=== PATIENT | female | born 1960 | race Caucasian/White ===

== ENCOUNTER 2018-09-29 12:20 | Emergency (ER) | payer SELFPAY ==
[2018-09-29 12:21] VITALS: BP 173/96; PULSE 70; RESP 17; TEMP 36.6; O2SAT 100; BMI 24.3
--- NOTE | 2018-09-29 12:31 | EKG12_ITS ---
Test Reason : CP Blood Pressure : / mmHG Vent. Rate : 072 BPM Atrial Rate : 072 BPM P-R Int : 130 ms QRS Dur : 092 ms QT Int : 412 ms P-R-T Axes : 027 009 -15 degrees QTc Int : 451 ms Normal sinus rhythm Nonspecific ST and T wave abnormality Abnormal ECG Confirmed by VEE DIOP, YOLANDA ([id number]), senior technical editor VIVI DILLON ([id number] on 10/03/2018 1:20:55 PM Referred By: TAYLOR Confirmed By:YOLANDA BAXTER MD
--- NOTE | 2018-09-29 12:31 | RAD_ITS ---
STUDY: X-RAY CHEST REASON FOR EXAM: Female, 58 years old. Chest pain. TECHNIQUE: Single AP portable view of the chest. COMPARISON: None. FINDINGS: EKG electrodes are seen. The lungs are clear and expanded. There is no demonstrated pleural abnormality. Normal size heart. Normal mediastinum and luz. Normal visualized pulmonary arteries. Normal visualized aortic arch and descending thoracic aorta. Normal visualized thoracic spine. Normal visualized ribs, clavicles, and shoulders. There is no demonstrated abnormality of the visualized soft tissue structures of the upper abdomen. RAD/Chest 1 View (Portable) IMPRESSION: Normal x-ray examination of the chest. Electronically Signed: Dylon Cooper MD at 13:16 EST Tel [phone], Service support ,
[2018-09-29 12:35] VITALS: O2SAT 100
[2018-09-29 12:47] LABS: Absolute Lymphocyte Count 2.58 X10^3/ul (0.83-4.51); Absolute Neutrophil Count 2.3 X10^3/uL (2.0-7.7); Basophil# 0.03 X10^3/uL; Basophil% 0.5 % (0-1); Eosinophil# 0.42 X10^3/uL; Hematocrit 39.4 % (37-47); Hemoglobin 12.9 g/dl (12.0-15.0); Lymphocyte # 2.58 X10^3/ul (4.0); Lymphocyte % 42.9 % (19-41); Mean Corp Hgb Conc 32.7 g/gl (32-36); Mean Corpuscular Hgb 29.7 pg (27.0-32.0); Mean Corpuscular Volume 90.6 fL (81-99); Mean Platelet Vol. 10.1 fl (6.2-12.0); Monocyte# 0.65 X10^3/uL; Monocyte% 10.8 % (0-10); Neutrophil # 2.33 X10^3/uL (2.7-7.7); Neutrophil % 38.6 % (47-70); POSITIVE COUNT NO; POSITIVE DIFFERENTIAL NO; POSITIVE MORPHOLOGY NO; Platelet Count 200 K/mm3 (150-450); RBC Distribution Width CV 14.4 % (11.6-14.6); RBC Distribution Width SD 47.1 fl (35.1-43.9); Red Blood Count 4.35 M/mm3 (4.2-5.4)
[2018-09-29 13:04] LABS: Anion Gap 6 (5-15); BUN 13 mg/dL (7-18); BUN/Creat Ratio 14.5 RATIO (10-20); Calcium,Total 9.4 mg/dL (8.5-10.1); Chloride 106 mmol/L (98-107); EST Glomerular Filtration Rate 69 mL/min (>60); Est Glom Filt Rate - Afr Amer 83 mL/min (>60); Estimated Creatinine Clearance 72.07 ml/min; Glucose 101 mg/dL (74-106); Potassium 3.5 mmol/L (3.5-5.1); Sodium Level 141 mmol/L (136-145)
[2018-09-29 13:24] VITALS: BP 134/91; PULSE 72; RESP 14; O2SAT 92
--- NOTE | 2018-09-29 13:56 | ED.VISSUMM ---
- ER Visit Summary Date of Service: 09/29/18 Chief Complaint: Chest pain, palpitations History of Present Illness: The patient is a 58 F who presents with the above symptoms. It started earlier today but she has been having episodes over the past couple of days. It is an aching in the left chest. Nothing makes it better or worse. She has associated lightheadedness and palpitations with this. The palpitations have been ongoing for 3 weeks. She has had no stress test in the past. She saw a nurse practitioner who ordered an echocardiogram and a Holter monitor as an outpatient. She has not done this yet. Does have a history of mitral valve prolapse Physical Examination: Vital signs reviewed. HEENT exam unremarkable. Heart is regular rate and rhythm without murmurs. Lungs are clear to auscultation. Abdomen is soft and nontender. Extremities reveal no edema. Peripheral pulses are equal. Skin exam normal. Neurologic exam normal. Test Results: EKG is sinus rhythm with nonspecific ST and T wave changes. Unchanged from an EKG that was done on September 24. Laboratory studies are normal Emergency Department Course and Treatment: Patient was given aspirin. Her JOHNNIE score is 0. She states that her pain is better. Her EKG is unchanged over the past 5 days. She does have some nonspecific ST and T wave changes. The last EKG before this week was in 2007. I feel the patient likely will need a stress test but I feel it can be done as an outpatient. She does not want to stay in the hospital. She will call her PCP today for follow-up. Treatment Plan: [] Disposition: Discharge Impression: Chest pain, palpitations This note was generated with [employer] dictation software. It may contain incorrect words, spelling, and punctuation that were not noted in review of the chart prior to signing ED Disposition - Plan for ED Patient: Chief Complaint: Chest Pain Referrals: Prasad Briceño III, MD [Primary Care Provider] -
--- NOTE | 2018-09-29 13:58 | ED.DEP ---
ED Disposition - Plan for ED Patient: Disposition: Home or Assisted Living Chief Complaint: Chest Pain Instructions: ED Chest Pain NonCardiac Referrals: Prasad Briceño III, MD [Primary Care Provider] -
[2018-09-29 14:16] VITALS: BP 149/91; PULSE 75; RESP 16; O2SAT 98
--- OUTSIDE RECORDS SUMMARY | 2019-01-01 03:42 | XMS RPT_ITS ---
:1960 Author Organization [facility] Care Team Providers Name Role Phone FIORELLA AGUILAR (BUSINESS LIAISON OFFICER) Referring Unavailable FIORELLA AGUILAR (BUSINESS LIAISON OFFICER) Referring Unavailable FIORELLA AGUILAR (BUSINESS LIAISON OFFICER) Referring Unavailable PRECIOUS ARAGON (DRAFT ROLLER PICKER) Referring Unavailable PRECIOUS ARAGON (DRAFT ROLLER PICKER) Attending Unavailable FIORELLA AGUILAR (BUSINESS LIAISON OFFICER) Attending Unavailable CEBUL III, PRASAD A Referring Unavailable PRECIOUS ARAGON (DRAFT ROLLER PICKER) Attending Unavailable PRECIOUS ARAGON (DRAFT ROLLER PICKER) Referring Unavailable Cebul III, Prasad Primary Care Unavailable Chris Preston Attending Unavailable PROBLEMS PROBLEMS DATE TYPE CONDITION / CODE ATTENDING STATUS SOURCE 10/03/2018 Active Palpitations / NA Active [facility] R00.2(ICD-10) Main [place] Repository 09/24/2018 Active Unknown / CORNIELLO, Active [facility] UNK(Unknown) FIORELLA Sanz (BUSINESS LIAISON OFFICER) [facility] [place] Repository 05/13/2018 Active Other specified NA Active [facility] disorders of bone, [facility] [place] shoulder / Repository M89.8X1(ICD-10) 03/03/2018 Active Encounter for NA Active [facility] screening for [facility] [place] malignant neoplasm Repository of colon / Z12.11(ICD-10) 03/03/2018 Active Effusion, right NA Active [facility] ankle / [facility] [place] M25.471(ICD-10) Repository 03/03/2018 Active Effusion, left ankle NA Active [facility] / M25.472(ICD-10) [facility] [place] Repository 03/03/2018 Active Encounter for NA Active [facility] screening for Main [place] cardiovascular Repository disorders / Z13.6(ICD-10) PROCEDURES PROCEDURES No Procedure Records FoundRESULTS RESULTS CNCO Observed: 11/04/2018 Status: COMPLETED Source: [place] 12:00 AM [facility] [place] REPOSITORY Letter Text [facility] Prasad Ballesteros III, M.D,F.A.A.Segun.P [address] [place], [place] [address] Rafat Delaney [address] [place] [address] 11/04/2018 To whom it may concern: I am responding to queries about 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 She was diagnosed with mitral valve prolapse prior to 2002, when my practice obtained an electronic medical record. We do not have access to the records prior to 2002, but I can assert that Rafat has not been seen for any office visit since then for mitral valve prolapse. She has not had any symptoms of this condition. She has never received any treatment for mitral valve prolapse, nor is she ever likely to need treatment. An echocardiogram obtained 10/03/18 showed trivial mitral valve prolapse with normal left ventricular function. I consider the condition to be benign and stable. If I may be of any additional assistance please let me know. Sincerely, Prasad Ballesteros III, M.D 12 LEAD ELECTROCARDIOGRAM Observed: 10/03/2018 Status: F Source: [place] 1:21 PM [facility] REPOSITORY [facility] Cardiovascular Services [address] [place], [place] [id number] 12 Lead EKG 09/29/18 1222 MR#: [id number] Acct: [id number] Name: RAFAT DELANEY Rep #: [id number] : 1960 58 From: David Nielsen MD Attending Dr: Status: DEP ER Ordering Dr: Chris Preston MD Date: 09/29/18 Location: ED Sex: F C Admitted: Test Reason : CP Blood Pressure : / mmHG Vent. Rate : 072 BPM Atrial Rate : 072 BPM P-R Int : 130 ms QRS Dur : 092 ms QT Int : 412 ms P-R-T Axes : 027 009 -15 degrees QTc Int : 451 ms Normal sinus rhythm Nonspecific ST and T wave abnormality Abnormal ECG Confirmed by VEE DIOP, DAVID ([id number]), film editor supervisor VIIV DILLON ([id number]) on 10/03/2018 1:20:55 PM Referred By: TAYLOR Confirmed By:DAVID NIELSEN MD 10/03/18 1321 Date David Nielsen MD CC: Prasad Briceño III, MD; Chris Preston MD Signed EMERGENCY DEPARTMENT Observed: 09/29/2018 Status: F Source: [place] SUMMARY 1:58 PM [facility] REPOSITORY [facility] Medical Records Department [address] [place] [address] Emergency Department Summary 09/29/18 1356 MR#: [id number] Acct: [id number] Name: RAFAT DELANEY Rep #: [id number] : 1960 58 From: Chris Preston MD PCP: Prasad Briceño III, MD Status: REG ER - ER Visit Summary Date of Service: 09/29/18 Chief Complaint: Chest pain, palpitations History of Present Illness: The patient is a 58 F who presents with the above symptoms. It started earlier today but she has been having episodes over the past couple of days. It is an aching in the left chest. Nothing makes it better or worse. She has associated lightheadedness and palpitations with this. The palpitations have been ongoing for 3 weeks. She has had no stress test in the past. She saw a nurse practitioner who ordered an echocardiogram and a Holter monitor as an outpatient. She has not done this yet. Does have a history of mitral valve prolapse Physical Examination: Vital signs reviewed. HEENT exam unremarkable. Heart is regular rate and rhythm without murmurs. Lungs are clear to auscultation. Abdomen is soft and nontender. Extremities reveal no edema. Peripheral pulses are equal. Skin exam normal. Neurologic exam normal. Test Results: EKG is sinus rhythm with nonspecific ST and T wave changes. Unchanged from an EKG that was done on September 24. Laboratory studies are normal Emergency Department Course and Treatment: Patient was given aspirin. Her JOHNNIE score is 0. She states that her pain is better. Her EKG is unchanged over the past 5 days. She does have some nonspecific ST and T wave changes. The last EKG before this week was in 2007. I feel the patient likely will need a stress test but I feel it can be done as an outpatient. She does not want to stay in the hospital. She will call her PCP today for follow-up. Treatment Plan: [] Disposition: Discharge Impression: Chest pain, palpitations This note was generated with [employer] dictation software. It may contain incorrect words, spelling, and punctuation that were not noted in review of the chart prior to signing ED Disposition - Plan for ED Patient: Chief Complaint: Chest Pain Referrals: Prasad Briceño III, MD [Primary Care Provider] - What to do if you have Problems For any increased pain, shortness of breath, bleeding, nausea or vomiting, chest pain, or any unexpected problems, contact your Primary Care Provider. Call [facility] ([phone]) or report to the closest Emergency Room. Call 911 if necessary. 09/29/18 1358 <Electronically signed by Chris Preston MD> Date Chris Preston MD Cosigner Signature (If Indicated): Date CC: Prasad Briceño III, MD DISCHARGE INSTRUCTION Observed: 09/29/2018 Status: F Source: [place] 1:58 PM [facility] REPOSITORY [facility] Medical Records Department [address] [place] [address] Discharge Instruction 09/29/18 1358 MR#: [id number] Acct: [id number] Name: RAFAT DELANEY Rep #: [id number] : 1960 58 From: Chris Preston MD PCP: Prasad Briceño III, MD Status: REG ER ED Disposition - Plan for ED Patient: Disposition: Home or Assisted Living Chief Complaint: Chest Pain Instructions: ED Chest Pain NonCardiac Referrals: Prasad Briceño III, MD [Primary Care Provider] - What to do if you have Problems For any increased pain, shortness of breath, bleeding, nausea or vomiting, chest pain, or any unexpected problems, contact your Primary Care Provider. Call [facility] ([phone]) or report to the closest Emergency Room. Call 911 if necessary. 09/29/18 7019 <Electronically signed by Chris Preston MD> Date Chris Preston MD Cosigner Signature (If Indicated): Date CC: Prasad Briceño III, MD CHEST 1 VIEW Observed: 09/29/2018 Status: F Source: [place] (PORTABLE) 12:32 PM [facility] REPOSITORY [facility] Imaging Services [address] [place] [address] Chest 1 View (Portable) MR#: [id number] Acct: [id number] Name: RHETTRAFAT L Rep #: [id number] : 1960 F 58 From: Dylon Cooper MD PCP: Prasad Birceño III, MD Status: REG ER Study: Chest 1 View (Portable) Date of Exam: 09/29/18 Exam# [id number] Ordering Dr: Chris Preston MD STUDY: X-RAY CHEST REASON FOR EXAM: Female, 58 years old. Chest pain. TECHNIQUE: Single AP portable view of the chest. COMPARISON: None. FINDINGS: EKG electrodes are seen. The lungs are clear and expanded. There is no demonstrated pleural abnormality. Normal size heart. Normal mediastinum and luz. Normal visualized pulmonary arteries. Normal visualized aortic arch and descending thoracic aorta. Normal visualized thoracic spine. Normal visualized ribs, clavicles, and shoulders. There is no demonstrated abnormality of the visualized soft tissue structures of the upper abdomen. RAD/Chest 1 View (Portable) IMPRESSION: Normal x-ray examination of the chest. Electronically Signed: Dylon Cooper MD at 13:16 EST Tel [phone], Service support , CC: Prasad Briceño III, MD; Chris Preston MD Mechanical Equipment Test Engineer: Signed CBC W/DIFF, AUTOMATED Collected: 09/29/2018 Status: F Source: [place] 12:30 PM [facility] REPOSITORY TYPE CODE TESTS RESULT OUT OF RANGE REFERENCE UNITS LAB L100.1000 4.4-11.0 K/mm3 Normal WBC 6.0 LAB L100.1200 4.2-5.4 M/mm3 Normal RBC 4.35 LAB L100.1300 12.0-15.0 g/dl Normal HGB 12.9 LAB L100.1400 37-47 % Normal HCT 39.4 LAB L100.1500 81-99 fL Normal MCV 90.6 LAB L100.1600 27.0-32.0 pg Normal MCH 29.7 LAB L100.1700 32-36 g/gl Normal MCHC 32.7 LAB L100.1810 11.6-14.6 % Normal RDW CV 14.4 LAB L100.1820 35.1-43.9 fl High RDW SD 47.1 LAB L100.1900 150-450 K/mm3 Normal PLT 200 LAB L100.2000 6.2-12.0 fl Normal MPV 10.1 LAB L100.2100 47-70 % Low NEUT% 38.6 LAB L100.2200 19-41 % High LY% 42.9 LAB L100.2300 0-10 % High MONO% 10.8 LAB L100.2400 0-5 % High EO% 7.0 LAB L100.2500 0-1 % Normal BASO% 0.5 LAB L100.2550 0.0-0.9 % Normal IM GRAN % 0.200 Result Comment: IG% - Immature Granulocytes (promyelocytes, myelocytes and metamyelocytes) > 1% indicates that a LEFT SHIFT is Present. LAB L100.2620 2.0-7.7 X10 3/uL Normal Absolute Neut 2.3 LAB L100.2720 0.83-4.51 X10 3/ul Normal Absolute Lymph 2.58 Performed By: #### L100.0100 #### [facility] [address] [place], [place], [address] BASIC METABOLIC Collected: 09/29/2018 Status: F Source: [place] PROFILE (BMP) 12:30 PM [facility] REPOSITORY TYPE CODE TESTS RESULT OUT OF RANGE REFERENCE UNITS LAB L501.0100 74-106 mg/dL Normal GLU 101 Result Comment: Fasting Glucose result from 100 to 125 mg/dL suggests IMPAIRED HOMEOSTASIS per A.D.A. criteria. Please note revised GLUCOSE reference range effective 2017. LAB L501.1000 7-18 mg/dL Normal BUN 13 LAB L501.1100 0.55-1.02 mg/dL Normal CREAT,SERUM 0.90 Result Comment: The validity of the calculated GFR AND GFRAA in patients over 70 years has not been determined. Clinical correlation is essential. LAB L501.1110 >60 mL/min Normal EST GFR 69 Result Comment: Non- GFR Calc LAB L501.1115 >60 mL/min Normal EST GFR - AA 83 Result Comment: GFR Calc LAB L501.1255 ml/min Normal Estimated CRCL 72.07 LAB L501.1300 10-20 RATIO Normal BUN/CRE 14.5 LAB L501.2200 8.5-10 mg/dL Normal .1 CA 9.4 LAB L501.5300 136-14 mmol/L Normal 5 NA 141 LAB L501.5600 3.5-5. mmol/L Normal 1 K 3.5 LAB L501.5900 98-107 mmol/L Normal CL 106 LAB L501.6100 21.0-3 mmol/L Normal 2.0 CO2 29.0 LAB L501.6200 5-15 Normal GAP 6 Performed By: #### L500.2500, L501.4010 #### [facility] [address] [facility] [address] [place], [place], [address] TROPONIN-I Collected: 09/29/2018 Status: F Source: [place] 12:30 PM [facility] REPOSITORY TYPE CODE TESTS RESULT OUT OF RANGE REFERENCE UNITS LAB L501.4010 <0.045 ng/mL Normal < 0.015 TROPONIN-I Result Comment: TROPONIN-I EXPECTED VALUES <0.045 Negative 0.045 - 0.590 Consistent with Cardiac Damage > OR = 0.600 Critical Value Not every elevated troponin is indicative of VT. These values should be used with clinical judgement in examining the patient's clinical picture for diagnosis. To establish a diagnosis of VT versus myocardial injury, there must be a demonstrated rise and/or fall in the troponin values, in addition to ischemic symptoms, EKG changes, new regional wall motion abnormality, and/or angiographical evidence. PLEASE NOTE: REFERENCE RANGES EDITED 18 Performed By: #### L500.2500, L501.4010 #### [facility] [place] [address], [address] CBC AND DIFFERENTIAL Collected: 09/24/2018 Status: F Source: [place] 10:48 AM [facility] REPOSITORY TYPE CODE TESTS RESULT OUT OF REFERENCE UNITS RANGE LAB WBC 3.70-11.00 k/uL WBC 5.27 LAB RBC 3.90-5.20 m/uL RBC 4.50 LAB HGB 11.5-15.5 g/dL Hemoglobin 13.2 LAB HCT 36.0-46.0 % Hematocrit 41.9 LAB MCV 80.0-100.0 fL MCV 93.1 LAB MCH 26.0-34.0 pG MCH 29.3 LAB MCHC 30.5-36.0 g/dL MCHC 31.5 LAB RDWCV 11.5-15.0 % RDW-CV 14.3 LAB PLTCT 150-400 k/uL Platelet Count 216 LAB MPV 9.0-12.7 fL MPV 10.6 LAB ANEUT % Neut% 42.1 LAB AANEUT 1.45-7.50 k/uL Abs Neut 2.22 LAB ALYMP % Lymph% 37.8 LAB AALYMP 1.00-4.00 k/uL Abs Lymph 1.99 LAB AMONO % [place]% 10.8 LAB AAMONO <0.87 k/uL Abs [place] 0.57 LAB AEOS % Eosin% 8.5 LAB AAEOS <0.46 k/uL Abs Eosin 0.45 LAB ABASO % Baso% 0.8 LAB AABASO <0.11 k/uL Abs Baso 0.04 LAB AUNRBC 0 /100 WBC NRBCs 0.0 LAB ABNRBC <0.01 k/uL Absolute nRBC <0.01 LAB DTYP DTYPE Auto Diff Performed By: #### CBCDIF, CMP, TSH, FT4, T3 #### [facility] [address] [place], [place] [address] COMP METABOLIC PANEL Collected: 09/24/2018 Status: F Source: [place] 10:48 AM [facility] REPOSITORY TYPE CODE TESTS RESULT OUT OF REFERENCE UNITS RANGE LAB TP 6.3-8.0 g/dL Protein, Total 7.8 LAB ALB 3.9-4.9 g/dL Albumin 4.9 LAB CA 8.5-10.2 mg/dL Calcium, Total 9.7 LAB TBIL 0.2-1.3 mg/dL Bilirubin, Total 0.5 LAB ALKP 34-123 U/L Alkaline Phosphatase 61 LAB AST 13-35 U/L AST 30 LAB GLU 74-99 mg/dL Glucose 94 Result Comment: The [place] [employer] Association (ADA) provides guidance for cutoff values for fasting glucose and random glucose. The ADA defines fasting as no caloric intake for at least 8 hours. Fas ting plasma glucose results between 100 to 125 mg/dL indicate increased risk for diabetes (prediabetes). Fasting plasma glucose results greater than or equal to 126 mg/dL meet the criteria for diagnosis of diabetes. In the absence of unequivocal hyperglycemia, results should be confirmed by repeat testing. In a patient with classic symptoms of hyperglycemia or hyperglycemic crisis, random plasma glucose results greater than or equal to 200 mg/dL meet the criteria for diagnosis of diabetes. Reference: Standards of Medical Care in Diabetes 2016, [place] [employer] Association. Diabetes Care. 2016.39(Suppl 1). LAB BUN 7-21 mg/dL BUN 11 LAB CRET 0.58-0.96 mg/dL Creatinine 0.80 LAB NA 136-144 mmol/L Sodium 143 LAB K 3.7-5.1 mmol/L Potassium 4.7 LAB CL 97-105 mmol/L Chloride 104 LAB CO2 22-30 mmol/L CO2 27 LAB AGAP 9-18 mmol/L Anion Gap 12 LAB ALT 7-38 U/L ALT 20 LAB GFRAA eGFR- Amer. >60 LAB GFRNAA . eGFR-All Other Races >60 Result Comment: eGFR (Estimated GFR) Units of measure: mL/min/1.73 meters squared eGFR is derived from the reexpressed MDRD Study equation using the following parameters: serum creatinine, age, gender and race. The creatinine assay has been calibrated to be traceable to IDMS. An eGFR <60 mL/min/1.73m2 for >3 months is consistent with chronic kidney disease. Refer to KDOQI guidelines for clinical interpretation. In patients with unstable renal function, e.g. those with acute kidney injury, the eGFR may not accurately reflect actual GFR. Performed By: #### CBCDIF, CMP, TSH, FT4, T3 #### [facility] [address] [address] TSH Collected: 09/24/2018 Status: F Source: [place] 10:48 AM [facility] REPOSITORY TYPE CODE TESTS RESULT OUT OF RANGE REFERENCE UNITS LAB TSH 0.400-5.500 uU/mL TSH 2.420 Performed By: #### CBCDIF, CMP, TSH, FT4, T3 #### [place] [address] FREE T4 Collected: 09/24/2018 Status: F Source: [place] 10:48 AM [facility] REPOSITORY TYPE CODE TESTS RESULT OUT OF RANGE REFERENCE UNITS LAB FT4 0.9-1.7 ng/dL Free T4 1.3 Performed By: #### CBCDIF, CMP, TSH, FT4, T3 #### [place] [address] T3 Collected: 09/24/2018 Status: F Source: [facility] 10:48 AM [facility] REPOSITORY TYPE CODE TESTS RESULT OUT OF RANGE REFERENCE UNITS LAB T3 79-165 ng/dL T3 96 Performed By: #### CBCDIF, CMP, TSH, FT4, T3 #### [place] [address] ECG COMPLETE W Observed: 09/24/2018 Status: F Source: [place] INTERPRETATION 10:04 AM [facility] REPOSITORY NAME : RAFAT DELANEY PID : [id number] : 1960 Gender : Female Race : Unknown ORD : [id number] Procedure Date : Sep 24 2018 10:04:32 Edit Date : Oct 12 2018 08:52:27 Diagnosis:NORMAL SINUS RHYTHM POSSIBLE LEFT ATRIAL ENLARGEMENT NONSPECIFIC ST AND T WAVE ABNORMALITY ABNORMAL ECG Confirmed by JOSETTE RANGEL D.O. ([id number]) on 10/12/2018 8:52:24 AM Ventricular Rate : 62 BPM Atrial Rate : 62 BPM P-R Interval : 160 ms QRS Duration : 92 ms Q-T Interval : 440 ms QTC Calculation(Bezet) : 446 ms P [place] : 48 degrees R [place] : 0 degrees T [place] : -15 degrees Test Reason : Location : 185 : [facility] Overread By : JOSETTE RANGEL D.O. Edited By : JOSETTE RANGEL D.O. Referred By : FIORELLA AGUILAR Acquired by : TRISTA PROGRESS Observed: 09/24/2018 Status: COMPLETED Source: [place] 9:40 AM [facility] [place] REPOSITORY HNO ID: [id number] Author: Fiorella Sanz (Acquisition Advisor) Lauren Service: (none) Author Type: Nurse Practitioner Type: Progress Notes Filed: 09/24/2018 10:17 AM Note Text: HPI/CC: Rafat Delaney is a 58 year old female who presents for Palpitations (x 3 weeks heart palpitations getting worse. Yesterday with + chest tightness, + chest pain/ache , lightheaded, tingling hands( bilateral), nausea, constant for a few hours. + edema bilateral ( this is not new). Denies syncope, vomiting, diaphoresis, abdominal pain, fever, chills, cough Cardiology >10 years ago. + Hx of MVP and MVR. No recent cardiology. ROS as above, otherwise non-contributory. Reviewed PMHx, PSHx, social Hx, medications and allergies. PHYSICAL EXAMINATION: BP 132/98 (BP Site: Left Arm, BP Position: Sitting, BP Cuff Size: Large Adult) Pulse 62 Temp 36.2 ?C (97.2 ?F) (Temporal Artery) Resp 18 Wt 74.4 kg (164 lb) LMP 09/21/2013 BMI 24.22 kg/m? eneral appearance: Well appearing, alert, in no acute distress, well-hydrated, well nourished. Skin: Skin color, texture, turgor normal, no suspicious rashes or lesions Head: Normocephalic Eyes: Anicteric sclera. Ears: External ears normal Neck: Supple, no adenopathy; thyroid symmetric, normal size, no bruits Lungs: lungs clear to auscultation. No wheezing, rhonchi, rales Heart: RRR without murmur, gallop, or rubs. No ectopy. ECG SR possible left atrial enlargement, nonspecific ST T wave abnormality. No previous ECG to compare. Abdomen: Normal abdominal exam, Abdomen soft, non-tender. Bowel sounds normal. No masses, organomegaly Extremities: + bilateral LE +1 slightly pitting edema Peripheral pulses: Normal Neuro: Gait normal.. Sensation grossly intact. ASSESSMENT/PLAN: 1. Palpitations - ICD9: 785.1, ICD10: R00.2 - CBC + DIFF - COMP METABOLIC PANEL - TSH BLD - T3 BLD - T4 FREE/FREE THYROX - HOLTER MONITOR 48 HOUR - ECHO - PERFLUTREN LIPID MICROSPHERES 1.1 MG/ML INTRAVENOUS SUSPENSION - f/u with PC in 4-6 weeks or before if worse. - discussed red flag symptoms and when to go to ER. Fiorella Aguilar APRN.CNP CNOV Observed: 09/24/2018 Status: COMPLETED Source: [place] 9:20 AM [facility] REPOSITORY Office Visit (FAMPWS) RAFAT DELANEY ([id number]) 1960 F Date Time Provider Department 09/24/18 9:20 AM FIORELLA AGUILAR ([facility]) FAMPWS During your visit today, we recorded the following information about you: Temperature Pulse Respiration Blood pressure 97.2 degrees 62/minute 18/minute 132/98 Weight 74.4 kg Fiorella Aguilar APRN.CNP 09/24/2018 10:17 AM Signed HPI/CC: Rafat Delaney is a 58 year old female who presents for Palpitations (x 3 weeks heart palpitations getting worse. Yesterday with + chest tightness, + chest pain/ache , lightheaded, tingling hands( bilateral), nausea, constant for a few hours. + edema bilateral ( this is not new). Denies syncope, vomiting, diaphoresis, abdominal pain, fever, chills, cough Cardiology >10 years ago. + Hx of MVP and MVR. No recent cardiology. ROS as above, otherwise non-contributory. Reviewed PMHx, PSHx, social Hx, medications and allergies. PHYSICAL EXAMINATION: BP 132/98 (BP Site: Left Arm, BP Position: Sitting, BP Cuff Size: Large Adult) Pulse 62 Temp 36.2 ?C (97.2 ?F) (Temporal Artery) Resp 18 Wt 74.4 kg (164 lb) LMP 09/21/2013 BMI 24.22 kg/m? eneral appearance: Well appearing, alert, in no acute distress, well-hydrated, well nourished. Skin: Skin color, texture, turgor normal, no suspicious rashes or lesions Head: Normocephalic Eyes: Anicteric sclera. Ears: External ears normal Neck: Supple, no adenopathy; thyroid symmetric, normal size, no bruits Lungs: lungs clear to auscultation. No wheezing, rhonchi, rales Heart: RRR without murmur, gallop, or rubs. No ectopy. ECG SR possible left atrial enlargement, nonspecific ST T wave abnormality. No previous ECG to compare. Abdomen: Normal abdominal exam, Abdomen soft, non-tender. Bowel sounds normal. No masses, organomegaly Extremities: + bilateral LE +1 slightly pitting edema Peripheral pulses: Normal Neuro: Gait normal.. Sensation grossly intact. ASSESSMENT/PLAN: 1. Palpitations - ICD9: 785.1, ICD10: R00.2 - CBC + DIFF - COMP METABOLIC PANEL - TSH BLD - T3 BLD - T4 FREE/FREE THYROX - HOLTER MONITOR 48 HOUR - ECHO - PERFLUTREN LIPID MICROSPHERES 1.1 MG/ML INTRAVENOUS SUSPENSION - f/u with PC in 4-6 weeks or before if worse. - discussed red flag symptoms and when to go to ER. BHUPENDRA Coreas APRN.CNP 09/24/2018 10:11 AM Signed ASSESSMENT/PLAN: 1. Palpitations - ICD9: 785.1, ICD10: R00.2 - CBC + DIFF - COMP METABOLIC PANEL - TSH BLD - T3 BLD - T4 FREE/FREE THYROX - HOLTER MONITOR 48 HOUR - ECHO - PERFLUTREN LIPID MICROSPHERES 1.1 MG/ML INTRAVENOUS SUSPENSION Call 911 if chest pain or pressure or shortness of breath. BHUPENDRA Coreas APRN.CNP 09/24/2018 10:44 AM Signed Addended by: FIORELLA AGUILAR CNP on: 09/24/2018 10:44 AM Modules accepted: Orders Referring Provider: PRASAD BRICEÑO III [[id number]] Allergies As of Date: 09/24/2018 Noted Allergy Reaction Environmental allergies [Other] 03/11/2007 Comments: Cats, dogs, trees, grasses, weeds, ragweed Exercise Induced Anaphylaxis [Oth*02/27/2010 7 - Swelling 10 - Anaphylaxis 12 - Shortness of Breath PEANUTS 02/07/2006 7 - Swelling Date Reviewed: 09/24/2018 Reviewed by: Paula Guo LPN - Fully Assessed Reason for Visit: Palpitations [79] Cmt: x 3 weeks heart palpitations getting worse Primary Visit Diagnosis:Palpitations [R00.2] Other Visit Diagnoses:Chest pain, unspecified type [R07.9] SOB (shortness of breath) [R06.02] Order(s):CBC + DIFF [SQCBCDIF] Order #: [id number] FUTURE COMP METABOLIC PANEL [SQCMP] Order #: [id number] FUTURE TSH BLD [SQTSH] Order #: [id number] FUTURE T3 BLD [SQT3] Order #: [id number] FUTURE T4 FREE/FREE THYROX [SQFT4] Order #: [id number] FUTURE HOLTER MONITOR 48 HOUR [6410929] Order #: [id number] FUTURE ECHO [548021] Order #: [id number]: 1 FUTURE perflutren lipid microspheres (DEFINITY) 1.1 mg/mL injection (to be provided with echo procedure)Inject 1.3 mL intravenously as directed.Disp: 1.3 mLRfl: 0 ECG COMPLETE W INTERPRETATION [ECG01] Order #: [id number] FUTURE Prescriptions as of 09/24/2018 Sig: VITAMIN C 1,000 MG TABLET Take one(1) tablet four times* ZYRTEC 10 MG TABLET Take one(1) tablet daily. 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 Palpitations - ICD9: 785.1, ICD10: R00.2 - CBC + DIFF - COMP METABOLIC PANEL - TSH BLD - T3 BLD - T4 FREE/FREE THYROX - HOLTER MONITOR 48 HOUR - ECHO - PERFLUTREN LIPID MICROSPHERES 1.1 MG/ML INTRAVENOUS SUSPENSION Call 911 if chest pain or pressure or shortness of breath. Fiorella Aguilar APRN.KRYSTAL Prescriptions ordered this encounter Disp Refills Start End PERFLUTREN LIPID MICROSPHERES 1.1 MG* 1.3 * 0 09/24/2018 09/24/2019 Class: In Office Route: INTRAVENOUS Sig: Inject 1.3 mL intravenously as directed. Medications Discontinued During This Encounter meloxicam (MOBIC) 15 mg tablet 90 t* 0 11/16/2016 09/24/2018 Route: ORAL Sig: Take 1 tablet by mouth once daily. Disc: Reason for discontinue is not on file. Encounter Status:Closed by FIORELLA AGUILAR CNP on 09/24/18 XR CLAVICLE 2V RT Observed: 05/13/2018 Status: F Source: [place] 9:37 AM [facility] REPOSITORY * * *Final Report* * * DATE OF EXAM: May 13 2018 9:37AM [id number] - XR CLAVICLE 2V RT / PROCEDURE REASON: Other specified disorders of bone, shoulder * * * * Physician Interpretation * * * * HISTORY: 57-YEAR-OLD FEMALE WITH Other specified disorders of bone, shoulder . pt states noticed a month ago that the right clavicle sticks out and looks much bigger than the left. no inj TECHNIQUE: XR CLAVICLE 2V RT Laterality: RIGHT Number of different views (projections): 2 COMPARISON: None RESULT: The clavicle is normal in appearance. No contour deformity. Acromioclavicular joint demonstrates minimal degenerative changes sternoclavicular joint appears intact. IMPRESSION: NO ACUTE BONY ABNORMALITY AND NO BONY DEFORMITY. Mechanical Equipment Test Engineer: PSCB Transcribe Date/Time: May 13 2018 12:06P Dictated by : LEANDRO MORGAN MD This examination was interpreted and the report reviewed and electronically signed by: LEANDRO MORGAN MD on May 13 2018 12:08PM EST [id number] PROGRESS Observed: 05/13/2018 Status: COMPLETED Source: [place] 9:29 AM [facility] REPOSITORY HNO ID: [id number] Author: Nicole CastleRt) Oni You Service: (none) Author Type: City Constable Type: Progress Notes Filed: 05/13/2018 9:37 AM Note Text: Radiology Service Progress Note PATIENT NAME: Rafat Delaney DATE OF SERVICE: May 13, 2018 TIME: 9:29 AM PATIENT IDENTITY VERIFICATION COMPLETED USING TWO (2) METHODS: Patient confirmed name verbally and Date of . PATIENT GENDER DATA: Female. status: : No status: NO. PATIENT RELEVANT IMPLANT DATA REVIEWED: Not Applicable RADIOLOGY DEPARTMENT: General X-ray: Exam(s) Completed: Upper Extremity X-Ray(s): Clavicle, right : PERIPHERAL IV DATA: Not applicable SIGNED BY: RT Madi May 13, 2018 9:29 AM PROGRESS Observed: 05/13/2018 Status: COMPLETED Source: [place] 8:50 AM [facility] REPOSITORY HNO ID: [id number] Author: Precious Aragon Service: (none) Author Type: Nurse Practitioner Type: Progress Notes Filed: 05/13/2018 9:09 AM Note Text: Chief Complaint Patient presents with: Mass: patient states has lump on collar bone HPI Rafat Delaney is a 57 year old female who presents here today for Above Complaints. Noticed approx one month ago, bony prominence to right clavicle midline. Thinks has gotten slightly larger. Denies any pain, no mobility limitations. Noticeable to family members. She also notes a small red spot on top of prominence that was present prior to noticine bony prominence. The ROS is otherwise negative. Past medical history, appointments, medications, allergies reviewed. Patient Allergies ALLERGIES Allergen Reactions - Environmental Aller* Cats, dogs, trees, grasses, weeds, ragweed - Exercise Induced An* Swelling, Anaphylaxis, Shortness of Breath - Peanuts Swelling Current Medications Current Outpatient Prescriptions on File Prior to Visit: ascorbic acid(VITAMIN C 1,000 MG TAB) Take one(1) tablet four times daily. cetirizine hcl(ZYRTEC 10 MG TAB) Take one(1) tablet daily. epinephrine(EPIPEN 0.3 MG/0.3 ML (1:1,000) IM INJECTOR) use as directed for allergic reaction. Seek emergent medical care immediately after use. diphenhydrAMINE (BENADRYL) 25 mg ORAL Cap take one to two tablets every 6 hours as needed. meloxicam (MOBIC) 15 mg tablet Take 1 tablet by mouth once daily. No current facility-administered medications on file prior to visit. 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 months - Lyme disease 01/19 - Mitral valve disorders(424.0) Previous Surgical History PAST SURGICAL HISTORY Procedure Laterality Date - DANDC, DIAG AND/OR THERAPEUTIC Dilation AND curettage X 3 Family History FAMILY HISTORY Problem Relation Age of Onset - Hypertension Mother - Lipids Mother - Hypertension Brother - Lipids Brother - Hypertension Brother - Lipids Brother Social History Social History Marital status: Spouse name: JOSETTE Years of education: 14 Number of children: 8 Occupational 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 General Appearance: Well appearing, alert, in no acute distress, well-hydrated, well nourished.. Neck: Supple, no adenopathy; thyroid symmetric, normal size, Lungs: Lungs clear to auscultation. No wheezing, rhonchi, rales. Heart: RRR without murmur, gallop, or rubs. No ectopy. Musculoskeletal: Full RANGE OF MOTION to neck, right shoulder without pain or limitations. Positive: Prominent, firm, non-mobile bony prominence to proximal right clavicle. More noticeable with head turned. Superficial cluster of blood vessels 3mm diameter over top of bony prominence. ASSESSMENT/PLAN: 1. Abnormal prominence of clavicle - ICD9: 733.99, ICD10: M89.8X1 (primary diagnosis) - Will get xray today. - XR CLAVICLE 2V RT 2. Screening mammogram, encounter for - ICD9: V76.12, ICD10: Z12.31 - Set up for mammogram, yearly mammogram recommended - Follow up for annual exam in one year. - JULIETA SCREENING Precious Aragon MSN LAMP CLEANER.BUSINESS LIAISON OFFICER CNOV Observed: 05/13/2018 Status: COMPLETED Source: [place] 8:40 AM [facility] REPOSITORY Office Visit (FAMPWS) RAFAT DELANEY ([id number]) 1960 F Date Time Provider Department 05/13/18 8:40 AM PRECIOUS ARAGON (DRAFT ROLLER PICKER) FAMPWS During your visit today, we recorded the following information about you: Temperature Pulse Respiration Blood pressure 97.4 degrees 72/minute 16/minute 112/78 Weight 73.5 kg THELMA Vicente LAMP CLEANER.BUSINESS LIAISON OFFICER 05/13/2018 9:09 AM Signed Chief Complaint Patient presents with: Mass: patient states has lump on collar bone HPI Rafat Yvon Rhett is a 57 year old female who presents here today for Above Complaints. Noticed approx one month ago, bony prominence to right clavicle midline. Thinks has gotten slightly larger. Denies any pain, no mobility limitations. Noticeable to family members. She also notes a small red spot on top of prominence that was present prior to noticine bony prominence. The ROS is otherwise negative. Past medical history, appointments, medications, allergies reviewed. Patient Allergies ALLERGIES Allergen Reactions - Environmental Aller* Cats, dogs, trees, grasses, weeds, ragweed - Exercise Induced An* Swelling, Anaphylaxis, Shortness of Breath - Peanuts Swelling Current Medications Current Outpatient Prescriptions on File Prior to Visit: ascorbic acid(VITAMIN C 1,000 MG TAB) Take one(1) tablet four times daily. cetirizine hcl(ZYRTEC 10 MG TAB) Take one(1) tablet daily. epinephrine(EPIPEN 0.3 MG/0.3 ML (1:1,000) IM INJECTOR) use as directed for allergic reaction. Seek emergent medical care immediately after use. diphenhydrAMINE (BENADRYL) 25 mg ORAL Cap take one to two tablets every 6 hours as needed. meloxicam (MOBIC) 15 mg tablet Take 1 tablet by mouth once daily. No current facility-administered medications on file prior to visit. 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 months - Lyme disease 01/19 - Mitral valve disorders(424.0) Previous Surgical History PAST SURGICAL HISTORY Procedure Laterality Date - DANDC, DIAG AND/OR THERAPEUTIC Dilation AND curettage X 3 Family History FAMILY HISTORY Problem Relation Age of Onset - Hypertension Mother - Lipids Mother - Hypertension Brother - Lipids Brother - Hypertension Brother - Lipids Brother Social History Social History Marital status: Spouse name: JOSETTE Years of education: 14 Number of children: 8 Occupational 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 General Appearance: Well appearing, alert, in no acute distress, well-hydrated, well nourished.. Neck: Supple, no adenopathy; thyroid symmetric, normal size, Lungs: Lungs clear to auscultation. No wheezing, rhonchi, rales. Heart: RRR without murmur, gallop, or rubs. No ectopy. Musculoskeletal: Full RANGE OF MOTION to neck, right shoulder without pain or limitations. Positive: Prominent, firm, non-mobile bony prominence to proximal right clavicle. More noticeable with head turned. Superficial cluster of blood vessels 3mm diameter over top of bony prominence. ASSESSMENT/PLAN: 1. Abnormal prominence of clavicle - ICD9: 733.99, ICD10: M89.8X1 (primary diagnosis) - Will get xray today. - XR CLAVICLE 2V RT 2. Screening mammogram, encounter for - ICD9: V76.12, ICD10: Z12.31 - Set up for mammogram, yearly mammogram recommended - Follow up for annual exam in one year. - [facility] SCREENING Precious Aragon, MSN LAMP CLEANER.BUSINESS LIAISON OFFICER Referring Provider: SELF [[id number]] Allergies As of Date: 05/13/2018 Noted Allergy Reaction Environmental allergies [Other] 03/11/2007 Comments: Cats, dogs, trees, grasses, weeds, ragweed Exercise Induced Anaphylaxis [Oth*02/27/2010 7 - Swelling 10 - Anaphylaxis 12 - Shortness of Breath PEANUTS 02/07/2006 7 - Swelling Date Reviewed: 05/13/2018 Reviewed by: Amaya Galeas LPN - Fully Assessed Reason for Visit: Mass [64] Cmt: patient states has lump on collar bone Primary Visit Diagnosis:Abnormal prominence of clavicle [M89.8X1] Other Visit Diagnosis:Screening mammogram, encounter for [Z12.31] Order(s):[facility] SCREENING [[id number]] Order #: [id number] FUTURE XR CLAVICLE 2V RT [[id number]] Order #: [id number] FUTURE Prescriptions as of 05/13/2018 Sig: VITAMIN C 1,000 MG TABLET Take one(1) tablet four times* ZYRTEC 10 MG TABLET Take one(1) tablet daily. 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] INVALID FOR* Peripheral venous insufficiency [I87.2] INVALID FOR* Encounter Status:Closed by PRECIOUS ARAGON CNP on 05/13/18 CBC Collected: 03/03/2018 Status: F Source: [place] 8:22 AM [facility] REPOSITORY TYPE CODE TESTS RESULT OUT OF REFERENCE UNITS RANGE LAB WBC 3.70-11.00 k/uL WBC 4.65 LAB RBC 3.90-5.20 m/uL RBC 4.29 LAB HGB 11.5-15.5 g/dL Hemoglobin 12.5 LAB HCT 36.0-46.0 % Hematocrit 40.0 LAB MCV 80.0-100.0 fL MCV 93.2 LAB MCH 26.0-34.0 pG MCH 29.1 LAB MCHC 30.5-36.0 g/dL MCHC 31.3 LAB RDWCV 11.5-15.0 % RDW-CV 14.2 LAB PLTCT 150-400 k/uL Platelet Count 198 LAB MPV 9.0-12.7 fL MPV 10.9 LAB ABSNUC <0.01 k/uL Absolute nRBC <0.01 Performed By: #### CBC, CMP, LIPB, TSH #### [facility] [address] [place], [place] [address] COMP METABOLIC PANEL Collected: 03/03/2018 Status: F Source: [place] 8:22 AM [facility] REPOSITORY TYPE CODE TESTS RESULT OUT OF REFERENCE UNITS RANGE LAB TP 6.3-8.0 g/dL Protein, Total 7.5 LAB ALB 3.9-4.9 g/dL Albumin 4.6 LAB CA 8.5-10.2 mg/dL Calcium, Total 9.3 LAB TBIL 0.2-1.3 mg/dL Bilirubin, Total 0.4 LAB ALKP 32-117 U/L Alkaline Phosphatase 52 LAB AST 13-35 U/L AST 27 LAB GLU 74-99 mg/dL Glucose 86 Result Comment: The [place] Diabetes Association (ADA) provides guidance for cutoff values for fasting glucose and random glucose. The ADA defines fasting as no caloric intake for at least 8 hours. Fas ting plasma glucose results between 100 to 125 mg/dL indicate increased risk for diabetes (prediabetes). Fasting plasma glucose results greater than or equal to 126 mg/dL meet the criteria for diagnosis of diabetes. In the absence of unequivocal hyperglycemia, results should be confirmed by repeat testing. In a patient with classic symptoms of hyperglycemia or hyperglycemic crisis, random plasma glucose results greater than or equal to 200 mg/dL meet the criteria for diagnosis of diabetes. Reference: Standards of Medical Care in Diabetes 2016, [place] Diabetes Association. Diabetes Care. 2016.39(Suppl 1). LAB BUN 7-21 mg/dL BUN 16 LAB CRET 0.58-0.96 mg/dL Creatinine 0.93 LAB NA 136-144 mmol/L Sodium 142 LAB K 3.7-5.1 mmol/L Potassium 3.9 LAB CL 97-105 mmol/L Chloride 104 LAB CO2 22-30 mmol/L CO2 26 LAB AGAP 9-18 mmol/L Anion Gap 12 LAB ALT 7-38 U/L ALT 17 LAB GFRAA eGFR- Amer. >60 LAB GFRNAA . eGFR-All Other Races >60 Result Comment: eGFR (Estimated GFR) Units of measure: mL/min/1.73 meters squared eGFR is derived from the reexpressed MDRD Study equation using the following parameters: serum creatinine, age, gender and race. The creatinine assay has been calibrated to be traceable to IDMS. An eGFR <60 mL/min/1.73m2 for >3 months is consistent with chronic kidney disease. Refer to KDOQI guidelines for clinical interpretation. In patients with unstable renal function, e.g. those with acute kidney injury, the eGFR may not accurately reflect actual GFR. Performed By: #### CBC, CMP, LIPB, TSH #### [facility] [address], [place] [address] LIPID PANEL, BASIC Collected: 03/03/2018 Status: F Source: [place] 8:22 AM [facility] REPOSITORY TYPE CODE TESTS RESULT OUT OF REFERENCE UNITS RANGE LAB CHOL <200 mg/dL Cholesterol High 231 Result Comment: <200 mg/dL, Desirable 200-239 mg/dL, Borderline high >239 mg/dL, High LAB TRIGLY <150 mg/dL Triglyceride 50 Result Comment: <150 mg/dL, Normal 150-199 mg/dL, Borderline high 200-499 mg/dL, High >499 mg/dL, Very high LAB HDL >39 mg/dL HDL-Cholesterol 102 Result Comment: 40-59 mg/dL, Acceptable >59 mg/dL, High: Negative risk factor for coronary heart disease <40 mg/dL, Low: Positive risk factor for coronary heart disease LAB LDL <100 mg/dL LDL-Cholesterol High 119 Result Comment: <100 mg/dL, Optimal 100-129 mg/dL, Near optimal/above optimal 130-159 mg/dL, Borderline high 160-189 mg/dL, High >189 mg/dL, Very high Secondary prevention optimal LDL Cholesterol levels are recommended to be < 70 mg/dL LAB NONHDL <130 mg/dL Non HDL Cholesterol 129 Result Comment: <130 mg/dL, Optimal 130-159 mg/dL, Near optimal/above optimal 160-189 mg/dL, Borderline high 190-219 mg/dL, High >219 mg/dL, Very high Secondary prevention optimal non HDL Cholesterol levels are recommended to be < 100 mg/dL LAB FT hrs Fasting Time 12 LAB VLDL <30 mg/dL VLDL Cholesterol 10 LAB TCHDL <5.10 TC:HDL Ratio 2.26 LAB LDLHDL <2.54 LDL:HDL Ratio 1.17 Result Comment: Reference: 1. National Cholesterol Education Program ATP III Guideline At-A-Glance Quick Desk Reference: National Heart, Lung, and Blood [place]. National Institutes of Health. 2001: NIH Publication No. 01-3305. 2. An International Atherosclerosis Society position paper: global recommendations for the management of dyslipidemia: executive summary, Atherosclerosis. 2014: 232(2):410-413. Performed By: #### CBC, CMP, LIPB, TSH #### [facility] [address] [id number] TSH Collected: 03/03/2018 Status: F Source: [place] 8:22 AM [facility] REPOSITORY TYPE CODE TESTS RESULT OUT OF RANGE REFERENCE UNITS LAB TSH 0.400-5.500 uU/mL TSH 3.680 Performed By: #### CBC, CMP, LIPB, TSH #### [facility] [address], [place] [address] FECAL OCCULT BLD Collected: 03/03/2018 Status: F Source: [place] TST 7:30 AM [facility] REPOSITORY TYPE CODE TESTS RESULT OUT OF REFERENCE UNITS RANGE LAB IFO Negative Immuno Negative FOB Result Comment: This test was developed and its performance characteristics determined by [facility] [place] ([facility]). It has not been cleared or approved by the FDA. -[facility] is regulated under CLIA as qualified to perform high-complexity testing. This test is used for clinical purposes. It should not be regarded as investigational or for research. Performed By: #### IFOBT #### [facility] [address], [place] [address] PROGRESS Observed: 02/27/2018 Status: COMPLETED Source: [place] 8:09 AM [facility] REPOSITORY HNO ID: [id number] Author: Precious Putnam (Gisell) Mahesh Service: (none) Author Type: Nurse Practitioner Type: Progress Notes Filed: 02/27/2018 8:43 AM Note Text: Chief Complaint Patient presents with: Edema: bilateral ankles x 2 months HPI Rafat Delaney is a 57 year old female who presents here today for Above Complaints. L>R. Has noticed for few years puffy ankles following lengthy travel, would remain puffy for few days. Took trip in November and again noted swelling to both ankles for several days following. Eventually significant swelling resolves but does linger for few days. Typically most days, swelling is down in the morning after night's sleep and gradually progresses throughout the day. Denies any pain to either lower extremity. No skin discoloration. She denies any chest pain, SOB or exertional shortness of breath. She walks for exercise 2-3 miles daily. H/o MVP with rare palpitation. Past medical history, appointments, medications, allergies reviewed. 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 months - Lyme disease 01/19 - Mitral valve disorders(424.0) Previous Surgical History PAST SURGICAL HISTORY Procedure Laterality Date - DANDC, DIAG AND/OR THERAPEUTIC Dilation AND curettage X 3 Family History FAMILY HISTORY Problem Relation Age of Onset - Hypertension Mother - Lipids Mother - Hypertension Brother - Lipids Brother - Hypertension Brother - Lipids Brother Patient Allergies ALLERGIES Allergen Reactions - Environmental Aller* Cats, dogs, trees, grasses, weeds, ragweed - Exercise Induced An* Swelling, Anaphylaxis, Shortness of Breath - Peanuts Swelling Current Medications Current Outpatient Prescriptions on File Prior to Visit: ascorbic acid(VITAMIN C 1,000 MG TAB) Take one(1) tablet four times daily. cetirizine hcl(ZYRTEC 10 MG TAB) Take one(1) tablet daily. epinephrine(EPIPEN 0.3 MG/0.3 ML (1:1,000) IM INJECTOR) use as directed for allergic reaction. Seek emergent medical care immediately after use. diphenhydrAMINE (BENADRYL) 25 mg ORAL Cap take one to two tablets every 6 hours as needed. meloxicam (MOBIC) 15 mg tablet Take 1 tablet by mouth once daily. No current facility-administered medications on file prior to visit. 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 GENERAL: No weight loss, malaise or fevers RESPIRATORY: Negative for cough, hemoptysis, wheezing, COPD, dyspnea or shortness of breath CARDIOVASCULAR: Negative for chest pain, leg swelling, hypertension, CHF or palpitations EXAM: BP 120/86 (BP Site: Right Arm, BP Position: Sitting, BP Cuff Size: Regular Adult) Pulse 60 Temp 36.6 ?C (97.9 ?F) (Tympanic) Resp 16 Wt 73.5 kg (162 lb) LMP 09/21/2013 BMI 23.92 kg/m? General Appearance: Well appearing, alert, in no acute distress, well-hydrated, well nourished.. Skin: Skin color, texture, turgor normal, no suspicious rashes or lesions. Neck: Supple, no adenopathy; thyroid symmetric, normal size, Lungs: Lungs clear to auscultation. No wheezing, rhonchi, rales. Heart: RRR without murmur, gallop, or rubs. No ectopy. Extremities: No deformities, edema, skin discoloration, clubbing or cyanosis. Good capillary refill. , Edema: Trace, non-pitting, diffuse, swelling to bilateral ankles. + superficial varicose veins noted. Health Maintenance List DTAP,TDAP,TD(1 - Tdap) due on 1980 HEPATITIS C SCREENING due on 2005 COLORECTAL CANCER SCREENING,SEE MODIFIER due on 2011 HPV EVERY 5 YEARS due on 02/16/2014 DIABETES SCREEN due on 05/16/2015 MAMMOGRAM due on 10/03/2016 PAP EVERY 5 YEARS due on 04/14/2017 LIPID SCREEN due on 05/16/2017 INFLUENZA(Season Ended) due on 06/14/2018 ASSESSMENT/PLAN: 1. Ankle edema, bilateral - ICD9: 719.07, ICD10: M25.471, M25.472 (primary diagnosis) - Discussed this is likely due to venous insufficiency. Recommending compression stockings, remain active. Elevate legs periodically during day. Will check labs to r/o underlying metabolic cause. - TSH BLD - CBC - COMP METABOLIC PANEL 2. Encounter for screening fecal occult blood testing - ICD9: V76.51, ICD10: Z12.11 - FECAL OCCULT BLOOD TEST 3. Peripheral venous insufficiency - ICD9: 459.81, ICD10: I87.2 - As above 4. Visit for screening mammogram - ICD9: V76.12, ICD10: Z12.31 - Set up for mammogram, yearly mammogram recommended - Encouraged monthly BSE - Follow up for annual exam in one year. - JULIETA SCREENING 5. Screening for cardiovascular condition - ICD9: V81.2, ICD10: Z13.6 - LIPID PANEL BASIC Precious Aragon, MSN LAMP CLEANER.BUSINESS LIAISON OFFICER CNOV Observed: 02/27/2018 Status: COMPLETED Source: [place] 8:00 AM [facility] REPOSITORY Office Visit (FAMPWS) RAFAT DELANEY ([id number]) 1960 F Date Time Provider Department 02/27/18 8:00 AM PRECIOUS ARAGON (DRAFT ROLLER PICKER) FAMPWS During your visit today, we recorded the following information about you: Temperature Pulse Respiration Blood pressure 97.9 degrees 60/minute 16/minute 120/86 Weight 73.5 kg Precious Aragon, MSN LAMP CLEANER.BUSINESS LIAISON OFFICER 02/27/2018 8:43 AM Signed Chief Complaint Patient presents with: Edema: bilateral ankles x 2 months HPI Rafat Delaney is a 57 year old female who presents here today for Above Complaints. L>R. Has noticed for few years puffy ankles following lengthy travel, would remain puffy for few days. Took trip in November and again noted swelling to both ankles for several days following. Eventually significant swelling resolves but does linger for few days. Typically most days, swelling is down in the morning after night's sleep and gradually progresses throughout the day. Denies any pain to either lower extremity. No skin discoloration. She denies any chest pain, SOB or exertional shortness of breath. She walks for exercise 2-3 miles daily. H/o MVP with rare palpitation. Past medical history, appointments, medications, allergies reviewed. 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 months - Lyme disease 01/19 - Mitral valve disorders(424.0) Previous Surgical History PAST SURGICAL HISTORY Procedure Laterality Date - DANDC, DIAG AND/OR THERAPEUTIC Dilation AND curettage X 3 Family History FAMILY HISTORY Problem Relation Age of Onset - Hypertension Mother - Lipids Mother - Hypertension Brother - Lipids Brother - Hypertension Brother - Lipids Brother Patient Allergies ALLERGIES Allergen Reactions - Environmental Aller* Cats, dogs, trees, grasses, weeds, ragweed - Exercise Induced An* Swelling, Anaphylaxis, Shortness of Breath - Peanuts Swelling Current Medications Current Outpatient Prescriptions on File Prior to Visit: ascorbic acid(VITAMIN C 1,000 MG TAB) Take one(1) tablet four times daily. cetirizine hcl(ZYRTEC 10 MG TAB) Take one(1) tablet daily. epinephrine(EPIPEN 0.3 MG/0.3 ML (1:1,000) IM INJECTOR) use as directed for allergic reaction. Seek emergent medical care immediately after use. diphenhydrAMINE (BENADRYL) 25 mg ORAL Cap take one to two tablets every 6 hours as needed. meloxicam (MOBIC) 15 mg tablet Take 1 tablet by mouth once daily. No current facility-administered medications on file prior to visit. 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 GENERAL: No weight loss, malaise or fevers RESPIRATORY: Negative for cough, hemoptysis, wheezing, COPD, dyspnea or shortness of breath CARDIOVASCULAR: Negative for chest pain, leg swelling, hypertension, CHF or palpitations EXAM: BP 120/86 (BP Site: Right Arm, BP Position: Sitting, BP Cuff Size: Regular Adult) Pulse 60 Temp 36.6 ?C (97.9 ?F) (Tympanic) Resp 16 Wt 73.5 kg (162 lb) LMP 09/21/2013 BMI 23.92 kg/m? General Appearance: Well appearing, alert, in no acute distress, well-hydrated, well nourished.. Skin: Skin color, texture, turgor normal, no suspicious rashes or lesions. Neck: Supple, no adenopathy; thyroid symmetric, normal size, Lungs: Lungs clear to auscultation. No wheezing, rhonchi, rales. Heart: RRR without murmur, gallop, or rubs. No ectopy. Extremities: No deformities, edema, skin discoloration, clubbing or cyanosis. Good capillary refill. , Edema: Trace, non-pitting, diffuse, swelling to bilateral ankles. + superficial varicose veins noted. Health Maintenance List DTAP,TDAP,TD(1 - Tdap) due on 1980 HEPATITIS C SCREENING due on 2005 COLORECTAL CANCER SCREENING,SEE MODIFIER due on 2011 HPV EVERY 5 YEARS due on 02/16/2014 DIABETES SCREEN due on 05/16/2015 MAMMOGRAM due on 10/03/2016 PAP EVERY 5 YEARS due on 04/14/2017 LIPID SCREEN due on 05/16/2017 INFLUENZA(Season Ended) due on 06/14/2018 ASSESSMENT/PLAN: 1. Ankle edema, bilateral - ICD9: 719.07, ICD10: M25.471, M25.472 (primary diagnosis) - Discussed this is likely due to venous insufficiency. Recommending compression stockings, remain active. Elevate legs periodically during day. Will check labs to r/o underlying metabolic cause. - TSH BLD - CBC - COMP METABOLIC PANEL 2. Encounter for screening fecal occult blood testing - ICD9: V76.51, ICD10: Z12.11 - FECAL OCCULT BLOOD TEST 3. Peripheral venous insufficiency - ICD9: 459.81, ICD10: I87.2 - As above 4. Visit for screening mammogram - ICD9: V76.12, ICD10: Z12.31 - Set up for mammogram, yearly mammogram recommended - Encouraged monthly BSE - Follow up for annual exam in one year. - JULIETA SCREENING 5. Screening for cardiovascular condition - ICD9: V81.2, ICD10: Z13.6 - LIPID PANEL BASIC Precious Aragon, MSN LAMP CLEANER.BUSINESS LIAISON OFFICER Referring Provider: SELF [[id number]] Allergies As of Date: 02/27/2018 Noted Allergy Reaction Environmental allergies [Other] 03/11/2007 Comments: Cats, dogs, trees, grasses, weeds, ragweed Exercise Induced Anaphylaxis [Oth*02/27/2010 7 - Swelling 10 - Anaphylaxis 12 - Shortness of Breath PEANUTS 02/07/2006 7 - Swelling Date Reviewed: 02/27/2018 Reviewed by: Amaya Galeas LPN - Fully Assessed Reason for Visit: Edema [39] Cmt: bilateral ankles x 2 months Primary Visit Diagnosis:Ankle edema, bilateral [M25.471, M25.472] Other Visit Diagnoses:Encounter for screening fecal occult blood testing [Z12.11] Peripheral venous insufficiency [I87.2] Visit for screening mammogram [Z12.31] Screening for cardiovascular condition [Z13.6] Order(s):FECAL OCCULT BLOOD TEST [SQIFOBT] Order #: [id number] FUTURE JULIETA SCREENING [2189925] Order #: [id number] FUTURE TSH BLD [SQTSH] Order #: [id number] FUTURE CBC [SQCBC] Order #: [id number] FUTURE COMP METABOLIC PANEL [SQCMP] Order #: [id number] FUTURE LIPID PANEL BASIC [SQLIPB] Order #: [id number] FUTURE Prescriptions as of 02/27/2018 Sig: VITAMIN C 1,000 MG TABLET Take one(1) tablet four times* ZYRTEC 10 MG TABLET Take one(1) tablet daily. 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] INVALID FOR* Peripheral venous insufficiency [I87.2] INVALID FOR* Encounter Status:Closed by PRECIOUS ARAGON BUSINESS LIAISON OFFICER on 02/27/18 ALLERGIES ALLERGIES DATE TYPE / CODE NAME / CODE REACTION SEVERITY SOURCE 09/29/2018 Drug No Known Unknown [place] Allergy/[id number]( [facility] [place] [id number] Repository 02/27/2010 Miscellaneous OTHER SWELLING [place] [id number] [place] [place] Rep[facility] 03/11/2007 Miscellaneous OTHER [place] Allergy/[id number]([facility]) [place] Repository 02/07/2006 Food/[id number](SNOM PEANUTS SWELLING [place] ED CT) [facility] [place] Repository ENCOUNTERS ENCOUNTERS ADMIT/DISCHARGE ACCOUNT ADMITTING ENCOUNTER LOCATION SOURCE NUMBER CLASS 10/03/2018/10/03/20 [id number] Ambulatory [address] Repository 09/29/2018/09/29/20 [id number] Emergency Yonatan Tam [address] [place] [address] ing:ED Repository 09/24/2018/09/24/20 [id number] Ambulatory [address] Repository 09/24/2018/09/24/20 [id number] Ambulatory [address] Repository 09/24/2018/09/25/20 [id number] Ambulatory [address] Repository 05/13/2018/05/13/20 [id number] Ambulatory [address] Repository 05/13/2018/05/14/20 [id number] Ambulatory [address] Repository 03/03/2018/03/03/20 [id number] Ambulatory [address] Repository 02/27/2018/03/03/20 [id number] Ambulatory [address] Repository PAYERS PAYERS ENCOUNTER GUARANTOR PAYER SUBSCRIBER SOURCE 09/29/2018 JOSETTE Sanz Primary NOT GIVENUNK Y[address]atan [id number] Insurance:SELF PAY [address], Number: Effective [facility] [place] [address]Sza: Date:2018-09-29 (OE)
== END 2018-09-29 14:17 | disposition home or self-care (01) ==
PROVIDERS: Emergency Provider Emergency Medicine; Family Provider Family Medicine; PCP Family Medicine
DX: R07.9 Chest pain, unspecified (principal); R00.2 Palpitations; I34.1 Nonrheumatic mitral (valve) prolapse
CPT/HCPCS: 71045; 80048; 84484; 85025; 93005; 99284

== ENCOUNTER 2019-11-04 10:38 | Emergency (ER) | payer OTHER, SELFPAY ==
[2019-11-04 10:40] VITALS: BP 134/78; PULSE 83; RESP 17; TEMP 36.8; O2SAT 100; BMI 31.7
--- NOTE | 2019-11-04 11:07 | RAD_ITS ---
STUDY: X-RAY - LEFT WRIST REASON FOR EXAM: Female, 59 years old. FALL, PAIN, DEFORMITY TECHNIQUE: 3 view(s) of the wrist were obtained. COMPARISON: None. FINDINGS: Comminuted fracture of the distal radial metaphysis with extension to the articular surface. There is evidence of a dorsal displacement. Avulsion fracture of the ulnar styloid. Normal radiocarpal articulation. Normal distal radioulnar articulation. Normal carpal bones. Normal carpal articulations. Normal carpometacarpal articulation of the thumb. Normal second through fifth carpometacarpal articulations. Normal visualized metacarpal bones. Soft tissue swelling. RAD/Wrist min 3 Views IMPRESSION: Comment a fracture of the distal radial metaphysis with extension into the articular surface and dorsal displacement of the distal fracture fragments. Avulsion fracture of the ulnar styloid. Soft tissue swelling. Electronically Signed: Dylon Cooper, at 12:05 EST , Service support ,
--- NOTE | 2019-11-04 11:08 | ED.DCSUM_ITS ---
History of Present Illness Chief Complaint: Upper Extremity Injury Informant: Patient Occurred: Today Mechanism/Context: Same level fall - kicked by a horse, tried to dodge it, which she did, but feet stuck in ground and FOOSH left w/ wrist injury Location: left wrist Quality of Pain: Aching Current Severity: Severe Maximum Severity: Severe Worsened by: any movement Relieved by: remaining still Associated Symptoms: Parasthesias - all fingers, Loss of function, - - no other injury/pain. Negative for: Loss of consciousness, Amnesia Narrative: [id number]. No anticoagulants. Did take 4 ibuprofen prior to arrival. Past Medical History - Allergies and Home Meds Allergies/Adverse Reactions: Allergies No Known Allergies Allergy (Verified 11/04/19 11:04) Exercise induced anaphylaxis, unknown trigger Primary Care Physician: Prasad Briceño III, MD [Primary Care Provider] - Michael Ruiz DO [STAFF PHYSICIAN] - 5-7 Days Past Medical History: None Lives: Spouse/ Significant Other Smoking Status: Never smoker Review of Systems General: Denies: Chills, Fever, Sweats Eyes: Denies: Visual changes - bilaterally, Diplopia ENT: Denies: Rhinorrhea, Sore throat Cardiovascular: Denies: Chest pain, Palpitations Respiratory: Denies: Dyspnea, Cough, Dyspnea on exertion Gastrointestinal: Denies: Abdominal pain, Nausea, Vomiting, Diarrhea, Melena, Hematochezia Genitourinary: Denies: Dysuria, Hematuria, Frequency Musculoskeletal: Reports: Extremity Pain. Denies: Back pain Skin: Denies: Rash, Wounds Neurological: Reports: Parasthesia. Denies: Headache, Weakness Physical Exam Vital Signs/Narrative: Vital Signs Temp Pulse Resp BP Pulse Ox 11/04/19 10:40 98.2 F 83 17 134/78 H 100 Inital Vital Signs reviewed: Yes General: Well nourished, Well developed Head: Normocephalic, Atraumatic Eyes: Perrl, EOMI Neck: Nontender, Full ROM Extremeties: Deformity left wrist consistent with a Colles' fracture, diffuse tenderness and swelling, very limited range of motion at the wrist or fingers due to pain including the elbow, but because of pain at the wrist and the fact that she is having trouble holding it up. No elbow, other forearm, upper arm, or shoulder tenderness. Other 3 extremities are atraumatic and nontender. Skin: Normal color, No rash, - - Left upper extremity skin intact and no tenting Neurological: Alert, Oriented x3, Cranial nerves II-XII grossly intact, Normal Strength, Parasthesia - Subjective, all left fingers, but sensation intact Psychological: Normal affect, Normal Mood Diagnostic/Tx/Re-eval Clinical Impression(s) from Imaging Studies Wrist X-Ray 11/04/19 11:07 IMPRESSION: Comment a fracture of the distal radial metaphysis with extension into the articular surface and dorsal displacement of the distal fracture fragments. Avulsion fracture of the ulnar styloid. Soft tissue swelling. Electronically Signed: Dylon Kenneth, at 12:05 EST , Service support , Wrist X-Ray 11/04/19 14:21 IMPRESSION: Satisfactory reduction. Electronically Signed: Dylon Cooper, at 14:41 EST , Service support , - Medical Decision Making Patient has a Colles' fracture involving the ulnar styloid as well. She felt a lot better after a dose of morphine, and then after informed consent I performed hematoma block followed by closed reduction and splinting. Postreduction x-rays show good reduction and intra-articular component to the radius fracture. She feels better now that she is blocked. She is neurovascular intact distally afterwards, placed in a sling, I discussed with Dr. Pérez and I will give her a prescription for [place] to use just in case and she will follow-up as an outpatient. Procedures Procedure(s): Hematoma block --sterile prep dorsum of left wrist with isopropanol, followed by injection of a total of 7 cc of 0.5% bupivacaine into the fracture site after aspirating a small amount of blood. No complications. Closed reduction left distal radius fracture --with manipulation starting by re- creating the injury and then pushing the distal piece back on top of the radial shaft, I was able to palpate the radius as straight as I could get it by continued minor manipulations. Patient tolerated very well after hematoma block with no complications. Neurovascularly intact distally afterwards, her fingers were not numb from the hematoma block. Splinting --Short arm left forearm/wrist AP Ortho-Glass splint fabricated by myself. Neurovascularly intact distally after placement with brisk cap refill. ED Disposition - Plan for ED Patient: Disposition: Home or Assisted Living Diagnosis: Closed traumatic displaced fracture of distal end of left radius Instructions: Splint Care, COLLES FRACTURE, Reduction Required Prescriptions: Hydrocodone Bitart/Apap 5-325 [[place] 5MG-325MG] 1 tab PO Q4H PRN PRN 2 Days #10 tab PRN Reason: Pain Prescription Printed Referrals: Prasad Briceño III, MD [Primary Care Provider] - Michael Ruiz DO [STAFF PHYSICIAN] - 5-7 Days
[2019-11-04] MEDS: Ondansetron 4 MG/2 ML Vial IV (11:21)
[2019-11-04] MEDS: Morphine 4 MG/ML Syringe IV (11:21)
[2019-11-04 13:04] VITALS: RESP 17
--- NOTE | 2019-11-04 14:21 | RAD_ITS ---
STUDY: X-RAY - LEFT WRIST REASON FOR EXAM: Female, 59 years old. POST REDUCTION TECHNIQUE: AP and lateral view(s) of the wrist were obtained. COMPARISON: Comparison is made with prior study done earlier in the day. FINDINGS: There is satisfactory reduction of the comminuted distal radial fracture as well as the avulsion fracture of the ulnar styloid. Normal radiocarpal articulation. Normal distal radioulnar articulation. Normal carpal bones. Normal carpal articulations. Normal carpometacarpal articulation of the thumb. Normal second through fifth carpometacarpal articulations. Normal visualized metacarpal bones. Soft tissue swelling. RAD/Wrist 2 Views IMPRESSION: Satisfactory reduction. Electronically Signed: Dylon Cooper, at 14:41 EST , Service support ,
[2019-11-04] MEDS: Bupivacaine Mpf 0.5% 30 ML VIAL INFILT (14:25)
[2019-11-04 14:26] VITALS: BP 128/79; PULSE 65; RESP 14; O2SAT 97
[2019-11-04 15:34] VITALS: PULSE 66; RESP 17; O2SAT 98
== END 2019-11-04 15:36 | disposition home or self-care (01) ==
PROVIDERS: Emergency Provider Emergency Medicine; PCP Family Medicine
DX: S52.592A Other fractures of lower end of left radius, initial encounter for closed fracture (principal); W55.12XD Struck by horse, subsequent encounter; Y93.52 Activity, horseback riding; Y92.9 Unspecified place or not applicable; Y99.9 Unspecified external cause status
CPT/HCPCS: 25605; 73100; 73110; 96374; 96375; 99284; A4216; J2405

== ENCOUNTER → 2019-11-11 13:49 | Outpatient (CLI) | payer SELFPAY ==
[2019-11-04 10:40] VITALS: BMI 31.7
--- NOTE | 2019-11-11 13:59 | CT_ITS ---
STUDY: CT LEFT WRIST REASON FOR EXAM: Radial fracture last Saturday. TECHNIQUE: Transaxial CT imaging of the wrist was performed. Sagittal and coronal images were reconstructed. Individualized dose optimization techniques were used for this CT. COMPARISON: Radiographs 11/04/2019. FINDINGS: There is a comminuted mildly impacted fracture of the distal radius with intra-articular extension (coronal reconstructions of the 25-33; sagittal reconstructions 13-21). There is an avulsion fracture at the base of the ulnar styloid process with mild distraction (coronal reconstructions 30-32). There is mild dorsal subluxation of the distal radioulnar joint (axial image 29). There is no demonstrated carpal fracture. Normal carpal articulations. Normal visualized metacarpals. Normal carpometacarpal articulations. There is soft tissue swelling. CT/Extremity Upper without Contra IMPRESSION: Comminuted mildly impacted fracture of the distal radius with intra-articular extension. Avulsion fracture of the ulnar styloid process. Mild dorsal subluxation of the distal radioulnar joint. Electronically Signed: Maulik Coley MD at 14:41 EST Tel , Service support ,
== END ==
PROVIDERS: PCP Family Medicine; Referring Provider Physician Assistant; Visit Provider Physician Assistant
DX: S52.572A Other intraarticular fracture of lower end of left radius, initial encounter for closed fracture (principal)
CPT/HCPCS: 73200

== ENCOUNTER 2020-01-19 11:57 | Outpatient (RCR) | payer SELFPAY | END 2020-01-19 11:58 | disposition home or self-care (01) | LOC: PT 11:57 | PROVIDERS: PCP Family Medicine | DX: M25.512 Pain in left shoulder (principal) ==

== ENCOUNTER 2020-04-21 07:30 | Outpatient (RCR) | payer SELFPAY ==
--- NOTE | 2019-12-29 13:47 | HP.OTEVAL_ITS ---
Patient's Visit Information RAFAT DELANEY is a 59 year old F, referred to Occupational Therapy by NICOLE NAVARRO, with a diagnosis of left intra-articular fx of distal radius, displaced ulna styloid fx. Date of Evaluation: 12/28/19 Occupational Therapist: Soila Amor, RAMON/Yvon, CHT - Subjective Subjective: This 59 year old female was seen for OT eval this date with dx of a closed intra-articular fracture of distal end of left radius with closed displaced fracture of ulnar styloid process. 2019 pt had a fall on out stretched hand- went to. [facility] for ER- reduction performed and follow up with orthos group rec'd pt to see Dr. Malik. pt went for sx for repair on Nov.17. pt currently s/p 5 weeks 6 days. pt had long arm orthosis on and now removed and placed in short wrist cock-up - pt states she is ready to start using her hand again. - ADLs Dressing: Socks, Shoes Fasteners: Tie shoes, Buttons, Zippers, Snaps Eating: Use silverware Bathing: Handle washcloth & soap, Wash hair - Pain left wrist 0 Pain Intensity Range: 5 - ROM Shoulder: right WNL left 150 with pain Elbow: Right/ left WNL Forearm: right WNL left 0 Wrist: right 70/70 left 15/20 ROM Comments: right RD15 UD 30. left RD 10 UD 10. pt demo with limited composite fist- 3cm away from composite fist. pt demo with limited forearm/wrist and digit ROM - Strength Patient Care Provider: right 75# Lateral Pinch: right 14# Tripod Pinch: right 12# - Edema Wrist: right 16cm left 18cm PIP: right 5.5 left 6.4 Proximal Phalanx: right 19.5cm left 20cm - Quick DASH-Disab of Arm,Shoulder& Hand Quick DASH Score: 65.9075 - Goals Goal:: pt will demo a increase in left UB MMT to 5/5 to return pt to pLOF with IADLs by d/c. Pt will demo a increase in left speeder worker strength to 40# or greater to return pt to meal prep and IND ADls by d/c Goal:: Pt will demo an increase in wrist ROM equal to unaffected wrist to return pt to PLOF with grooming, dressing and home mtg tasks by D/C. Pt will demo left shoulder ROM equal to unaffected shoulder to return pt to PLOF with dressing and bathing tasks by d/c. Pt will demonstrate increase in forearm ROM equal to unaffected forearm to return pt to PLOF with IADLs by d/c. Pt will demo the ability to form a composite fist to hold and receive 10 coins without dropping coins/ and coin manipulation/money mtg. tasks and ind. With manipulating fasteners for dressing by D/C. Goal:: Pt will report pain no greater than 1/10 with use of affected hand with BADLs and IADLs by d/c. Goal:: Pt will demo the ability to form a composite fist to hold and receive 10 coins without dropping coins/ and coin manipulation/money mtg. tasks and ind. With manipulating fasteners for dressing by D/C. Pt will demo the ability to form a composite fist to return to performing BADLs and IADLS at PLOF by d/c. Goal:: Pt will demo understanding of edema control techniques by end of 2nd session and perform recommendations to control edema. Goal:: Pt will demo understanding of scar mtg. by end of 2nd session to increase tissue extensibility to limit scar adhesions and allow full tendons function by d/c. - Rehabilitation General Assessment: pt currently 5 weeks 6 days s/p ORIF of radius and pinning of ulna styloid. pt demo with limited forearm, wrist, digit ROM. Pt needs increase support and assist with ADLS and IADLs at this time. Pt would benefit from skilled OT services 2x week for 8 weeks to return pt to PLOF. Today therapist ed. pt on AROM of shoulder, elbow, forearm, wrist and digits. Pt also ed. in edema control. Pt and spouse were given handouts and demo understanding and agree to POC. Rehabilitation Potential: Good - Anticipated Interventions Anticipated Interventions: A/AAROM/PROM, Strengthening, Edema Control, Scar Care, Triggerpoint Release, Desensitization, Sensory Retraining, Modalities, Joint Protection/Energy Conservation, Ergonomic Education - Visit Plan Frequency: 2x /Week Duration: 4 Weeks TEXT: Thank you for the opportunity to evaluate your patient. For Medicare and Medicare HMO plans, please review the plan of care and approve it. It will need to be FAXED BACK to us at [phone] for Medicare purposes. Please let me know if there are questions or concerns regarding this plan of care. Physician Signature: Date:
--- NOTE | 2020-01-18 14:42 | OTREVAL_ITS ---
NICOLE NAVARRO, It has been my pleasure to treat RAFAT DELANEY over the last 7 visits for left intra-articular fx of distal radius, displaced ulna styloid fx. Please see the progress note below for an update on the occupational therapy plan of care! Subjective: pt arrives after three weeks therapy- feels her shoulder is better- and she continues to struggle with swelling in her left hand- pt states she is using home Tens unit for pain mtg and ice. Pt continues to have left shoulder pain with active motion hurts to just get dressed Objective/Function: PT continues to demo left shoulder pain with AROM- pt performing AAROM of shoulder and ice to decrease pain- pt states at rest no pain- but with movement is painful-. Would like PT order to focus on pts shoulder- while CHT can focus on her forearm/wrist and hand. pt is not gaining forearm supination at this time- as placing pts in good position pts left shoulder hurts- therapist is working with pt to gain forearm supination as pt tolerates due to shoulder pain. left forearm is measuring at N. no change in movment-. wrist ROM 45/40 pt is making gains- edema in fingers and hand continues- pt was using copper edema glove but was not helping- therapsit advised pt in use of isotoner compression glove- pt is able to form a light composite fist at this time. If pt does not get one therapist will go to edema wrapping. therapist is encouraging pt to use left UE for light ADLs but left shoulder pain and limited ROM limit pts want to move or use left UE for ADL tasks. therapist formed elastomer for pts scar as she does demo with some scar adhesions- pt performing scar mtg. IND. Pt aslo using ice or heat as owen. and contrast bath PRN-. pt struggling with edmea but once she gets isotoner edema golve feel that will help finger and hand swelling- I feel pt is making gains with wrist ROM that are on target due to pts injury/sx and swelling. pts shoulder pain is more limiting at this time. Pt is aslo using a home tens unit she had to decrease pain. I will continue to progress pt as able. Plan Frequency: 2x /Week Duration: 6 Weeks Plan: would like order for PT for left shoulder will see what Dr. gandhis- Chanda cont. to improve pts left forearm, wrist and digit ROM as pt owen. Pt use of edema glove for control of swelling- therapist ed. pt on use of edema golve- pt demo understanding. until further notice pt to cont with HEP of AAROM of shoulder in all plans of motion, Forearm sup/pron, wirst flex/ext and AROM/PROM of digits. Scar mtg. Progress pt as owen. Goals - Goals Goal:: pt will demo a increase in left UB MMT to 5/5 to return pt to pLOF with IADLs by d/c. Pt will demo a increase in left director of primary care strength to 40# or greater to return pt to meal prep and IND ADls by d/c Goal:: Pt will demo an increase in wrist ROM equal to unaffected wrist to return pt to PLOF with grooming, dressing and home mtg tasks by D/C. Pt will demo left shoulder ROM equal to unaffected shoulder to return pt to PLOF with dressing and bathing tasks by d/c. Pt will demonstrate increase in forearm ROM equal to unaffected forearm to return pt to PLOF with IADLs by d/c. Pt will demo the ab ility to form a composite fist to hold and receive 10 coins without dropping coins/ and coin manipulation/money mtg. tasks and ind. With manipulating fasteners for dressing by D/C. Goal:: Pt will report pain no greater than 1/10 with use of affected hand with BADLs and IADLs by d/c. Goal:: Pt will demo the ability to form a composite fist to hold and receive 10 coins without dropping coins/ and coin manipulation/money mtg. tasks and ind. With manipulating fasteners for dressing by D/C. Pt will demo the ability to form a composite fist to return to performing BADLs and IADLS at PLOF by d/c. Goal:: Pt will demo understanding of edema control techniques by end of 2nd session and perform recommendations to control edema. Goal:: Pt will demo understanding of scar mtg. by end of 2nd session to increase tissue extensibility to limit scar adhesions and allow full tendons function by d/c. Anticipated Interventions Anticipated Interventions: A/AAROM/PROM, Strengthening, Edema Control, Scar Care, Triggerpoint Release, Desensitization, Sensory Retraining, Modalities, Joint Protection/Energy Conservation, Ergonomic Education Please do not hesitate to contact me at [phone] by phone or if you have questions or concerns regarding this new plan of care! Sincerely, Soila Amor OTR/L, CHT
--- NOTE | 2020-01-21 12:29 | HP.PTEVAL_ITS ---
Patient's Visit Information RAFAT DELANEY is a 59 year old F referred to Physical Therapy by NICOLE NAVARRO with a diagnosis of L shoulder pain. Date of Evaluation: 01/21/20 Physical Therapist: Derik Hercules DPT - Visit Plan Frequency: 1-2x /Week Duration: 4-6 Weeks - Subjective Subjective: Pt. is here today for her initial evaluation with diagnosis L shoulder pain, Pt. did sustain a fall resulting in a ORIF pinning of distal radius and ulna (DOS Nov 17). Pt. is in OT, but had been noticing increased shoulde pain. Pt. is unsure if this happend during the fall or since surgery (possibly in the positioning of her cast). Pt. reports reaching over her head after surgery to stretch and had even more symptoms since. Pt. reports no other mech of injury, no mechanical pop, but does notice some more popping in her shoulder with general mobility now than ever. Pt. has increased pain with all UB dressing and has marked edema, (most likely surgerical edema in wrist and hand). She is wearing a compression glove to assist. Pt. denies N/T in either UE. Pt. reports having constant pain 2-3/10 that increases to 6-7/10 with all mobility. No xrays or other imaging of shoulder recently. pt. is hopeful to reduce symptoms in order to get back to all recreational and household work without issues. - Pain L shoulder Pain Intensity (Out of 10): 3 Pain Intensity Range: 2, 7 - Objective POSTURE: Pt. has general slouched posture, able to correct. Pt. tends to keep her L UE in guarded posture. Rounded shoulder posture. PALPATION: Pt. had minimal pain with palpation with of L shoulder, minimal sub acromimal space pain. Pt. has no pain throughout scapular region no bipital groove pain. NEURO: Pt. has normal sensation of BUEs. Normal DTR of BUEs. ROM: R SHOULDER: full motion without issue. L shoulder: AROM: flexion 105deg, abd 95deg increase nW, functional IR L4 increase NW, functional ER C2 increase NW. PROM: flexion 135deg increase NW, abd 110deg increase NW, ER at 90deg 40deg increase nW, IR at 90deg of abd 30deg. MMT: LUE: wrist did not test, elbow did not test, shoulder- flexion 4/5, ER 4/5, IR 4/5, ext 5/5. flexion 4/5. No effect with all testing, - Special Tests L Shoulder Drop Sign - IS Test: Negative L Shoulder Empty Can - SS: Negative L Shoulder Belly Press - SupScap: Negative L Shoulder Neer - Impingement: Positive L Shoulder Rosenbaum Ilan - Impingement: Positive L Shoulder Yeargasons - SLAP: Negative L Shoulder Speeds Test - Labrum/Biceps: Negative L Shoulder Shrug Sign - OA/Adhesive Capsulitis: Positive - Goals Goal 1:: LTG: Pt. to be I with HEP. Goal Time Frame: 4-6 Weeks Goal 2:: LTG: Pt. to have full L shoulder AROM without increase in symptoms. Goal Time Frame: 4-6 Weeks Goal 3:: STG: Pt. to sleep with minimal pain (0-2/10). Goal Time Frame: 2-4 Weeks Goal 4:: LTG: Pt. to complete all ADLs without increase in symptoms. Goal Time Frame: 4-6 Weeks Goal 5:: LTG: Pt. to have increase L shoulder strength by 1/2 grade of all effected musculature. Goal Time Frame: 4-6 Weeks - Rehabilitation Potential Physical Therapy Diagnosis: Pt. has signs and symptoms consistent with L shoulder pain, most likely due to hypomobility/adhesive capsulitis due to limited movement of L shoulder recently. Pt. had impingment signs as well. She did not have any signs of tear or labral pathology. Rehabilitation Potential: Good - Anticipated Interventions Patient/Client Instruction: Educate patient on: Condition, Plan of Care, Risk Factors, Benefits of Fitness Program For the Purpose of:: To improve health and function, To foster healthy habits, To improve decision making, To facilitate caregiver knowledge, To improve self management, To prevent re-injury, To improve ability to perform tasks related to life management, To improve tolerance to ADL's Therapeutic Exercise to Include: Strength training, Power training, Endurance training, Body mechanics, Postural training, Flexibilty training, Passive ROM, Active ROM For the Purpose of:: To decrease pain, To decrease swelling/inflammation, To increase ROM, To improve muscle performance and motor function, To improve ability to perform ADL's, To improve gait and locomotor functions, To improve health of tissue, To increase flexibility/ROM Manual Therapy Techniques to Include: Mobilization, Passive ROM, Soft tissue mobilization For the Purpose of:: To decrease pain, To decrease swelling/inflammation, To increase ROM, To improve nutrient delivery to tissue, To increase oxygenation perfusion IF ES: Yes Cryotherapy (ice pack, ice massage): Yes Ultrasound (thermal/non thermal): Yes For the Purpose of:: To decrease pain, To decrease swelling/inflammation, To improve nutrient delivery to tissue, To improve muscle performance and motor function Thank you for the opportunity to evaluate your patient. For Medicare and Medicare HMO plans, please review the plan of care and approve it. It will need to be FAXED BACK to us at [phone] for Medicare purposes. For Medicare only, by signing this I certify the plan of care. Please let me know if there are questions or concerns regarding this plan of care. Physician Signatur e: Date:
--- NOTE | 2020-02-24 11:49 | OTREVAL_ITS ---
NICOLE NAVARRO, It has been my pleasure to treat RAFAT DELANEY over the last 13 visits for left intra-articular fx of distal radius, displaced ulna styloid fx. Please see the progress note below for an update on the occupational therapy plan of care! Subjective: pt states she feels swelling is down and doesnt feel the elastomer is fitting right- would like new one. states she did back off on how much she is in her brace ( bear upination) as she was painful for 2-3 hours after using the brace- Pt continues to be sore now for a few hours following. pt reports she is using her arm more for daily tasks. no new concerns at this time. Pt contiunes to see PT for left shoulder and is progressing well with her shoulder. Objective/Function: wrist AROM 35/35. PROM wrist 45/40 - demo a gain of 10* with PROM of wrist ext and 5* with wrist flex. forearm supination min. motion at N. even with pt using bear brace pt not progressing with supination- noted pt compensates with carpal bone shifting with supination but radius and ulna not rotating much. left english horn player strength 25#. left lateral pinch 7#. wrist edema circ. 17cm down from 18cm -. pt demo with increase in functional use of left UE with BTE- but noted pt still limited with forearm supination- as pt has not made gains in forearm supination would rec'd to see pt for further evaluation. Plan Frequency: 2x /Week Duration: 6 Weeks Plan: PT to work shoulder. OT to cont with wrist. and forearm and fingers- edema. progressing pt as owen. Goals - Goals Patient Goals: Decrease Pain, Decrease Swelling/Stiffness, Use Hand/Wrist/Arm Normally Again, Increase ROM, Be More Independent in ADLS Goal:: pt will demo a increase in left UB MMT to 5/5 to return pt to pLOF with IADLs by d/c. Pt will demo a increase in left english horn player strength to 40# or greater to return pt to meal prep and IND ADls by d/c Goal:: Pt will demo an increase in wrist ROM equal to unaffected wrist to return pt to PLOF with grooming, dressing and home mtg tasks by D/C. Pt will demo left shoulder ROM equal to unaffected shoulder to return pt to PLOF with dressing and bathing tasks by d/c. Pt will demonstrate increase in forearm ROM equal to unaffected forearm to return pt to PLOF with IADLs by d/c. Pt will demo the ability to form a composite fist to hold and receive 10 coins without dropping coins/ and coin manipulation/money mtg. tasks and ind. With manipulating fasteners for dressing by D/C. Goal:: Pt will report pain no greater than 1/10 with use of affected hand with BADLs and IADLs by d/c. Goal:: Pt will demo the ability to form a composite fist to hold and receive 10 coins without dropping coins/ and coin manipulation/money mtg. tasks and ind. With manipulating fasteners for dressing by D/C. Pt will demo the ability to form a composite fist to return to performing BADLs and IADLS at PLOF by d/c. Goal:: Pt will demo understanding of edema control techniques by end of 2nd session and perform recommendations to control edema. Goal:: Pt will demo understanding of scar mtg. by end of 2nd session to increase tissue extensibility to limit scar adhesions and allow full tendons function by d/c. Anticipated Interventions Anticipated Interventions: A/AAROM/PROM, Strengthening, Edema Control, Scar Care, Triggerpoint Release, Desensitization, Sensory Retraining, Modalities, Joint Protection/Energy Conservation, Ergonomic Education Please do not hesitate to contact me at [phone] by phone or if you have questions or concerns regarding this new plan of care! Sincerely, Soila Amor, OTR/L, CHT
--- NOTE | 2020-03-24 10:43 | HP.PTREVAL_ITS ---
NICOLE NAVARRO, It has been my pleasure to treat RAFAT DELANEY over the last 9 visits for L shoulder pain. Please see the progress note below for an update on the physical therapy plan of care! Subjective: Pt. reports I am geeting a lot better. Pt. reports being HEP complaint. Pt. reports being 75% better overall. Objective/Function: Pt. is progressing with her ROM and strengthening. ROM: L shuolder- AROM- flexion 155deg, adb 155deg, functional ER C5, functional IR L5. Pt. limiting full ER and IR motions. PROM- same as above except, flexion 170deg, abd 165deg. MMT: 4/5 throughout, but has increasred tolerance and decerased pain with testing. Plan Plan: I would recomend continuing to work on end range of motions, and initial deltoid and scapular strengthening. Goals Goal 1:: LTG: Pt. to be I with HEP. Goal Time Frame: 4-6 Weeks Goal Progress: Progressing Goal 2:: LTG: Pt. to have full L shoulder AROM without increase in symptoms. Goal Time Frame: 4-6 Weeks Goal Progress: Progressing Goal 3:: STG: Pt. to sleep with minimal pain (0-2/10). Goal Time Frame: 2-4 Weeks Goal Progress: Progressing Goal 4:: LTG: Pt. to complete all ADLs without increase in symptoms. Goal Time Frame: 4-6 Weeks Goal Progress: Progressing Goal 5:: LTG: Pt. to have increase L shoulder strength by 1/2 grade of all effected musculature. Goal Time Frame: 4-6 Weeks Goal Progress: Progressing Anticipated Interventions Patient/Client Instruction: Educate patient on: Condition, Plan of Care, Risk Factors, Benefits of Fitness Program For the Purpose of:: To improve health and function, To foster healthy habits, To improve decision making, To facilitate caregiver knowledge, To improve self management, To prevent re-injury, To improve ability to perform tasks related to life management, To improve tolerance to ADL's Therapeutic Exercise to Include: Strength training, Power training, Endurance training, Body mechanics, Postural training, Flexibilty training, Passive ROM, Active ROM For the Purpose of:: To decrease pain, To decrease swelling/inflammation, To increase ROM, To improve muscle performance and motor function, To improve ability to perform ADL's, To improve gait and locomotor functions, To improve health of tissue, To increase flexibility/ROM Manual Therapy Techniques to Include: Mobilization, Passive ROM, Soft tissue mobilization For the Purpose of:: To decrease pain, To decrease swelling/inflammation, To increase ROM, To improve nutrient delivery to tissue, To increase oxygenation perfusion IF ES: Yes Cryotherapy (ice pack, ice massage): Yes Ultrasound (thermal/non thermal): Yes For the Purpose of:: To decrease pain, To decrease swelling/inflammation, To improve nutrient delivery to tissue, To improve muscle performance and motor function Please do not hesitate to contact me at [phone] by phone or Fax: if you have questions or concerns regarding this new plan of care! Sincerely, FRANCHESCA TellezT
--- NOTE | 2020-07-22 13:01 | HP.PT.NRP ---
RAFAT DELANEY was seen in my office for initial evaluation on 01/21/20. The following Plan of Care was established for this patient: Initial Frequency: 1-2x /Week Initial Duration: 4-6 Weeks Patient/Client Instruction: Educate patient on: Condition, Plan of Care, Risk Factors, Benefits of Fitness Program For the Purpose of:: To improve health and function, To foster healthy habits, To improve decision making, To facilitate caregiver knowledge, To improve self management, To prevent re-injury, To improve ability to perform tasks related to life management, To improve tolerance to ADL's Therapeutic Exercise to Include: Strength training, Power training, Endurance training, Body mechanics, Postural training, Flexibilty training, Passive ROM, Active ROM For the Purpose of:: To decrease pain, To decrease swelling/inflammation, To increase ROM, To improve muscle performance and motor function, To improve ability to perform ADL's, To improve gait and locomotor functions, To improve health of tissue, To increase flexibility/ROM Manual Therapy Techniques to Include: Mobilization, Passive ROM, Soft tissue mobilization For the Purpose of:: To decrease pain, To decrease swelling/inflammation, To increase ROM, To improve nutrient delivery to tissue, To increase oxygenation perfusion IF ES: Yes Cryotherapy (ice pack, ice massage): Yes Ultrasound (thermal/non thermal): Yes For the Purpose of:: To decrease pain, To decrease swelling/inflammation, To improve nutrient delivery to tissue, To improve muscle performance and motor function This patient was last seen in our office 04/21/20. Pertinent comments regarding their Physical therapy will appear below: Pt. was seen for her shoulder pain in PT. Pt. was doing much better both with ROM and progressing strengthening. Pt. had progressed to the point where she was coming in x1 everyother week. Pt. was progressing well. Pt. did not attend her last appointment and has not been seen in several months. Pt. will be DC from PT at this point in time. At this point I will be discontinuing this patient from physical therapy. I would be happy to see this patient again in the future if found appropriate by the physician. Thank you! Derik Hercules, FRANCHESCAT
== END 2020-04-21 19:00 | disposition home or self-care (01) ==
LOC: PT 07:30
PROVIDERS: PCP Family Medicine
DX: S52.572D Other intraarticular fracture of lower end of left radius, subsequent encounter for closed fracture with routine healing (principal); S52.612D Displaced fracture of left ulna styloid process, subsequent encounter for closed fracture with routine healing; Z98.890 Other specified postprocedural states; Z87.81 Personal history of (healed) traumatic fracture
CPT/HCPCS: 97110; 97140; 97161; 97166; 97530

== ENCOUNTER 2025-03-25 09:47 | Inpatient (IN) | payer OTHER, SELFPAY ==
[2025-03-25] VITALS (11 sets, daily range): BP systolic 99–124; BP diastolic 64–74; PULSE 81–98; RESP 14–28; TEMP 36.8–37.7; O2SAT 92–98; BMI 25.5; BMI 24.9
--- NOTE | 2025-03-25 10:05 | EX.ED.DYSGE1 ---
HPI History of Present Illness Chief Complaint: General Illness Informant: patient Onset/Context/Timing Onset: Days Context: Gradual Onset Timing: Continuous Current Severity: Moderate Maximum Severity: Moderate Narrative Narrative: 64-year-old female no significant past medical history of mitral valve prolapse. A week ago her and her were vacationing in [facility]. She got admitted to the hospital there. She donated numerous tests really did not have any specific diagnosis. Since she was in the hospital there she developed bilateral lower extremity edema, fatigue, exertional dyspnea and shortness of breath. She has no cardiac history she is aware of the mitral valve prolapse. Prior similar symptoms: Yes Recent Illness/Hospitalization: Yes [facility] Medical History (Updated 03/25/25 @ 13:[address] Sawyer Daigle MD) Lyme disease Home Medications ?Medication ?Instructions ?Recorded ?Last Taken ?Type Cetirizine Hcl [Zyrtec] 10 mg PO DAILY ALLERGIES 09/29/18 09/29/18 History 10 Allergy/AdvReac Type Severity Reaction Status Date / Time No Known Allergies Allergy Verified 03/25/25 09:48 Social History Smoking Status: Never smoker ROS ROS ED ROS Narrative Shortness of breath. Fatigue. Bilateral leg swelling. Constitutional Constitutional ED: Denies chills or fever(s) Eyes Eyes: Denies blurry vision ENT ENT ED: Denies ear pain Cardiovascular Cardiovascular: Reports chest pain Respiratory/Chest Respiratory/Chest: Reports cough, dyspnea and dyspnea on exertion Gastrointestinal Gastrointestinal: Denies abdominal pain Genitourinary Genitourinary ED: Denies dysuria or hematuria Musculoskeletal Musculoskeletal: Denies arthralgias Integumentary Denies abscess Neurologic Neurologic: Denies headache(s) Psychiatric Psychiatric: Denies anxiety or depression Endocrine Endocrinology: Denies cold intolerance Hematologic/Lymphatic Hematologic/Lymphatic: Reports none Allergic/Immunologic Allergic/Immunologic ED: Denies mouth swelling or tongue swelling EXAM Physical Exam Narrative Exam Narrative: 64-year-old female sitting upright in bed. at bedside. Vital signs stable she is hypotensive at 99/66. Temperature 992. Pulse ox 96% on room air no hypoxia. She is not in any distress. H EENT exam pupils round reactive light. Moist mucous membranes. Neck nontender no JVD. No lymphadenopathy. Lungs clear to auscultation bilaterally. Heart rate about 100. Appears to be sinus rhythm.. Chest wall and ribs nontender. Abdomen soft nontender. Nondistended normal bowel sounds without peritoneal signs. Moving all 4 extremities. 2+ pitting edema both lower extremities. Equal symmetrical. Dorsi plantarflexion intact. Calves are nontender no cords. 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 Back nontender. Neurologically she is awake and alert. Answering questions following commands. Const Vital Signs: 03/25/25 09:48 03/25/25 10:19 03/25/25 10:21 Temperature 99.2 F H 99.5 F H Temperature Source Oral Oral Pulse Rate 98 93 Respiratory Rate 16 22 H Respiratory Effort Respiratory Pattern Blood Pressure 99/66 115/72 Blood Pressure Mean 77 86 Pulse Ox 96 97 96 Oxygen Delivery Method Room Air Room Air Room Air 03/25/25 10:22 03/25/25 11:00 03/25/25 12:00 Temperature 99.3 F H 99.5 F H Temperature Source Oral Oral Pulse Rate 89 86 Respiratory Rate 20 H 14 Respiratory Effort Normal Non-Labored Respiratory Pattern Normal Blood Pressure 118/74 113/71 Blood Pressure Mean 88 85 Pulse Ox 94 97 Oxygen Delivery Method Room Air Room Air Positive well nourished and well developed; Negative for obese, cachectic, contractures or unkempt General Appearance ED: well developed and NAD; Negative for unkempt, cachectic, contractures, cyanotic, diaphoretic or pallor Nutritional Appearance: Negative for cachectic or obese HEENT Reports moist mucous membranes Negative for trauma or tenderness Eyes PERRL and EOMs intact bilaterally Neck no lymphadenopathy, supple and no JVD Chest Wall inspection of chest normal and palpation of chest normal Resp normal respiratory effort and clear to auscultation bilaterally Effort and Inspection: Negative for retractions Auscultation: Negative for rales, rhonchi, wheezes or diminished lung sounds Cardio regular rhythm, S1 normal heart sound, S2 normal heart sound and no murmurs; Negative for regular rate Rate: other Other Details: Rate about 100. GI normal to inspection, nondistended, normoactive bowel sounds, non-tender, non-distended and no masses Auscultation: normoactive bowel sounds Palpation: soft; Negative for tender or guarding Back/Spine no CVA tenderness General Back: Negative for CVA tenderness Cervical Spine: Negative for cervical spine tenderness Thoracic Spine / Upper Back: Negative for thoracic spinal tenderness Lumbar Spine / Lower Back: Negative for lumbar spinal tenderness Extremity Negative for normal to inspection Extremity Narrative: Bilateral lower extremity edema 2+. Nontender no cords. Equal symmetrical. General Extremety ED: Yes edema; Negative for tenderness General Extremity: edema Neuro oriented x3 and CN's II-XII intact bilaterally Sensorium / Orientation: alert; Negative for orientation impaired, lethargic or stuporous Motor Exam: strength 5/5 throughout Psych mental status grossly normal Appearance: Negative for unkempt Skin no rashes or lesions noted, no wounds and skin turgor normal General Skin Exam: Negative for jaundice or pallor Lesions: No lesion noted Rashes: No rashes noted Wounds: Negative for wounds noted MDM MDM MDM Narrative Medical decision making narrative: 64-year-old female week plus history of exertional fatigue, dyspnea and lower extremity swelling. Clinically I suspect she may have A-fib or dysrhythmia. With congestive heart failure and peripheral edema. Other etiologies could be secondary to kidney dysfunction or liver disease which I think is less likely. Repeat exam patient is doing well at 12:40 PM. I spoke to both the hospitalist and card cleaner on-call. Patient be admitted to PCU. I will give her 20 of Lasix IV here. I think this is new onset CHF left interment Y. She needs an echo and further studies. Her and her and they are comfortable with the plan. History & Record Review Discussion w/independent historian: Patient and Family Additional record(s) reviewed:: No prior records Lab Data Attestation: I reviewed the patient's lab results. Lab results narrative: CBC shows a white count 19. H&H 9 and 25. Platelets 392. PT/INR 14 and 1.1. Chemistry shows sodium is low 128. Gap of 12. BUN of 12 creatinine 0.6. Glucose 129. Liver enzymes are elevated. BNP is elevated at 11, 948. Troponin is mildly elevated at 41. Chest x-ray is consistent with CHF and bilateral pleural effusions. Labs: Laboratory Results - last 24 hr 03/25/25 10:15 WBC 19.0 H RBC 3.09 L Hgb 9.0 L Hct 25.4 L MCV 82.2 MCH 29.1 MCHC 35.4 RDW Std Deviation 42.9 RDW Coeff of Christian 14.4 Plt Count 392 MPV 9.5 Neut % (Auto) Not Reportable Absolute Neuts (auto) 16.3 H Absolute Lymphs (auto) 1.30 Total Counted 100 Neutrophils % (Manual) 84 H Band Neutrophils % 2 Lymphocytes % (Manual) 7 L Monocytes % (Manual) 3 Metamyelocytes % 3 H Myelocytes % 1 H Differential Comment COMMENT Diff Path Review May foll Platelet Estimate ADEQUATE RBC Morphology NORM C+C PT 14.5 INR 1.1 Sodium 128 L Potassium 3.7 Chloride 93 L Carbon Dioxide 23.1 Anion Gap 12 BUN 12 Creatinine 0.61 L Estim Creat Clear Calc 98.65 Est GFR (MDRD) Non-Af 100 BUN/Creatinine Ratio 20.4 H Glucose 129 H Calcium 9.3 Total Bilirubin 1.29 Direct Bilirubin 0.92 H AST 170 H ALT 81 H Alkaline Phosphatase 258 H Troponin T High Sens 41 [place] [address] H Total Protein 5.9 Albumin 2.6 L Globulin 3.3 Radiography Chest X-Ray - ED: 2 View, Read by ED Physician and Read by Radiologist Diagnostic Testing: Clinical Impression(s) from Imaging Studies Chest X-Ray 03/25/25 10:48 IMPRESSION: Vascular congestion and mild CHF with small bilateral pleural effusions left greater than right with bibasilar atelectasis worse on the right lung base. Reading Location: [facility]- Chest x-ray, 2 views, AP and lateral, interpreted both by myself and the radiologist. Shows mild bilateral pleural effusions and vascular congestion consistent with CHF. No pneumonia. No mass. Normal cardiac silhouette. Rhythm Strip Rhythm Strip: Sinus Rhythm Rate: 89 Ectopy: None EKG Initial EKG: Attestation: I personally reviewed and interpreted this EKG as follows: Interpretation: Sinus Rhythm and No Acute Injury Pattern Comments: Normal sinus rhythm rate 89 no acute signs of NV or ischemia. Discharge Plan Dx/Rx/DC Orders Clinical Impression: Acute dyspnea, Congestive heart failure, Anemia, Acute hyponatremia, Elevated liver enzymes, Leukocytosis Disposition Disposition: Acute Care [facility]
[2025-03-25 10:42] LABS: Hematocrit 25.4 % (37-47); Mean Corp Hgb Conc 35.4 g/dL (32-36); Mean Corpuscular Hgb 29.1 pg (27.0-32.0); Mean Corpuscular Volume 82.2 fL (81-99); Mean Platelet Vol. 9.5 fl (6.2-12.0); POSITIVE COUNT YES; POSITIVE DIFFERENTIAL YES; POSITIVE MORPHOLOGY YES; Platelet Count 392 K/mm3 (150-450); RBC Distribution Width CV 14.4 % (11.6-14.6); RBC Distribution Width SD 42.9 fl (35.1-43.9); Red Blood Count 3.09 M/mm3 (4.2-5.4)
--- NOTE | 2025-03-25 10:48 | RAD_ITS ---
PROCEDURE: CHEST PA AND LATERAL 03/25/2025 REASON FOR EXAM: CHEST PAIN 10 day history of shortness of breath. TECHNIQUE: Frontal and lateral views of the chest. COMPARISON: Prior study dated September 29, 2018. FINDINGS: Hardware: EKG electrodes are seen. Heart: Borderline cardiomegaly. Mediastinum: Unremarkable Lungs: Small bilateral pleural effusions left greater than right with bibasilar atelectasis worse at the left lung base. There is superimposed vascular congestion and mild CHF. Bones: Degenerative changes are identified within the thoracic spine. RAD/Chest PA and Lateral IMPRESSION: Vascular congestion and mild CHF with small bilateral pleural effusions left gr eater than right with bibasilar atelectasis worse on the right lung base. Reading Location: [place] [id number]
[2025-03-25 10:49] LABS: International Normalized Ratio 1.1; Prothrombin Time (Protime)PT. 14.5 SECONDS (11.7-14.9)
[2025-03-25 10:50] LABS: Differential Indicated MANUAL DIFF
[2025-03-25 11:01] LABS: AST(SGOT) 170 U/L (<=31); Alanine Aminotransfer ALT/SGPT 81 U/L (<=34); Albumin, Serum 2.6 g/dL (3.4-4.8); Alkaline Phosphatase 258 U/L (35-104); Anion Gap 12 (5-15); BUN 12 mg/dL (4-19); BUN/Creat Ratio 20.4 RATIO (10-20); Bilirubin, Direct 0.92 mg/dL (0.00-0.30); Calcium,Total 9.3 mg/dL (7.6-11.0); Carbon Dioxide 23.1 mmol/L (21.0-32.0); Chloride 93 mmol/L (98-108); Creatinine, Serum 0.61 mg/dL (0.70-1.20); EST Glomerular Filtration Rate 100 (>60); Estimated Creatinine Clearance 98.65 ml/min (50-250); Globulin 3.3 g/dL (2.2-4.2); Glucose 129 mg/dL (70-99); Potassium 3.7 mmol/L (3.3-5.1); Pro- Brain NATRIURETIC PEPTIDE 11948 pg/mL (<=900); Protein, Total 5.9 g/dL (5.9-8.4); Sodium Level 128 mmol/L (133-145); Total Bilirubin 1.29 mg/dL (0.00-1.30); Troponin T High Sensitivity 41 ng/L (<=14)
[2025-03-25 11:42] LABS: Lymphocyte 7 % (19-41); Metamyelocyte 3 % (0-1); Monocyte 3 % (0-10); Myelocyte 1 % (0-0); Neutrophil-Band 2 % (0-5); Neutrophil-Segmented 84 % (47-70); Total Cells Counted 100 (MANUAL DIFF)
[2025-03-25 11:43] LABS: Absolute Neutrophil Count 16.3 X10^3/uL (2.0-7.7); Platelet Estimate ADEQUATE (ADEQ); Red Cell Morphology NORM C+C NORMAL (NORM C&C)
[2025-03-25 11:44] LABS: Pathologist Review May foll
[2025-03-25] MEDS: Furosemide 20 MG/2 ML VIAL IV (13:17)
[2025-03-25 13:59] LABS: Troponin T High Sens 2 HR 47 ng/L (<=14)
--- NOTE | 2025-03-25 14:25 | PCM.HP.STD ---
HPI - General General Date of Service: 03/25/25 Chief Complaint: chest tightness HPI Narrative RAFAT DELANEY, is a 64 F with pmhx MVP who presents to the ER with chest tightness. She has had this about 10 days. The day it started she travelled to [place]. She started to feel all over body aches and was taken to the ER at a local hospital. She states she was admitted for abnormal liver enzymes and jaundice. She was admitted through saturday. During the time she was given IV fluids and had her stool checked which showed noravirus - tho she had no n/v/d. She came home and today felt more SOB with increased LE edema. She also has ongoing chest tightness, SOB, dry cough, PND, and orthopnea. She was brought to the ER and found to have elevated BNP, CXR showing CHF, abnormal troponin, abnormal liver enzymes, and hyponatremia. She is admitted to the hospital with acute CHF, and has no prior hx of CHF. [facility] Medical History Mitral valve prolapse Lyme disease Home Medications ?Medication ?Instructions ?Recorded ?Last Taken ?Type estradiol 0.01% (0.1 mg/gram) 1 appful vaginal .twice weekly 03/25/25 Unknown History vaginal cream Allergy/AdvReac Type Severity Reaction Status Date / Time No Known Allergies Allergy Verified 03/25/25 09:48 Family History (Updated 03/25/25 @ 14:31 by LIO Estrada) Mother CAD (coronary artery disease) Surgical History (Updated 03/25/25 @ 14:31 by LIO Estrada) History of dilatation and curettage Social History Smoking Status: Never smoker Medical History Mitral valve prolapse Lyme disease Surgical History (Updated 03/25/25 @ 14:31 by LIO Estrada) History of dilatation and curettage Family History (Updated 03/25/25 @ 14:31 by LIO Estrada) Mother CAD (coronary artery disease) Social History Smoking Status: Never smoker ROS Constitutional Constitutional: Reports other Details: body aches ; Denies chills or fever(s) Eyes Eyes: Denies blurry vision ENT HEENT: Denies headache(s), nasal congestion or sore throat Cardiovascular Cardiovascular: Reports dyspnea on exertion, paroxysmal nocturnal dyspnea and other Details: orthopnea ; Denies chest pain or syncope Respiratory/Chest Respiratory/Chest: Reports cough, shortness of breath at rest and shortness of breath with exertion; Denies productive cough Gastrointestinal Gastrointestinal: Denies abdominal pain, diarrhea, nausea or vomiting Genitourinary Genitourinary: Reports urinary incontinence; Denies burning urination or dysuria Musculoskeletal Musculoskeletal: Denies arthralgias Neurologic Neurologic: Denies abnormal gait Psychiatric Psychiatric: Denies anxiety Endocrine Endocrinology: Denies change in body appearance Hematologic/Lymphatic Hematologic/Lymphatic: Reports anemia Allergic/Immunologic Allergic/Immunologic: Denies rhinitis Vital Signs Vital Signs Vital Signs: 03/25/25 09:48 03/25/25 10:19 03/25/25 10:21 Temperature 99.2 F H 99.5 F H Temperature Source Oral Oral Pulse Rate 98 93 Respiratory Rate 16 22 H Respiratory Effort Respiratory Pattern Blood Pressure 99/66 115/72 Blood Pressure Mean 77 86 Pulse Ox 96 97 96 Oxygen Delivery Method Room Air Room Air Room Air 03/25/25 10:22 03/25/25 11:00 03/25/25 12:00 Temperature 99.3 F H 99.5 F H Temperature Source Oral Oral Pulse Rate 89 86 Respiratory Rate 20 H 14 Respiratory Effort Normal Non-Labored Respiratory Pattern Normal Blood Pressure 118/74 113/71 Blood Pressure Mean 88 85 Pulse Ox 94 97 Oxygen Delivery Method Room Air Room Air 03/25/25 13:00 03/25/25 13:22 Temperature 100 F H 100 F H Temperature Source Oral Pulse Rate 89 87 Respiratory Rate 22 H 28 H Respiratory Effort Respiratory Pattern Blood Pressure 114/72 116/72 Blood Pressure Mean 86 86 Pulse Ox 95 98 Oxygen Delivery Method Room Air Weight Weight: 78.4 kg Body Mass Index (BMI) 25.5 Physical Exam Const alert, oriented x3 and no apparent distress General Appearance: cooperative HEENT normocephalic and head/scalp atraumatic Eyes PERRL Neck no lymphadenopathy Resp normal respiratory effort Resp Narrative: diminished Auscultation: rales bilateral (faint basilar) Cardio regular rate, regular rhythm and no murmurs GI normal to inspection, nondistended, normoactive bowel sounds, soft to palpation and non-tender Extremity Extremity Narrative: BL 2+ pitting edema Skin Skin Narrative: w/d Neuro oriented x3 Psych affect normal Results Lab / Micro Data 03/25/25 10:15 03/25/25 10:15 Labs: Laboratory Results - last 24 hr 03/25/25 10:15: WBC 19.0 H, RBC 3.09 L, Hgb 9.0 L, Hct 25.4 L, MCV 82.2, MCH 29.1, MCHC 35.4, RDW Std Deviation 42.9, RDW Coeff of Christian 14.4, Plt Count 392, MPV 9.5, Neut % (Auto) Not Reportable, Absolute Neuts (auto) 16.3 H, Absolute Lymphs (auto) 1.30, Total Counted 100, Neutrophils % (Manual) 84 H, Band Neutrophils % 2, Lymphocytes % (Manual) 7 L, Monocytes % (Manual) 3, Metamyelocytes % 3 H, Myelocytes % 1 H, Differential Comment COMMENT, Diff Path Review May foll, Platelet Estimate ADEQUATE, RBC Morphology NORM C+C, PT 14.5, INR 1.1, Sodium 128 L, Potassium 3.7, Chloride 93 L, Carbon Dioxide 23.1, Anion Gap 12, BUN 12, Creatinine 0.61 L, Estim Creat Clear Calc 98.65, Est GFR (MDRD) Non-Af 100, BUN/Creatinine Ratio 20.4 H, Glucose 129 H, Calcium 9.3, Total Bilirubin 1.29, Direct Bilirubin 0.92 H, AST 170 H, ALT 81 H, Alkaline Phosphatase 258 H, Troponin T High Sens 41 H, [place] [address] H, Total Protein 5.9, Albumin 2.6 L, Globulin 3.3 03/25/25 13:32: Troponin T Hi Sens 2 Hr 47 H Rhythm Strip Rhythm Strip: Sinus Rhythm Rate: 89 Ectopy: None Imaging Radiology Impression Chest X-Ray 03/25/25 10:48 IMPRESSION: Vascular congestion and mild CHF with small bilateral pleural effusions left greater than right with bibasilar atelectasis worse on the right lung base. Reading Location: [facility] Assessment & Plan Assessment/Plan (1) Acute CHF: PLAN: 1. Acute CHF, unclear type, no prior hx - 10 days of chest tightness, sob, dry cough, PND, orthopnea, BL LE edema. recent admission to hospital in [place] last through saturday for abnormal liver enzymes, at that time given IV fluids. At this time symptoms c/w Acute CHF and she has elevated BNP, abnormal troponin, CXR showing pleural effusions and vascular congestion. EKG NSR. She also has hyponatremia, leukocytosis of unclear etiology and abnormal LFTs. Admit to PCU tele, continue IV lasix with trending I/Os, in the AM she will have a 2D echo. Will consider cariology consult. trend troponin. 2. Abnormal troponin with ongoing chest tightness suspect 2/ 2 #1 - maintain tele overnight, AM echo, cycle enzymes 3. Hyponatremia 2/2 #1 - trend BMP 4. Abnormal LFTs suspect 2/2 #1 - trend CMP. Recent hospital admission for jaundice per pt hx. 5. Leukocytosis unclear etiology - repeat AM CBC. Pt did have recent diagnosis of norovirus tho she never had nausea, vomiting, or diarrhea. 6. Normocytic anemia - Hgb 9.0 baseline unknown. repeat AM CBC 7. Hx mitral valve prolapse since age 21, pt has not had a recent echo, and will have one in the AM. DVT ppx: lovenox Code status: discussed with pt, she is Full Code. This patient was seen by Martin Mcarthur PA-C under the supervision of Doctor Moss.
--- NOTE | 2025-03-25 15:12 | ECHOD_ITS ---
Reason For Study Reason For Study: Heart Failure Procedure This was a 2D Doppler, Color Flow transthoracic echocardiogram. Exam performed portable in patient room. Left Ventricle Normal left ventricle. The LV ejection fraction is 50 %. LV systolic function is low normal. Right Ventricle Normal right ventricle. Normal systolic function. Atria Normal left atrium. Normal right atrium. Mitral Valve The mitral valve is structurally normal. No prolapse or stenosis seen. Trivial mitral valve insufficiency. Tricuspid Valve Trivial tricuspid valve regurgitation. Aortic Valve There is no aortic stenosis. No aortic valve insufficiency. Pulmonic Valve Trivial pulmonic valve insufficiency. Great Vessels Ascending aorta is mildly dilated at 3.9 cm. Pericardium/Pleural No pericardial effusion. Pleural effusion noted. MMode/2D Measurements & Calculations LVIDd: 4.9 cm IVSd: 1.1 cm Ao root diam: 3.9 cm LVIDs: 3.5 cm LVPWd: 1.1 cm RVDd: 3.6 cm FS: 28.8 % LAV(MOD-bp): 40.8 ml LVAd ap4: 31.6 cm2 SV(MOD-sp4): 50.4 ml LAV(MOD-bp) Indexed: 21.2 ml/m2 LVLd ap4: 8.3 cm SI(MOD-sp4): 26.1 ml/m2 LAV(MOD-sp2): 45.0 ml EDV(MOD-sp4): 100.1 ml LAV(MOD-sp4): 35.6 ml EDV(sp4-el): 102.7 ml LVAs ap4: 20.2 cm2 LVLs ap4: 6.9 cm ESV(MOD-sp4): 49.7 ml ESV(sp4-el): 50.3 ml EF(MOD-sp4): 50.3 % EF(sp4-el): 51.1 % SV(sp4-el): 52.4 ml LA A4 area: 16.6 cm2 LA dimension(2D): 3.2 cm RA A4 area: 16.2 cm2 TAPSE: 2.2 cm Time Measurements MV dec time: 0.20 sec Doppler Measurements & Calculations MV E max jonah: 84.7 cm/sec Lat Peak E' Jonah: 11.7 cm/sec Med Peak E' Jonah: 7.8 cm/sec MV A max jonah: 85.2 cm/sec E/E' lat: 7.2 E/E' med: 10.8 MV E/A: 0.99 Ao V2 max: 162.0 cm/sec LV V1 max: 128.4 cm/sec MV dec slope: 421.0 cm/sec2 Ao max P.5 mmHg LV V1 max P.6 mmHg Ao V2 mean: 118.4 cm/sec Ao mean P.3 mmHg Ao V2 VTI: 28.8 cm PA V2 max: 112.0 cm/sec TR max jonah: 271.3 cm/sec TR max P.4 mmHg ECHO/Echo Complete Interpretation Summary LV systolic function is low normal The LV ejection fraction is 50 %. Trivial mitral valve insufficiency. Trivial tricuspid valve regurgitation Ascending aorta is mildly dilated at 3.9 cm Pleural effusion noted. Ordering Physician: Angel Moss Referring Physician: Casie Hair Performed By: Selena Landaverde RDCS, RVT
[2025-03-25 15:21] LABS: Troponin T High Sens 4 HR 46 ng/L (<=14)
--- NOTE | 2025-03-25 16:21 | CON.PCM.CA_ITS ---
Assessment & Plan Assessment/Plan (1) Acute CHF: QUALIFIERS: Heart failure type: unspecified Qualified Code(s): I 50.9 - Heart failure, unspecified PLAN: A quick look echo showed that the LV function appears to be fairly well maintained. There is some thickness of the heart muscle but good wall motion and no segmental wall motion changes. The RV was difficult to visualize but appears to be normal in size. A full formal echo will be done tomorrow morning. The patient's chest x-ray was consistent with vascular congestion and pulmonary edema as well as bilateral pleural effusions. Given these findings I would recommend continue with diuresis and continue to monitor the patient for alternative explanations of her volume retention as this may be some type of viral syndrome that is affecting her myocardium and transiently weakened it and/or affected her liver. Will slowly add medical therapy to assist with further diuresis. Will add Coreg at low-dose continue the Lasix and monitor her I's and O's and await the final report from the formal echo. (2) Acute hyponatremia: PLAN: Patient's hyponatremia is apparently new sodium is 128 on today's labs. (3) Elevated liver enzymes: PLAN: LFTs are probably related to congestion but this may be a viral infection as well. Further evaluation investigation per the primary service. (4) Anemia: QUALIFIERS: Anemia type: unspecified type Qualified Code(s): D 64.9 - Anemia, unspecified PLAN: Hemoglobin is 9.0 no obvious blood loss further evaluation per the primary service. PLAN: Plan 1. Will add low-dose Coreg to the medical regimen. 2. Recommend continue with gentle diuresis. 3. Please call the [facility] if further assistance is needed. HPI Consult Data Date of Consult: 03/25/25 HPI Narrative Reason for Consultation: Progressive shortness of breath and lower extremity edema. HPI Narrative: RAFAT DELANEY, is a 64 F who presents with a complex history. The patient was vacationing in [facility] and a week ago Saturday developed some fatigue tiredness progressed to have joint discomfort and myalgias associated with shortness of breath with chills. She was admitted to the hospital in [facility] on Saturday and multiple tests were run and they finally felt that she probably had a viral infection. She became hypotensive requiring seed significant volume replacement but had not had diarrhea or nausea or vomiting. They did a stool sample and diagnosed her with norovirus. However the patient had no GI symptoms. The patient did notice that when they started given the fluid she was third spacing it into her lower extremities primarily. She also developed abdominal fullness felt like she had eaten a full meal when she had not eaten anything. She also developed a cough that was nonproductive and occurred primarily when she was in the recumbent position and resolved when she sat up. The patient also has had progressive shortness of breath and she came to the emergency department today for further evaluation. The patient's liver enzymes have been elevated. She has 1-2+ lower extremity edema. White count is elevated at 19,000 she is anemic with a hemoglobin of 9.0. Troponins were minimally elevated 41, 47, and 46. BNP was markedly elevated 11,948. The patient has diuresed since she was admitted and is feeling some better. She was not hypoxic. Patient's only medication at home was estradiol vaginal cream. Patient has received IV Lasix since admission. The patient does complain of PND and orthopnea. She denies any syncope or near syncope. She did have an episode of profound hypotension that required rapid volume resuscitation at the outside hospital in [place]. She has been edematous ever since that fluid resuscitation and has not been able to mobilize the fluid. The patient denies any history of coronary disease she has no previous cardiac history at all. She does have a mother who had bypass graft surgery. She is not diabetic her cholesterols have a very high HDL. She has never smoked and she is not hypertensive. [facility] Medical History Mitral valve prolapse Lyme disease Home Medications ?Medication ?Instructions ?Recorded ?Last Taken ?Type estradiol 0.01% (0.1 mg/gram) 1 appful vaginal .twice weekly 03/25/25 Unknown History vaginal cream Allergy/AdvReac Type Severity Reaction Status Date / Time No Known Allergies Allergy Verified 03/25/25 09:48 Family History Mother CAD (coronary artery disease) Surgical History History of dilatation and curettage Social History Smoking Status: Never smoker ROS ROS Narrative Patient is ill appearing resting in her composition in bed. Constitutional Constitutional: Reports as per HPI Eyes Eyes: Reports systems reviewed and no addt'l complaints, except as documented ENT HEENT: Reports systems reviewed and no addt'l complaints, except as documented Cardiovascular Cardiovascular: Reports as per HPI Respiratory/Chest Respiratory/Chest: Reports as per HPI Gastrointestinal Gastrointestinal: Reports as per HPI Genitourinary Genitourinary: Reports as per HPI Musculoskeletal Musculoskeletal: Reports as per HPI Integumentary Integumentary: Reports systems reviewed and no addt'l complaints, except as documented Neurologic Neurologic: Reports systems reviewed and no addt'l complaints, except as documented Psychiatric Psychiatric: Reports systems reviewed and no addt'l complaints, except as documented Endocrine Endocrinology: Reports systems reviewed and no addt'l complaints, except as documented Hematologic/Lymphatic Hematologic/Lymphatic: Reports as per HPI Allergic/Immunologic Allergic/Immunologic: Reports systems reviewed and no addt'l complaints, except as documented Physical Exam Const alert and oriented x3 HEENT normocephalic Eyes EOMs intact bilaterally Neck Neck Narrative: Noted JVD at 45 degrees up to the angle of the jaw. Chest inspection of chest normal Resp normal respiratory effort Auscultation: rales bilateral 1/2 way up and diminished lung sounds bilateral lower Cardio Cardio Narrative: Heart tones are soft there is no significant murmur there is questionable S3 gallop. Rate: regular rate Rhythm: regular rhythm Heart Sounds: S1 normal and S2 normal; Negative for click, gallop or murmur GI soft to palpation and non-tender Extremity General Extremity: edema bilateral lower extremity Details: moderate Neuro Neuro Narrative: Alert and oriented x 3 Psych mental status grossly normal Risk Stratification Risk Stratification Applicable: Yes Age >/= 65: No >/= 3 CAD Risk Factors (HTN, HLD, DM, family hx of CAD, or current smoker): No Aspirin Use in the Past 7 Days: No Severe Angina (>/= episodes in 24 hours): No EKG ST Changes >/= 0.5mm: No Positive Cardiac Marker: Yes JOHNNIE Risk Stratification Score: 1 JOHNNIE % Risk: 5% Risk Charges/Coding Visit Charges Inpatient E&M: 30982 Init Hosp L2 Objective Data Vital Signs: Vital Signs Temp Pulse Resp BP Pulse Ox O2 Del Method 98.3 F 86 14 115/69 94 Room Air 03/25/25 15:18 03/25/25 15:18 03/25/25 15:18 03/25/25 15:18 03/25/25 15:18 03/25/25 15:18 Oxygen Delivery Method Room Air Weight: 169 lb Body Mass Index (BMI) 24.9 Lab / Micro Data Attestation: I reviewed the patient's lab results. 03/25/25 10:15 03/25/25 10:15 Labs: Laboratory Results - last 24 hr 03/25/25 10:15: WBC 19.0 H, RBC 3.09 L, Hgb 9.0 L, Hct 25.4 L, MCV 82.2, MCH 29.1, MCHC 35.4, RDW Std Deviation 42.9, RDW Coeff of Christian 14.4, Plt Count 392, MPV 9.5, Neut % (Auto) Not Reportable, Absolute Neuts (auto) 16.3 H, Absolute Lymphs (auto) 1.30, Total Counted 100, Neutrophils % (Manual) 84 H, Band Neutrophils % 2, Lymphocytes % (Manual) 7 L, Monocytes % (Manual) 3, M etamyelocytes % 3 H, Myelocytes % 1 H, Differential Comment COMMENT, Diff Path Review May foll, Platelet Estimate ADEQUATE, RBC Morphology NORM C+C, PT 14.5, INR 1.1, Sodium 128 L, Potassium 3.7, Chloride 93 L, Carbon Dioxide 23.1, Anion Gap 12, BUN 12, Creatinine 0.61 L, Estim Creat Clear Calc 98.65, Est GFR (MDRD) Non-Af 100, BUN/Creatinine Ratio 20.4 H, Glucose 129 H, Calcium 9.3, Total Bilirubin 1.29, Direct Bilirubin 0.92 H, AST 170 H, ALT 81 H, Alkaline Phosphatase 258 H, Troponin T High Sens 41 H, [place] [address] H, Total Protein 5.9, Albumin 2.6 L, Globulin 3.3 03/25/25 13:32: Troponin T Hi Sens 2 Hr 47 H 03/25/25 14:20: Troponin T Hi Sens 4Hr 46 H Rhythm Strip Rhythm Strip: Sinus Rhythm Rate: 89 Ectopy: None Cardiology Labs/Tests 03/25/25 10:15: WBC 19.0 H, RBC 3.09 L, Hgb 9.0 L, Hct 25.4 L, MCV 82.2, MCH 29.1, MCHC 35.4, Plt Count 392, MPV 9.5, Neut % (Auto) Not Reportable, Absolute Neuts (auto) 16.3 H, Total Counted 100, Neutrophils % (Manual) 84 H, Band Neutrophils % 2, Lymphocytes % (Manual) 7 L, Monocytes % (Manual) 3, M etamyelocytes % 3 H, Myelocytes % 1 H, PT 14.5, INR 1.1, Sodium 128 L, Potassium 3.7, Chloride 93 L, Carbon Dioxide 23.1, Anion Gap 12, BUN 12, Creatinine 0.61 L , Est GFR (MDRD) Non-Af 100, BUN/Creatinine Ratio 20.4 H, Glucose 129 H, Calcium 9.3, Total Bilirubin 1.29, Direct Bilirubin 0.92 H Rhythm: EKG: ECHO: Stress Test: Cardiac Cath: PCI: CT Surgery: Holter monitor: EPS: PPM: CXR: Chest CT Scan: Radiography Diagnostic Testing: Radiology Impression Chest X-Ray 03/25/25 10:48 IMPRESSION: Vascular congestion and mild CHF with small bilateral pleural effusions left greater than right with bibasilar atelectasis worse on the right lung base. Reading Location: [place] [id number]
[2025-03-25] MEDS: Furosemide 40 MG/4 ML Vial IV ×2 (16:27→18:58)
[2025-03-25] MEDS: 0.9% Saline Lock 10 ML Syringe IV ×2 (16:28→18:58)
--- OUTSIDE RECORDS SUMMARY | 2025-03-25 20:17 | XMS RPT_ITS | CCD ---
Author Organization [facility] Care Team Providers Care Distribution Center Manager Name Role Phone Des Briceño Primary Care Provider Sherry Colindres MD Primary Care Provider David Nielsen Attending Unavailable Unavailable Primary Care Provider Unavailabl e Sherry Colindres MD Primary Care Provider Catalino DIVERSIFIED CROPS SUPERVISOR.CORPORATE LIBRARIANJayeshDick Unavailable Tanngrecia DIVERSIFIED CROPS SUPERVISOR.CORPORATE LIBRARIANArsenioIsabelle Unavailable SHERRY COLINDRES Primary Care Unavailable GORGEF ISABELLE Referring Unavailable SHERRY COLINDRES Primary Care Unavailable PHILLIPHOSegun ISABELLE Attending Unavailable SELF Referring Unavailable SHERRY COLINDRES Primary Care Unavailable CARRERA, BREN Attending Unavailable SELF Referring Unavailable CARRERA, BREN Referring Unavailable SHERRY COLINDRES Primary Care Unavailable TANNHOF, ISABELLE Attending Unavailable SELF Referring Unavailable Dr. Casie Hair DO Primary Care Provider Dr. Sawyer Daigle MD Emergency Provider [phone] Dr. Angel Moss DO Admit Provider Dr. Angel Moss DO Attending Provider Martin Walton Attending Provider [phone] Allergies Allergy Classification Reported Allergen(s) Allergy Type Date of Onset Reaction(s) Facility (2 sources) Other; Translations: [OTHER] Propensity to adverse reactions 7 [place], [place] (1 source) Peanut-Containing Drug Products Propensity to adverse reactions to drug 6 Sw[place], [place] (13 sources) peanut; Translations: [PEANUTS] Food Intolerance 6 Swelling, Anaphylaxis [facility] Work Phone: (6 sources) Environmental allergies [Other] Propensity to adverse reactions 7 [facility] (6 sources) Exercise Induced Anaphylaxis [Other] Propensity to adverse reactions 0 Swelling, Anaphylaxis, Shortness of Breath [facility] Medications Current Medications Medication Drug Class(es) Dates Sig (Normalized) Sig (Original) acetaminophen 500 mg oral tablet (3 sources) Start: 11-17-2019 acetaminophen (TYLENOL) tablet 1,000 mg take 1 tablet by andry th every six hours as needed for pain acetaminophen (TYLENOL) 500 MG tablet Ta ke 500 mg by mouth every 6 hours as needed for Pain 0 Active ascorbic acid 1000 mg oral tablet (12 sources) Vitamin C Start: 02-27-2010 ascorbic acid( VITAMIN C 1,000 MG TAB) Take one(1) tablet four times daily. 0 02/27/2010 Active Comment on above: Take one(1) tablet f our times daily. calcium chloride 0.0014 meq/ml / potassium chloride 0.004 meq/ml / sodium chloride 0.103 meq/ml / sodium lactate 0.028 meq/ml injectable solution (1 source) Start: 11-17-2019 lactated ringe rs infusion 1 ml diphenhydrAMINE hydrochloride 50 mg/ml cartridge (13 sources) Histamine-1 Receptor Antagonist Start: 11-17-2019 End: 11-17-2019 diphenhydrAMINE (BENADRYL) injection 12.5 mg Start: 03-11-2007 take 1-2 tablets by mouth every six hours as needed diphenhydrAMINE (BENADRYL) 25 mg ORAL Cap Indications: Other anaphylactic reaction take one to two tablets every 6 hours as needed. 120 0 03/11/2007 Active Comment on above: take one to two tabl ets every 6 hours as needed. [id number] 0.3 ml EPINEPHrine 1 mg/ml auto-injector (12 sources) alpha-Adrenergic Agonist, beta-Adrenergic Agonist, Catecholamine Start: 09-20-2008 epinephrine(EPIPEN 0.3 MG/0.3 ML (1:1,000) IM INJECTOR) Indications: Other anaphylactic reaction use as directed for allergic reaction. Seek emergent medical care immediately after use. 1 1 09/20/2008 Active Comment on above: use as directed for allergic reaction. Seek emergent medical care immediately after use. estradiol 0.1 mg/ml vaginal cream (11 sources) Estrogen Start: 03-25-2025 Estradiol 0.01 % (0.1 mg/gram) cream Active 1 NMA VAGINAL .twice weekly March 25, 2025 12:00am Start: 07-29-2024 estradiol (EST RACE) 0.01 % (0.1 mg/gram) vaginal cream Indications: Urethral caruncle Apply fingertip amount to urethral caruncle twice weekly 42.5 g 2 07/29/2024 Active Start: 03-06-2022 End: 07-29-2024 estradiol (ESTRACE) 0.01 % ( 0.1 mg/gram) vaginal cream Indications: Urethral caruncle Apply fingertip amount to urethral caruncle at bedtime x 14 nights then twice weekly 42.5 g 2 03/06/2022 07/29/2024 Discontinued Comment on above: Apply fingertip amou nt to urethral caruncle at bedtime x 14 nights then twice weekly 1 ml hydrALAZINE hydrochloride 20 mg/ml injection (2 sources) Arteriolar Vasodilator Start: 11-17-2019 hydrALAZINE (APRESOLINE) injection 5 mg Start: 11-17-2019 hydrALAZINE (A PRESOLINE) 20 MG/ML injection Infuse 5 mg intravenously 0 11/17/2019 Active 1 ml HYDROmorphone hydrochloride 1 mg/ml cartridge (4 sources) Opioid Agonist Start: 11-17-2019 HYDROmorphone (DILAUDID) injection 1 mg Start: 11-17-2019 HYDROmorphone (DILAUDID) injection 0.5 mg Start: 11-17-2019 HYDROmorphone (DILAUDID) injection 0.25 mg iv contrast (will be provided with radiology test) (1 source) Start: 10-21-2024 End: 10-22-2024 iv contrast (will be provided with radiology test) Indications: Liver cyst MRI Liver Inject, intravenously, once for 1 dose. No IV access, insert saline lock prior to the beginning of sedation, infusion, injection of imaging exam. Discontinue saline lock post exam. If Pt. has a central line or IVAD, may access for administration according to line specific nursing protocol. Once exam is complete flush line and de-access according to line specific nursing protocol in the MR contrast administration guidelines link. 1 Each 10/21/2024 10/22/2024 Active krill oil 500 mg oral capsule (3 sources) take 1 capsule by mouth once daily krill oil 500 mg cap Take 500 mg by mouth once daily. Active 4 ml labetalol hydrochloride 5 mg/ml cartridge (1 source) beta-Adrenergic Zeina Start: 11-17-2019 labetalol (NORMODYNE;TRANDATE ) injection 5 mg 10 ml lidocaine hydrochloride 10 mg/ml injection (1 source) Antiarrhythmic, Amide Local Anesthetic Start: 11-17-2019 End: 11-17-2019 lidocaine PF 1 % injection 1 mL Magnesium Aspartate (3 sources) take 400 mg by mouth twice daily magnesium aspartate HCl (MAGINEX DS ORAL) Take 400 mg by mouth two times a day. Active 1 ml meperidine hydrochloride 25 mg/ml cartridge (1 source) Opioid Agonist Start: 11-17-2019 meperidine (DEMEROL) injection 12.5 mg 2 ml ondansetron 2 mg/ml injection (1 source) Serotonin-3 Receptor Antagonist Start: 11-17-2019 End: 11-17-2019 ondansetron (ZOFRAN) injection 4 mg oxyCODONE (1 source) Opioid Agonist Start: 11-17-2019 End: 11-17-2019 oxyCODONE (ROXICODONE) immediate release tablet 5 mg 1 ml promethazine hydrochloride 25 mg/ml injection (1 source) Phenothiazine Start: 11-17-2019 End: 11-17-2019 promethazine (PHENERGAN) injection 6.25 mg 200 ml ropivacaine hydrochloride 2 mg/ml injection (1 source) Amide Local Anesthetic Start: 11-17-2019 ropivacaine 0.2% (NAROPIN) elastomeric infusion 550 mL zinc acetate 50 mg oral capsule (3 sources) take 50 mg by mouth once daily ZINC ACETATE ORAL Take 50 mg by mouth once daily. Active Completed/Discontinued Medications Medication Drug Class(es) Dates Sig (Normalized) Sig (Original) acetaminophen 325 mg / HYDROcodone bitartrate 5 mg oral tablet (1 source) Opioid Agonist Start: 11-04-2019 End: 11-06-2019 Hydrocodone-Acetam inophen 1 TABLET tablet Discontinued 1 {tbl} PO EVERY 4 HOURS NEEDED as needed for Pain 10 2 November 04, 2019 November 05, 2019 1:00am November 06, 2019 1:08am celecoxib 400 mg oral capsule (1 source) Nonsteroidal Anti-inflammatory Drug Start: 11-17-2019 End: 11-17-2019 celecoxib (CELEBREX) capsule 400 mg cetirizine hydrochloride 10 mg oral tablet (3 sources) Histamine-1 Receptor Antagonist Start: 09-29-2018 End: 03-25-2025 take 1 tablet by mouth once daily Cetirizine Hcl (Zyrtec) 10 MG tablet Discontinued 10 mg PO DAILY September 29, 2018 1:00am March 25, 2025 1:19pm Cetirizine HCl ( ZYRTEC PO) Take by mouth 0 Active famotidine 20 mg oral tablet (1 source) Histamine-2 Receptor Antagonist Start: 11-17-2019 End: 11-17-2019 famotidine (PEPCID) tablet 20 mg gabapentin 300 mg oral capsule (1 source) Anti-epileptic Agent Start: 11-17-2019 End: 11-17-2019 gabapentin (NEURONTIN) capsule 300 mg miSOPROStol 0.2 mg oral tablet (6 sources) Prostaglandin E1 Analog Start: 02-26-2022 End: 07-29-2024 miSOPROStol (CYTOTEC) 200 mcg tablet Insert 2 tablets vaginally night prior to procedure and 2 tablets morning of procedure. Each dose should be in vagina for 6-8 hours. 4 tablet 02/26/2022 07/29/2024 Discontinued Comment on above: Insert 2 tablets vag inally night prior to procedure and 2 tablets morning of procedure. Each dose should be in vagina for 6-8 hours. Problems Active Problems Problem Classification Problem Date Documented Da te Episodic/Chronic Blindness and vision defects (2 sources) Blurring of visual image; Translations: [Other visual disturbances] Onset: 01-14-2025 01-14-2025 Episodic Congestive heart failure; nonhypertensive (4 sources) Congestive heart failure; Translations: [Heart failure, unspecified] 03-25-2025 Chronic Deficiency and other anemia (2 sources) Anemia; Translations: [Anemia, unspecified] 03-25-2025 Episodic Diseases of white blood cells (1 source) Leukocytosis; Translations: [Elevated white blood cell count, unspecified] 03-25-2025 Chronic Disorders of lipid metabolism (3 sources) Mixed hyperlipidemia; Translations: [Mixed hyperlipidemia] Onset: 01-14-2025 10-21-2024 Chronic Fluid and electrolyte disorders (2 sources) Acute hyponatremia; Translations: [Hypo-osmolality and hyponatremia] 03-25-2025 Episodic Fracture of upper limb (3 sources) Closed fracture of distal end of radius; Translations: [Closed fracture of styloid process of ulna] Onset: 11-18-2019 11-18-2019 Episodic Genitourinary symptoms and ill-defined conditions (7 sources) Urge incontinence of urine; Translations: [Urge incontinence] Onset: 07-29-2024 07-29-2024 Chronic Immunizations and screening for infectious disease (7 sources) Patient encounter status; Translations: [Encounter for screening for human papillomavirus (HPV)] Episodic Menopausal disorders (2 sources) Postmenopausal bleeding; Translations: [Postmenopausal bleeding] Chronic Other diseases of bladder and urethra (11 sources) Urethral caruncle; Translations: [Urethral caruncle] Onset: 07-29-2024 Episodic Other ear and sense organ disorders (1 source) Impacted cerumen of bilateral ears; Translations: [Impacted cerumen, bilateral] 10-21-2024 Episodic Other ear and sense organ disorders (1 source) Impacted cerumen, bilateral; Translations: [Bilateral impacted cerumen] Onset: 10-21-2024 Episodic Other liver diseases (2 sources) Liver cyst; Translations: [Other specified diseases of liver] 10-21-2024 Chronic Other liver diseases (1 source) Other specified diseases of liver; Translations: [Liver cyst] Onset: 01-14-2025 Chronic Other liver diseases (2 sources) Elevated liver enzymes level; Translations: [Abnormal levels of other serum enzymes] 03-25-2025 Episodic Other lower respiratory disease (2 sources) Dyspnea; Translations: [Dyspnea, unspecified] 03-25-2025 Episodic Other screening for suspected conditions (not mental disorders or infectious disease) (2 sources) Endometrium thickened; Translations: [Abnormal findings on diagnostic imaging of other specified body structures] Chronic Prolapse of female genital organs (8 sources) Midline cystocele; Translations: [Cystocele, midline] Onset: 07-29-2024 Chronic Screening and history of mental health and substance abuse codes (2 sources) Encounter for screening for depression; Translations: [Encounter for screening examination for other mental health and behavioral disorders] Onset: 10-21-2024 Episodic Past or Other Problems Problem Classification Problem Date Documented Date Episodic/Chronic Allergic reactions (12 sources) Solar degeneration; Translations: [Other skin changes due to chronic exposure to nonionizing radiation] Onset: 07-22-2009 07-22-2009 Episodic Neoplasms of unspecified nature or uncertain behavior (12 sources) Neoplasm of uncertain behavior of skin; Translations: [Neoplasm of uncertain behavior of skin] Onset: 07-22-2009 07-22-2009 Episodic Other and unspecified benign neoplasm (12 sources) Benign neoplasm of skin of lower limb; Translations: [Other benign neoplasm of skin of unspecified lower limb, including hip] Onset: 07-22-2009 07-22-2009 Episodic Other and unspecified benign neoplasm (12 sources) Benign neoplasm of skin of trunk; Translations: [Other benign neoplasm of skin of trunk] Onset: 07-22-2009 07-22-2009 Episodic Other and unspecified benign neoplasm (5 sources) Neoplasm of soft tissue; Translations: [Other benign neoplasm of skin, unspecified] Onset: 07-22-2009 07-22-2009 Episodic Other and unspecified benign neoplasm (7 sources) Dysplastic nevus of skin; Translations: [Other benign neoplasm of skin, unspecified] Onset: 07-22-2009 07-22-2009 Episodic Other circulatory disease (12 sources) Spider nevus; Translations: [Nevus, non-neoplastic] Onset: 07-22-2009 07-22-2009 Episodic Other diseases of bladder and urethra (1 source) Urethral caruncle; Translations: [Urethral caruncle] Onset: 07-29-2024 Episodic Other diseases of veins and lymphatics (12 sources) Peripheral venous insufficiency; Translations: [Venous insufficiency (chronic) (peripheral)] Onset: 02-27-2018 02-27-2018 Episodic Other infections; including parasitic (12 sources) Lyme disease; Translations: [Lyme disease, unspecified] Onset: 01-27-2008 01-27-2008 Episodic Other screening for suspected conditions (not mental disorders or infectious disease) (1 source) Encounter for screening mammogram for malignant neoplasm of breast; Translations: [Encounter for screening mammogram for breast cancer] Onset: 08-18-2024 Episodic Other skin disorders (12 sources) Seborrheic keratosis; Translations: [Other seborrheic keratosis] Onset: 07-22-2009 07-22-2009 Episodic Other skin disorders (12 sources) Solar lentigo; Translations: [Other melanin hyperpigmentation] Onset: 07-22-2009 07-22-2009 Episodic Results Test Name Value Interpretation Reference Range Facility Absolute lymphocyte countOrd ered By: Sawyer Daigle on 03-25-2025 Lymphocytes Auto (Unsp spec) [#/Vol] 1.30 10*3/uL 0.83-4.51 [facility] Absolute neutrophil countOrd ered By: Sawyer Daigle on 03-25-2025 Neutrophils (Bld) [#/Vol] 16.3 10*3/uL High 2.0-7.7 [facility] Anion gap in Serum or Plasma Ordered By: Sawyer Daigle on 03-25-2025 Anion gap [Moles/Vol] 12 mmol/L 5-15 [facility] BUN/creatinine ratioOrdered By: Sawyer Daigle on 03-25-2025 Urea nitrogen/Creatinine [Mass ratio] 20.4 mg/mg High 10-20 [facility] Bilirubin directOrdered By: Sawyer Daigle on 03-25-2025 Bilirubin.direct [Mass/Vol] 0.92 mg/dL High 0.00-0.30 [facility] Bilirubin, totalOrdered By: Sawyer Daigle on 03-25-2025 Bilirubin [Mass/Vol] 1.29 mg/dL 0.00-1.30 [facility] Blood band neutrophil count as percentage of total leukocytesOrdered By: Sawyer Daigle on 03-25-2025 Band form neutrophils/100 WBC (Bld) 2 % 0-5 [facility] Blood lymphocytes/100 leukoc ytesOrdered By: Sawyer Daigle on 03-25-2025 Lymphocytes/100 WBC (Bld) 7 % Low 19-41 [facility] Blood manual differential co mment interpretation (narrative result)Ordered By: Sawyer Daigle on 03-25-2025 Manual differential comment Jason (Bld) [Interp] COMMENT [facility] Comment on above: MONOCYTOSIS. Blood metamyelocytes/100 jaleesa kocytesOrdered By: Sawyer Daigle on 03-25-2025 Metamyelocytes/100 WBC (Bld) 3 % High 0-1 [facility] Blood monocytes/100 leukocyt esOrdered By: Sawyer Daigle on 03-25-2025 Monocytes/100 WBC (Bld) 3 % 0-10 [facility] Blood segmented neutrophils/ 100 leukocytesOrdered By: Sawyer Daigle on 03-25-2025 Segmented neutrophils/100 WBC (Bld) 84 % High 47-70 [facility] Carbon dioxide, total [Moles /volume] in Central venous bloodOrdered By: Sawyer Daigle on 03-25-2025 CO2 [Moles/Vol] 23.1 mmol/L 21.0-32.0 [facility] Chloride assayOrdered By: Jayesh Daigle on 03-25-2025 Chloride [Moles/Vol] 93 mmol/L Low 98-108 [facility] Erythrocyte distribution wid th ratioOrdered By: Sawyer Daigle on 03-25-2025 Erythrocyte distribution width (RBC) [Ratio] 14.4 % 11.6-14.6 [facility] Erythrocyte distribution wid th standard deviationOrdered By: Sawyer Daigle on 03-25-2025 Erythrocyte distribution width (RBC) [Ratio] 42.9 fl 35.1-43.9 [facility] Erythrocyte morphology asses smentOrdered By: Sawyer Daigle on 03-25-2025 RBC morphology finding Nom (Bld) NORM C+C NORMAL NORM C&C [facility] Glomerular filtration rate ( GFR) estimation/1.73 sq m using serum, plasma, or whole bOrdered By: Sawyer Daigle on 03-25-2025 GFR/1.73 sq M.predicted among non-blacks MDRD (S/P/Bld) [Vol rate/Area] 100 mL/min/{1.73_m2} >60 [facility] Comment on above: mL/min/1.73m2 CKD-EP I Creatinine Equation (2020) Hematocrit Auto (Bld) [Volum e fraction]Ordered By: Sawyer Daigle on 03-25-2025 Hematocrit (Bld) [Volume fraction] 25.4 % Low 37-47 [facility] Hemoglobin measurementOrdere d By: Sawyer Daigle on 03-25-2025 Hemoglobin (Bld) [Mass/Vol] 9.0 g/dL Low 12.0-15.0 [facility] [employer] normalized rat io (INR) calculationOrdered By: Sawyer Daigle on 03-25-2025 INR Coag (Bld) [Relative time] 1.1 {INR} [facility] - Chemistry and C hemistry - challengeOrdered By: Sawyer Daigle on 03-25-2025 AST [Catalytic activity/Vol] 170 U/L High <32 [facility] MCV (mean corpuscular volume ) determinationOrdered By: Sawyer Daigle on 03-25-2025 MCV (RBC) [Entitic vol] 82.2 fL 81-99 [facility] Mean corpuscular hemoglobin (MCH) determinationOrdered By: Sawyer Daigle on 03-25-2025 MCH (RBC) [Entitic mass] 29.1 pg 27.0-32.0 [facility] Mean corpuscular hemoglobin concentration (MCHC) determinationOrdered By: Sawyer Daigle on 03-25-2025 MCHC (RBC) [Mass/Vol] 35.4 g/dL 32-36 [facility] Mean platelet volume determi nationOrdered By: Sawyer Daigle on 03-25-2025 Platelet mean volume (Bld) [Entitic vol] 9.5 fL 6.2-12.0 [facility] Myelocyte %Ordered By: Sawyer Daigle on 03-25-2025 Myelocytes/100 WBC (Bld) 1 % High 0-0 [facility] Natriuretic peptide.B prohor tessie N-Terminal [Mass/volume] in Serum or PlasmaOrdered By: Sawyer Daigle on 03-25-2025 Natriuretic peptide.B prohormone N-Terminal [Mass/Vol] 09567 pg/mL High <900 [facility] Comment on above: Heart Failure Unlike ly: < 300 pg/mLHeart Failure Likely< 50 Years: > 450 pg/mL50-75 Years: > 900 pg/mL>75 Years: > 1800 pg/mL Platelet countOrdered By: Jayesh Daigle on 03-25-2025 Platelets (Bld) [#/Vol] 392 10*3/uL 150-450 [facility] Platelet estimateOrdered By: Sawyer Daigle on 03-25-2025 Platelets LM Ql (Bld) ADEQUATE ADEQ [facility] Potassium measurement (mass/ volume)Ordered By: Sawyer Daigle on 03-25-2025 Potassium (Unsp spec) [Mass/Vol] 3.7 mmol/L 3.3-5.1 [facility] Prothrombin timeOrdered By: Sawyer Daigle on 03-25-2025 PT Coag (PPP) [Time] 14.5 s 11.7-14.9 [facility] RBC Auto (Bld) [#/Vol]Ordere d By: Sawyer Daigle on 03-25-2025 RBC (Bld) [#/Vol] 3.09 10*6/uL Low 4.2-5.[address] [facility] Review by pathologistOrdered By: Sawyer Daigle on 03-25-2025 Pathologist review Jason (Unsp spec) [Interp] February [facility] Serum creatinine measurement (mass/volume)Ordered By: Sawyer Daigle on 03-25-2025 Creatinine [Mass/Vol] 0.61 mg/dL Low 0.70-1.20 [facility] Serum globulin measurementOr dered By: Sawyer Daigle on 03-25-2025 Globulin (S) [Mass/Vol] 3.3 g/dL 2.2-4.2 [facility] Serum glucose measurement (m ass/volume)Ordered By: Sawyer Daigle on 03-25-2025 Glucose [Mass/Vol] 129 mg/dL High 70-99 [facility] Serum or plasma alanine blair otransferase (ALT) measurementOrdered By: Sawyer Daigle on 03-25-2025 ALT [Catalytic activity/Vol] 81 U/L High <35 [facility] Serum or plasma albumin cindy urement (mass/volume)Ordered By: Sawyer Daigle on 03-25-2025 Albumin [Mass/Vol] 2.6 g/dL Low 3.4-4.8 [facility] Serum or plasma alkaline mickey sphatase measurementOrdered By: Sawyer Daigle on 03-25-2025 ALP [Catalytic activity/Vol] 258 U/L High 35-104 [facility] Serum or plasma calcium cindy urement (mass/volume)Ordered By: Sawyer Daigle on 03-25-2025 Calcium [Mass/Vol] 9.3 mg/dL 7.6-11.0 [facility] Serum or plasma urea nitroge n measurement (mass/volume)Ordered By: Sawyer Daigle on 03-25-2025 Urea nitrogen [Mass/Vol] 12 mg/dL 4-19 [facility] Sodium levelOrdered By: Sawyer Daigle on 03-25-2025 Sodium [Moles/Vol] 128 mmol/L Low 133-145 [facility] Total cell countOrdered By: Sawyer Daigle on 03-25-2025 Cells counted Molgen (Bld/Tiss) [#] 100 MANUAL DIFF [facility] Total proteinOrdered By: Per Daigle on 03-25-2025 Protein [Mass/Vol] 5.9 g/dL 5.9-8.4 [facility] Troponin T.cardiac [Mass/vol ume] in Serum or Plasma by High sensitivity methodOrdered By: Sawyer Daigle on 03-25-2025 Troponin T.cardiac High sensitivity method [Mass/Vol] 47 ng/L High <14 [facility] Troponin T.cardiac High sensitivity method [Mass/Vol] 41 ng/L High <14 [facility] White blood cell (WBC) count Ordered By: Sawyer Daigle on 03-25-2025 WBC (Bld) [#/Vol] 19.0 10*3/uL High 4.4-11.[address] [facility] CBC W Auto Differential pane l (Bld)on 01-14-2025 Basophils (Bld) [#/Vol] [facility] Bas[facility]/100 WBC (Bld) 0.4 % [facility] Differential cell count method Nom (Bld) Auto [facility] Eosinophils (Bld) [#/Vol] 0.33 10*3/uL [facility] Eosinophils/100 WBC (Bld) 7.1 % [facility] Erythrocyte distribution width (RBC) [Ratio] 14.7 % 11.5 - 15.0 % [facility] Hematocrit (Bld) [Volume fraction] 39.1 % 36.0 - 46.0 % [facility] Hemoglobin (Bld) [Mass/Vol] 12.6 g/dL 11.5 - 15.5 g/dL [facility] Immature granulocytes (Bld) [#/Vol] NINF [facility] Immature granulocytes/100 WBC (Bld) 0 % [facility] Lymphocytes (Bld) [#/Vol] 2.34 10*3/uL [facility] Lymphocytes/100 WBC (Bld) 50.3 % [facility] MCH (RBC) [Entitic mass] 29.4 pg 26. 0 - 34.0 pg [facility] MCHC (RBC) [Mass/Vol] 32.2 g/dL 30.5 - 36.0 g/dL [facility] MCV (RBC) [Entitic vol] 91.4 fL 80.0 - 100.0 fL [facility] Monocytes (Bld) [#/Vol] 0.51 10*3/uL [facility] Monocytes/100 WBC (Bld) 11 % [facility] Neutrophils (Bld) [#/Vol] 1.45 10*3/uL [facility] Neutrophils/100 WBC (Bld) 31.2 % [facility] Nucleated RBC (Bld) [#/Vol] NINF [facility] Nucleated RBC/100 WBC (Bld) [Ratio] 0 % /100 WBC [facility] Platelet mean volume (Bld) [Entitic vol] 10.6 fL 9.0 - 12.7 fL [facility] Platelets (Bld) [#/Vol] 194 10*3/uL [facility] RBC (Bld) [#/Vol] 4.28 10*6/uL 3.90 - 5.2 0 m/uL [facility] WBC (Bld) [#/Vol] 4.65 10*3/uL [facility] Basophils (Bld) [#/Vol] 10*3/uL Normal <0.11 [facility] Comment on above: Order Comment: Speci men Type: BLOOD SPECIMEN Ordering Facility: [facility] Address: [address] [place] [address] Performed By: #### [id number] #### [facility] CLIA [id number] [address] [place] [address] [place] Basophils/100 WBC (Bld) 0.4 % Normal [facility] Comment on above: Order Comment: Speci men Type: BLOOD SPECIMEN Ordering Facility: [facility] Address: [address] [place] [address] Performed By: #### [id number] #### [facility] CLIA [id number] [address] [place] [address] [place] Differential cell count method Nom (Bld) Auto Normal [facility] Comment on above: Order Comment: Speci men Type: BLOOD SPECIMEN Ordering Facility: [facility] Address: [address] [place] [address] Performed By: #### 5 7021-8 #### [facility] CLIA [id number] [address] [place] [address] [place] Eosinophils (Bld) [#/Vol] 0.33 10*3/uL Normal <0.46 [facility] Comment on above: Order Comment: Speci men Type: BLOOD SPECIMEN Ordering Facility: [facility] Address: [address] [place] [address] Performed By: #### 5 7021-8 #### [facility] CLIA [id number] [address] [place] [address] [place] Eosinophils/100 WBC (Bld) 7.1 % Normal [facility] Comment on above: Order Comment: Speci men Type: BLOOD SPECIMEN Ordering Facility: [facility] Address: [address] [place] [address] Performed By: #### 5 7021-8 #### [facility] CLIA [id number] [address] [place] [address] [place] Erythrocyte distribution width (RBC) [Ratio] 14.7 % Normal 11.5-15.0 [facility] Comment on above: Order Comment: Speci men Type: BLOOD SPECIMEN Ordering Facility: [facility] Address: [address] [place] [address] Performed By: #### 5 7021-8 #### [facility] CLIA [id number] [address] [place] [address] [place] Hematocrit (Bld) [Volume fraction] 39.1 % Normal 36.0-46.0 [facility] Comment on above: Order Comment: Speci men Type: BLOOD SPECIMEN Ordering Facility: [facility] Address: [address] [place] [address] Performed By: #### 5 7021-8 #### [facility] CLIA [id number] [address] [place] [address] [place] Hemoglobin (Bld) [Mass/Vol] 12.6 g/dL Normal 11.5-15.5 [facility] Comment on above: Order Comment: Speci men Type: BLOOD SPECIMEN Ordering Facility: [facility] Address: [address] [place] [address] Performed By: #### 5 7021-8 #### [facility] CLIA [id number] [address] [place] [address] [place] Immature granulocytes (Bld) [#/Vol] 10*3/uL Normal <0.10 [facility] Comment on above: Order Comment: Speci men Type: BLOOD SPECIMEN Ordering Facility: [facility] Address: [address] [place] [address] Performed By: #### 5 7021-8 #### [facility] CLIA [id number] [address] [place] [address] [place] Immature granulocytes/100 WBC (Bld) 0.0 % Normal [facility] Comment on above: Order Comment: Speci men Type: BLOOD SPECIMEN Ordering Facility: [facility] Address: [address] [place] [address] Performed By: #### 5 7021-8 #### [facility] CLIA [id number] [address] [place] [address] [place] Lymphocytes (Bld) [#/Vol] 2.34 10*3/uL Normal 1.00-4.00 [facility] Comment on above: Order Comment: Speci men Type: BLOOD SPECIMEN Ordering Facility: [facility] Address: [address] [place] [address] Performed By: #### 5 7021-8 #### [facility] CLIA [id number] [address] [place] [address] [place] Lymphocytes/100 WBC (Bld) 50.3 % Normal [facility] Comment on above: Order Comment: Speci men Type: BLOOD SPECIMEN Ordering Facility: [facility] Address: [address] [place] [address] Performed By: #### 5 7021-8 #### [facility] CLIA [id number] [address] [place] [address] [place] MCH (RBC) [Entitic mass] 29.4 pg Normal 26.0-34.0 [facility] Comment on above: Order Comment: Speci men Type: BLOOD SPECIMEN Ordering Facility: [facility] Address: [address] [place] [address] Performed By: #### 5 7021-8 #### [facility] CLIA [id number] [address] [place] [address] [place] MCHC (RBC) [Mass/Vol] 32.2 g/dL Normal 30.5-36.0 [facility] Comment on above: Order Comment: Speci men Type: BLOOD SPECIMEN Ordering Facility: [facility] Address: [address] [place] [address] Performed By: #### 5 7021-8 #### [facility] CLIA [id number] [address] [place] [address] [place] MCV (RBC) [Entitic vol] 91.4 fL Normal 80.0-100.0 [facility] Comment on above: Order Comment: Speci men Type: BLOOD SPECIMEN Ordering Facility: [facility] Address: [address] [place] [address] Performed By: #### 5 7021-8 #### [facility] CLIA [id number] [address] [place] [address] [place] Monocytes (Bld) [#/Vol] 0.51 10*3/uL Normal <0.87 [facility] Comment on above: Order Comment: Speci men Type: BLOOD SPECIMEN Ordering Facility: [facility] Address: [address] [place] [address] Performed By: #### 5 7021-8 #### [facility] CLIA [id number] [address] [id number] [address] [place] Monocytes/100 WBC (Bld) 11.0 % Normal [facility] Comment on above: Order Comment: Speci men Type: BLOOD SPECIMEN Ordering Facility: [facility] Address: [address] [place] [address] Performed By: #### 5 7021-8 #### [facility] CLIA [id number] [address] [place] [address] [place] Neutrophils (Bld) [#/Vol] 1.45 10*3/uL Normal 1.45-7.50 [facility] Comment on above: Order Comment: Speci men Type: BLOOD SPECIMEN Ordering Facility: [facility] Address: [address] [place] [address] Performed By: #### 5 7021-8 #### [facility] CLIA [id number] [address] [place] [address] [place] Neutrophils/100 WBC (Bld) 31.2 % Normal [facility] Comment on above: Order Comment: Speci men Type: BLOOD SPECIMEN Ordering Facility: [facility] Address: [address] [place] [address] Performed By: #### 5 7021-8 #### [facility] CLIA [id number] [address] [place] [address] [place] Nucleated RBC (Bld) [#/Vol] 10*3/uL Normal <0.01 [facility] Comment on above: Order Comment: Speci men Type: BLOOD SPECIMEN Ordering Facility: [facility] Address: [address] [place] [address] Performed By: #### 5 7021-8 #### [facility] CLIA [id number] [address] [place] [address] [place] Nucleated RBC/100 WBC (Bld) [Ratio] 0.0 /100 WBC Normal [facility] Comment on above: Order Comment: Speci men Type: BLOOD SPECIMEN Ordering Facility: [facility] Address: [address] [place] [address] Performed By: #### 5 7021-8 #### [facility] CLIA [id number] [address] [place] [address] [place] Platelet mean volume (Bld) [Entitic vol] 10.6 fL Normal 9.0-12.7 [facility] Comment on above: Order Comment: Speci men Type: BLOOD SPECIMEN Ordering Facility: [facility] Address: [address] [place] [address] Performed By: #### 5 7021-8 #### [facility] CLIA [id number] [address] [place] [address] [place] Platelets (Bld) [#/Vol] 194 10*3/uL Normal 150-400 [facility] Comment on above: Order Comment: Speci men Type: BLOOD SPECIMEN Ordering Facility: [facility] Address: [address] [place] [address] Performed By: #### 5 7021-8 #### [facility] CLIA [id number] [address] [place] [address] [place] RBC (Bld) [#/Vol] 4.28 10*6/uL Normal 3.90-5.20 [facility] Comment on above: Order Comment: Speci men Type: BLOOD SPECIMEN Ordering Facility: [facility] Address: [address] [place] [address] Performed By: #### 5 7021-8 #### [facility] CLIA [id number] [address] [place] [address] [place] WBC (Bld) [#/Vol] 4.65 10*3/uL Normal 3.70-11.00 [facility] Comment on above: Order Comment: Speci men Type: BLOOD SPECIMEN Ordering Facility: [facility] Address: [address] [place] [address] Performed By: #### 5 7021-8 #### [facility] CLIA [id number] [address] [place] [address] [place] [facility] CNOVon 01-14-2025 CNOV Office Visit (FAMPWS ) RAFAT DELANEY ([id number]) 1960 F Date Time Provider Department 01/14/25 7:00 AM ISABELLE FITZGERALD During your visit today, we recorded the following information about you: Pulse Respiration Blood pressure Weight 61/minute 16/minute 140/90 70.9 kg Isabelle Fitzgerald APRN.CORPORATE LIBRARIAN 01/14/2025 3:56 PM Signed This is a 64 year old female who presents today with: Patient presents with: Pre-Op Exam HISTORY OF PRESENT ILLNESS: Rafat Delaney is a 64 year old female. Patient presents with: Pre-Op Exam Here in the office for Preop Clearance. Will be having vitrectomy with Dr. Sherry Pacheco on 02/09/2025. Preop paperwork has been requested but yet to be received. Has had surgery on the same eye in the past. Has had on going floaters and vision difficulty. History of liver cysts and hemangioma on MRI in 2021. Past due for repeat imaging. No abdominal pain or swelling. MRI liver order is in place. Urethral Caruncle: using Estrace vaginal cream 0.01% twice weekly. Pap: Last completed February 2022. Normal, HPV negative. Mammogram: Completed in August 2024, normal. Colonoscopy: Last completed 2021, due 2031. Vaccines: Denies wanting any vaccines at this time. 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 ZINC ACETATE ORAL Take 50 mg by mouth once daily. magnesium aspartate HCl (MAGINEX DS ORAL) Take 400 mg by mouth two times a day. estradiol (ESTRACE) 0.01 % (0.1 mg/gram) vaginal cream Apply fingertip amount to urethral caruncle twice weekly ascorbic acid(VITAMIN C 1,000 MG TAB) Take one(1) tablet four times daily. epinephrine(EPIPEN 0.3 MG/0.3 ML (1:1,000) IM INJECTOR) use as directed for allergic reaction. Seek emergent medical care immediately after use. diphenhydrAMINE (BENADRYL) 25 mg ORAL Cap take one to two tablets every 6 hours as needed. No current facility-administered medications for this visit. FAMILY HISTORY Problem Relation Age of Onset Hypertension Mother Lipids Mother Hypertension Brother Lipids Brother Hypertension Brother Lipids Brother Social History Tobacco Use Smoking status: Never Smokeless tobacco: Never Vaping Use Vaping status: Never Used Substance Use Topics Alcohol use: No Drug use: No REVIEW OF SYSTEMS GENERAL: No weight loss, malaise or fevers/chills HEENT: + Blurry Vision NECK: Negative for lumps, goiter, pain and significant neck swelling RESPIRATORY: Negative for cough, hemoptysis, wheezing, dyspnea or shortness of breath CARDIOVASCULAR: Negative for chest pain, leg swelling, orthopnea, or palpitations GI: No nausea, vomiting, or diarrhea/constipation. No hematochezia/melena. No heartburn or reflux symptoms. : No history of dysuria, frequency or incontinence MUSCULOSKELETAL: Negative for joint pain or swelling. SKIN: Negative for lesions, rash, and itching ENDOCRINE: Negative for cold or heat intolerance, polyuria, polydipsia and goiter NEURO: No history of headaches, syncope, paralysis, seizures or tremors MOOD: Negative for depression, anxiety, or suicidal ideation. EXAM: BP 140/90 Pulse 61 Resp 16 Wt 70.9 kg (156 lb 4.9 oz) LMP 09/21/2013 SpO2 100% BMI 22.97 kg/m? PHYSICAL EXAM: General Appearance: Well appearing, alert, in no acute distress, well-hydrated, well nourished. Skin: Skin color, texture, turgor normal, no suspicious rashes or lesions. Head: Normocephalic, no masses, lesions, tenderness or abnormalities. Eyes: Anicteric sclera. Pupils are equally round and reactive to light. Extraocular movements are intact. Lungs: Lungs clear to auscultation. No wheezing, rhonchi, rales. Heart: RRR without murmur, gallop, or rubs. No ectopy. Extremities: No deformities, edema, skin discoloration, clubbing or cyanosis. Good capillary refill. Peripheral Pulses: Normal, Capillary refill <2secs, strong peripheral pulses, Pulses palpable. Neurologic: Gait normal. Sensation grossly intact. ASSESSMENT/PLAN: 1. Preoperative clearance - ICD9: V72.84, ICD10: Z01.818 (primary diagnosis) - Get labs completed if needed. - Cleared for upcoming surgery. Forms will be completed once received. Will be faxed back to 's office. - COMPLETE BLOOD COUNT AND DIFFERENTIAL - COMPREHENSIVE METABOLIC PANEL 2. Blurry vision, left eye - ICD9: 368.8, ICD10: H53.8 (more content not included)... Normal [facility] Comprehensive metabolic 2000 panelon 01-14-2025 Albumin [Mass/Vol] 4.3 g/dL 3.9 - 4.9 g/dL [facility] ALP [Catalytic activity/Vol] 57 U/L 34 - 123 U/L [facility] ALT [Catalytic activity/Vol] 16 U/L 7 - 38 U/L [facility] Anion gap [Moles/Vol] 9 mmol/L 8 - 15 mmol/L [facility] AST [Catalytic activity/Vol] 25 U/L 13 - 35 U/L [facility] Bilirubin [Mass/Vol] 0.4 mg/dL 0.2 - 1 .3 mg/dL [facility] Calcium [Mass/Vol] 10.1 mg/dL 8.5 - 10. 2 mg/dL [facility] Chloride [Moles/Vol] 105 mmol/L 98 - 10 7 mmol/L [facility] CO2 [Moles/Vol] 26 mmol/L 22 - 30 mmol/L [facility] Creatinine [Mass/Vol] 0.85 mg/dL 0.58 - 0.96 mg/dL [facility] GFR/1.73 sq M.predicted among non-blacks MDRD (S/P/Bld) [Vol rate/Area] 77 mL/min/{1.73_m2} - PINF [facility] Comment on above: Estimated Glomerular Filtration Rate (eGFR) is calculated using the 2020 CKD-EPI creatinine equation. This equation utilizes serum creatinine, sex, and age as parameters. The creatinine assay has traceable calibration to isotope dilution-mass spectrometry. Refer to KDIGO guidelines for clinical interpretation. In patients with unstable renal function, e.g. those with acute kidney injury, the eGFR may not accurately reflect actual GFR. Glucose [Mass/Vol] 89 mg/dL 74 - 99 mg/dL [facility] Comment on above: The [place] Diab[employer] s Association (ADA) provides guidance for cutoff values for fasting glucose and random glucose. The ADA defines fasting as no caloric intake for at least 8 hours. Fasting plasma glucose results between 100 to 125 [...] Standards of Medical Care in Diabetes 2016, [place] Diabetes Association. Diabetes Care. 2016.39(Suppl 1). Interpretation and review of laboratory results Normal [facility] Potassium [Moles/Vol] 4.2 mmol/L 3.7 - 5.1 mmol/L [facility] Protein [Mass/Vol] 6.9 g/dL 6.3 - 8.0 g/dL [facility] Sodium [Moles/Vol] 140 mmol/L 136 - 144 mmol/L [facility] Urea nitrogen [Mass/Vol] 15 mg/dL 7 - 21 mg/d L [facility] Albumin [Mass/Vol] 4.3 g/dL Normal 3.9-4.9 [facility] Comment on above: Order Comment: Speci men Type: BLOOD SPECIMEN Ordering Facility: [facility] Address: [address] [place] [address] Performed By: #### 2 4331-1, 54832-5 #### [facility] CLIA [id number] [address] [id number] [address] [place] ALP [Catalytic activity/Vol] 57 U/L Normal 34-123 [facility] Comment on above: Order Comment: Speci men Type: BLOOD SPECIMEN Ordering Facility: [facility] Address: [address] [place], [place] [address] Performed By: #### 2 4331-1, #### [facility] CLIA [id number] [address] [place] [address] [place] ALT [Catalytic activity/Vol] 16 U/L Normal 7-38 [facility] Comment on above: Order Comment: Speci men Type: BLOOD SPECIMEN Ordering Facility: [facility] Address: [address] [place] [address] Performed By: #### 2 4331-1, #### [facility] CLIA [id number] [address] [place] [address] [place] Anion gap [Moles/Vol] 9 mmol/L Normal 8-15 [facility] Comment on above: Order Comment: Speci men Type: BLOOD SPECIMEN Ordering Facility: [facility] Address: [address] [place] [address] Performed By: #### 2 4331-1, #### [facility] CLIA [id number] [address] [place] [address] [place] AST [Catalytic activity/Vol] 25 U/L Normal 13-35 [facility] Comment on above: Order Comment: Speci men Type: BLOOD SPECIMEN Ordering Facility: [facility] Address: [address] [place], [place] [address] Performed By: #### 2 4331-1, #### [facility] CLIA [id number] [address] [place] [address] [place] Bilirubin [Mass/Vol] 0.4 mg/dL Normal 0.2-1.3 [facility] Comment on above: Order Comment: Speci men Type: BLOOD SPECIMEN Ordering Facility: [facility] Address: [address] [place], [place] [address] Performed By: #### 2 4331-1, 01281-2 #### [facility] CLIA [id number] [address] [place] [address] [place] Calcium [Mass/Vol] 10.1 mg/dL Normal 8.5-10.2 [facility] Comment on above: Order Comment: Speci men Type: BLOOD SPECIMEN Ordering Facility: [facility] Address: [address] [place] [address] Performed By: #### 2 4331-1, 06938-9 #### [facility] CLIA [id number] [address] [place] [address] [place] Chloride [Moles/Vol] 105 mmol/L Normal 98-107 [facility] Comment on above: Order Comment: Speci men Type: BLOOD SPECIMEN Ordering Facility: [facility] Address: [address] [place] [address] Performed By: #### 2 4331-, #### [facility] CLIA [id number] [address] [place] [address] [place] CO2 [Moles/Vol] 26 mmol/L Normal 22-30 [facility] Comment on above: Order Comment: Speci men Type: BLOOD SPECIMEN Ordering Facility: [facility] Address: [address] [place], [place] [address] Performed By: #### 2 4331-, 33502-3 #### [facility] CLIA [id number] [address] [place], [place] [address] [place] Creatinine [Mass/Vol] 0.85 mg/dL Normal 0.58-0.96 [facility] Comment on above: Order Comment: Speci men Type: BLOOD SPECIMEN Ordering Facility: [facility] Address: [address] [place], [place] [address] Performed By: #### 2 4331-1, 47313-1 #### [facility] CLIA [id number] [address] [place] [address] [place] Creatinine and Glomerular filtration rate.predicted panel (S/P/Bld) 77 mL/min/1.73m??? Normal >=60 [facility] Comment on above: Order Comment: Mariaelena mercado Type: BLOOD SPECIMEN Ordering Facility: [facility] Address: [address] [place] [address] Result Comment: Wendi mated Glomerular Filtration Rate (eGFR) is calculated using the 2020 CKD-EPI creatinine equation. This equation utilizes serum creatinine, sex, and age as parameters. The creatinine assay has traceable calibration to isotope dilution-mass spectrometry. Refer to KDIGO guidelines for clinical interpretation. In patients with unstable renal function, e.g. those with acute kidney injury, the eGFR may not accurately reflect actual GFR. Performed By: #### 2 4331-1, 03296-5 #### [facility] CLIA [id number] [address] [place] [address] [place] Glucose [Mass/Vol] 89 mg/dL Normal 74-99 [facility] Comment on above: Order Comment: Mariaelena mercado Type: BLOOD SPECIMEN Ordering Facility: [facility] Address: [address] [place] [address] Result Comment: The [place] Diabetes Association (ADA) provides guidance for cutoff values for fasting glucose and random glucose. The ADA defines fasting as no caloric intake for at least 8 hours. Fasting plasma glucose results between 100 to 125 [...] Standards of Medical Care in Diabetes 2016, [place] Diabetes Association. Diabetes Care. 2016.39(Suppl 1). Performed By: #### 2 4331-1, 01587-0 #### [facility] CLIA [id number] [address] [place], [place] [address] [place] Potassium [Moles/Vol] 4.2 mmol/L Normal 3.7-5.1 [facility] Comment on above: Order Comment: Speci men Type: BLOOD SPECIMEN Ordering Facility: [facility] Address: [address] [place] [address] Performed By: #### 2 4331-1, 37543-7 #### [facility] CLIA [id number] [address] [place] [address] [place] Protein [Mass/Vol] 6.9 g/dL Normal 6.3-8.0 [facility] Comment on above: Order Comment: Speci men Type: BLOOD SPECIMEN Ordering Facility: [facility] Address: [address] [place] [address] Performed By: #### 2 4331-1, 69767-1 #### [facility] CLIA [id number] [address] [place] [address] [place] Sodium [Moles/Vol] 140 mmol/L Normal 136-144 [facility] Comment on above: Order Comment: Speci men Type: BLOOD SPECIMEN Ordering Facility: [facility] Address: [address] [place] [address] Performed By: #### 2 4331-1, 50972-4 #### [facility] CLIA [id number] [address] [place] [address] [place] Urea nitrogen [Mass/Vol] 15 mg/dL Normal 7-21 [facility] Comment on above: Order Comment: Speci men Type: BLOOD SPECIMEN Ordering Facility: [facility] Address: [address] [place] [address] Performed By: #### 2 4331-1, 29539-9 #### [facility] CLIA [id number] [address] [place], [place] [address] [place] Lipid 1996 panelon 5 Cholesterol [Mass/Vol] 228 mg/dL High NINF - 200 mg/dL [facility] Comment on above: <200 mg/dL, Desirabl e 200-239 mg/dL, Borderline high >239 mg/dL, High Cholesterol in HDL [Mass/Vol] 83 mg/dL 39 - PINF mg/dL [facility] Comment on above: 40-59 mg/dL, Accepta ble >59 mg/dL, High: Negative risk factor for coronary heart disease <40 mg/dL, Low: Positive risk factor for coronary heart disease Cholesterol in LDL [Mass/Vol] 132 mg/dL High NINF - 100 mg/dL [facility] Comment on above: <100 mg/dL, Optimal 100-129 mg/dL, Near optimal/above optimal 130-159 mg/dL, Borderline high 160-189 mg/dL, High >189 mg/dL, Very high Secondary prevention optimal LDL Cholesterol levels are recommended to be < 70 mg/dL Cholesterol in LDL/Cholesterol in HDL [Mass ratio] 1.59 {ratio} NINF - 2.54 [facility] Comment on above: Reference: 1. National Cholesterol Education Program ATP III Guideline At-A-Glance Quick Desk Reference: National Heart, Lung, and Blood [place]. National Institutes of Health. 2001: NIH Publication No. 01-3305. 2. An International Atherosclerosis Society position paper: global recommendations for the management of dyslipidemia: executive summary, Atherosclerosis. 2014: 232(2):410-413. Cholesterol in VLDL [Mass/Vol] 13 mg/dL NINF - 30 mg/dL [facility] Cholesterol non HDL [Mass/Vol] 145 mg/dL High NINF - 130 mg/dL [facility] Comment on above: <130 mg/dL, Optimal 130-159 mg/dL, Near optimal/above optimal 160-189 mg/dL, Borderline high 190-219 mg/dL, High >219 mg/dL, Very high Secondary prevention optimal non HDL Cholesterol levels are recommended to be <100 mg/dL Cholesterol.total/Choles terol in HDL [Mass ratio] 2.75 {ratio} NINF - 5.10 [facility] Fasting Time 13 hrs [facility] Interpretation and review of laboratory results Abnormal [facility] Triglyceride [Mass/Vol] 63 mg/dL NINF - 150 mg/dL [facility] Comment on above: <150 mg/dL, Normal 150-199 mg/dL, Borderline high 200-499 mg/dL, High >499 mg/dL, Very high Cholesterol [Mass/Vol] 228 mg/dL High <200 [facility] Comment on above: Order Comment: Veritoi men Type: BLOOD SPECIMEN Ordering Facility: [facility] Address: [address] [place] [address] Result Comment: <200 mg/dL, Desirable 200-239 mg/dL, Borderline high >239 mg/dL, High Performed By: #### 2 4331-1, 53574-8 #### [facility] CLIA [id number] [address] [place], [place] [address] [place] Cholesterol in HDL [Mass/Vol] 83 mg/dL Normal >39 [facility] Comment on above: Order Comment: Mariaelena mercado Type: BLOOD SPECIMEN Ordering Facility: [facility] Address: [address] [place] [address] Result Comment: 40-5 9 mg/dL, Acceptable >59 mg/dL, High: Negative risk factor for coronary heart disease <40 mg/dL, Low: Positive risk factor for coronary heart disease Performed By: #### 2 4331-1, 85404-5 #### [facility] CLIA [id number] [address] [place] [address] [place] Cholesterol in LDL [Mass/Vol] 132 mg/dL High <100 [facility] Comment on above: Order Comment: Speci men Type: BLOOD SPECIMEN Ordering Facility: [facility] Address: [address] [place] [address] Result Comment: <100 mg/dL, Optimal 100-129 mg/dL, Near optimal/above optimal 130-159 mg/dL, Borderline high 160-189 mg/dL, High >189 mg/dL, Very high Secondary prevention optimal LDL Cholesterol levels are recommended to be < 70 mg/dL Performed By: #### 2 4331-1, 15857-0 #### [facility] CLIA [id number] [address] [address] [place] Cholesterol in LDL/Cholesterol in HDL [Mass ratio] 1.59 {ratio} Normal <2.54 [facility] Comment on above: Order Comment: Mariaelena mercado Type: BLOOD SPECIMEN Ordering Facility: [facility] Address: [address] [place] [address] Result Comment: Laurel mahan: 1. National Cholesterol Education Program ATP III Guideline At-A-Glance Quick Desk Reference: National Heart, Lung, and Blood [place]. National Institutes of Health. 2001: NIH Publication No. 01-3305. 2. An International Atherosclerosis Society position paper: global recommendations for the management of dyslipidemia: executive summary, Atherosclerosis. 2014: 232(2):410-413. Performed By: #### 2 4331-1, 94803-2 #### [facility] CLIA [id number] [address] [place] [address] [place] Cholesterol in VLDL [Mass/Vol] 13 mg/dL Normal <30 [facility] Comment on above: Order Comment: Mariaelena mercado Type: BLOOD SPECIMEN Ordering Facility: [facility] Address: [address] [place] [address] Performed By: #### 2 4331-, 30994-5 #### [facility] CLIA [id number] [address] [place] [address] [place] Cholesterol non HDL [Mass/Vol] 145 mg/dL High <130 [facility] Comment on above: Order Comment: Mariaelena mercado Type: BLOOD SPECIMEN Ordering Facility: [facility] Address: [address] [place] [address] Result Comment: <130 mg/dL, Optimal 130-159 mg/dL, Near optimal/above optimal 160-189 mg/dL, Borderline high 190-219 mg/dL, High >219 mg/dL, Very high Secondary prevention optimal non HDL Cholesterol levels are recommended to be <100 mg/dL Performed By: #### 2 4331-1, 26981-4 #### [facility] CLIA [id number] [address] [place] [address] [place] Cholesterol.total/Choles terol in HDL [Mass ratio] 2.75 {ratio} Normal <5.10 [facility] Comment on above: Order Comment: Speci men Type: BLOOD SPECIMEN Ordering Facility: [facility] Address: [address] [place] [address] Performed By: #### 2 4331-1, 12142-1 #### [facility] CLIA [id number] [address] [place] [address] [place] FASTING TIME 13 hrs Normal [facility] Comment on above: Order Comment: Speci men Type: BLOOD SPECIMEN Ordering Facility: [facility] Address: [address] [place] [address] Performed By: #### 2 4331-1, 58448-5 #### [facility] CLIA [id number] [address] [place] [address] [place] Triglyceride [Mass/Vol] 63 mg/dL Normal <150 [facility] Comment on above: Order Comment: Speci men Type: BLOOD SPECIMEN Ordering Facility: [facility] Address: [address] [place] [address] Result Comment: <150 mg/dL, Normal 150-199 mg/dL, Borderline high 200-499 mg/dL, High >499 mg/dL, Very high Performed By: #### 2 4331-1, 75664-5 #### [facility] CLIA [id number] [address] [place] [address] [place] No Panel Informationon 01-14 [facility] CNOVon 10-21-2024 CNOV Office Visit (FAMPWS ) RAFAT DELANEY ([id number]) 1960 F Date Time Provider Department 10/21/24 8:40 AM ISABELLE FITZGERALD FAMPWS During your visit today, we recorded the following information about you: Pulse Respiration Blood pressure Weight 75/minute 16/minute 130/80 72.8 kg Height 1.757 m Isabelle Fitzgerald APRN.KRYSTAL 10/21/2024 9:47 AM Signed This is a 64 year old female who presents today with: Patient presents with: Wellness: To Establish care HISTORY OF PRESENT ILLNESS: Rafat Delaney is a 64 year old female. Patient presents with: Wellness: To Establish care Here into the office to establish care, okay per Dr. Colindres Wellness: Diet: Eating a well balanced diet. Exercise: Bike, online workouts. Vision: Had exam. History of Cataract removal with lense implant. Dental: Had exam. Sleep: 6-8 hours per night. Mood: Denies any increased sadness, anxiety, or SI/HI. History of liver cysts and hemangioma on MRI in 2021. Past due for repeat imaging. No abdominal pain or swelling. Urethral Caruncle: using Estrace vaginal cream 0.01% twice weekly. Pap: Last completed February 2022. Normal, HPV negative. Mammogram: Completed in August 2024, normal. Colonoscopy: Last completed 2021, due 2031. Vaccines: Denies wanting any vaccines at this time. 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 epinephrine(EPIPEN 0.3 MG/0.3 ML (1:1,000) IM INJECTOR) use as directed for allergic reaction. Seek emergent medical care immediately after use. diphenhydrAMINE (BENADRYL) 25 mg ORAL Cap take one to two tablets every 6 hours as needed. No current facility-administered medications for this visit. FAMILY HISTORY Problem Relation Age of Onset Hypertension Mother Lipids Mother Hypertension Brother Lipids Brother Hypertension Brother Lipids Brother Social History Tobacco Use Smoking status: Never Smokeless tobacco: Never Vaping Use Vaping status: Never Used Substance Use Topics Alcohol use: No Drug use: No REVIEW OF SYSTEMS GENERAL: No weight loss, malaise or fevers/chills HEENT: Negative for frequent or significant headaches, No changes in hearing or vision. NECK: Negative for lumps, goiter, pain and significant neck swelling RESPIRATORY: Negative for cough, hemoptysis, wheezing, dyspnea or shortness of breath CARDIOVASCULAR: Negative for chest pain, leg swelling, orthopnea, or palpitations GI: No nausea, vomiting, or diarrhea/constipation. No hematochezia/melena. No heartburn or reflux symptoms. : No history of dysuria, frequency or incontinence MUSCULOSKELETAL: Negative for joint pain or swelling. SKIN: Negative for lesions, rash, and itching ENDOCRINE: Negative for cold or heat intolerance, polyuria, polydipsia and goiter NEURO: No history of headaches, syncope, paralysis, seizures or tremors MOOD: Negative for depression, anxiety, or suicidal ideation. EXAM: BP 130/80 Pulse 75 Resp 16 Ht 175.7 cm (5' 9.17) Wt 72.8 kg (160 lb 7.9 oz) LMP 09/21/2013 SpO2 99% BMI 23.58 kg/m? PHYSICAL EXAM: General Appearance: Well appearing, alert, in no acute distress, well-hydrated, well nourished.. Skin: Skin color, texture, turgor normal, no suspicious rashes or lesions. Head: Normocephalic, no masses, lesions, tenderness or abnormalities. Eyes: Anicteric sclera. Extraocular movements are intact. Ears: External ears normal, bilateral cerumen impaction noted. Unable to visualize TMs. Neck: Supple, no adenopathy; thyroid symmetric, normal size, no bruits. Lungs: Lungs clear to auscultation. No wheezing, rhonchi, rales. Heart: RRR without murmur, gallop, or rubs. No ectopy. Abdomen: Abdomen soft, non-tender. Bowel sounds normal. No masses, organomegaly. Extremities: No deformities, edema, skin discoloration, clubbing or cyanosis. Good capillary refill. Musculoskeletal: No joint swelling, deformity, or tenderness. Peripheral Pulses: Normal, Capillary refill <2secs, strong peripheral pulses, Pulses palpable. Neurologic: Gait normal. Reflexes normal and symmetric. Sensation grossly intact. Mood: Pleasant, engaged, good eye contact. ASSESSMENT/PLAN: 1. Wellness examination - ICD9: V70.0, ICD (more content not included)... Normal [facility] CNPNon 10-13-2024 CNPN Telephone (FAMPWS) RAFAT DELANEY ([id number]) 1960 F Date Time Provider Department 10/13/24 [facility] During your visit today, we recorded the following information about you: Isabelle Martinez 10/13/2024 3:03 PM Signed Patient is requesting to schedule wellness exam to continue care under Dr. Colindres's services. Last DOS was 12/01/21. PCP was removed from patient's chart in 05/2022. No documented reason for removal is available in patient's chart. Please notify patient if she is still eligible to schedule, she is requesting to see Isabelle Fitzgerald. Yesenia Ponce MA 10/15/2024 10:36 AM Addendum Please review, pt last seen in office by former PCP, Dr. Briceño in 2018. Came into the office in 2021 to see Isabelle Fitzgerald CNP in 2021 for an acute visit. PCP was changed to Dr. Colindres by scheduling when appt was scheduled (inappropriate PCP change). Pt never established care. This was removed in 05/2022 due to an established care appt never completed. Per guidelines pt was past the 3 year sherry when originally scheduled in [address] Briceño. MARIUSZ Rea Mark D, MD 10/15/2024 11:37 AM Signed She is a fpc patient here, so OK to see me. MD Kris Jovel Rilee, MA 10/15/2024 11:53 AM Signed See message below from Provider. Okay to setup appt to see Isabelle for a Wellness visit and to officially establish care since her previous visit was not. Yesenia Ponce MA Allergies As of Date: 10/13/2024 Noted Allergy Reaction PEANUTS 02/07/2006 7 - Swelling 10 - Anaphylaxis Date Reviewed: 07/29/2024 Reviewed by: Bren Carrera APRN.CORPORATE LIBRARIAN - Fully Assessed Reason for Visit: Appointment [186] Prescriptions as of 12/31/2024 - krill oil 500 mg cap Take 500 mg by mouth once daily. - ZINC ACETATE ORAL Take 50 mg by mouth once daily. - magnesium aspartate HCl (MAGINEX DS ORAL) Take 400 mg by mouth two times a day. - estradiol (ESTRACE) 0.01 % (0.1 mg/gram) vaginal cream Apply fingertip amount to urethral caruncle twice weekly - ascorbic acid(VITAMIN C 1,000 MG TAB) Take one(1) tablet four times daily. - epinephrine(EPIPEN 0.3 MG/0.3 ML (1:1,000) IM INJECTOR) use as directed for allergic reaction. Seek emergent medical care immediately after use. - diphenhydrAMINE (BENADRYL) 25 mg ORAL Cap take one to two tablets every 6 hours as needed. 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] 07/22/2009 Dysplastic Nevus [D23.9] 07/22/2009 Peripheral venous insufficiency [I87.2] 02/27/2018 Cystocele, midline [N81.11] 07/29/2024 Urge incontinence [N39.41] 07/29/2024 Urethral caruncle [N36.2] 07/29/2024 Encounter Status:Closed by ISABELLE MARTINEZ on 12/31/24 Normal [facility] JULIETA SCREENING W TOMOon 08-18 JULIETA SCREENING W LYNETTE * * *Final Report* * * DATE OF EXAM: Aug 18 2024 9:09AM WRW [id number] - JULIETA SCREENING W LYNETTE / PROCEDURE REASON: multiple diagnoses * * * * Physician Interpretation * * * * RESULT: [place] [id number] HISTORY: Patient is 63 years old and is seen for screening. No current complaints. Patient states no personal history of breast cancer. Patient states no personal history of other cancers. COMPARISON STUDIES: The present examination has been compared to a prior imaging study dated 10/03/2015 (mammogram). MAMMOGRAM TECHNIQUE: The study was acquired using full field digital technology and interpreted from soft copy. Digital Breast Tomosynthesis (DBT) images were obtained and used to assist in the interpretation of this examination. Computer-aided detection was utilized by the radiologist in the interpretation of this examination. MAMMOGRAM FINDINGS: The breasts are heterogeneously dense, which may obscure small masses. No suspicious masses, calcifications or other abnormalities are seen in either breast. There are no significant changes from the prior study. IMPRESSION: There is no mammographic evidence of malignancy in either breast. Routine screening mammogram is recommended. Annual mammogram will be due in 1 year. BI-RADS Category 1: Negative RISK: Based on the Tyrer-Cuzick (TC) risk assessment model, this patient has a 6.0% lifetime risk of developing breast cancer, meaning they are at average risk for developing breast cancer. However, this is only an estimate based on available history provided on the patient's questionnaire. We encourage all patients to talk with their providers about these results, further recommendations for managing breast health, and appropriate supplemental screening options if the patient has dense breast tissue. Interpreting Radiologist: Lul Jasso M.D. Electronically signed on: 08/19/2024 Rn Renal: CHRISTIANO Transcribe Date/Time: Aug 18 2024 8:20A Dictated by: LUL JASSO MD This examination was interpreted and the report reviewed and electronically signed by: LUL JASSO MD on Aug 19 2024 7:21PM EST [id number] Normal [facility] CNOVon 07-29-2024 CNOV Office Visit (OBGYWM ) RAFAT DELANEY ([id number]) 1960 F Date Time Provider Department 07/29/24 1:30 PM BREN CARRERA During your visit today, we recorded the following information about you: Blood pressure Weight Height 128/76 70.9 kg 1.757 m Bren Carrera APRN.CORPORATE LIBRARIAN 07/29/2024 4:54 PM Signed 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 Rafat is a 63 year old who presents for an annual gynecologic exam intermittent urinary urgency. Cystocele, urethral caruncle - applying to caruncle twice a week, no problems starting urine stream. Benign EMB 2021, slightly thickened ET. Postmenopausal: Yes since age 53. No episodes of bleeding HRT use: Yes, Estrace cream Last Pap: 03/02/2022 normal HPV: 02/26/2022 negative History of abnormal pap: No Last mammogram: 2014 normal History of abnormal mammogram: Yes multiple cysts, right Sexually active: Yes History of STDS: None Patient concerns for STD exposure: No. Time with current partner: long-term Pain with intercourse: No Postcoital bleeding: No Hot flashes: occasional Vaginal dryness: Yes, mild only with SI and managed with lubricant OB History T8 L8 SAB3 IAB0 Ectopic0 Multiple0 Live Births0 Coat Ironer Hand History LMP: 09/21/2013, Postmenopausal Age at Menarche: Age at First : Age at Menopause: Coat Ironer Hand History Comments: Sexual Activity: Yes; Male Contraception: No contraception data on record PAST MEDICAL HISTORY Diagnosis Date Allergic rhinitis, cause unspecified Allergic rhinitis Anaphylactic reaction To exercising, every 2-3 months History of transfusion Lyme disease 01/19 Mitral valve disorders(424.0) PAST SURGICAL HISTORY Procedure Laterality Date COLONOSCOPY 12/18/2021 repeat in 10 years DILATION AND CURETTAGE DXAND/THER NONOBSTETRIC Dilation AND curettage X 3 EYE SURGERY HX FRACTURE SURGERY FAMILY HISTORY Problem Relation Age of Onset Hypertension Mother Lipids Mother Hypertension Brother Lipids Brother Hypertension Brother Lipids Brother SOCIAL HISTORY Social History Tobacco Use Smoking status: Never Smokeless tobacco: Never Vaping Use Vaping status: Never Used Substance Use Topics Alcohol use: No Drug use: No REVIEW OF SYSTEMS Abdomen: No abdominal pain, nausea, vomiting, diarrhea, or constipation. No bloating, early satiety, indigestion, or increased flatulence. Bladder: No dysuria, gross hematuria, urinary frequency. Has urinary urgency if bathroom is close by even if bladder is not full and may have a little incontinence en route occasionally. Does not need to wear protection. Breast: No breast lumps, nipple d/c, overlying skin changes, redness or skin retraction Allergies and current medication updated:Yes SENSITIVE EXAM: The sensitive examination was discussed with the Patient or Patient's Authorized Traffic And Transport Planner. As applicable, any other physician, advance practice provider, medical student, or other health professional student that will be observing or involved in the sensitive examination for educational or training purposes was discussed with the Patient or Authorized Traffic And Transport Planner. The Patient or Authorized Traffic And Transport Planner has agreed to proceed with the sensitive examination. (Sensitive examination includes inspection and/or palpation of the breasts, pelvis, prostate and anorectal regions). EXAM: BP 128/76 Ht 5' 9.173 (1.76m) Wt 156 lb 6.4 oz (70.9kg) LMP 09/21/2013 BMI 22.98 kg/(m2). GENERAL: pleasant, female in no apparent distress HEENT: Normocephalic, atraumatic, mucus membranes moist, and no lesions NECK: Supple, full range of motion, no adenopathy, and thyroid normal DERMATOLOGY: Normal, without lesions, non-icteric, and non-hirsute BREAST: soft, non-tender, symmetric, no dominant mass, normal nipple-areolar complex, no lymphadenopathy, and no nipple discharge CHEST: Normal inspiratory effort ABDOMEN: soft, non-tender, and no masses PELVIC: external genitalia normal, normal Bartholin's glands, urethra, [place]'s glands, no vulvar lesions, no cervical lesions, physiologic discharge present, normal appearing perineal body and perianal region, cystocele 1st degree, urethral caruncle BIMANUAL: uterus normal size, shape and consistency, no adnexal masses, and non-tender RECTOVAGINAL: deferred. NEURO: alert and oriented x3,exam grossly non-focal EXTREMITIES: normal ASSESSMENT/PLAN: 1) Health maintenance: Pap/HPV up to date. Mammogram ordered Mammogram up to date Nutrition, exercise and routine health maintenance exams reviewed. Calcium/Vitamin D supplementation information provided. Colon cancer screening: up to date with screening 2021, repeat 10 years 2. Urethral caruncle - ICD9: 599.3, ICD10: N36.2 - ESTRADIOL 0.01% (0.1 MG/GRAM) VAGINAL CREAM 3. Urge incontinence - ICD9: 788.31, ICD10: N39.41 - Discusse (more content not included)... Normal [facility] Foot min 3 Viewson 4 Foot min 3 Views [facility] [address] [place] [address] Foot min 3 Views MR#: [id number] Acct: [id number] Name: RAFAT DELANEY Rep #: [id number] : 1960 F 63 From: Jer Rosas MD PCP: Status: DEP AMB Study: Foot min 3 Views Date of Exam: 02/11/24 Exam# [id number] Ordering Dr: Pat Rowe DPRohit [id number] STUDY: X-RAY - RIGHT FOOT CLINICAL: Female, 63 years old. PAIN -- STANDING TECHNIQUE: 3 views of the right foot. COMPARISON: None. FINDINGS: There is a flatfoot deformity. Normal talus, calcaneus, and tarsal bones. Normal visualized subtalar, talonavicular, calcaneocuboid, tarsal and tarsometatarsal articulations. Normal metatarsi. There is degenerative arthrosis of the metatarsophalangeal joint of the hallux. Normal tibial and fibular sesamoid bones. Normal interphalangeal joint of the great toe. Normal phalanges of the great toe. Normal second through fifth metatarsophalangeal joints. Normal interphalangeal joints and phalanges of the lesser toes. The soft tissue structures are unremarkable. There is no demonstrated fracture. RAD/Foot min 3 Views IMPRESSION: Flatfoot deformity. 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 Electronically Signed: Jer Rosas MD at 8:52 EDT Reading Location ID and State: [address] [place] [address] , Service support , CC: TINA Rowe Rn Renal: Signed [facility] Op Noteon 11-17-2019 Op Note [facility] [address] [facility] [address] Dept: [phone] Loc: [phone] Operative Report Patient Name: Rafat Delaney Date of : 1960 Date of Surgery: 11/17/19 Location: [facility] Preoperative Diagnosis: 1. Left distal radius fracture 2. Left ulnar styloid fracture Postoperative Diagnosis: Same Procedure: 1. Open reduction internal fixation left distal radius fracture (3+ parts) 2. Open reduction internal fixation left ulnar styloid fracture Surgeon: Ritchie Malik MD 1st Assist: Micah Martin MD 2nd Assist: none Implants: Synthes Specimens Removed: None Anesthesia: MAC/Regional Local Anesthesia: 1% lidocaine with epinephrine (1:100,000) for a total of 10ml was used to infiltrate the subcutaneous tissues of the operative site(s) Tourniquet:: Brachium Estimated Blood Loss: <5ml Antibiotics: Ancef Indications: Ms. Rafat Delaney is a 59 y.o. year-old female who presented to my office yesterday with displaced fractures of her left distal radius and ulnar styloid. She elected to proceed with operative intervention. I have discussed with her, preoperatively, the complications, limitations, expectations, alternatives, and risks of surgical intervention which she has demonstrated understanding. She understood the particular risk of infection, malunion, nonunion, postoperative pain, stiffness, instability, as well as potential need for revision surgeries in the future. No guarantees were given or implied. After having all of her questions answered to her satisfaction, Ms. Rafat Delaney has provided written informed consent to proceed. Please see previous notes for full operative discussion. Procedure: Rafat Delaney was identified in the preoperative waiting area. her operative site was initialed and consent was reviewed. Final questions were answered. Ms. Rafat Delaney was brought to the operating room and placed in the supine position. All bony prominences were well padded. The aforementioned anesthesia was administered. Antibiotics were confirmed to have been given. The operative extremity was prepped and draped in the usual sterile fashion. A surgical timeout was then performed with the patient's identification, the procedure to be performed being reviewed, verification that the patient had received preoperative antibiotics if indicated, and verification of the correct surgical side. The patient's ASA was verified by the nurse manager knowledge and the anesthesia staff. Fire risk was assessed. An esmarch bandage was used to exsanguinate the limb and the tourniquet was inflated to 250mm Hg. A longitudinal incision was made over the palpable FCR tendon. The sheath was incised and the tendon retracted ulnarward. The floor of the FCR sheath was incised. Muscle belly bluntly retracted ulnarward. The pronator quadratus was incised along its radial margin and subperiosteally elevated radially and ulnarly to expose the distal radius fracture. The fragments were disimpacted and reduced anatomically. Fluoroscopy confirmed excellent reduction. A 2 hole [employer]ynthe[employer] volar locking plate was then fashioned along the volar cortex and preliminary pins placed. Fluoroscopy confirmed appropriate plate position. Cortical screws were placed in the shaft with locking screws placed distally. Near anatomic reduction was achieved. Assess stability of the DRUJ. There was des instability with forearm neutral. There was improved instability with both forearm pronation and supination. The ulnar styloid fragment extended into the fovea and showed displacement. I elected to make a separate longitudinal incision centered over the ulnar aspect of the wrist. Blunt dissection was carried down to the subcutaneous tissues. A branch of the dorsal ulnar cutaneous nerve was identified at the distal extent of the incision and protected. The extensor retinaculum was incised just volar to the ECU tendon and the fracture identified and anatomically reduced under direct visualization. 2 separate 0.035 K wires were placed from the styloid into the ulnar neck piercing the far cortex. They were then bent and cut and withdrawn slightly. A separate 2.0 mm drill tunnel was placed from volar to dorsal along the ulnar neck about 2 cm proximal to the styloid fracture. Through this bone tunnel suture tape was passed. One limb of the suture tape was passed around each K wire. The K wires were then tamped into position capturing the suture tape. The suture tape was then tied to itself with several square knots to complete a tension band construct thus furthering stability of the ulnar styloid repair. Stability of the DRUJ was then assessed and improved tension was noted with forearm neutral. The wound was irrigated with normal saline and the extensor retinaculum closed with 4-0 FiberWire suture. Volarly, the pronator quadratus was repaired with 3-0 Monocryl. The tourniquet was then let down and hemostasis achieved with bipolar cautery. Both wounds were copiously irrigated with normal saline. The skin was then closed in layers followed by well-padded long-arm splint with the elbow in 90? and the forearm and wrist in neutral. Ms. Rafat Delaney was awakened from anesthesia having tolerated the procedure without apparent complication and was taken to the recovery room in stable condition. POST OPERATIVE PLAN To be fitted with [place] splint at first PO appointment. To then work with OT on elbow and wrist unrestricted motion (flexion/extension only). No forearm rotation. No radial/ulnar deviation. At 6 weeks may cut splint to volar resting and begin unrestricted forearm rotation as well as radial/ulnar deviation. May begin gentle quality improvement specialist strengthening. May discontinue volar splint when comfortable. At 12 weeks may begin forearm strengthening with pronation/supination Outpatient Follow-up XRays: Yes, Left Wrist 3V Ritchie Malik MD 11/17/2019 , 4:42 PM Normal [facility] Vital Signs Date Time Vital Sign Value Performing Clinician Facility 03-25-2025 14:00-0400 Body temperature 100 [degF] Dr. Casie Hair DO Work Phone: [facility] 03-25-2025 14:00-0400 Diastolic blood pressure 71 mm[Hg] Dr. Casie Hair DO Work Phone: [facility] 03-25-2025 14:00-0400 Heart rate 91 /min Dr. Casie Hair DO Work Phone: [facility] 03-25-2025 14:00-0400 Respiratory rate 20 /min Dr. Casie Hair DO Work Phone: [facility] 03-25-2025 14:00-0400 SaO2% (BldA) [Mass fraction] 96 % Dr. Casie Hair DO Work Phone: [facility] 03-25-2025 14:00-0400 Systolic blood pressure 124 mm[Hg] Dr. Casie Hair DO Work Phone: [facility] 03-25-2025 10:30-0400 Body mass index (BMI) [Ratio] 25.5 kg/m2 Dr. Casie Hair DO Work Phone: [facility] 03-25-2025 10:30-0400 Body weight 78.[address] Casie Hair DO Work Phone: [facility] 03-25-2025 09:48-0400 Body height 175.[address] Casie Hair DO Work Phone: [facility] 01-14-2025 06:57-0400 Body mass index (BMI) [Ratio] 22.97 kg/m2 Isabelle Fitzgerald APRN.CORPORATE LIBRARIAN Work Phone: [facility] 01-14-2025 06:57-0400 Body weight 70.9 kg Isabelle Fitzgerald APRN.CORPORATE LIBRARIAN Work Phone: [facility] 01-14-2025 06:57-0400 Diastolic blood pressure 90 mm[Hg] Isabelle Fitzgerald DIVERSIFIED CROPS SUPERVISOR.CORPORATE LIBRARIAN Work Phone: [facility] 01-14-2025 06:57-0400 Heart rate 61 /min Isabelle Fitzgerald DIVERSIFIED CROPS SUPERVISOR.CORPORATE LIBRARIAN Work Phone: [facility] 01-14-2025 06:57-0400 Respiratory rate 16 /min sIabelle Fitzgerald DIVERSIFIED CROPS SUPERVISOR.CORPORATE LIBRARIAN Work Phone: [facility] 01-14-2025 06:57-0400 SaO2% (BldA) [Mass fraction] 100 % Isabelle Tannhof DIVERSIFIED CROPS SUPERVISOR.CORPORATE LIBRARIAN Work Phone: [facility] 01-14-2025 06:57-0400 Systolic blood pressure 140 mm[Hg] Isabelle Tannhof DIVERSIFIED CROPS SUPERVISOR.CORPORATE LIBRARIAN Work Phone: [facility] 10-21-2024 08:26-0500 Body height 175.7 cm Isabellegarland Sotelohof DIVERSIFIED CROPS SUPERVISOR.CORPORATE LIBRARIAN Work Phone: [facility] 10-21-2024 08:26-0500 Body mass index (BMI) [Ratio] 23.58 kg/m2 Isabelle Tannhof DIVERSIFIED CROPS SUPERVISOR.CORPORATE LIBRARIAN Work Phone: [facility] 10-21-2024 08:26-0500 Body weight 72.8 kg Isabelle Sotelohof DIVERSIFIED CROPS SUPERVISOR.CORPORATE LIBRARIAN Work Phone: [facility] 10-21-2024 08:26-0500 Diastolic blood pressure 80 mm[Hg] Isabelle Tannhof DIVERSIFIED CROPS SUPERVISOR.CORPORATE LIBRARIAN Work Phone: [facility] 10-21-2024 08:26-0500 Heart rate 75 /min Isabelle Tannhof DIVERSIFIED CROPS SUPERVISOR.CORPORATE LIBRARIAN Work Phone: [facility] 10-21-2024 08:26-0500 Respiratory rate 16 /min Isabellegarland Sotelohof DIVERSIFIED CROPS SUPERVISOR.CORPORATE LIBRARIAN Work Phone: [facility] 10-21-2024 08:26-0500 SaO2% (BldA) [Mass fraction] 99 % Isabelle Tannhof DIVERSIFIED CROPS SUPERVISOR.CORPORATE LIBRARIAN Work Phone: [facility] 10-21-2024 08:26-0500 Systolic blood pressure 130 mm[Hg] Isabelle Tannhof DIVERSIFIED CROPS SUPERVISOR.CORPORATE LIBRARIAN Work Phone: [facility] 07-29-2024 13:36-0400 Body height 175.7 cm Bren Carrera DIVERSIFIED CROPS SUPERVISOR.CORPORATE LIBRARIAN Work Phone: [facility] 07-29-2024 13:36-0400 Body mass index (BMI) [Ratio] 22.98 kg/m2 Bren Fortuneie DIVERSIFIED CROPS SUPERVISOR.CORPORATE LIBRARIAN Work Phone: [facility] 07-29-2024 13:36-0400 Body weight 70.94 kg Bren Carrera APRN.CORPORATE LIBRARIAN Work Phone: [facility] 07-29-2024 13:36-0400 Diastolic blood pressure 76 mm[Hg] Brne Carrera APRN.CORPORATE LIBRARIAN Work Phone: [facility] 07-29-2024 13:36-0400 Systolic blood pressure 128 mm[Hg] Bren Carrera APRN.CORPORATE LIBRARIAN Work Phone: [facility] 02-28-2022 11:14-0400 Body weight 67.13 kg Bren Carrera APRN.CORPORATE LIBRARIAN Work Phone: [facility] 02-28-2022 11:14-0400 Diastolic blood pressure 80 mm[Hg] Bren Carrera APRN.CORPORATE LIBRARIAN Work Phone: [facility] 02-28-2022 11:14-0400 Systolic blood pressure 110 mm[Hg] Bren Carrera APRN.CORPORATE LIBRARIAN Work Phone: [facility] 02-22-2022 10:26-0400 Body weight 67.13 kg Bren Carrera APRN.CORPORATE LIBRARIAN Work Phone: [facility] 02-22-2022 10:26-0400 Diastolic blood pressure 74 mm[Hg] Bren Carrera APRN.CORPORATE LIBRARIAN Work Phone: [facility] 02-22-2022 10:26-0400 Systolic blood pressure 116 mm[Hg] Bren Carrera APRN.CORPORATE LIBRARIAN Work Phone: [facility] 11-17-2019 17:07-0500 Body Temperature 97.59 [degF] Ritchie Malik [facility] Work Phone: 11-17-2019 17:07-0500 BP Diastolic 80 mm[Hg] Ritchie King [facility] Work Phone: 11-17-2019 17:07-0500 BP Systolic 118 mm[Hg] Ritchieabbey Malik [facility] Work Phone: 11-17-2019 17:07-0500 Pulse (Heart Rate) 87 /min Ritchie BURNETT Work Phone: 11-17-2019 17:07-0500 Pulse Oximetry 96 % Ritchie BURNETT Work Phone: 11-17-2019 17:07-0500 Respiratory Rate 18 /min Ritchie BURNETT Work Phone: 11-17-2019 13:53-0500 Height 175.3 cm Ritchie BURNETT Work Phone: 11-17-2019 13:45-0500 BMI (Body Mass Index) 23.63 kg/m2 Ritchie BURNETT Work Phone: 11-17-2019 13:45-0500 Body weight 72.58 kg Ritchie BURNETT Work Phone: Encounters Encounter Date Encounter Type Care Provider Facility Start: 03-25-2025 [facility] Start: 03-25-2025 Evaluation and manag ement of inpatient Dr. Angel Moss -Progressive Care Unit Work Phone: Start: 01-14-2025 Encounter for other preprocedural examination SHERRY COLINDRES [facility] Start: 01-14-2025 End: 01-14-2025 Patient encounter procedure Isabelle Fitzgerald APRN.CORPORATE LIBRARIAN Work Phone: [facility] [place] Comment on above: Preoperative clearan ce (Primary Dx); Blurry vision, left eye; Hyperlipidemia, mixed; Liver cyst; Urethral caruncle Start: 01-14-2025 End: 01-14-2025 Preoperative state Isabelle Fitzgerald APRN.CORPORATE LIBRARIAN Work Phone: [facility] Work Phone: Start: 01-14-2025 End: 01-14-2025 ambulatory ISABELLE FITZGERALD Facility:[facility] Start: 12-30-2024 End: 12-30-2024 [facility] Start: 12-16-2024 End: 12-17-2024 Admission to same day surgery center Isabelle Fitzgerald APRN.CNP Work Phone: [facility] [place] Comment on above: Upcoming eye surgery Start: 12-16-2024 End: 12-17-2024 ambulatory Isabelle Fitzgerald APRN.CNP Work Phone: [facility] Start: 10-21-2024 End: 10-21-2024 Patient encounter procedure Isabelle Fitzgerald APRN.CNP Work Phone: [facility] [place] Comment on above: Wellness examination (Primary Dx); Liver cyst; Hyperlipidemia, mixed; Urethral caruncle; Bilateral impacted cerumen; Screening for depression; Encounter for screening examination for other mental health and behavioral disorders Start: 10-21-2024 End: 10-21-2024 Patient encounter status Isabelle Fitzgerald APRN.CNP Work Phone: [facility] Work Phone: Start: 10-21-2024 End: 10-21-2024 [facility] Start: 10-21-2024 Encounter for genera l adult medical examination without abnormal findings ISABELLE FITZGERALD [facility] Start: 10-13-2024 End: 12-31-2024 Telephone encounter Isabelle Fitzgerald APRN.CNP Work Phone: [facility] [place] Comment on above: Appointment Start: 08-18-2024 End: 08-18-2024 ambulatory BREN CARRERA Facility:[facility] Start: 08-18-2024 Encounter for gynecological examination (general) (routine) with abnormal findings [facility] Start: 08-18-2024 End: 08-18-2024 Patient encounter status [facility] Start: 08-18-2024 End: 08-18-2024 Subsequent hospital visit by physician Screen Mammo [facility] Comment on above: Encounter for gyneco logical examination with abnormal finding [Z01.411] Start: 07-29-2024 End: 07-29-2024 ambulatory BREN CARRERA Facility:[facility] Start: 07-29-2024 End: 07-29-2024 Patient encounter procedure Bren Carrera APRN.CNP Work Phone: OB/Gynecology Comment on above: Encounter for gyneco logical examination with abnormal finding (Primary Dx); Urethral caruncle; Urge incontinence; Cystocele, midline; Encounter for screening mammogram for breast cancer Start: 07-29-2024 End: 07-29-2024 Patient encounter status Bren Carrera APRN.CORPORATE LIBRARIAN Work Phone: [facility] Work Phone: Start: 02-11-2024 End: 02-11-2024 ambulatory David Morales Facility:[facility] Start: 02-08-2024 Refill Bren EWING RN.[facility] Work Phone: [facility] Comment on above: Refill Request Start: 04-11-2022 ambulatory Sherry ken MD Work Phone: [facility] [place] Start: 03-06-2022 Telephone encounter Bren kidd APRN.CORPORATE LIBRARIAN Work Phone: OB/Gynecology Comment on above: Results; New Medicat ion Start: 02-28-2022 End: 02-28-2022 Patient encounter procedure Bren Carrera APRN.CORPORATE LIBRARIAN Work Phone: OB/Gynecology Comment on above: Thickened endometriu m (Primary Dx) Start: 02-23-2022 Telephone encounter Bren kidd APRN.CORPORATE LIBRARIAN Work Phone: OB/Gynecology Comment on above: Results; Orders; New Medication Start: 02-22-2022 End: 02-22-2022 Patient encounter procedure Bren Carrera APRN.CORPORATE LIBRARIAN Work Phone: OB/Gynecology Comment on above: PMB (postmenopausal bleeding) (Primary Dx); Encounter for Papanicolaou smear for cervical cancer screening; Special screening examination for human papillomavirus (HPV); Urethral caruncle; Cystocele, midline Start: 12-02-2019 End: 12-02-2019 Subsequent hospital visit by physician Rashida Colindres Work Phone: [facility] Start: 11-17-2019 End: 11-17-2019 Subsequent hospital visit by physician Ritchie Malik Work Phone: [facility] General Surgery Comment on above: Arrived Procedures Date Procedure Procedure Detail Performing Clinician Start: 03-25-2025 X-ray of chest, PA a nd lateral views Dr. Casie Hair DO Work Phone: Start: 03-25-[address] Casie Hair DO Work Phone: Start: 03-25-2025 Flow cytometry cell surf marker techl only 1st Dr. Casie Hair DO Work Phone: Start: 01-14-2025 Lipid 1996 panel - S sheron or Plasma Isabelle Fitzgerald APRN.CORPORATE LIBRARIAN Work Phone: Start: 10-21-2024 Adult depression scr eening assessment Isabelle Fitzgerald APRN.CORPORATE LIBRARIAN Work Phone: Start: 12-18-2021 Colonoscopy Bren kidd APRN.CORPORATE LIBRARIAN Work Phone: Start: 11-30-2021 Adult depression scr eening assessment Bren Carrera APRN.CORPORATE LIBRARIAN Work Phone: Start: 03-03-2018 Lipid 1996 panel - S sheron or Plasma Bren Carrera APRN.CORPORATE LIBRARIAN Work Phone: Start: 10-03-2015 Mammography Bren kidd APRN.CORPORATE LIBRARIAN Work Phone: Plan of Treatment Date Care Activity Detail Author Start: 2036 RSV Vaccine (1 - 1-d ose 75+ series) RSV Vaccine (1 - 1-dose 75+ series) [facility] Start: 12-19-2031 Colonoscopy COLONOSCOPY [facility] Start: 12-19-2031 COLORECTAL CANCER SCREENING COLORECTAL CANCER SCREENING [facility] Start: 12-19-2031 Screening for malign ant neoplasm of colon [facility] Start: 01-14-2030 Lipid panel Lipid Screening [facility] Start: 01-15-2028 Diabetes Screening Diabetes Screenin g [facility] Start: 02-22-2027 HPV TESTING HPV TESTING [facility] Start: 02-22-2027 PAP TESTING PAP TESTING [facility] Start: 02-22-2027 Screening for malign ant neoplasm of cervix Cervical Cancer Screening [facility] Start: 10-21-2025 Anxiety Screening Anxiety Screening [facility] Start: 10-21-2025 Covid-19 Vaccine ( season) Covid-19 Vaccine () [facility] Comment on above: Postponed from 06/14 (Declined at this time) Start: 10-21-2025 Depression Screening Depression Scre ening [facility] Start: 10-21-2025 HIV screening HIV Screening [facility] Comment on above: Postponed from 09/12 (Declined at this time) Start: 10-21-2025 Pneumococcal Vaccine : 50+ (1 of 1 - PCV) Pneumococcal Vaccine: 50+ (1 of 1 - PCV) [facility] Comment on above: Postponed from 09/12 (Declined at this time) Start: 10-21-2025 Shingrix Vaccine (1 of 2) Shingrix Vaccine (1 of 2) [facility] Comment on above: Postponed from 09/12 (Declined at this time) Start: 08-18-2025 Screening for malign ant neoplasm of breast Mammogram Screening [facility] Start: 04-12-2025 Influenza vaccination Influenza Vacc ine (#1) [facility] Comment on above: Postponed from 06/14 (Declined at this time) Start: 03-25-2025 Hospital admission, emergency, from emergency room, medical [facility] Start: 03-25-2025 Admission procedure [facility] Start: 03-25-2025 [facility] Start: 03-25-2025 [facility] Start: 02-22-2025 Screening for malign ant neoplasm of cervix Cervical Cancer Screening [facility] Start: 01-14-2025 End: 01-14-2025 Patient encounter procedure 01/14/2025 7:00 AM EDT Office Visit [facility] [place] [address] [place] [address] Isabelle Fitzgerald, YASMINE.CORPORATE LIBRARIAN [address] [place] [address] preop clearance [facility] [place] Comment on above: preop clearance Start: 10-26-2024 End: 10-26-2024 Patient encounter procedure 10/26/2024 1:00 PM EST Office Visit [facility] [place] [address] [place] [address] Esther Marin APRN.CORPORATE LIBRARIAN [address] [place] [address] Establish Care Family [facility] [place] Comment on above: Establish Care Start: 10-21-2024 End: 01-20-2025 Comprehensive metabolic 2000 panel - Serum or Plasma COMPREHENSIVE METABOLIC PANEL Lab Routine Hyperlipidemia, mixed Expected: 10/21/2024, Expires: 01/20/2025 [facility] Work Phone: Comment on above: Expected: 10/21/2024 , Expires: 01/20/2025 Start: 10-21-2024 End: 01-20-2025 Lipid 1996 panel - Serum or Plasma LIPID PANEL BASIC Lab Routine Hyperlipidemia, mixed Expected: 10/21/2024, Expires: 01/20/2025 [facility] Comment on above: Expected: 10/21/2024 , Expires: 01/20/2025 Start: 08-18-2024 End: 08-18-2024 Patient encounter procedure 08/18/2024 8:50 AM EST Appointment Mammogram [address] [place] [address] Encounter for gynecological examination (general) (routine) without abnormal fin... Mammogram Comment on above: Encounter for gyneco logical examination (general) (routine) without abnormal fin... Start: 06-14-2024 Covid-19 Vaccine ( season) Covid-19 Vaccine ( season) [facility] Start: 06-14-2024 Influenza vaccination Influenza Vacc ine (#1) [facility] Start: 10-14-2023 Behavioral Health Screening Behavioral Health Screening [facility] Start: 06-14-2023 Covid-19 Vaccine ( season) Covid-19 Vaccine () [facility] Start: 03-03-2023 Lipid panel Lipid Screening [facility] Start: 03-03-2023 LIPID SCREEN LIPID SCREEN [facility] Start: 11-30-2022 Adult depression screening assessment DEPRESSION SCREENING [facility] Start: 06-14-2022 Influenza vaccination INFLUENZA (Sea son Ended) [facility] Start: 09-24-2021 DIABETES SCREEN DIABETES SCREEN [facility] Start: 09-24-2021 Diabetes Screening Diabetes Screenin g [facility] Start: 2021 RSV Vaccine (1 - 1-d ose 60+ series) RSV Vaccine (1 - 1-dose 60+ series) [facility] Start: 12-28-2019 End: 12-28-2019 Nurse Only [facility] [place] Start: 12-02-2019 End: 12-02-2019 Nurse Only [facility] [place] Start: 06-14-2019 Influenza vaccination Flu vaccine (# 1) [facility] Work Phone: Start: 03-03-2019 FECAL OCCULT BLOOD FECAL OCCULT BLOO D [facility] Start: 03-03-2019 Screening for malign ant neoplasm of colon Fecal Occult Blood [facility] Start: 04-14-2017 PAP TESTING PAP TESTING [facility] Start: 10-03-2016 Mammography MAMMOGRAM [facility] Start: 10-03-2016 Screening for malign ant neoplasm of breast Mammogram Screening [facility] Start: 02-16-2014 HPV TESTING HPV TESTING [facility] Start: 2011 Breast cancer screen Breast cancer s creen [facility] Work Phone: Start: 2011 Colon cancer screen colonoscopy Colon cancer screen colonoscopy [facility] Work Phone: Start: 2011 Shingles Vaccine (1 of 2) Shingles Vaccine (1 of 2) [facility] Work Phone: Start: 2011 SHINGRIX VACCINE (1 of 2) SHINGRIX VACCINE (1 of 2) [facility] Start: 2006 COLOGUARD (FIT-DNA) COLOGUARD (FIT-D NA) [facility] Start: [address] COLONOGRAPHY [facility] Start: 2006 Screening for malign ant neoplasm of colon [facility] Start: 11-30-2006 SIGMOIDOSCOPY SIGMOIDOSCOPY [facility] Start: 2001 Lipid screen Lipid screen [facility] Work Phone: Start: 1982 Cervical cancer screen Cervical canc er screen [facility] Work Phone: Start: 1980 Urine microalbumin profile [facility] Start: 1979 Anxiety Screening Anxiety Screening [facility] Start: 1979 Depression Screening Depression Scre ening [facility] Start: 1979 HIV SCREENING HIV SCREENING [facility] Start: 1979 HIV screening HIV Screening [facility] Start: 1976 HIV screen HIV screen [facility] Work Phone: Start: 1972 DTaP/Tdap/Td vaccine (1 - Tdap) DTaP/Tdap/Td vaccine (1 - Tdap) [facility] Work Phone: Start: 1966 COVID-19 VACCINE (#1) COVID-19 VACCI NE (#1) [facility] Start: 1961 Hepatitis C screen Hepatitis C scree n [facility] Work Phone: End: 11-17-2019 Blood glucose - POCT Blood glucose - POCT Point of Care Testing STAT One Time for 1 Occurrences starting 11/17/2019 until 11/17/2019 [facility] Work Phone: Comment on above: One Time for 1 Occur rences starting 11/17/2019 until 11/17/2019 End: 11-17-2019 Creatinine [Mass/Vol] Creatinine, serum Lab STAT One Time for 1 Occurrences starting 11/17/2019 until 11/17/2019 [facility] Work Phone: Comment on above: One Time for 1 Occur rences starting 11/17/2019 until 11/17/2019 End: 08-28-2025 DBT Breast - bilateral screening [facility] [place] Radiology Routine Encounter for gynecological examination with abnormal finding Encounter for screening mammogram for breast cancer 1 Occurrences starting 07/29/2024 until 08/28/2025 [facility] Work Phone: Comment on above: 1 Occurrences starti ng 07/29/2024 until 08/28/2025 DBT Breast - bilater al screening JULIETA SCREENING [facility] [place] Radiology Routine Encounter for gynecological examination with abnormal finding Encounter for screening mammogram for breast cancer 08/18/2024 9:10 AM EST [facility] Work Phone: Endometrial bx w/wo endocervix bx w/o dilat spx ENDOMETRIAL BIOPSY Procedures Routine PMB (postmenopausal bleeding) Thickened endometrium Ordered: 02/26/2022 [facility] Work Phone: Comment on above: Ordered: 02/26/2022 Endometrial bx w/wo endocervix bx w/o dilat spx ENDOMETRIAL BIOPSY Procedures Routine Thickened endometrium Ordered: 02/28/2022 [facility] System Work Phone: Comment on above: Ordered: 02/28/2022 End: 11-17-2019 FL LESS THAN 1 HOUR FL LESS THAN 1 HOUR Imaging Routine Once for 1 Occurrences starting 11/17/2019 until 11/17/2019 [facility] Work Phone: Comment on above: Once for 1 Occurrenc es starting 11/17/2019 until 11/17/2019 FL LESS THAN 1 HOUR FL LESS THAN 1 HOUR Imaging Routine 11/17/2019 5:11 PM EST [facility] Work Phone: Incentive spirometry Incentive s pirometry Respiratory Care Routine Q1H PRN until discontinued starting 11/17/2019 [employer] Work Phone: Comment on above: Q1H PRN until discon tinued starting 11/17/2019 Initiate Oxygen Ther apy Protocol Initiate Oxygen Therapy Protocol Respiratory Care Routine Daily until discontinued starting 11/17/2019 [employer] Work Phone: Comment on above: Daily until disconti nued starting 11/17/2019 End: 11-20-2025 MR Liver WO and W contrast IV MRI LIVER WO/W IVCON Radiology Routine Liver cyst 1 Occurrences starting 10/21/2024 until 11/20/2025 [facility] Comment on above: 1 Occurrences starti ng 10/21/2024 until 11/20/2025 PAP FLUID CERVICAL DIAGNOSTIC PAP FLUID CERVICAL DIAGNOSTIC Lab Routine PMB (postmenopausal bleeding) Encounter for Papanicolaou smear for cervical cancer screening Special screening examination for human papillomavirus (HPV) 02/22/2022 11:16 AM EDT [facility] Work Phone: Patient referral [facility] Work Phone: PELVIC US WHI PELVIC US WHI An c Imaging Routine PMB (postmenopausal bleeding) Ordered: 02/22/2022 [facility] Work Phone: Comment on above: Ordered: 02/22/2022 Phase I & II - meter ed glucose Phase I & II - metered glucose Point of Care Testing Routine As Needed until discontinued starting 11/17/2019 [employer] Work Phone: Comment on above: As Needed until disc ontinued starting 11/17/2019 End: 11-17-2019 Potassium w/ Reflex to Magnesium Potassium w/ Reflex to Magnesium Lab Routine One Time for 1 Occurrences starting 11/17/2019 until 11/17/2019 [employer] Work Phone: Comment on above: One Time for 1 Occur rences starting 11/17/2019 until 11/17/2019 End: 11-17-2019 , urine , urine Lab STAT One Time for 1 Occurrences starting 11/17/2019 until 11/17/2019 [employer] Work Phone: Comment on above: One Time for 1 Occur rences starting 11/17/2019 until 11/17/2019 End: 11-17-2019 Protime-INR Protime-INR Lab STAT One Time for 1 Occurrences starting 11/17/2019 until 11/17/2019 [employer] Work Phone: Comment on above: One Time for 1 Occur rences starting 11/17/2019 until 11/17/2019 End: 11-17-2019 Pulse Oximetry Spot Check Pulse Oximetry Spot Check Respiratory Care Routine One Time for 1 Occurrences starting 11/17/2019 until 11/17/2019 [employer] Work Phone: Comment on above: One Time for 1 Occur rences starting 11/17/2019 until 11/17/2019 End: 05-11-2023 Screening mammography bi 2-view breast inc cad JULIETA SCREENING Radiology Routine Encounter for screening mammogram for breast cancer 1 Occurrences starting 04/11/2022 until 05/11/2023 [facility] Work Phone: Comment on above: 1 Occurrences starti ng 04/11/2022 until 05/11/2023 SURGICAL PATHOLOGY SURGICAL PATH OLOGY Lab Routine Thickened endometrium 02/28/2022 1:02 PM EDT [facility] Work Phone: Troponin T.cardiac [Mass/volume] in Serum or Plasma by High sensitivity method [facility] [place] [facility] Payers Date Payer Category Payer Self-pay 2006 Unknown [employer] [id number] Unknown [id number] Social History Date Type Detail Facility Start: 11-17-2019 End: 03-25-2025 Tobacco smoking status NHIS Never smoker [facility] Work Phone: Start: 11-17-2019 End: 12-02-2019 Alcohol intake Lifetime non-drinker (finding) [employer] Work Phone: Start: 11-17-2019 End: 11-30-2021 History SDOH Alcohol Frequency 1 [email or web address] Phone: Sex Assigned At Not on file [email or web address] Phone: Start: 02-22-2022 End: 01-14-2025 Alcohol intake Current non-drinker of alcohol (finding) [facility] Start: 11-30-2021 History SDOH Social Connections Phone 5 [facility] Start: 11-30-2021 History SDOH Social Connections Caodaism 3 [facility] Start: 11-30-2021 History SDOH Physical Activity DPW 6 [facility] Start: 11-30-2021 History SDOH Physical Activity MPS 4 [facility] Start: 11-30-2021 History SDOH Transport Med 2 [facility] Start: 1960 Sex Assigned At Female [facility] Start: 02-12-2022 End: 02-28-2022 Exposure to SARS-CoV-2 (event) Not sure [facility] Start: 04-14-2012 Tobacco use and exposure Smokeless tobacco non-user [facility] Start: 09-21-2020 End: 11-30-2021 History of Social function [facility] Start: 09-21-2020 End: 11-30-2021 Social connection and isolation panel [facility] Do you belong to any clubs or organizations such as voodoo groups, unions, fraternal or athletic groups, or school groups? Yes [facility] Are you now , , , , never or living with a partner? [facility] How often to you hav e a drink containing alcohol? Never [facility] Average Number of Drinks Not on file [facility] Do you feel stress - tense, restless, nervous, or anxious, or unable to sleep at night because your mind is troubled all the time - these days [OSQ] Not at all [facility] (I/We) worried whevalerie er (my/our) food would run out before (I/we) got money to buy more. Never true [facility] In the past 12 month s, was there a time when you were not able to pay the mortgage or rent on time? No [facility] Start: 11-30-2021 Gender identity Identifies as female gender (finding) [facility] Start: 11-30-2021 Sexual orientation Heterosexual (finding) [facility] Start: 11-04-2019 Lives Lives [facility] Functional Status Date Assessment Result Facility 10-18-2024 Total score [AUDIT-C] 0 10/18/19 25 3:41 PM EST User, Li [facility] 10-18-2024 Within the last year , have you been humiliated or emotionally abused in other ways by your partner or ex-partner? No 10/18/2024 3:41 PM EST User, [facility] 10-18-2024 Within the last year , have you been afraid of your partner or ex-partner? No 10/18/2024 3:41 PM EST [facility], [facility] 10-18-2024 Within the last year , have you been raped or forced to have any kind of sexual activity by your partner or ex-partner? No 10/18/2024 3:41 PM EST User, [facility] 10-18-2024 Within the last year , have you been kicked, hit, slapped, or otherwise physically hurt by your partner or ex-partner? No 10/18/2024 3:41 PM EST UserLi No [facility] 10-18-2024 How often to you hav e a drink containing alcohol? Never 10/18/2024 3:41 PM EST User, [facility] Never [facility] 10-18-2024 Functional status Patient does n ot drink 10/18/2024 3:41 PM EST User, Li Patient does not drink [facility] 10-18-2024 How often do you hav e 6 or more drinks on 1 occasion? Never 10/18/2024 3:41 PM EST User, Li Never [facility] 10-22-2014 Are you deaf, or do you have serious difficulty hearing No 10/22/2014 1:25 PM Danni Amaya Ma No [facility] 10-22-2014 Are you blind, or do you have serious difficulty seeing, even when wearing glasses No 10/22/2014 1:25 PM Danni Amaya Ma No [facility] 10-22-2014 Do you have serious difficulty walking or climbing stairs No 10/22/2014 1:25 PM Danni Amaya Ma No [facility] 10-22-2014 Do you have difficul ty dressing or bathing No 10/22/2014 1:25 PM Danni Amaya Ma No [facility] 10-22-2014 Because of a physica l, mental, or emotional condition, do you have difficulty doing errands alone such as visiting a physician's office or shopping No 10/22/2014 1:25 PM Danni Amaya Ma No [facility] Mental Status Date Assessment Result Facility 03-25-2025 Cognitive function Level Of Cons ciousness Awake;Alert;Appropriate;Fol lows Commands [facility] Work Phone: 10-22-2014 Because of a physica l, mental, or emotional condition, do you have serious difficulty concentrating, remembering, or making decisions No 10/22/2014 1:25 PM Danni Amaya Ma No [facility] Clinical Notes 02-22-2022 to 03-25-2025 Note Date & Type Note Facility 03-25-2025 History and physi quirino note [facility] 03-25-2025 Evaluation note Diagnosis Onset Date Resolution Acute CHF acute March 25 12:43pm Acute dyspnea acute March 25, 2025 12:43pm Acute hyponatremia acute March 142024 12:43pm Anemia acute March 25 12:43pm Congestive heart failure acute March 25, 2025 12:43pm Elevated liver enzymes acute Ju 2024 12:43pm [facility] Work Phone: [phone]) 480-621606-12-2025 Radiology Diagnostic study note [facility] Imaging Services [address] [address] Chest PA and Lateral MR#: [id number] Acct: [id number] Name: RAFAT DELANEY Rep #: [id number] : 1960 F 64 From: Spencer Cooper MD PCP: Dr. Casie Hair DO Status: RE G ER Study:Chest PA and Lateral Date of Exam: 03/25/25 Exam# [id number] Ordering Dr: Muriel Daigle MD PROCEDURE: CHEST PA AND LATERAL 03/25/2025 REASON FOR EXAM: CHEST PAIN 10 day history of shortness of breath. TECHNIQUE: Frontal and lateral views of the chest. COMPARISON: Prior study dated September 29, 2018. FINDINGS: Hardware: EKG electrodes are seen. Heart: Borderline cardiomegaly. Mediastinum: Unremarkable Lungs: Small bilateral pleural effusions left greater than right with bibasilar atelectasis worse at the left lung base. There is superimposed vascular congestion and mild CHF. Bones: Degenerative changes are identified within the thoracic spine. RAD/Chest PA and Lateral IMPRESSION: Vascular congestion and mild CHF with small bilateral pleural effusions left greater than right with bibasilar atelectasis worse on the right lung base. Reading Location: [facility] CC: Dr. Sawyer Daigle MD; Dr. Casie Hair DO ~ Rn Renal: Signed [facility]04-03-2025 Instructions* Patient Instructions* Isabelle Fitzgerald APRN.[facility] - 01/14/2025 7:10 AM EDT Office will check with surgeon to see if labs are needed. Lab orders are in place if needed. Keep scheduled surgery date Due for Dtap may get any time. Follow up as needed. documented in this encounter[facility] History of Present illness Narrative* Isabelle Fitzgerald APRN.CNP - 01/14/2025 7:00 AM EDT This is a 64 year old female who presents today with: Patient presents with: Pre-Op Exam HISTORY OF PRESENT ILLNESS: Rafat Delaney is a 64 year old female. Patient presents with: Pre-Op Exam Here in the office for Preop Clearance. Will be having vitrectomy with Dr. Sherry Pacheco on 02/09/2025. Preop paperwork has been requested but yet to be received. Has had surgery on the same eye in the past. Has had on going floaters and vision difficulty. History of liver cysts and hemangioma on MRI in 2021. Past due for repeat imaging. No abdominal pain or swelling. MRI liver order is in place. Urethral Caruncle: using Estrace vaginal cream 0.01% twice weekly. Pap: Last completed February 2022. Normal, HPV negative. Mammogram: Completed in August 2024, normal. Colonoscopy: Last completed 2021, due 2031. Vaccines: Denies wanting any vaccines at this time. PAST MEDICAL HISTORY: PAST MEDICAL HISTORY Diagnosis Date Allergic rhinitis, cause unspecified Allergic rhinitis Anaphylactic reaction To exercising, every 2-3 months History of transfusion Lyme disease 01/19 Mitral valve disorders(424.0) PAST SURGICAL HISTORY Procedure Laterality Date COLONOSCOPY 12/18/2021 repeat in 10 years DILATION & CURETTAGE DX&/THER NONOBSTETRIC Dilation & curettage X 3 EYE SURGERY HX FRACTURE SURGERY ALLERGIES Peanuts MEDICATIONS Current Outpatient Medications Medication Sig krill oil 500 mg cap Take 500 mg by mouth once daily. ZINC ACETATE ORAL Take 50 mg by mouth once daily. magnesium aspartate HCl (MAGINEX DS ORAL) Take 400 mg by mouth two times a day. estradiol (ESTRACE) 0.01 % (0.1 mg/gram) vaginal cream Apply fingertip amount to urethral caruncle twice weekly ascorbic acid(VITAMIN C 1,000 MG TAB) Take one(1) tablet four times daily. epinephrine(EPIPEN 0.3 MG/0.3 ML (1:1,000) IM INJECTOR) use as directed for allergic reaction. Seekemergent medical care immediately after use. diphenhydrAMINE (BENADRYL) 25 mg ORAL Cap take one to two tablets every 6 hours as needed. No current facility-administered medications for this visit. FAMILY HISTORY Problem Relation Age of Onset Hypertension Mother Lipids Mother Hypertension Brother Lipids Brother Hypertension Brother Lipids Brother Social History Tobacco Use Smoking status: Never Smokeless tobacco: Never Vaping Use Vaping status: Never Used Substance Use Topics Alcohol use: No Drug use: No REVIEW OF SYSTEMS GENERAL: No weight loss, malaise or fevers/chills HEENT: + Blurry Vision NECK: Negative for lumps, goiter, pain and significant neck swelling RESPIRATORY: Negative for cough, hemoptysis, wheezing, dyspnea or shortness of breath CARDIOVASCULAR: Negative for chest pain, leg swelling, orthopnea, or palpitations GI: No nausea, vomiting, or diarrhea/constipation. No hematochezia/melena. No heartburn or reflux symptoms. : No history of dysuria, frequency or incontinence MUSCULOSKELETAL: Negative for joint pain or swelling. SKIN: Negative for lesions, rash, and itching ENDOCRINE: Negative for cold or heat intolerance, polyuria, polydipsia and goiter NEURO: No history of headaches, syncope, paralysis, seizures or tremors MOOD: Negative for depression, anxiety, or suicidal ideation. EXAM: BP 140/90 Pulse 61 Resp 16 Wt 70.9 kg (156 lb 4.9 oz) [facility] 09/21/2013 SpO2 100% BMI 22.97 kg/m PHYSICAL EXAM: General Appearance: Well appearing, alert, in no acute distress, well-hydrated, well nourished. Skin: Skin color, texture, turgor normal, no suspicious rashes or lesions. Head: Normocephalic, no masses, lesions, tenderness or abnormalities. Eyes: Anicteric sclera. Pupils are equally round and reactive to light. Extraocular movements are intact. Lungs: Lungs clear to auscultation. No wheezing, rhonchi, rales. Heart: RRR without murmur, gallop, or rubs. No ectopy. Extremities: No deformities, edema, skin discoloration, clubbing or cyanosis. Good capillary refill. Peripheral Pulses: Normal, Capillary refill <2secs, strong peripheral pulses, Pulses palpable. Neurologic: Gait normal. Sensation grossly intact. ASSESSMENT/PLAN: 1. Preoperative clearance - ICD9: V72.84, ICD10: Z01.818 (primary diagnosis) - Get labs completed if needed. - Cleared for upcoming surgery. Forms will be completed once received. Will be faxed back to 's office. - COMPLETE BLOOD COUNT AND DIFFERENTIAL - COMPREHENSIVE METABOLIC PANEL 2. Blurry vision, left eye - ICD9: 368.8, ICD10: H53.8 - Keep scheduled surgery date. 3. Hyperlipidemia, mixed - ICD9: 272.2, ICD10: E78.2 - Control undetermined, due for labs - Counseled on healthy diet and regular exercise - LIPID PANEL, FASTING 4. Liver cyst - ICD9: 573.8, ICD10: K76.89 - Complete MRI liver for further evaluation. 5. Urethral caruncle - ICD9: 599.3, ICD10: N36.2 - Stable, continue with current medication. Follow-up pending test results or sooner as needed Discussed treatment plan and patient voices understanding. Patient's questions answered appropriately. Medications and potential side effects were discussed and patient voices understanding. Isabelle Fitzgerald APRN.CNP This note was partially generated using [employer] voice recognition system. Note was reviewed for accuracy. There may be minor misspellings or grammar miscues with [employer] voice recognition. documented in this encounterOhio[facility]04-[facility]25 NoteHNO ID: [id number] Author: ISABELLE FITZGERALD APRN.CNP Service: ? Author Type: Nurse Practitioner Type: Progress Notes Filed: 01/14/2025 15:56 Note Text: This is a 64 year old female who presents today with: Patient presents with: Pre-Op Exam HISTORY OF PRESENT ILLNESS: Rafat Delaney is a 64 year old female. Patient presents with: Pre-Op Exam Here in the office for Preop Clearance. Will be having vitrectomy with Dr. Sherry Pacheco on 02/09/2025. Preop paperwork has been requested but yet to be received. Has had surgery on the same eye in the past. Has had on going floaters and vision difficulty. History of liver cysts and hemangioma on MRI in 2021. Past due for repeat imaging. No abdominal pain or swelling. MRI liver order is in place. Urethral Caruncle: using Estrace vaginal cream 0.01% twice weekly. Pap: Last completed February 2022. Normal, HPV negative. Mammogram: Completed in August 2024, normal. Colonoscopy: Last completed 2021, due 2031. Vaccines: Denies wanting any vaccines at this time. 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 ZINC ACETATE ORAL Take 50 mg by mouth once daily. magnesium aspartate HCl (MAGINEX DS ORAL) Take 400 mg by mouth two times a day. estradiol (ESTRACE) 0.01 % (0.1 mg/gram) vaginal cream Apply fingertip amount to urethral caruncle twice weekly ascorbic acid(VITAMIN C 1,000 MG TAB) Take one(1) tablet four times daily. epinephrine(EPIPEN 0.3 MG/0.3 ML (1:1,000) IM INJECTOR) use as directed for allergic reaction. Seek emergent medical care immediately after use. diphenhydrAMINE (BENADRYL) 25 mg ORAL Cap take one to two tablets every 6 hours as needed. No current facility-administered medications for this visit. FAMILY HISTORY Problem Relation Age of Onset Hypertension Mother Lipids Mother Hypertension Brother Lipids Brother Hypertension Brother Lipids Brother Social History Tobacco Use Smoking status: Never Smokeless tobacco: Never Vaping Use Vaping status: Never Used Substance Use Topics Alcohol use: No Drug use: No REVIEW OF SYSTEMS GENERAL: No weight loss, malaise or fevers/chills HEENT: + Blurry Vision NECK: Negative for lumps, goiter, pain and significant neck swelling RESPIRATORY: Negative for cough, hemoptysis, wheezing, dyspnea or shortness of breath CARDIOVASCULAR: Negative for chest pain, leg swelling, orthopnea, or palpitations GI: No nausea, vomiting, or diarrhea/constipation. No hematochezia/melena. No heartburn or reflux symptoms. : No history of dysuria, frequency or incontinence MUSCULOSKELETAL: Negative for joint pain or swelling. SKIN: Negative for lesions, rash, and itching ENDOCRINE: Negative for cold or heat intolerance, polyuria, polydipsia and goiter NEURO: No history of headaches, syncope, paralysis, seizures or tremors MOOD: Negative for depression, anxiety, or suicidal ideation. EXAM: BP 140/90 Pulse 61 Resp 16 Wt 70.9 kg (156 lb 4.9 oz) [facility] 09/21/2013 SpO2 100% BMI 22.97 kg/m? PHYSICAL EXAM: General Appearance: Well appearing, alert, in no acute distress, well-hydrated, well nourished. Skin: Skin color, texture, turgor normal, no suspicious rashes or lesions. Head: Normocephalic, no masses, lesions, tenderness or abnormalities. Eyes: Anicteric sclera. Pupils are equally round and reactive to light. Extraocular movements are intact. Lungs: Lungs clear to auscultation. No wheezing, rhonchi, rales. Heart: RRR without murmur, gallop, or rubs. No ectopy. Extremities: No deformities, edema, skin discoloration, clubbing or cyanosis. Good capillary refill. Peripheral Pulses: Normal, Capillary refill <2secs, strong peripheral pulses, Pulses palpable. Neurologic: Gait normal. Sensation grossly intact. ASSESSMENT/PLAN: 1. Preoperative clearance - ICD9: V72.84, ICD10: Z01.818 (primary diagnosis) - Get labs completed if needed. - Cleared for upcoming surgery. Forms will be completed once received. Will be faxed back to 's office. - COMPLETE BLOOD COUNT AND DIFFERENTIAL - COMPREHENSIVE METABOLIC PANEL 2. Blurry vision, left eye - ICD9: 368.8, ICD10: H53.8 - Keep scheduled surgery date. 3. Hyperlipidemia, mixed - ICD9: 272.2, ICD10: E78.2 - Control undetermined, due for labs - Counseled on healthy diet and regular exercise - LIPID PANEL, FASTING 4. Liver cyst - ICD9: 573.8, ICD10: K76.89 - Complete (more content not included)...[facility]01-08-2025 Instructions* Patient Instructions* Isabelle Fitzgerald APRN.CNP - 10/21/2024 8:54 AM EST Get fasting labs completed, no food 10-12 hours prior. May have black coffee and water Complete MRI Liver Continue to eat a well balanced diet and get some form of exercise. Recommend follow up with ENT for ear wax removal. Due for Dtap booster. Follow up in 1 year or sooner pending test results. Health Promotion: - Eat healthy -- go to [email or web address] to get started - Have a yearly physical - Mammogram yearly after age 40 - Get at least 30 minutes of physical activity daily - Get at least 7 to 8 hours of sleep each night - Reach and maintain a healthy weight - Get help to quit or don't start smoking - Limit alcohol use to one drink or less - Do not use illegal drugs or misuse prescription drugs - Wear a helmet when riding a bike and wear protective gear for sports - Wear a seatbelt in cars and not text and drive - Wear sunscreen documented in this encounterOhio[facility]01-[facility]25 History of Present illness Narrative* Isabelle Fitzgerald APRN.CNP - 10/21/2024 8:40 AM EST This is a 64 year old female who presents today with: Patient presents with: Wellness: To Establish care HISTORY OF PRESENT ILLNESS: Rafat Delaney is a 64 year old female. Patient presents with: Wellness: To Establish care Here into the office to establish care, okay per Dr. Colindres Wellness: Diet: Eating a well balanced diet. Exercise: Bike, online workouts. Vision: Had exam. History of Cataract removal with lense implant. Dental: Had exam. Sleep: 6-8 hours per night. Mood: Denies any increased sadness, anxiety, or SI/HI. History of liver cysts and hemangioma on MRI in 2021. Past due for repeat imaging. No abdominal pain or swelling. Urethral Caruncle: using Estrace vaginal cream 0.01% twice weekly. Pap: Last completed February 2022. Normal, HPV negative. Mammogram: Completed in August 2024, normal. Colonoscopy: Last completed 2021, due 2031. Vaccines: Denies wanting any vaccines at this time. PAST MEDICAL HISTORY: PAST MEDICAL HISTORY Diagnosis Date Allergic rhinitis, cause unspecified Allergic rhinitis Anaphylactic reaction To exercising, every 2-3 months History of transfusion Lyme disease 01/19 Mitral valve disorders(424.0) PAST SURGICAL HISTORY Procedure Laterality Date COLONOSCOPY 12/18/2021 repeat in 10 years DILATION & CURETTAGE DX&/THER NONOBSTETRIC Dilation & curettage X 3 EYE SURGERY HX FRACTURE SURGERY ALLERGIES Peanuts MEDICATIONS Current Outpatient Medications Medication Sig estradiol (ESTRACE) 0.01 % (0.1 mg/gram) vaginal cream Apply fingertip amount to urethral caruncle twice weekly ascorbic acid(VITAMIN C 1,000 MG TAB) Take one(1) tablet four times daily. epinephrine(EPIPEN 0.3 MG/0.3 ML (1:1,000) IM INJECTOR) use as directed for allergic reaction. Seekemergent medical care immediately after use. diphenhydrAMINE (BENADRYL) 25 mg ORAL Cap take one to two tablets every 6 hours as needed. No current facility-administered medications for this visit. FAMILY HISTORY Problem Relation Age of Onset Hypertension Mother Lipids Mother Hypertension Brother Lipids Brother Hypertension Brother Lipids Brother Social History Tobacco Use Smoking status: Never Smokeless tobacco: Never Vaping Use Vaping status: Never Used Substance Use Topics Alcohol use: No Drug use: No REVIEW OF SYSTEMS GENERAL: No weight loss, malaise or fevers/chills HEENT: Negative for frequent or significant headaches, No changes in hearing or vision. NECK: Negative for lumps, goiter, pain and significant neck swelling RESPIRATORY: Negative for cough, hemoptysis, wheezing, dyspnea or shortness of breath CARDIOVASCULAR: Negative for chest pain, leg swelling, orthopnea, or palpitations GI: No nausea, vomiting, or diarrhea/constipation. No hematochezia/melena. No heartburn or reflux symptoms. : No history of dysuria, frequency or incontinence MUSCULOSKELETAL: Negative for joint pain or swelling. SKIN: Negative for lesions, rash, and itching ENDOCRINE: Negative for cold or heat intolerance, polyuria, polydipsia and goiter NEURO: No history of headaches, syncope, paralysis, seizures or tremors MOOD: Negative for depression, anxiety, or suicidal ideation. EXAM: BP 130/80 Pulse 75 Resp 16 Ht 175.7 cm (5' 9.17) Wt 72.8 kg (160 lb 7.9 oz) LMP 09/21/2013 SpO2 99% BMI 23.58 kg/m PHYSICAL EXAM: General Appearance: Well appearing, alert, in no acute distress, well-hydrated, well nourished.. Skin: Skin color, texture, turgor normal, no suspicious rashes or lesions. Head: Normocephalic, no masses, lesions, tenderness or abnormalities. Eyes: Anicteric sclera. Extraocular movements are intact. Ears: External ears normal, bilateral cerumen impaction noted. Unable to visualize TMs. Neck: Supple, no adenopathy; thyroid symmetric, normal size, no bruits. Lungs: Lungs clear to auscultation. No wheezing, rhonchi, rales. Heart: RRR without murmur, gallop, or rubs. No ectopy. Abdomen: Abdomen soft, non-tender. Bowel sounds normal. No masses, organomegaly. Extremities: No deformities, edema, skin discoloration, clubbing or cyanosis. Good capillary refill. Musculoskeletal: No joint swelling, deformity, or tenderness. Peripheral Pulses: Normal, Capillary refill <2secs, strong peripheral pulses, Pulses palpable. Neurologic: Gait normal. Reflexes normal and symmetric. Sensation grossly intact. Mood: Pleasant, engaged, good eye contact. ASSESSMENT/PLAN: 1. Wellness examination - ICD9: V70.0, ICD10: Z00.00 (primary diagnosis) - Counseled on healthy diet and regular exercise - Breast cancer screening - ordered mammogram - Follow up for annual exam in one year 2. Liver cyst - ICD9: 573.8, ICD10: K76.89 - Get repeat Imaging for surveillance. - MRI LIVER WO/W IVCON - IV CONTRAST (RADIOLOGY PROCEDURE) - NOT ON DEC 3. Hyperlipidemia, mixed - ICD9: 272.2, ICD10: E78.2 - Control undetermined, due for labs - Counseled on healthy diet and regular exercise - COMPREHENSIVE METABOLIC PANEL - LIPID PANEL BASIC 4. Urethral caruncle - ICD9: 599.3, ICD10: N36.2 - Stable, continue with current medication. 5. Bilateral impacted cerumen - ICD9: 380.4, ICD10: H61.23 - Denied wanting ear lavage at this time. May follow-up with ENT. 6. Screening for depression - ICD9: V79.0, ICD10: Z13.31 - DEPRESSION SCREENING 7. Encounter for screening examination for other mental health and behavioral disorders - ICD9: V79.8, ICD10: Z13.39 - ANXIETY SCREENING Follow-up in 1 year or sooner pending test results. Discussed treatment plan and patient voices understanding. Patient's questions answered appropriately. Medications and potential side effects were discussed and patient voices understanding. Isabelle Fitzgerald APRN.KRYSTAL This note was partially generated using Fooooo voice recognition system. Note was reviewed for accuracy. There may be minor misspellings or grammar miscues with Fooooo voice recognition. documented in this encounter[facility] NoteHNO ID: [id number] Author: ISABELLE FITZGERALD APRN.KRYSTAL Service: ? Author Type: Nurse Practitioner Type: Progress Notes Filed: 10/21/2024 09:47 Note Text: This is a 64 year old female who presents today with: Patient presents with: Wellness: To Establish care HISTORY OF PRESENT ILLNESS: Rafat Delaney is a 64 year old female. Patient presents with: Wellness: To Establish care Here into the office to establish care, okay per Dr. Colindres Wellness: Diet: Eating a well balanced diet. Exercise: Bike, online workouts. Vision: Had exam. History of Cataract removal with lense implant. Dental: Had exam. Sleep: 6-8 hours per night. Mood: Denies any increased sadness, anxiety, or SI/HI. History of liver cysts and hemangioma on MRI in 2021. Past due for repeat imaging. No abdominal pain or swelling. Urethral Caruncle: using Estrace vaginal cream 0.01% twice weekly. Pap: Last completed February 2022. Normal, HPV negative. Mammogram: Completed in August 2024, normal. Colonoscopy: Last completed 2021, due 2031. Vaccines: Denies wanting any vaccines at this time. 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 epinephrine(EPIPEN 0.3 MG/0.3 ML (1:1,000) IM INJECTOR) use as directed for allergic reaction. Seek emergent medical care immediately after use. diphenhydrAMINE (BENADRYL) 25 mg ORAL Cap take one to two tablets every 6 hours as needed. No current facility-administered medications for this visit. FAMILY HISTORY Problem Relation Age of Onset Hypertension Mother Lipids Mother Hypertension Brother Lipids Brother Hypertension Brother Lipids Brother Social History Tobacco Use Smoking status: Never Smokeless tobacco: Never Vaping Use Vaping status: Never Used Substance Use Topics Alcohol use: No Drug use: No REVIEW OF SYSTEMS GENERAL: No weight loss, malaise or fevers/chills HEENT: Negative for frequent or significant headaches, No changes in hearing or vision. NECK: Negative for lumps, goiter, pain and significant neck swelling RESPIRATORY: Negative for cough, hemoptysis, wheezing, dyspnea or shortness of breath CARDIOVASCULAR: Negative for chest pain, leg swelling, orthopnea, or palpitations GI: No nausea, vomiting, or diarrhea/constipation. No hematochezia/melena. No heartburn or reflux symptoms. : No history of dysuria, frequency or incontinence MUSCULOSKELETAL: Negative for joint pain or swelling. SKIN: Negative for lesions, rash, and itching ENDOCRINE: Negative for cold or heat intolerance, polyuria, polydipsia and goiter NEURO: No history of headaches, syncope, paralysis, seizures or tremors MOOD: Negative for depression, anxiety, or suicidal ideation. EXAM: BP 130/80 Pulse 75 Resp 16 Ht 175.7 cm (5' 9.17) Wt 72.8 kg (160 lb 7.9 oz) LMP 09/21/2013 SpO2 99% BMI 23.58 kg/m? PHYSICAL EXAM: General Appearance: Well appearing, alert, in no acute distress, well-hydrated, well nourished.. Skin: Skin color, texture, turgor normal, no suspicious rashes or lesions. Head: Normocephalic, no masses, lesions, tenderness or abnormalities. Eyes: Anicteric sclera. Extraocular movements are intact. Ears: External ears normal, bilateral cerumen impaction noted. Unable to visualize TMs. Neck: Supple, no adenopathy; thyroid symmetric, normal size, no bruits. Lungs: Lungs clear to auscultation. No wheezing, rhonchi, rales. Heart: RRR without murmur, gallop, or rubs. No ectopy. Abdomen: Abdomen soft, non-tender. Bowel sounds normal. No masses, organomegaly. Extremities: No deformities, edema, skin discoloration, clubbing or cyanosis. Good capillary refill. Musculoskeletal: No joint swelling, deformity, or tenderness. Peripheral Pulses: Normal, Capillary refill <2secs, strong peripheral pulses, Pulses palpable. Neurologic: Gait normal. Reflexes normal and symmetric. Sensation grossly intact. Mood: Pleasant, engaged, good eye contact. ASSESSMENT/PLAN: 1. Wellness examination - ICD9: V70.0, ICD10: Z00.00 (primary diagnosis) - Counseled on healthy diet and regular exercise - Breast cancer screening - ordered mammogram - Follow up for annual exam in one year 2. Liver cyst - ICD9: 573.8, ICD10: K76.89 - Get repeat Imaging for surveillance. - MRI LIVER WO/W I (more content not included)...[facility] 10-15-2024 Telephone encounter Note* Telephone Encounter - Yesenia Ponce MA - 10/15/2024 11:52 AM EST See message below from Provider. Okay to setup appt to see Isabelle for a Wellness visit and to officially establish care since her previous visit was not. Yesenia Ponce MA [facility]01-02-[facility] Miscellaneous Notes* Telephone Encounter - Yesenia Ponce MA - 10/15/2024 11:52 AM EST See message below from Provider. Okay to setup appt to see Isabelle for a Wellness visit and to officially establish care since her previous visit was not. 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 Sherry Colindres MD * Telephone Encounter - Yesenia Ponce MA - 10/15/2024 10:21 AM EST Please review, pt last seen in office by former PCP, Dr. Briceño in 2017. Came into the office in 2021 to see Isabelle Fitzgerald CNP in 2021 for an acute visit. PCP was changed to Dr. Colindres by scheduling when appt was scheduled (inappropriate PCP change). Pt never established care. This was removedin 05/2022 due to an established care appt never completed. Per guidelines pt was past the 3 year sherry when originally scheduled in [address] Briceño. Yesenia Ponce MA * Telephone Encounter - Isabelle Martinez - 10/13/2024 3:01 PM EST Patient is requesting to schedule wellness exam to continue care under Dr. Colindres's services. Last DOS was 12/01/21. PCP was removed from patient's chart in 05/2022. No documented reason for removal is available in patient's chart. Please notify patient if she is still eligible to schedule, she is requesting to see Isabelle Fitzgerald. documented in this encounterOhio[facility] Telephone encounter Note * Telephone Encounter - Sherry Colindres MD - 10/15/2024 11:37 AM EST She is a fpc patient here, so OK to see me. Sherry Colindres MD [facility] Work Phone: [phone] 985-193301-02-2025 Telephone encounter Note* Telephone Encounter - Yesenia Ponce MA - 10/15/2024 10:21 AM EST Please review, pt last seen in office by former PCP, Dr. Briceño in 2017. Came into the office in 2021 to see Isabelle Fitzgerald CNP in 2021 for an acute visit. PCP was changed to Dr. Colindres by scheduling when appt was scheduled (inappropriate PCP change). Pt never established care. This was removedin 05/2022 due to an established care appt never completed. Per guidelines pt was past the 3 year sherry when originally scheduled in [address] Briceño. Yesenia Ponce MA [facility]12-31-[facility] Telephone encounter Note* Telephone Encounter - Isabelle Martinez - 10/13/2024 3:01 PM EST Patient is requesting to schedule wellness exam to continue care under Dr. Colindres's services. Last DOS was 12/01/21. PCP was removed from patient's chart in 05/2022. No documented reason for removal is available in patient's chart. Please notify patient if she is still eligible to schedule, she is requesting to see Isablele Fitzgerald. [facility]11-[facility] History of Present illness Narrative* Aubrie Arias, Mammo Tech - 08/18/2024 8:50 AM EST Radiology Service Progress Note PATIENT NAME: Rafat Delaney DATE OF SERVICE: August 18, 2024 TIME: 9:10 AM PATIENT IDENTITY VERIFICATION COMPLETED USING TWO (2) IDENTIFIERS: Name and Date of confirmedby patient verbally. FALL SCREENING: Has the patient had 2 falls in the last year or 1 fall with injury or currently using an Ambulatory Assistive Device (Walker, Cane, Wheelchair, Crutches, etc.)? No PATIENT GENDER DATA: Female. status: : No status: NO. PATIENT RELEVANT IMPLANT DATA REVIEWED: Not Applicable PATIENT PRESENTS WITH AN IMPLANTABLE OR ATTACHED PULVI MIXER OPERATOR: No RADIOLOGY DEPARTMENT: Mammography PERIPHERAL IV DATA: Not applicable SIGNED BY: Divine Millan August 18, 2024 9:10 AM documented in this encounterOhio[facility]11-05-2024 NoteHNO ID: [id number] Author: AUBRIE ARIAS Mammo Tech Service: ? Author Type: Technologist Type: Progress Notes Filed: 08/18/2024 09:11 Note Text: Radiology Service Progress Note PATIENT NAME: Rafat Delaney DATE OF SERVICE: August 18, 2024 TIME: 9:10 AM PATIENT IDENTITY VERIFICATION COMPLETED USING TWO (2) IDENTIFIERS: Name and Date of confirmed by patient verbally. FALL SCREENING: Has the patient had 2 falls in the last year or 1 fall with injury or currently using an Ambulatory Assistive Device (Walker, Cane, Wheelchair, Crutches, etc.)? No PATIENT GENDER DATA: Female. status: : No status: NO. PATIENT RELEVANT IMPLANT DATA REVIEWED: Not Applicable PATIENT PRESENTS WITH AN IMPLANTABLE OR ATTACHED PULVI MIXER OPERATOR: No RADIOLOGY DEPARTMENT: Mammography PERIPHERAL IV DATA: Not applicable SIGNED BY: Divine Millan August 18, 2024 9:10 [facility]10-16-2024 Instructions* Patient Instructions* Bren Carrera APRN.CORPORATE LIBRARIAN - 07/29/2024 2:07 PM EDT How To Perform Pelvic Floor (Kegel) Exercises These exercises help to strengthen the pelvic floor muscles and can help improve bladder control for women. 1. You should have been instructed in the office how to contract these muscles. At home, you can insert two fingers in the vagina and feel the contraction of these muscles as you squeeze. We call these muscles the pelvic floor because they help support the pelvic organs, especially during coughing and sneezing. Squeezing the pelvic floor while standing feels like you are lifting the area around the vagina, and will interrupt the stream of urine while voiding. Once you are certain which muscles to use, do not exercise while urinating. Make sure you are not bearing down, squeezing your buttocks, or straining abdominally: these are not the muscles to be exercised. You may wish to place hands on your buttock muscles to keep these muscles relaxed while performing the exercises. 2. Squeeze these muscles as hard as you can for a slow count of five, eventually working up to a slow count of ten. Rest for 15 seconds, and then start another contraction. At first. these muscles may feel sore, just as other muscles may feel sore after exercise. 3. You should perform 50 squeezes every day: make sure every squeeze count by jeffery as hard as you can! Many women try to do these exercises in sets of five or ten at a time. Remind yourself todo these exercises by starting them every time you are waiting at a red light, watching a television commercial, or on hold on the telephone. If you are having trouble concentrating, you may want to set aside a special time to perform sets of pelvic floor exercises. 4. In addition to the long, hard contractions you are doing try doing some quick flicks of these muscles throughout the day. 5. You should be seen in the office after starting these exercises to make sure you are performing the contraction correctly: you may have never known how to contract these muscles before starting pelvic floor exercises, and many patients mistakenly exercise the wrong muscles. If you still feel frustrated about which muscles to use ask us for help. There are physical therapy specialists who work with pelvic floor muscles. 6. Work hard! As with any exercise program, improvement often is related to how faithfully you adhere to your exercise program. Pelvic floor exercises do not have the side effects and expense associated with other treatments for urinary incontinence, and have been known to help with severe stress incontinence. It may take several months to see the full effect of your exercise program: if you are easily discouraged, see your doctor or doctor at regular visits to assess what progress you are making. Techniques to avoid urinary accidents: Empty your bladder regularly and prior to physical activity. Avoid activity that causes leakage, if possible. Avoid or moderate the intake of alcohol and caffeine products. Try to restrict fluids prior to planned activities. Wear appropriate protection. Prevent chronic coughing which can cause a loss of urinary control. Ways to prevent chronic coughing include treating asthma, restricting smoking, and removing allergy-causing agents from your environment. documented in this encounterOhio[facility]10-16-2024 NoteHNO ID: [id number] Author: BREN CARRERA APRN.KRYSTAL Service: ? 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 Rafat is a 63 year old who presents for an annual gynecologic exam intermittent urinary urgency. Cystocele, urethral caruncle - applying to caruncle twice a week, no problems starting urine stream. Benign EMB 2021, slightly thickened ET. Postmenopausal: Yes since age 53. No episodes of bleeding HRT use: Yes, Estrace cream Last Pap: 03/02/2022 normal HPV: 02/26/2022 negative History of abnormal pap: No Last mammogram: 2014 normal History of abnormal mammogram: Yes multiple cysts, right Sexually active: Yes History of STDS: None Patient concerns for STD exposure: No. Time with current partner: long-term Pain with intercourse: No Postcoital bleeding: No Hot flashes: occasional Vaginal dryness: Yes, mild only with SI and managed with lubricant OB History T8 L8 SAB3 IAB0 Ectopic0 Multiple0 Live Births0 Coat Ironer Hand History LMP: 09/21/2013, Postmenopausal Age at Menarche: Age at First : Age at Menopause: Coat Ironer Hand History Comments: Sexual Activity: Yes; Male Contraception: No contraception data on record PAST MEDICAL HISTORY Diagnosis Date Allergic rhinitis, cause unspecified Allergic rhinitis Anaphylactic reaction To exercising, every 2-3 months History of transfusion Lyme disease 01/19 Mitral valve disorders(424.0) PAST SURGICAL HISTORY Procedure Laterality Date COLONOSCOPY 12/18/2021 repeat in 10 years DILATION AND CURETTAGE DXAND/THER NONOBSTETRIC Dilation AND curettage X 3 EYE SURGERY HX FRACTURE SURGERY FAMILY HISTORY Problem Relation Age of Onset Hypertension Mother Lipids Mother Hypertension Brother Lipids Brother Hypertension Brother Lipids Brother SOCIAL HISTORY Social History Tobacco Use Smoking status: Never Smokeless tobacco: Never Vaping Use Vaping status: Never Used Substance Use Topics Alcohol use: No Drug use: No REVIEW OF SYSTEMS Abdomen: No abdominal pain, nausea, vomiting, diarrhea, or constipation. No bloating, early satiety, indigestion, or increased flatulence. Bladder: No dysuria, gross hematuria, urinary frequency. Has urinary urgency if bathroom is close by even if bladder is not full and may have a little incontinence en route occasionally. Does not need to wear protection. Breast: No breast lumps, nipple d/c, overlying skin changes, redness or skin retraction Allergies and current medication updated:Yes SENSITIVE EXAM: The sensitive examination was discussed with the Patient or Patient's Authorized Traffic And Transport Planner. As applicable, any other physician, advance practice provider, medical student, or other health professional student that will be observing or involved in the sensitive examination for educational or training purposes was discussed with the Patient or Authorized Traffic And Transport Planner. The Patient or Authorized Traffic And Transport Planner has agreed to proceed with the sensitive examination. (Sensitive examination includes inspection and/or palpation of the breasts, pelvis, prostate and anorectal regions). EXAM: BP 128/76 Ht 5' 9.173 (1.76m) Wt 156 lb 6.4 oz (70.9kg) LMP 09/21/2013 BMI 22.98 kg/(m2). GENERAL: pleasant, female in no apparent distress HEENT: Normocephalic, atraumatic, mucus membranes moist, and no lesions NECK: Supple, full range of motion, no adenopathy, and thyroid normal DERMATOLOGY: Normal, without lesions, non-icteric, and non-hirsute BREAST: soft, non-tender, symmetric, no dominant mass, normal nipple-areolar complex, no lymphadenopathy, and no nipple discharge CHEST: Normal inspiratory effort ABDOMEN: soft, non-tender, and no masses PELVIC: external genitalia normal, normal Bartholin's glands, urethra, [place]'s glands, no vulvar lesions, no cervical lesions, physiologic discharge present, normal appearing perineal body and perianal region, cystocele 1st degree, urethral caruncle BIMANUAL: uterus normal size, shape and consistency, no adnexal masses, and non-tender RECTOVAGINAL: deferred. NEURO: alert and oriented x3,exam grossly non-focal EXTREMITIES: normal ASSESSMENT/PLAN: 1) Health maintenance: Pap/HPV up to date. Mammogram ordered Mammogram up to date Nutrition, exercise and routine health maintenance exams reviewed. Calcium/Vitamin D supplementation information provided. Colon cancer screening: up to date with screening 2021, repeat 10 years 2. Urethral caruncle - ICD9: 599.3, ICD10: N36.2 - ESTRADIOL 0.01% (0.1 MG/GRAM) VAGINAL CREAM 3. Urge incontinence - ICD9: 788.31, ICD10: N39.41 - Discussed Kegel exercises and given written instruction. - discussed bladder training - CONSULT TO PHYSICAL THERAPY - given written order for PFT as she is self-pay so she can compare options. Also discussed apps. 4. 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 Rafat is a 63 year old who presents for an annual gynecologic exam intermittent urinary urgency. Cystocele, urethral caruncle - applying to caruncle twice a week, no problems starting urine stream. Benign EMB 2021, slightly thickened ET. Postmenopausal: Yes since age 53. No episodes of bleeding HRT use: Yes, Estrace cream Last Pap: 03/02/2022 normal HPV: 02/26/2022 negative History of abnormal pap: No Last mammogram: 2014 normal History of abnormal mammogram: Yes multiple cysts, right Sexually active: Yes History of STDS: None Patient concerns for STD exposure: No. Time with current partner: long-term Pain with intercourse: No Postcoital bleeding: No Hot flashes: occasional Vaginal dryness: Yes, mild only with SI and managed with lubricant OB History T8 L8 SAB3 IAB0 Ectopic0 Multiple0 Live Births0 Coat Ironer Hand History LMP: 09/21/2013, Postmenopausal Age at Menarche: Age at First : Age at Menopause: Coat Ironer Hand History Comments: Sexual Activity: Yes; Male Contraception: No contraception data on record PAST MEDICAL HISTORY Diagnosis Date Allergic rhinitis, cause unspecified Allergic rhinitis Anaphylactic reaction To exercising, every 2-3 months History of transfusion Lyme disease 01/19 Mitral valve disorders(424.0) PAST SURGICAL HISTORY Procedure Laterality Date COLONOSCOPY 12/18/2021 repeat in 10 years DILATION & CURETTAGE DX&/THER NONOBSTETRIC Dilation & curettage X 3 EYE SURGERY HX FRACTURE SURGERY FAMILY HISTORY Problem Relation Age of Onset Hypertension Mother Lipids Mother Hypertension Brother Lipids Brother Hypertension Brother Lipids Brother SOCIAL HISTORY Social History Tobacco Use Smoking status: Never Smokeless tobacco: Never Vaping Use Vaping status: Never Used Substance Use Topics Alcohol use: No Drug use: No REVIEW OF SYSTEMS Abdomen: No abdominal pain, nausea, vomiting, diarrhea, or constipation. No bloating, early satiety, indigestion, or increased flatulence. Bladder: No dysuria, gross hematuria, urinary frequency. Has urinary urgency if bathroom is close by even if bladder is not full and may have a little incontinence en route occasionally. Does not need to wear protection. Breast: No breast lumps, nipple d/c, overlying skin changes, redness or skin retraction Allergies and current medication updated:Yes SENSITIVE EXAM: The sensitive examination was discussed with the Patient or Patient's Authorized Traffic And Transport Planner. As applicable, any other physician, advance practice provider, medical student, or other health professional student that will be observing or involved in the sensitive examination for educational or training purposes was discussed with the Patient or Authorized Traffic And Transport Planner. The Patient or Authorized Traffic And Transport Planner has agreed to proceed with the sensitive examination. (Sensitive examination includes inspection and/or palpation of the breasts, pelvis, prostate and anorectal regions). EXAM: BP 128/76 Ht 5' 9.173 (1.76m) Wt 156 lb 6.4 oz (70.9kg) LMP 09/21/2013 BMI 22.98 kg/(m^2). GENERAL: pleasant, female in no apparent distress HEENT: Normocephalic, atraumatic, mucus membranes moist, and no lesions NECK: Supple, full range of motion, no adenopathy, and thyroid normal DERMATOLOGY: Normal, without lesions, non-icteric, and non-hirsute BREAST: soft, non-tender, symmetric, no dominant mass, normal nipple-areolar complex, no lymphadenopathy, and no nipple discharge CHEST: Normal inspiratory effort ABDOMEN: soft, non-tender, and no masses PELVIC: external genitalia normal, normal Bartholin's glands, urethra, [place]'s glands, no vulvar lesions, no cervical lesions, physiologic discharge present, normal appearing perineal body and perianal region, cystocele 1st degree, urethral caruncle BIMANUAL: uterus normal size, shape and consistency, no adnexal masses, and non-tender RECTOVAGINAL: deferred. NEURO: alert and oriented x3,exam grossly non-focal EXTREMITIES: normal ASSESSMENT/PLAN: 1) Health maintenance: Pap/HPV up to date. Mammogram ordered Mammogram up to date Nutrition, exercise and routine health maintenance exams reviewed. Calcium/Vitamin D supplementation information provided. Colon cancer screening: up to date with screening 2021, repeat 10 years 2. Urethral caruncle - ICD9: 599.3, ICD10: N36.2 - ESTRADIOL 0.01% (0.1 MG/GRAM) VAGINAL CREAM 3. Urge incontinence - ICD9: 788.31, ICD10: N39.41 - Discussed Kegel exercises and given written instruction. - discussed bladder training - CONSULT TO PHYSICAL THERAPY - given written order for PFT as she is self-pay so she can compare options. Also discussed apps. 4. Cystocele, midline - ICD9: 618.01, ICD10: N81.11 - CONSULT TO PHYSICAL THERAPY 5) Follow up one year or sooner as needed Bren Carrera APRN.CNP documented in this [facility]05-24-2022 Miscellaneous Notes* Telephone Encounter - Bren Carrera APRN.CNP - 03/06/2022 10:46 AM EDT Patient called per myself -discussed benign EMB pathology, normal Pap with negative HPV. Will treaturethral caruncle with topical vaginal estrogen cream and use explained to patient. Prescription sent to [facility] in [place] per patient request for use with Good [facility]. All questions answered. Bren Carrera APRN.CNP [facility] this [facility] Instructions* Patient Instructions* Felicia Crespo LPN - 02/28/2022 11:10 AM EDT YOUR RECOVERY After your biopsy you may have: Vaginal bleeding (less than a normal menstrual period) Mild cramping Do NOT put anything in the vagina for 1 week after your endometrial biopsy. This includes: tampons douches and refraining from having sexual intercourse If you have any discomfort, you may take an over the counter pain medication (motrin, advil, ibuprofen, tylenol, etc). If this does not relieve your discomfort, contact the office. It is okay to wear a sanitary pad until the discharge and spotting stops. RISKS Although problems seldom occur with endometrial biopsies, there can be some complications. You may feel faint during and shortly after the procedure as well as have some bleeding after the procedure.There is also a risk of infection after the procedure. These complications are rare and can be easily treated. You should contact you doctor is you have any of the following: Heavy bleeding (more than your normal period) Bleeding with clots Severe abdominal pain Fever (more than 100.4F) Foul smelling vaginal discharge RESULTS We will have the results of your biopsy in 1-2 weeks. If you do not hear the results of your biopsyafter 2 weeks, please contact the office for the results. If you have any additional questions or concerns please do not hesitate to contact the office. documented in this encounter[facility]22 History of Present illness Narrative* Bren Carrera APRN.KRYSTAL - 02/28/2022 11:09 AM EDT Rafat is a 61 year old Female who presents today for an endometrial biopsy for post menopausal bleeding. test: negative UNIVERSAL PROTOCOL / SAFETY CHECKLIST Procedure to be Performed: EMB Sign In: A Moment of CARE was completed. Personnel directly involved with the procedure wore the appropriate PPE (Personal Protective Equipment). Patient/Surrogate Stated/Verified: PATIENT VERIFIED(optional for EMERGENT procedures): Patient name, Date of , Relevant allergies and The intended procedure Time Out Communication: Intended patient and procedure match the source documents. Consent documented and matches the intended procedure. Relevant labs, photos, and/or imaging studies have been reviewed. Sign Out: SIGN OUT (optional for EMERGENT procedures): All specimen containers correctly labeled. All instruments, equipment, possible retained foreign bodies accounted for. Post-procedure follow-up management communicated and Plan of Care Visit completed when applicable. Bren Carrera APRN.CNP PROCEDURE: EXTERNAL GENITALIA: Normal in appearance without lesions VAGINA: Normal in appearance without lesions BIOPSY: Speculum placed into the vagina with excellent visualization of the cervix. Cervix cleaned with betadine. Anterior lip of cervix grasped with single toothed tenaculum. Uterus sounded to 7 cm.Pipelle inserted into the uterus without difficulty and endometrial biopsy obtained. 3 passes. Specimen labeled and sent to pathology. Hemostasis achieved. Procedure Summary: Patient tolerated procedure well. ASSESSMENT: post menopausal bleeding PLAN: Specimens labeled and sent to Pathology. Will notify patient of results in 1-2 weeks. Post-procedure instructions reviewed and written material given to the patient. Bren Carrera APRN.CNP documented in this encounterOhio[facility]05-16-2022 Miscellaneous Notes* Telephone Encounter - Wanda Martinez APRN.CNP - 02/26/2022 8:23 AM EDT Orders filed. Wanda Martinez APRN.CNP * Telephone Encounter - Anjelica Hogan RN - 02/26/2022 8:16 AM EDT Patient notified and scheduled for 02/28/22. Please file orders for AG so patient is able to pick uptoday. Will need to attach order to appointment too. Anjelica Hogan RN * Telephone Encounter - Bren Carrera APRN.CNP - 02/23/2022 3:10 PM EDT LMTCB to discuss ultrasound finding. ET slightly thickened at 5.5 mm. Recommend EMB. I will speak with her if available. Bren Carrera APRN.CNP documented in this encounterOhio[facility]05-12-2022 Instructions* Patient Instructions* Bren Carrera APRN.CNP - 02/22/2022 11:04 AM EDT How To Perform Pelvic Floor (Kegel) Exercises These exercises help to strengthen the pelvic floor muscles and can help improve bladder control for women. 1. You should have been instructed in the office how to contract these muscles. At home, you can insert two fingers in the vagina and feel the contraction of these muscles as you squeeze. We call these muscles the pelvic floor because they help support the pelvic organs, especially during coughing and sneezing. Squeezing the pelvic floor while standing feels like you are lifting the area around the vagina, and will interrupt the stream of urine while voiding. Once you are certain which muscles to use, do not exercise while urinating. Make sure you are not bearing down, squeezing your buttocks, or straining abdominally: these are not the muscles to be exercised. You may wish to place hands on your buttock muscles to keep these muscles relaxed while performing the exercises. 2. Squeeze these muscles as hard as you can for a slow count of five, eventually working up to a slow count of ten. Rest for 15 seconds, and then start another contraction. At first. these muscles may feel sore, just as other muscles may feel sore after exercise. 3. You should perform 50 squeezes every day: make sure every squeeze count by jeffery as hard as you can! Many women try to do these exercises in sets of five or ten at a time. Remind yourself todo these exercises by starting them every time you are waiting at a red light, watching a television commercial, or on hold on the telephone. If you are having trouble concentrating, you may want to set aside a special time to perform sets of pelvic floor exercises. 4. In addition to the long, hard contractions you are doing try doing some quick flicks of these muscles throughout the day. 5. You should be seen in the office after starting these exercises to make sure you are performing the contraction correctly: you may have never known how to contract these muscles before starting pelvic floor exercises, and many patients mistakenly exercise the wrong muscles. If you still feel frustrated about which muscles to use ask us for help. There are physical therapy specialists who work with pelvic floor muscles. 6. Work hard! As with any exercise program, improvement often is related to how faithfully you adhere to your exercise program. Pelvic floor exercises do not have the side effects and expense associated with other treatments for urinary incontinence, and have been known to help with severe stress incontinence. It may take several months to see the full effect of your exercise program: if you are easily discouraged, see your doctor or doctor at regular visits to assess what progress you are making. Techniques to avoid urinary accidents: Empty your bladder regularly and prior to physical activity. Avoid activity that causes leakage, if possible. Avoid or moderate the intake of alcohol and caffeine products. Try to restrict fluids prior to planned activities. Wear appropriate protection. Prevent chronic coughing which can cause a loss of urinary control. Ways to prevent chronic coughing include treating asthma, restricting smoking, and removing allergy-causing agents from your environment. documented in this encounterOhio[facility]05-[facility]-2022 History of Present illness Narrative* Bren Carrera APRN.CNP - 02/22/2022 10:45 AM EDT Rafat Delaney is a 61 year old female who presents for problem visit Postmenopausal bleeding. Accompanied by . HPI: Postmenopausal at age 53. Spotting this morning on panties and when wiped x 1. Blood was bright red. No cramping. No further bleeding since then. No urinary symptoms. No vaginal itching, odor, change in discharge or irritation. Does not wear pad or panty liner. No incontinence. Is sexually active with last SI yesterday. Did not have any bleeding after SI. OB History T8 L8 SAB3 IAB0 Ectopic0 Multiple0 Live Births0 Coat Ironer Hand History LMP: 09/21/2013, Postmenopausal Age at Menarche: Age at First : Age at Menopause: Coat Ironer Hand History Comments: Sexual Activity: Yes; Male Contraception: No contraception data on record PAST MEDICAL HISTORY Diagnosis Date Allergic rhinitis, cause unspecified Allergic rhinitis Anaphylactic reaction To exercising, every 2-3 months History of transfusion Lyme disease 01/19 Mitral valve disorders(424.0) PAST SURGICAL HISTORY Procedure Laterality Date COLONOSCOPY 12/18/2021 repeat in 10 years DILATION & CURETTAGE DX&/THER NONOBSTETRIC Dilation & curettage X 3 EYE SURGERY HX FRACTURE SURGERY FAMILY HISTORY Problem Relation Age of Onset Hypertension Mother Lipids Mother Hypertension Brother Lipids Brother Hypertension Brother Lipids Brother Social History Tobacco Use Smoking status: Never Smoker Smokeless tobacco: Never Used Vaping Use Vaping Use: Never used Substance Use Topics Alcohol use: No Drug use: No Current Outpatient Medications Medication Sig ascorbic acid(VITAMIN C 1,000 MG TAB) Take one(1) tablet four times daily. epinephrine(EPIPEN 0.3 MG/0.3 ML (1:1,000) IM INJECTOR) use as directed for allergic reaction. Seekemergent medical care immediately after use. diphenhydrAMINE (BENADRYL) 25 mg ORAL Cap take one to two tablets every 6 hours as needed. No current facility-administered medications for this visit. Allergies As of Date: 02/22/2022 Allergen Noted Reaction ENVIRONMENTAL ALLERGIES [OTHER] 03/11/2007 EXERCISE INDUCED ANAPHYLAXIS [OTH*02/27/2010 Swelling, Anaphylaxis, and Shortness of Breath PEANUTS 02/07/2006 Swelling Fully Assessed 02/22/2022 REVIEW OF SYSTEMS Abdomen: No bloating, early satiety, indigestion, or increased flatulence. No abdominal pain, nausea, vomiting, diarrhea, or constipation. Bladder: No dysuria, gross hematuria, urinary frequency, urinary urgency, or incontinence. Allergies and current medication updated:Yes EXAM: BP 116/74 Wt 148 lb (67.1kg) LMP 09/21/2013 GENERAL: pleasant, female in no apparent distress CHEST: Normal inspiratory effort ABDOMEN: soft, non-tender and no masses PELVIC: external genitalia normal, normal Bartholin's glands, urethra, [place]'s glands, no vulvar lesions, no cervical lesions, physiologic discharge present, normal appearing perineal body and perianal region, cystocele 1st degree and approaching 2nd degree. +urethral caruncle. No blood at cervicalos or in vaginal vault. No trauma. BIMANUAL: uterus normal size, shape and consistency, no adnexal masses and non-tender NEURO: alert and oriented x3,exam grossly non-focal ASSESSMENT/PLAN: 1. PMB (postmenopausal bleeding) - ICD9: 627.1, ICD10: N95.0 (primary diagnosis) - discussed possible causes including urethral caruncle. One episode of scant bright red blood day after SI. Will continue to monitor further bleeding and notify office. - PAP FLUID CERVICAL DIAGNOSTIC - PELVIC US WHI 2. Urethral caruncle - ICD9: 599.3, ICD10: N36.2 - no urinary symptoms - Discussed cause and treatment with topical estrogen after diagnostic testing for PMB 3. Cystocele, midline - ICD9: 618.01, ICD10: N81.11 - 1-2nd degree - asymptomatic - Discussed Kegel exercises and given written instruction. Will notify of results. Follow- up as needed. Bren Carrera APRN.CNP Medical Decision Making: Problems: Moderate: New problem with uncertain prognosis Data: Unique test(s) ordered: 2 Medical Decision Making Level: 3 - Low [facility]* Diagnosis PMB (postmenopausal bleeding)- Primary Postmenopausal bleeding Encounter for Papanicolaou smear for cervical cancer screening Special screening examination for human papillomavirus (HPV) Urethral caruncle Cystocele, midline [facility]* Diagnosis PMB (postmenopausal bleeding)- Primary Postmenopausal bleeding Thickened endometrium Nonspecific (abnormal) findings on radiological and other examination of genitourinary organs [facility]* Diagnosis Thickened endometrium- Primary Nonspecific (abnormal) findings on radiological and other examination of genitourinary organs [facility]* Diagnosis Urethral caruncle- Primary [facility]* Diagnosis Encounter for screening mammogram for breast cancer documented [facility]* Diagnosis Encounter for gynecological examination with abnormal finding- Primary Routine gynecological examination Urethral caruncle Urge incontinence Cystocele, midline Encounter for screening mammogram for breast cancer [facility]* Diagnosis Encounter for gynecological examination with abnormal finding Routine gynecological examination Encounter for screening mammogram for breast cancer [facility]* Diagnosis Wellness examination- Primary Liver cyst Other specified disorders of liver Hyperlipidemia, mixed Mixed hyperlipidemia Urethral caruncle Bilateral impacted cerumen Impacted cerumen Screening for depression Encounter for screening examination for other mental health and behavioral disorders documented [facility]* Diagnosis Preoperative clearance- Primary Preoperative examination, unspecified Blurry vision, left eye Other specified visual disturbances Hyperlipidemia, mixed Mixed hyperlipidemia Liver cyst Other specified disorders of liver Urethral caruncle documented in this encounter [facility] Author [facility] Note Date/Time March 25, 2025 2:44 pm [facility] Medical Records Department [address] [place] [address] H&P Exam - Hospitalist 03/25/25 1425 MR#: [id number] Acct: [id number] Name: RAFAT DELANEY Rep #:[id number] : 1960 64 From: Martin [facility]ACA PCP: Dr. Casie Hair, DO Status:RE G ER Location: ED HPI - General General Date of Service: 03/25/25 Chief Complaint: chest tightness HPI Narrative RAFAT DELANEY, is a 64 F with pmhx MVP who presents to the ER with chest tightness. She has had this about 10 days. The day it started she travelled to [place]. She started to feel all over body aches and was taken to the ER at a local hospital. She states she was admitted for abnormal liver enzymes and jaundice. She was admitted through saturday. During the time she was given IV fluids and had her stool checked which showed noravirus - tho she had no n/v/d. She came home and today felt more SOB with increased LE edema. She also has ongoing chest tightness, SOB, dry cough, PND, and orthopnea. She was brought to the ER and found to have elevated BNP, CXR showing CHF, abnormal troponin, abnormal liver enzymes, and hyponatremia. She is admitted to the hospital with acute CHF, and has no prior hx of CHF. [facility] Medical History Mitral valve prolapse Lyme disease Home Medications ?Medication ?Instructions ?Recorded ?Last Taken ?Type estradiol 0.01% (0.1 mg/gram) 1 appful vaginal .twice weekly 03/25/25 Unknown History vaginal cream Allergy/AdvReac Type Severity Reaction Status Date / Time No Known Allergies Allergy Verified 03/25/25 09:48 Family History (Updated 03/25/25 @ 14:31 by LIO Estrada) Mother CAD (coronary artery disease) Surgical History (Updated 03/25/25 @ 14:31 by LIO Estrada) History of dilatation and curettage Social History Smoking Status: Never smoker Medical History Mitral valve prolapse Lyme disease Surgical History (Updated 03/25/25 @ 14:31 by LIO Estrada) History of dilatation and curettage Family History (Updated 03/25/25 @ 14:31 by LIO Estrada) Mother CAD (coronary artery disease) Social History Smoking Status: Never smoker ROS Constitutional Constitutional: Reports other Details: body aches ; Denies chills or fever(s) Eyes Eyes: Denies blurry vision ENT HEENT: Denies headache(s), nasal congestion or sore throat Cardiovascular Cardiovascular: Reports dyspnea on exertion, paroxysmal nocturnal dyspnea and other Details: orthopnea ; Denies chest pain or syncope Respiratory/Chest Respiratory/Chest: Reports cough, shortness of breath at rest and shortness of breath with exertion; Denies productive cough Gastrointestinal Gastrointestinal: Denies abdominal pain, diarrhea, nausea or vomiting Genitourinary Genitourinary: Reports urinary incontinence; Denies burning urination or dysuria Musculoskeletal Musculoskeletal: Denies arthralgias Neurologic Neurologic: Denies abnormal gait Psychiatric Psychiatric: Denies anxiety Endocrine Endocrinology: Denies change in body appearance Hematologic/Lymphatic Hematologic/Lymphatic: Reports anemia Allergic/Immunologic Allergic/Immunologic: Denies rhinitis Vital Signs Vital Signs Vital Signs: 03/25/25 09:48 03/25/25 10:19 03/25/25 10:21 Temperature 99.2 F H 99.5 F H Temperature Source Oral Oral Pulse Rate 98 93 Respiratory Rate 16 22 H Respiratory Effort Respiratory Pattern Blood Pressure 99/66 115/72 Blood Pressure Mean 77 86 Pulse Ox 96 97 96 Oxygen Delivery Method Room Air Room Air Room Air 03/25/25 10:22 03/25/25 11:00 03/25/25 12:00 Temperature 99.3 F H 99.5 F H Temperature Source Oral Oral Pulse Rate 89 86 Respiratory Rate 20 H 14 Respiratory Effort Normal Non-Labored Respiratory Pattern Normal Blood Pressure 118/74 113/71 Blood Pressure Mean 88 85 Pulse Ox 94 97 Oxygen Delivery Method Room Air Room Air 03/25/25 13:00 03/25/25 13:22 Temperature 100 F H 100 F H Temperature Source Oral Pulse Rate 89 87 Respiratory Rate 22 H 28 H Respiratory Effort Respiratory Pattern Blood Pressure 114/72 116/72 Blood Pressure Mean 86 86 Pulse Ox 95 98 Oxygen Delivery Method Room Air Weight Weight: 78.4 kg Body Mass Index (BMI) 25.5 Physical Exam Const alert, oriented x3 and no apparent distress General Appearance: cooperative HEENT normocephalic and head/scalp atraumatic Eyes PERRL Neck no lymphadenopathy Resp normal respiratory effort Resp Narrative: diminished Auscultation: rales bilateral (faint basilar) Cardio regular rate, regular rhythm and no murmurs GI normal to inspection, nondistended, normoactive bowel sounds, soft to palpation and non-tender Extremity Extremity Narrative: BL 2+ pitting edema Skin Skin Narrative: w/d Neuro oriented x3 Psych affect normal Results Lab / Micro Data 03/25/25 10:15 03/25/25 10:15 Labs: Laboratory Results - last 24 hr 03/25/25 10:15: WBC 19.0 H, RBC 3.09 L, Hgb 9.0 L, Hct 25.4 L, MCV 82.2, MCH 29.1, MCHC 35.4, RDW Std Deviation 42.9, RDW Coeff of Christian 14.4, Plt Count 392, MPV 9.5, Neut % (Auto) Not Reportable, Absolute Neuts (auto) 16.3 H, Absolute Lymphs (auto) 1.30, Total Counted 100, Neutrophils % (Manual) 84 H, Band Neutrophils % 2, Lymphocytes % (Manual) 7 L, Monocytes % (Manual) 3, Metamyelocytes % 3 H, Myelocytes % 1 H, Differential Comment COMMENT, Diff Path Review May foll, Platelet Estimate ADEQUATE, RBC Morphology NORM C+C, PT 14.5, INR 1.1, Sodium 128 L, Potassium 3.7, Chloride 93 L, Carbon Dioxide 23.1, Anion Gap 12, BUN 12, Creatinine 0.61 L, Estim Creat Clear Calc 98.65, Est GFR (MDRD) Non-Af 100, BUN/Creatinine Ratio 20.4 H, Glucose 129 H, Calcium 9.3, Total Bilirubin 1.29, Direct Bilirubin 0.92 H, AST 170 H, ALT 81 H, Alkaline Phosphatase 258 H, Troponin T High Sens 41 H, [place] [address] H, Total Protein 5.9, Albumin 2.6 L, Globulin 3.3 03/25/25 13:32: Troponin T Hi Sens 2 Hr 47 H Rhythm Strip Rhythm Strip: Sinus Rhythm Rate: 89 Ectopy: None Imaging Radiology Impression Chest X-Ray 03/25/25 10:48 IMPRESSION: Vascular congestion and mild CHF with small bilateral pleural effusions left greater than right with bibasilar atelectasis worse on the right lung base. [facility] & [facility] Assessment/Plan (1) Acute CHF: PLAN: 1. Acute CHF, unclear type, no prior hx - 10 days of chest tightness, sob,dry cough, PND, orthopnea, BL LE edema. recent admission to hospital in [place] last through saturday for abnormal liver enzymes, at that time given IV fluids. At this time symptoms c/w Acute CHF and she has elevated BNP, abnormal troponin, CXR showing pleural effusions and vascular congestion. EKG NSR. She also has hyponatremia, leukocytosis of unclear etiology and abnormal LFTs. Admit to PCU tele, continue IV lasix with trending I/Os, in the AM she will have a 2D echo. Will consider cariology consult. trend troponin. 2. Abnormal troponin with ongoing chest tightness suspect 2/ 2 #1 - maintain tele overnight, AM echo, cycle enzymes 3. Hyponatremia 2/2 #1 - trend BMP 4. Abnormal LFTs suspect 2/2 #1 - trend CMP. Recent hospital admission for jaundice per pt hx. 5. Leukocytosis unclear etiology - repeat AM CBC. Pt did have recent diagnosis of norovirus tho she never had nausea, vomiting, or diarrhea. 6. Normocytic anemia - Hgb 9.0 baseline unknown. repeat AM CBC 7. Hx mitral valve prolapse since age 21, pt has not had a recent echo, and willhave one in the AM. DVT ppx: lovenox Code status: discussed with pt, she is Full Code. This patient was seen by Martin Mcarthur PA-C under the supervision of Doctor Ajay. 03/25/25 [id number] <Electronically signed by Martin VACA> Cosigner Signature (if applicable): CC: LIO Franco; Dr. Casie Hair, DO~ Signed [facility] Work Phone: Reason for referral (narrative)* Diagnostic Procedure Only (Routine) - Pending Review Specialty Diagnoses / Procedures Referred By Contac t Referred To Contact [facility] [place] Diagnoses PMB (postmenopausal bleeding) Procedures PELVIC US I US PELVIC NONOBSTETRIC REAL-TIME IMAGE COMPLETE Bren Carrera APRN.CORPORATE LIBRARIAN [address] [place] [address] [facility] [address] [place] [address] Referral ID Status Reason Start Date Expiration Date Visits Requested Visits Authorized [id number] Pending Review Auto-Generat ed Referral 02/22/2022 02/22/2023 1 1 T [facility] for referral (narrative)* Outpatient Procedure (Routine) - Pending Review Specialty Diagnoses / Procedures Referred By Contac t Referred To Contact [facility] [place] Diagnoses PMB (postmenopausal bleeding) Thickened endometrium Procedures ENDOMETRIAL BIOPSY ENDOMETRIAL BX W/WO ENDOCERVIX BX W/O DILAT SPX Wanda Martinez APRN.CORPORATE LIBRARIAN [address] [place] [address] [facility] [address] [place] [address] Referral ID Status Reason Start Date Expiration Date Visits Requested Visits Authorized [id number] Pending Review Auto-Generat ed Referral 02/26/2022 02/23/2023 1 1 T [facility] for referral (narrative)* Outpatient Procedure (Routine) - Pending Review Specialty Diagnoses / Procedures Referred By Chema t Referred To Contact [facility] [place] Diagnoses Thickened endometrium Procedures ENDOMETRIAL BIOPSY ENDOMETRIAL BX W/WO ENDOCERVIX BX W/O DILAT SPX Bren Carrera APRN.CORPORATE LIBRARIAN [address] [place] [address] [facility] [address] [place] [address] Referral ID Status Reason Start Date Expiration Date Visits Requested Visits Authorized [id number] Pending Review Auto-Generat ed Referral 02/28/2022 02/28/2023 1 1 [facility] for referral (narrative)* Diagnostic Procedure Only (Routine) - Pending Review Specialty Diagnoses / Procedures Referred By Chema braun Referred To Contact [facility] Diagnoses Encounter for screening mammogram for breast cancer Procedures JULIETA SCREENING SCREENING MAMMOGRAPHY BI 2-VIEW BREAST INC CAD Sherry Colidnres MD [address] [place] [address] [facility] [address] [place] [address] Referral ID Status Reason Start Date Expiration Date Visits Requested Visits Authorized [id number] Pending Review Auto-Generat ed Referral 04/11/2022 05/11/2023 1 1 T [facility] for referral (narrative)No reason for referral information [facility]WAden[facility] Work Phone: Reason for visit Narrative* Diagnostic Procedure Only (Routine) - Pending Review Specialty Diagnoses / Procedures Referred By Chema t Referred To Contact [facility] Diagnoses Encounter for gynecological examination (general) (routine) without abnormal findings Encounter for screening mammogram for breast cancer Procedures JULIETA SCREENING W LYNETTE SCREENING DIGITAL BREAST TOMOSYNTHESIS BI SCREENING MAMMOGRAPHY BI 2-VIEW BREAST INC Bren Concepcion APRN.CNP [address] [place] [address] [facility] [address] [place] [address] Referral ID Status Reason Start Date Expiration Date Visits Requested Visits Authorized [id number] Pending Review Auto-Generat ed Referral 4 08/28/2025 1 1 [facility] Discharge Instructions * Instructions* Ritchie Malik MD - 11/17/2019 Keep bandage on, clean, and dry Ice and elevate wrist (at heart level or above) for pain relief May take over the counter pain medications for pain OK to move thumb and fingers - no movement of wrist or elbow Call office with any questions or concerns documented in this encounter History of Present Illness * Casie Barclay RN - 11/17/2019 2:29 PM EST SCD's applied. 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 Traffic And Transport Planner Expl anation Advance Directives and Living Will Power of Home Health Care Physician Latest Code Status on File Code Status Date Activated Date Inactivated Comments Full Code 11/17/2019 1:36 PM Latest Code Status on File Code Status Date Activated Date Inactivated Comments Full Code 11/17/2019 1:36 PM 11/17/2019 8:20 PM Documents on File Type Date Recorded Patient Traffic And Transport Planner Expl anation Advance Directive(s) 12/18/2021 10:01 AM Documents on File Type Date Recorded Patient Traffic And Transport Planner Expl anation Advance Directive(s) 12/18/2021 10:01 AM Advance Directive Response Recorded Date/ Time Do you have a Healthcare Power of Home Health Care Physician? Yes March 25, 2025 10:22am Name of Medical Power of Home Health Care Physician Shahab Delaney March 25, 2025 10:22am Summary Purpose Family History Relationship Condition Age at Onset Recorded Date/T juanita mother Coronary artery disease Unknown Reason for Referral Specialty Diagnoses / Procedures Referred By Chema t Referred To Contact [facility] Diagnoses Cystocele, midline Urge incontinence Procedures CONSULT TO PHYSICAL THERAPY PHYSICAL THERAPY EVALUATION HIGH COMPLEX 45 MINS Bren Carrera, DIVERSIFIED CROPS SUPERVISOR.CORPORATE LIBRARIAN [address] [place] [address] [facility] [address] [place] [address] Referral ID Status Reason Start Date Expiration Date Visits Requested Visits Authorized [id number] Pending Review Auto-Generat ed Referral 4 07/29/2025 1 1 Specialty Diagnoses / Procedures Referred By Contac t Referred To Contact [facility] Diagnoses Encounter for gynecological examination (general) (routine) without abnormal findings Encounter for screening mammogram for breast cancer Procedures JULIETA SCREENING W LYNETTE SCREENING DIGITAL BREAST TOMOSYNTHESIS BI SCREENING MAMMOGRAPHY BI 2-VIEW BREAST INC CAD Bren Carrera, DIVERSIFIED CROPS SUPERVISOR.CORPORATE LIBRARIAN [address] [place] [address] [facility] [address] [place] [address] Referral ID Status Reason Start Date Expiration Date Visits Requested Visits Authorized [id number] Pending Review Auto-Generat ed Referral 4 08/28/2025 1 1 Specialty Diagnoses / Procedures Referred By Chema t Referred To Contact [facility] Diagnoses Liver cyst Procedures MRI LIVER WO/W IVCON MRI ABDOMEN W/O & W/CONTRAST MATERIAL Isabelle Fitzgerald, DIVERSIFIED CROPS SUPERVISOR.CORPORATE LIBRARIAN [address] [place] [address] [place] [address] Referral ID Status Reason Start Date Expiration Date Visits Requested Visits Authorized [id number] New Request Auto-Generat ed Referral 10/21/2024 11/20/2025 1 1 Chief Complaint and Reason for Visit Chief Complaint Admit Date CHF March 25, 2025 12:4 3pm swelling, sob, cp March 25, 2025 2:25 pm Reason for Visit Admit Date Acute CHF March 25, 2025 12:4 3pm Acute dyspnea March 25, 2025 12:4 3pm Acute hyponatremia March 25, 2025 12:4 3pm Anemia March 25, 2025 12:4 3pm Congestive heart failure March 25, 2025 12:43pm Elevated liver enzymes March 25, 2025 1 2:43pm Additional Source Comments INFORMATION SOURCE (unrecogn ized section and content) DATE CREATED AUTHOR 12/04/[address] [facility] DATE CREATED AUTHOR AUTHOR'S ORGANIZ ATION 02/12/2024 [facility] DATE CREATED AUTHOR AUTHOR'S ORGANIZ ATION 01/18/2025 [facility] Source Comments (unrecognize d section and content) In the event this informatio n is protected by the Federal Confidentiality of Alcohol and Drug Abuse Patient Records regulations: The Federal rules restrict any use of the information to criminally investigate or prosecute any alcohol or drug abuse patient.[facility] the event this information is protected by the Federal Confidentiality of Alcohol and Drug Abuse Patient Records regulations: The Federal rules restrict any use of the information to criminally investigate or prosecute any alcohol or drug abuse patient.[facility] Hospital[facility] the event this information is protected by the Federal Confidentiality of Alcohol and Drug Abuse Patient Records regulations: The Federal rules restrict any use of the information to criminally investigate or prosecute any alcohol or drug abuse patient.[facility] Hospital[facility] the event this information is protected by the Federal Confidentiality of Alcohol and Drug Abuse Patient Records regulations: The Federal rules restrict any use of the information to criminally investigate or prosecute any alcohol or drug abuse patient.[facility] Hospital[facility] the event this information is protected by the Federal Confidentiality of Alcohol and Drug Abuse Patient Records regulations: The Federal rules restrict any use of the information to criminally investigate or prosecute any alcohol or drug abuse patient.[facility] Hospital[facility] the event this information is protected by the Federal Confidentiality of Alcohol and Drug Abuse Patient Records regulations: The Federal rules restrict any use of the information to criminally investigate or prosecute any alcohol or drug abuse patient.[facility] Hospital[facility] the event this information is protected by the Federal Confidentiality of Alcohol and Drug Abuse Patient Records regulations: The Federal rules restrict any use of the information to criminally investigate or prosecute any alcohol or drug abuse patient.[facility] Hospital[facility] the event this information is protected by the Federal Confidentiality of Alcohol and Drug Abuse Patient Records regulations: The Federal rules restrict any use of the information to criminally investigate or prosecute any alcohol or drug abuse patient.[facility] Hospital[facility] the event this information is protected by the Federal Confidentiality of Alcohol and Drug Abuse Patient Records regulations: The Federal rules restrict any use of the information to criminally investigate or prosecute any alcohol or drug abuse patient.[facility] Hospital[facility] the event this information is protected by the Federal Confidentiality of Alcohol and Drug Abuse Patient Records regulations: The Federal rules restrict any use of the information to criminally investigate or prosecute any alcohol or drug abuse patient.[facility] Hospital[facility] the event this information is protected by the Federal Confidentiality of Alcohol and Drug Abuse Patient Records regulations: The Federal rules restrict any use of the information to criminally investigate or prosecute any alcohol or drug abuse patient.[facility] HospitalIn the event this information is protected by the Federal Confidentiality of Alcohol and Drug Abuse Patient Records regulations: The Federal rules restrict any use of the information to criminally investigate or prosecute any alcohol or drug abuse patient.[facility] Reason for Visit (unrecogniz ed section and content) Reason Comments Vaginal Bleeding Specialty Diagnoses / Procedures Referred By Contac t Referred To Contact [facility] [place] Diagnoses post menopausal bleeding Procedures post menopausal bleeding Self [facility] [address] [place] [address] Referral ID Status Reason Start Date Expiration Date Visits Requested Visits Authorized [id number] Authorized Patient Cleared - Qualified 100% FAS 02/22/2022 05/23/2022 99 99 Reason Comments Results Orders New Medication Reason Comments Endometrial Biopsy Specialty Diagnoses / Procedures Referred By Contac t Referred To Contact General Surgery / GENERAL SURGERY Diagnoses Hernia Diastasis recti Procedures CONSULT TO GENERAL SURGERY OFFICE/OUTPATIENT NEW HIGH MDM 60-74 MINUTES Isabelle Fitzgerald, DIVERSIFIED CROPS SUPERVISOR.CORPORATE LIBRARIAN [address] [place] [address] [facility] [address] [place] [address] Referral ID Status Reason Start Date Expiration Date Visits Requested Visits Authorized [id number] Authorized PCP Requested Referral Patient Cleared - Qualified 100% FAS 12/01/2021 03/01/2022 99 99 Reason Comments Results New Medication Reason Onset Date Comments Refill Request 02/08/2024 Reason Comments Well Woman Specialty Diagnoses / Procedures Referred By Contac t Referred To Contact ASSISTANT FINANCIAL ACCOUNTANT Diagnoses Due for annual, prescription refill Procedures OFFICE CONSULTATION NEW/ESTAB PATIENT 15 MIN Self Bren Carrera, DIVERSIFIED CROPS SUPERVISOR.CORPORATE LIBRARIAN [address] [place] [address] Referral ID Status Reason Start Date Expiration Date V isits Requested Visits Authorized [id number] Closed Financial Clearance Required - Self Pay Patient Cleared - Qualified [id number]/[id number] 06/02/2024 08/31/2024 1 1 Reason Comments Wellness To Establish care Specialty Diagnoses / Procedures Referred By Contac t Referred To Contact [facility] Diagnoses Follow Up Appt in [facility]- last seemn . at [facility] Procedures OFFICE/OUTPATIENT ESTABLISHED MOD MDM 30 MIN Self Isabelle Fitzgerald APRN.CNP [address] [place] [address] Referral ID Status Reason Start Date Expiration Date V isits Requested Visits Authorized [id number] Closed Financial Clearance Required - Self Pay Patient Cleared - Qualified for 501r Referred for PRISCILLA 10/13/2024 01/11/2025 1 1 Reason Comments Appointment Reason Comments Pre-Op Exam Specialty Diagnoses / Procedures Referred By Contac t Referred To Contact [facility] Diagnoses PREOP Procedures PRE OP CLEARANCE [address] [facility] [place] [address] [place] [address] Phone: tel: Referral ID Status Reason Start Date Expiration Date V isits Requested Visits Authorized [id number] Closed Financial Clearance Required - Self Pay Patient Cleared - Qualified for 501r 12/30/2024 03/30/2025 1 1 Care Teams (unrecognized sec tion and content) Distribution Center Manager Relationship Specialty Start Date End Date Sherry Colindres MD [address] [place] [address] PCP - General Family Practice 11/27/21 Distribution Center Manager Relationship Specialty Start Date End Date Sherry Colindres MD [address] [place] [address] PCP - General Family Practice 11/27/21 Distribution Center Manager Relationship Specialty Start Date End Date Sherry Colindres MD [address] [place] [address] PCP - General Family Practice 11/27/21 Distribution Center Manager Relationship Specialty Start Date End Date Sherry Colindres MD [address] [place] [address] PCP - General Family Practice 11/27/21 Distribution Center Manager Relationship Specialty Start Date End Date Sherry Colindres MD [address] [place] [address] PCP - General Family Practice 11/27/21 Distribution Center Manager Relationship Specialty Start Date End Date Sherry Colindres MD [address] [place] [address] PCP - General Family Medicine 10/21/24 Distribution Center Manager Relationship Specialty Start Date End Date Sherry Colindres MD [address] [place] [address] PCP - General Family Medicine 10/21/24 Distribution Center Manager Relationship Specialty Start Date End Date Sherry Colindres MD [address] [place] [address] PCP - General Family Medicine 10/21/24 Dick Bae APRN.CORPORATE LIBRARIAN [address] [place] [address] Aircraft Lay Out Worker Family Medicine 12/25/24 Isabelle Fitzgerald APRN.CORPORATE LIBRARIAN [address] [place] [address] Aircraft Lay Out Worker Family Medicine 12/25/24 Distribution Center Manager Relationship Specialty Start Date End Date Sherry Colindres MD [address] [place] [address] PCP - General Family Medicine 10/21/24 Dick Bae APRN.CORPORATE LIBRARIAN [address] [place] [address] Aircraft Lay Out Worker Family Medicine 12/25/24 Isabelle Fitzgerald APRN.CORPORATE LIBRARIAN [address] [place] [address] [facility] 12/25/24 Team Status: Active Member Role Status Dates Dr. Casie Hair DO Primary Care Provider Active Team Status: Active Member Role Status Dates Dr. Casie Hair DO Primary Care Provider Active Start: March 25, 2025 Dr. Sawyer Daigle MD Emergency Provider Active S tart: March 25, 2025 Dr. Angel Moss DO Admit Provider Active Star t: March 25, 2025 Dr. Angel Moss DO Attending Provider Active Start: March 25, 2025 Team Status: Active Member Role Status Dates Dr. Casie Hair DO Primary Care Provider Active Start: March 25, 2025 Dr. Sawyer Daigle MD Emergency Provider Active S tart: March 25, 2025 Martin VACA PA Attending Provider Active Sta rt: March 25, 2025 Goals (unrecognized section and content) Goals may be documented in a n alternate section FOR RECORDS PERTAINING TO PATIENTS WHO ARE OR HAVE BEEN ENROLLED IN A CHEMICAL DEPENDENCY/SUBSTANCEABUSE PROGRAM, SOME INFORMATION MAY BE OMITTED. This clinical summary was aggregated from multiple sources. Caution should be exercised in using it in the provision of clinical care. This summary normalizes information from multiple sources, and as a consequence, information in this document may materially change the coding, format and clinical context of patient data. In addition, data may be omitted in some cases. CLINICAL DECISIONS SHOULD BE BASED ON THE PRIMARY CLINICAL RECORDS. [facility] [employer] [facility]. provides no warranty or guarantee of the accuracy or completeness of information in this document.
[2025-03-25] MEDS: Acetaminophen 325 MG Tablet 650 MG PO (22:01)
[2025-03-26] VITALS (9 sets, daily range): BP systolic 94–111; BP diastolic 52–66; PULSE 70–90; RESP 18–20; TEMP 36.9–38.2; O2SAT 87–100
[2025-03-26 05:06] LABS: Hemoglobin 8.7 g/dL (12.0-15.0); Mean Corp Hgb Conc 36.3 g/dL (32-36); Mean Corpuscular Hgb 29.2 pg (27.0-32.0); Mean Corpuscular Volume 80.5 fL (81-99); Mean Platelet Vol. 9.6 fl (6.2-12.0); POSITIVE COUNT YES; POSITIVE MORPHOLOGY YES; Platelet Count 431 K/mm3 (150-450); RBC Distribution Width CV 13.9 % (11.6-14.6); RBC Distribution Width SD 40.6 fl (35.1-43.9); Red Blood Count 2.98 M/mm3 (4.2-5.4); White Blood Count 19.3 K/mm3 (4.4-11.0)
[2025-03-26 05:49] LABS: Anion Gap 12 (5-15); BUN 16 mg/dL (4-19); BUN/Creat Ratio 24.3 RATIO (10-20); Carbon Dioxide 26.1 mmol/L (21.0-32.0); Chloride 92 mmol/L (98-108); Creatinine, Serum 0.65 mg/dL (0.70-1.20); EST Glomerular Filtration Rate 99 (>60); Estimated Creatinine Clearance 92.58 ml/min (50-250); Glucose 123 mg/dL (70-99); Potassium 3.3 mmol/L (3.3-5.1); Sodium Level 130 mmol/L (133-145)
[2025-03-26 06:04] LABS: Differential Indicated MANUAL DIFF
[2025-03-26 07:59] LABS: Eosinophil 1 % (0-5); Lymphocyte 8 % (19-41); Monocyte 8 % (0-10); Neutrophil-Band 2 % (0-5); Total Cells Counted 100 (MANUAL DIFF)
[2025-03-26 08:01] LABS: Metamyelocyte 1 % (0-1); Myelocyte 1 % (0-0); Neutrophil-Segmented 79 % (47-70)
[2025-03-26 08:04] LABS: Toxic Granulation 1+
[2025-03-26 08:05] LABS: Platelet Estimate A (ADEQ); Polychromasia 1+
[2025-03-26 08:06] LABS: Absolute Lymphocyte Count 1.54 X10^3/uL (0.83-4.51); Absolute Neutrophil Count 15.6 X10^3/uL (2.0-7.7)
[2025-03-26] MEDS: Furosemide 40 MG/4 ML Vial IV ×2 (10:04→18:22)
[2025-03-26] MEDS: Loratadine 10 MG Tablet PO (10:04)
[2025-03-26] MEDS: Enoxaparin 40 MG/0.4 ML Syringe SC (10:04)
[2025-03-26] MEDS: 0.9% Saline Lock 10 ML Syringe IV ×2 (10:05→18:22)
--- NOTE | 2025-03-26 10:40 | CASEMGMT ---
RN?CM?SHOP DIRECTOR?CM?to room to meet with patient for initial transition planning/care coordination?assessment.?RN?CM?introduced self and role at [facility].? Pt voices understanding and consents to?assessment?at this time.? Pt resting in bed in no distress at this time.? @ bedside. Pt is A/O at this time and answers all questions appropriately.?? Care providers, pharmacy, and demographics verified/updated at this time. Strata: 1 PCP: Dr Hair Specialists: none Preferred Pharmacy: [facility]. Insurance: No insurance Prescription Benefit:?None. Uses Good Rx card LNOK: Michael Living Arrangements: Lives w/ and 2 children in 2-story home w/2 steps to enter. Independent @ baseline. Loves to garden. Pt has been feeling weak over the past week. can assist, as needed. Transportation:?Pt states drives self and states no transportation concerns at this time.? also drives. DME: Has a pulse ox and BP machine. No home O2. Discussed home O2 set-up process. Pt chooses [employer] if pt qualifies for O2 @ dc. Made aware to call DME co. prior to leaving the hospital to make arrangements for home O2 delivery. HHC/SNF: No hx. Pt states has been feeling weak, may be interested in OP therapy, but she is not sure yet. Pt wishes to return home and states has no concerns with going home at time of discharge.?CM?to follow for home oxygen needs and any further discharge planning/needs.? Pt and voice no further concerns/needs at this time.? Advised them to ask for?CM?if any further questions/concerns/needs arise.? They voice understanding. PLAN:??Home w/spousal support. Follow for possible Home O2 Follow for possible script for OP therapy. Taylor LEVINN?RN?CM
--- NOTE | 2025-03-26 11:42 | CASEMGMT ---
Patient is listed as self-pay. SW spoke with patient. Introduced self and role at [facility]. Patient states she has been fine paying for medical bills and prescriptions. Patient denied any need for resources. Lauren HAMLIN
--- NOTE | 2025-03-26 12:37 | PN.CARD_ITS ---
Subjective Subjective Still feels weak though improved. Objective Data Vital Signs: Vital Signs Temp Pulse Resp BP Pulse Ox O2 Del Method O2 Flow Rate 100.8 F H 90 18 111/66 94 Nasal Cannula 3 03/26/25 09:58 03/26/25 09:58 03/26/25 09:58 03/26/25 09:58 03/26/25 10:02 03/26/25 10:02 03/26/25 10:02 Oxygen Flow Rate (L/min) 3 Oxygen Delivery Method Nasal Cannula Weight: 168 lb 15.996 oz Body Mass Index (BMI) 24.9 Intake & Output: Intake and Output for Last 24 Hours 03/24/25 03/25/25 03/26/25 23:59 23:59 23:59 Output Total 800 / 800 Balance -800 / -800 Lab / Micro Data 03/26/25 04:17 03/26/25 04:17 Labs: Laboratory Results - last 24 hr 03/25/25 13:32: Troponin T Hi Sens 2 Hr 47 H 03/25/25 14:20: Troponin T Hi Sens 4Hr 46 H 03/26/25 04:17: WBC 19.3 H, RBC 2.98 L, Hgb 8.7 L, Hct 24.0 L, MCV 80.5 L, MCH 29.2, MCHC 36.3 H, RDW Std Deviation 40.6, RDW Coeff of Christian 13.9, Plt Count 431, MPV 9.6, Neut % (Auto) Not Reportable, Absolute Neuts (auto) 15.6 H, Absolute Lymphs (auto) 1.54, Total Counted 100, Neutrophils % (Manual) 79 H, Band Neutrophils % 2, Lymphocytes % (Manual) 8 L, Monocytes % (Manual) 8, Eosinophils % (Manual) 1, Metamyelocytes % 1, Myelocytes % 1 H, Toxic Granulation 1+, Platelet Estimate A, Polychromasia 1+, Sodium 130 L, Potassium 3.3, Chloride 92 L, Carbon Dioxide 26.1, Anion Gap 12, BUN 16, Creatinine 0.65 L, Estim Creat Clear Calc 92.58, Est GFR (MDRD) Non-Af 99, BUN/Creatinine Ratio 24.3 H, Glucose 123 H, Calcium 9.0 Rhythm Strip Rhythm Strip: Sinus Rhythm Rate: 89 Ectopy: None Cardiology Labs/Tests 03/26/25 04:17: WBC 19.3 H, RBC 2.98 L, Hgb 8.7 L, Hct 24.0 L, MCV 80.5 L, MCH 29.2, MCHC 36.3 H, Plt Count 431, MPV 9.6, Neut % (Auto) Not Reportable, A bsolute Neuts (auto) 15.6 H, Total Counted 100, Neutrophils % (Manual) 79 H, Band Neutrophils % 2, Lymphocytes % (Manual) 8 L, Monocytes % (Manual) 8, Eosinophils % (Manual) 1, Metamyelocytes % 1, Myelocytes % 1 H, Sodium 130 L, Potassium 3.3, Chloride 92 L, Carbon Dioxide 26.1, Anion Gap 12, BUN 16, C reatinine 0.65 L, Est GFR (MDRD) Non-Af 99, BUN/Creatinine Ratio 24.3 H, Glucose 123 H, Calcium 9.0 Rhythm: EKG: ECHO: Stress Test: Cardiac Cath: PCI: CT Surgery: Holter monitor: EPS: PPM: CXR: Chest CT Scan: Physical Exam Narrative General?alert oriented HEENT- normal extraocular movements Neck supple no JVD Cardiovascular- normal S1-S2, no murmurs Pulmonary- clear to auscultation bilaterally Abdomen- soft to palpation, normal sounds Extremities-1+ edema Musculoskeletal- no tenderness no swelling Neurological -alert oriented Psych -normal affect Assessment & Plan Assessment/Plan (1) Acute CHF: QUALIFIERS: Heart failure type: unspecified Qualified Code(s): I 50.9 - Heart failure, unspecified PLAN: The patient's chest x-ray was consistent with vascular congestion and pulmonary edema as well as bilateral pleural effusions.. (2) Acute hyponatremia: (3) Elevated liver enzymes: PLAN: LFTs are probably related to congestion but this may be a viral infection as well. Further evaluation investigation per the primary service. (4) Anemia: QUALIFIERS: Anemia type: unspecified type Qualified Code(s): D 64.9 - Anemia, unspecified PLAN: Anemia continues to worsen. Defer to primary team. PLAN: Plan 1. Continue with gentle diuresis. 2 Follow renal function closely 3. Continue further workup to explore leukocytosis and anemia.
[2025-03-26] MEDS: Acetaminophen 325 MG Tablet 650 MG PO ×2 (13:05→22:13)
[2025-03-26 15:32] LABS: D-Dimer Quantitative (DVT/PE) 3.84 FEU/ug/m (0.27-0.49)
--- NOTE | 2025-03-26 15:51 | PN.HOSP_ITS ---
Reason for Visit Reason for Visit: Diagnoses Anemia, unspecified (03/25/25) Hypo-osmolality and hyponatremia (03/25/25) Heart failure, unspecified (03/25/25) Abnormal levels of other serum enzymes (03/25/25) Subjective Subjective Overall pt does not feel improved. Ongoing SOB and chest tightness. Some palpitations. Ongoing LE edema. She does not feel she has had much urinary output. Ongoing fever. Some chills. No body ache. No N/V/D. Objective Data Objective Data Vital Signs: Vital Signs Temp Pulse Resp BP Pulse Ox O2 Del Method O2 Flow Rate 98.6 F 74 18 94/63 100 Nasal Cannula 4 03/26/25 15:24 03/26/25 15:24 03/26/25 15:24 03/26/25 15:24 03/26/25 15:24 03/26/25 15:24 03/26/25 15:24 Oxygen Flow Rate (L/min) 4 Oxygen Delivery Method Nasal Cannula Weight: 76.657 kg Body Mass Index (BMI) 24.9 Intake & Output: Intake and Output for Last 24 Hours 03/24/25 03/25/25 03/26/25 23:59 23:59 23:59 Intake Total 220 / 220 Output Total 800 / 800 700 / 700 Balance -800 / -800 -480 / -480 Lab / Micro Data 03/26/25 04:17 03/26/25 04:17 Labs: Laboratory Results - last 24 hr 03/26/25 04:17: WBC 19.3 H, RBC 2.98 L, Hgb 8.7 L, Hct 24.0 L, MCV 80.5 L, MCH 29.2, MCHC 36.3 H, RDW Std Deviation 40.6, RDW Coeff of Christian 13.9, Plt Count 431, MPV 9.6, Neut % (Auto) Not Reportable, Absolute Neuts (auto) 15.6 H, Absolute Lymphs (auto) 1.54, Total Counted 100, Neutrophils % (Manual) 79 H, Band Neutrophils % 2, Lymphocytes % (Manual) 8 L, Monocytes % (Manual) 8, Eosinophils % (Manual) 1, Metamyelocytes % 1, Myelocytes % 1 H, Toxic Granulation 1+, Platelet Estimate A, Polychromasia 1+, Sodium 130 L, Potassium 3.3, Chloride 92 L, Carbon Dioxide 26.1, Anion Gap 12, BUN 16, Creatinine 0.65 L, Estim Creat Clear Calc 92.58, Est GFR (MDRD) Non-Af 99, BUN/Creatinine Ratio 24.3 H, Glucose 123 H, Calcium 9.0 03/26/25 14:35: D-Dimer Quant (PE/DVT) 3.84 H* Radiography Diagnostic Testing: Radiology Impression Echocardiogram 03/25/25 15:12 Interpretation Summary LV systolic function is low normal The LV ejection fraction is 50 %. Trivial mitral valve insufficiency. Trivial tricuspid valve regurgitation Ascending aorta is mildly dilated at 3.9 cm Pleural effusion noted. Ordering Physician: Angel Moss Referring Physician: Casie Hair Performed By: Selena Landaverde, DANO, RVT Rhythm Strip Rhythm Strip: Sinus Rhythm Rate: 89 Ectopy: None Physical Exam Const alert, oriented x3 and no apparent distress HEENT head/scalp atraumatic Head and Scalp: normocephalic Resp Resp Narrative: diminished Auscultation: crackles bilateral (bases) GI normal to inspection, nondistended, normoactive bowel sounds, soft to palpation, non-tender and non-distended Extremity Extremity Narrative: 2+ pitting edema BL LE Neuro oriented x3 Psych affect normal Assessment & Plan Assessment/Plan (1) Acute CHF: QUALIFIERS: Heart failure type: unspecified Qualified Code(s): I 50.9 - Heart failure, unspecified PLAN: 1. Acute CHF with preserved EF with acute hypoxia -02 demand increased to 4lpm. Continue to wean O2 as tolerated. cardiology following. Continue IV lasix. Output net -1200. Echo with EF 50%, pleural effusion noted. trivial MVI. ongoing SOB, rales on exam, SOB, LE edema. 2. A flutter - some palpitations today. episodic A flutter on monitor and EKG. she has been started on carvedilol and therapeutic lovenox. prn lopressor. d dimer 3.84 - check CTA chest. 3. Abnormal troponin - 41-47-46. Cardiology following. Echo as abo. Still significantly volume ovlerloaded. 4. Hyponatremia suspect 2/2 #1 - improving. repeat BMP in AM 5. Abnormal LFTs - possibly due to hepatic congestion or viral etiology. CMV, EBV, and hepatitis panels pending. 6. Leukocytosis - unclear etiology - suspect viral infection. repeat CBC in AM. 7. Normocytic anemia - trend CBC. 8. Hx MVP - echo shows trivial MVI DVT ppx: on therapeutic lovenox This patient was seen by Martin Mcarthur PA-C under the supervision of Doctor Ajay.
--- NOTE | 2025-03-26 15:57 | CT_ITS ---
PROCEDURE: CTA CHEST W/WO CONTRAST 03/26/2025 REASON FOR EXAM: ELEVATED D-DIMER TECHNIQUE: CTA axial imaging of the chest with intravenous contrast. Coronal and Sagittal reconstruction series were provided. 3D, 3D post processing, 3D reconstructions, Maximum intensity projection (MIPs) Volume rendering and Shaded surface rendering was provided. PATIENT PREPARATION: Per protocol CONTRAST: Isovue 370 VOLUME: 100mL One or more dose reduction techniques were used (e.g., Automated exposure control, adjustment of the mA and/or kV according to patient size, use of iterative reconstruction technique). RADIATION DOSE SUMMARY: CTDlvol: 14 mGy DLP: 200 mGycm COMPARISON: Chest radiograph 1 day prior. FINDINGS: Hardware: None. Lymph nodes: No axillary, mediastinal or hilar lymphadenopathy. Heart: Mild cardiomegaly without pericardial effusion. The great vessels are normal in caliber. Minimal calcific plaque of the thoracic aorta. Pulmonary Vessels: No central filling defect within the segmental or subsegmental pulmonary arteries. Lungs and Airways: The central airways are patent. Small right and moderate left pleural effusions with adjacent atelectasis. Ground-glass opacities within the right upper lobe (for example series 2, image 187). No pneumothorax. Upper Abdomen: Hepatic hypodensity, incompletely characterized. Bones: Questionable acute, minimally displaced fractures of the bilateral anterolateral ribs, however visualization is limited by motion artifact. Cervical and thoracic spondylosis. CT/CTA Chest W/WO Contrast IMPRESSION: 1. No acute pulmonary embolism. 2. Ground-glass opacities within the right upper lobe, which may reflect pneumo nitis/pneumonia. 3. Questionable acute, minimally displaced fractures of the bilateral lower ant erolateral ribs. Visualization is limited by motion artifact. Correlation with point tenderness recommended. Reading Location: [id number]
[2025-03-26] MEDS: Ensure Plus High Protein 120 ML LIQUID PO (17:12)
[2025-03-26] MEDS: Carvedilol 3.125 MG TABLET PO (17:12)
[2025-03-26] MEDS: Enoxaparin 80 MG/0.8 ML Syringe SC (18:22)
[2025-03-27 03:15] VITALS: BP 108/61; PULSE 76; RESP 16; TEMP 37.1; O2SAT 99
[2025-03-27 05:07] LABS: HEPATITIS B SURFACE AG Negative (Negative); Hep C Antibodies Non Reactive (Non Reactive); Hepatitis A IgM Antibody Negative (Negative); Hepatitis B Core AB IgM Negative (Negative)
[2025-03-27 05:14] LABS: Absolute Lymphocyte Count 1.22 X10^3/uL (0.83-4.51); Absolute Neutrophil Count 17.8 X10^3/uL (2.0-7.7); Basophil# 0.04 X10^3/uL; Basophil% 0.2 % (0-1); Eosinophils% 0.9 % (0-5); Hematocrit 23.4 % (37-47); Hemoglobin 8.5 g/dL (12.0-15.0); Lymphocyte # 1.22 X10^3/ul (0.83-4.51); Lymphocyte % 5.7 % (19-41); Mean Corp Hgb Conc 36.3 g/dL (32-36); Mean Corpuscular Hgb 29.5 pg (27.0-32.0); Mean Corpuscular Volume 81.3 fL (81-99); Mean Platelet Vol. 9.6 fl (6.2-12.0); Monocyte# 1.52 X10^3/uL; Monocyte% 7.2 % (0-10); NRBC Flagged by Analyzer 0 % (0-5); Neutrophil # 17.79 X10^3/uL (2.7-7.7); Neutrophil % 83.9 % (47-70); POSITIVE DIFFERENTIAL YES; Platelet Count 559 K/mm3 (150-450); Red Blood Count 2.88 M/mm3 (4.2-5.4); White Blood Count 21.2 K/mm3 (4.4-11.0)
[2025-03-27 05:24] LABS: Differential Indicated SCAN CRITERIA MET
[2025-03-27] MEDS: Enoxaparin 80 MG/0.8 ML Syringe SC (06:02)
[2025-03-27 06:05] VITALS: O2SAT 96
[2025-03-27 06:10] LABS: ALB/GLOB Ratio 0.8 RATIO (0.9-2.4); AST(SGOT) 64 U/L (<=31); Alanine Aminotransfer ALT/SGPT 71 U/L (<=34); Albumin, Serum 2.6 g/dL (3.4-4.8); Alkaline Phosphatase 271 U/L (35-104); Anion Gap 11 (5-15); BUN 15 mg/dL (4-19); BUN/Creat Ratio 22.2 RATIO (10-20); Calcium,Total 8.9 mg/dL (7.6-11.0); Carbon Dioxide 29.8 mmol/L (21.0-32.0); Chloride 90 mmol/L (98-108); Creatinine, Serum 0.66 mg/dL (0.70-1.20); EST Glomerular Filtration Rate 98 (>60); Estimated Creatinine Clearance 91.18 ml/min (50-250); Globulin 3.2 g/dL (2.2-4.2); Glucose 122 mg/dL (70-99); Potassium 3.4 mmol/L (3.3-5.1); Protein, Total 5.9 g/dL (5.9-8.4); Sodium Level 130 mmol/L (133-145); Total Bilirubin 0.93 mg/dL (0.00-1.30)
[2025-03-27 06:51] LABS: Differential Comment SCANNED
[2025-03-27 08:08] LABS: CMV Acute Antibody IgM < 30.0 AU/mL (0.0-29.9)
[2025-03-27 08:48] VITALS: O2SAT 96
[2025-03-27 09:15] VITALS: BP 115/62; PULSE 78; RESP 18; TEMP 37.7; O2SAT 96
[2025-03-27] MEDS: Carvedilol 3.125 MG TABLET PO ×2 (09:19→15:34)
[2025-03-27] MEDS: Furosemide 40 MG/4 ML Vial IV ×2 (09:19→17:20)
[2025-03-27] MEDS: Loratadine 10 MG Tablet PO (09:19)
[2025-03-27] MEDS: Ensure Plus High Protein 120 ML LIQUID PO (09:21)
--- NOTE | 2025-03-27 10:59 | PN.CARD_ITS ---
Subjective Subjective Feels better today Objective Data Vital Signs: Vital Signs Temp Pulse Resp BP Pulse Ox O2 Del Method O2 Flow Rate 99.8 F H 78 18 115/62 96 Room Air 1 03/27/25 09:15 03/27/25 09:15 03/27/25 09:15 03/27/25 09:15 03/27/25 09:15 03/27/25 09:42 03/27/25 08:48 Oxygen Flow Rate (L/min) 1 Oxygen Delivery Method Room Air Weight: 168 lb 15.996 oz Body Mass Index (BMI) 24.9 Intake & Output: Intake and Output for Last 24 Hours 03/25/25 03/26/25 03/27/25 23:59 23:59 23:59 Intake Total 460 / 560 150 / 150 Output Total 800 / 800 1000 / 2800 1800 / 1800 Balance -800 / -800 -540 / -2240 -1650 / -1650 Lab / Micro Data 03/27/25 04:12 03/27/25 04:12 Labs: Laboratory Results - last 24 hr 03/26/25 04:17: CMV IgM Ab < 30.0, Hepatitis A IgM Ab Negative, Hep Bs Antigen Negative, Hep B Core IgM Ab Negative, Hepatitis C Ab (EIA) Non Reactive, Hep C Ab Comment Comment 03/26/25 14:35: D-Dimer Quant (PE/DVT) 3.84 H* 03/27/25 04:12: WBC 21.2 H, RBC 2.88 L, Hgb 8.5 L, Hct 23.4 L, MCV 81.3, MCH 29.5, MCHC 36.3 H, RDW Std Deviation 41.0, RDW Coeff of Christian 14.0, Plt Count 559 H, MPV 9.6, Immature Gran % (Auto) 2.100 H, Neut % (Auto) 83.9 H, Lymph % (Auto) 5.7 L, [place] % (Auto) 7.2, Eos % (Auto) 0.9, Baso % (Auto) 0.2, Absolute Neuts (auto) 17.8 H, Absolute Lymphs (auto) 1.22, Nucleated RBC % 0, Differential Comment SCANNED, Sodium 130 L, Potassium 3.4, Chloride 90 L, Carbon Dioxide 29.8, Anion Gap 11, BUN 15, Creatinine 0.66 L, Estim Creat Clear Calc 91.18, Est GFR (MDRD) Non-Af 98, BUN/Creatinine Ratio 22.2 H, Glucose 122 H, Calcium 8.9, Total Bilirubin 0.93, AST 64 H, ALT 71 H, Alkaline Phosphatase 271 H, Total Protein 5.9, Albumin 2.6 L, Globulin 3.2, Albumin/Globulin Ratio 0.8 L Rhythm Strip Rhythm Strip: Sinus Rhythm Rate: 89 Ectopy: None Cardiology Labs/Tests 03/26/25 14:35: D-Dimer Quant (PE/DVT) 3.84 H* 03/27/25 04:12: WBC 21.2 H, RBC 2.88 L, Hgb 8.5 L, Hct 23.4 L, MCV 81.3, MCH 29.5, MCHC 36.3 H, Plt Count 559 H, MPV 9.6, Immature Gran % (Auto) 2.100 H, N eut % (Auto) 83.9 H, Lymph % (Auto) 5.7 L, [place] % (Auto) 7.2, Eos % (Auto) 0.9, Baso % (Auto) 0.2, Absolute Neuts (auto) 17.8 H, Nucleated RBC % 0, Sodium 130 L , Potassium 3.4, Chloride 90 L, Carbon Dioxide 29.8, Anion Gap 11, BUN 15, C reatinine 0.66 L, Est GFR (MDRD) Non-Af 98, BUN/Creatinine Ratio 22.2 H, Glucose 122 H, Calcium 8.9, Total Bilirubin 0.93 Rhythm: EKG: ECHO: Stress Test: Cardiac Cath: PCI: CT Surgery: Holter monitor: EPS: PPM: CXR: Chest CT Scan: Radiography Diagnostic Testing: Radiology Impression Echocardiogram 03/25/25 15:12 Interpretation Summary LV systolic function is low normal The LV ejection fraction is 50 %. Trivial mitral valve insufficiency. Trivial tricuspid valve regurgitation Ascending aorta is mildly dilated at 3.9 cm Pleural effusion noted. Ordering Physician: Angel Moss Referring Physician: Casie Hair Performed By: Selena Landaverde, RDCS, RVT Chest CTA 03/26/25 15:57 IMPRESSION: 1. No acute pulmonary embolism. 2. Ground-glass opacities within the right upper lobe, which may reflect pneumonitis/pneumonia. 3. Questionable acute, minimally displaced fractures of the bilateral lower anterolateral ribs. Visualization is limited by motion artifact. Correlation with point tenderness recommended. Reading Location: [facility] Physical Exam Narrative General?alert oriented HEENT- normal extraocular movements Neck supple no JVD Cardiovascular- normal S1-S2, no murmurs Pulmonary- clear to auscultation bilaterally Abdomen- soft to palpation, normal sounds Extremities-trace edema Musculoskeletal- no tenderness no swelling Neurological -alert oriented Psych -normal affect Assessment & Plan Assessment/Plan (1) Acute CHF: QUALIFIERS: Heart failure type: unspecified Qualified Code(s): I 50.9 - Heart failure, unspecified PLAN: The patient's chest x-ray was consistent with vascular congestion and pulmonary edema as well as bilateral pleural effusions.. Her LVEF is about 50%. At this time we will continue with diuresis. Further med optimization may be limited by her blood pressure which is somewhat borderline. (2) Acute hyponatremia: (3) Elevated liver enzymes: PLAN: LFTs are probably related to congestion but this may be a viral infection as well. Further evaluation investigation per the primary service. (4) Anemia: QUALIFIERS: Anemia type: unspecified type Qualified Code(s): D 64.9 - Anemia, unspecified PLAN: Anemia continues to worsen. Defer to primary team. PLAN: Plan 1. Continue with gentle diuresis. 2 Follow renal function closely 3. Continue further workup to explore leukocytosis thrombocytosis and anemia.
--- NOTE | 2025-03-27 12:21 | PCM.PN.HOSP ---
Subjective Subjective Feels much better today, breathing easier and says the swelling is down Objective Data Objective Data Vital Signs: Vital Signs Temp Pulse Resp BP Pulse Ox O2 Del Method O2 Flow Rate 99.8 F H 78 18 115/62 96 Room Air 1 03/27/25 09:15 03/27/25 09:15 03/27/25 09:15 03/27/25 09:15 03/27/25 09:15 03/27/25 09:42 03/27/25 08:48 Oxygen Flow Rate (L/min) 1 Oxygen Delivery Method Room Air Weight: 168 lb 15.996 oz Body Mass Index (BMI) 24.9 Intake & Output: Intake and Output for Last 24 Hours 03/26/25 03/27/25 03/28/25 03:59 03:59 03:59 Intake Total 560 / 560 50 / 50 Output Total 800 / 800 2800 / 2800 Balance -800 / -800 -2240 / -2240 50 / 50 Lab / Micro Data 03/27/25 04:12 03/27/25 04:12 Labs: Laboratory Results - last 24 hr 03/26/25 04:17: CMV IgM Ab < 30.0, Hepatitis A IgM Ab Negative, Hep Bs Antigen Negative, Hep B Core IgM Ab Negative, Hepatitis C Ab (EIA) Non Reactive, Hep C Ab Comment Comment 03/26/25 14:35: D-Dimer Quant (PE/DVT) 3.84 H* 03/27/25 04:12: WBC 21.2 H, RBC 2.88 L, Hgb 8.5 L, Hct 23.4 L, MCV 81.3, MCH 29.5, MCHC 36.3 H, RDW Std Deviation 41.0, RDW Coeff of Christian 14.0, Plt Count 559 H, MPV 9.6, Immature Gran % (Auto) 2.100 H, Neut % (Auto) 83.9 H, Lymph % (Auto) 5.7 L, [place] % (Auto) 7.2, Eos % (Auto) 0.9, Baso % (Auto) 0.2, Absolute Neuts (auto) 17.8 H, Absolute Lymphs (auto) 1.22, Nucleated RBC % 0, Differential Comment SCANNED, Sodium 130 L, Potassium 3.4, Chloride 90 L, Carbon Dioxide 29.8, Anion Gap 11, BUN 15, Creatinine 0.66 L, Estim Creat Clear Calc 91.18, Est GFR (MDRD) Non-Af 98, BUN/Creatinine Ratio 22.2 H, Glucose 122 H, Calcium 8.9, Total Bilirubin 0.93, AST 64 H, ALT 71 H, Alkaline Phosphatase 271 H, Total Protein 5.9, Albumin 2.6 L, Globulin 3.2, Albumin/Globulin Ratio 0.8 L Radiography Diagnostic Testing: Radiology Impression Echocardiogram 03/25/25 15:12 Interpretation Summary LV systolic function is low normal The LV ejection fraction is 50 %. Trivial mitral valve insufficiency. Trivial tricuspid valve regurgitation Ascending aorta is mildly dilated at 3.9 cm Pleural effusion noted. Ordering Physician: Angel Moss Referring Physician: Casie Hair Performed By: Selena Landaverde, RDCS, RVT Chest CTA 03/26/25 15:57 IMPRESSION: 1. No acute pulmonary embolism. 2. Ground-glass opacities within the right upper lobe, which may reflect pneumonitis/pneumonia. 3. Questionable acute, minimally displaced fractures of the bilateral lower anterolateral ribs. Visualization is limited by motion artifact. Correlation with point tenderness recommended. Reading Location: [id number] Rhythm Strip Rhythm Strip: Sinus Rhythm Rate: 89 Ectopy: None Physical Exam Narrative General: Alert, Oriented x3, Cooperative, No apparent distress HEENT: Atraumatic, PERRLA, EOMI, Normocephalic Oral: Moist Mucosa Neck: Supple, No JVD Lungs: Diminished, Normal air movement, No rhonchi, No wheeze, No rales Cardiovascular: Regular rate, Regular Rhythm, Normal S1, Normal S2, No murmurs Abdomen: Soft, Non Tender, Non-Distended, No Hepato-splenomegaly Extremities: Edema, Capillary Refill Less than 3 Seconds Skin: No rashes, No breakdown Musculoskeletal: No Tenderness to Palpation of Joints or Extremities Neurological: No focal neurological deficits, moves all extremities, sensation intact Psych/Mental Status: Normal Affect, Appropriate Assessment & Plan Assessment/Plan (1) Acute CHF: QUALIFIERS: Heart failure type: unspecified Qualified Code(s): I50.9 - Heart failure, unspecified PLAN: 1. Acute hypoxic respiratory insufficiency secondary to acute diastolic CHF exacerbation/a flutter ? She is down to about 2 L nasal cannula, will continue to wean ? Will obtain an ambulatory pulse ox ? Continue with Lasix ? Echocardiogram with an EF of 50% with a slightly dilated ascending aorta to 3.9 cm ? Will obtain viral panels given her ongoing fluctuations in body temperature and shortness of breath ? Appreciate cardiology's assistance ? Troponins are slightly elevated, these are insignificant ? CTA of the chest demonstrates some groundglass opacities in the right upper lobe but no acute pulmonary embolism ? She continues to have a leukocytosis though it is unclear as to the cause at the moment aside from a viral infection. She is not on steroids currently ? CMV and EBV labs are pending, hepatitis panels were negative DVT: Lovenox Charges/Coding Visit Charges Inpatient E&M: 94345 Subs Hosp L2
[2025-03-27 15:30] VITALS: BP 119/64; PULSE 77; RESP 18; TEMP 38.2; O2SAT 94
[2025-03-27] MEDS: Acetaminophen 325 MG Tablet 650 MG PO (15:33)
[2025-03-27] MEDS: MELATONIN 10 MG TABLET PO (20:43)
[2025-03-27 20:50] VITALS: BP 112/64; PULSE 82; RESP 18; TEMP 37.1; O2SAT 94
[2025-03-28] VITALS (8 sets, daily range): BP systolic 95–113; BP diastolic 56–59; PULSE 81–85; RESP 14–18; TEMP 36.4–38.1; O2SAT 88–98; BMI 24.2
[2025-03-28] MEDS: Acetaminophen 325 MG Tablet 650 MG PO ×2 (02:04→13:17)
[2025-03-28 07:02] LABS: Absolute Neutrophil Count 16.7 X10^3/uL (2.0-7.7); Basophil# 0.05 X10^3/uL; Basophil% 0.2 % (0-1); Eosinophil# 0.15 X10^3/uL; Eosinophils% 0.7 % (0-5); Hematocrit 23.2 % (37-47); Hemoglobin 8.2 g/dL (12.0-15.0); Lymphocyte % 6.9 % (19-41); Mean Corp Hgb Conc 35.3 g/dL (32-36); Mean Corpuscular Hgb 29.1 pg (27.0-32.0); Mean Corpuscular Volume 82.3 fL (81-99); Mean Platelet Vol. 9.2 fl (6.2-12.0); Monocyte# 1.75 X10^3/uL; Monocyte% 8.6 % (0-10); NRBC Flagged by Analyzer 0 % (0-5); Neutrophil % 82.3 % (47-70); POSITIVE DIFFERENTIAL YES; Platelet Count 634 K/mm3 (150-450); RBC Distribution Width SD 41.4 fl (35.1-43.9); Red Blood Count 2.82 M/mm3 (4.2-5.4); White Blood Count 20.3 K/mm3 (4.4-11.0)
[2025-03-28 07:10] LABS: Differential Indicated SCAN CRITERIA MET
[2025-03-28 07:33] LABS: Anion Gap 11 (5-15); BUN 16 mg/dL (4-19); BUN/Creat Ratio 28.4 RATIO (10-20); Calcium,Total 8.8 mg/dL (7.6-11.0); Carbon Dioxide 29.8 mmol/L (21.0-32.0); Chloride 91 mmol/L (98-108); Creatinine, Serum 0.58 mg/dL (0.70-1.20); EST Glomerular Filtration Rate 102 (>60); Estimated Creatinine Clearance 103.75 ml/min (50-250); Glucose 115 mg/dL (70-99); Potassium 3.3 mmol/L (3.3-5.1); Sodium Level 131 mmol/L (133-145)
[2025-03-28] MEDS: Loratadine 10 MG Tablet PO (10:01)
[2025-03-28] MEDS: Carvedilol 3.125 MG TABLET PO (10:01)
--- NOTE | 2025-03-28 10:58 | PN.CARD_ITS ---
Objective Data Vital Signs: Vital Signs Temp Pulse Resp BP Pulse Ox O2 Del Method O2 Flow Rate 97.6 F L 82 14 95/59 L 93 Nasal Cannula 2 03/28/25 08:10 03/28/25 08:10 03/28/25 08:10 03/28/25 08:10 03/28/25 09:54 03/28/25 08:10 03/28/25 09:56 Oxygen Flow Rate (L/min) 2 Oxygen Delivery Method Nasal Cannula Weight: 164 lb 0.383 oz Body Mass Index (BMI) 24.2 Intake & Output: Intake and Output for Last 24 Hours 03/26/25 03/27/25 03/28/25 23:59 23:59 23:59 Intake Total 460 / 560 950 / 950 Output Total 1000 / 2800 3300 / 3300 Balance -540 / -2240 -2350 / -2350 Lab / Micro Data 03/28/25 06:26 03/28/25 06:26 Labs: Laboratory Results - last 24 hr 03/28/25 06:26: WBC 20.3 H, RBC 2.82 L, Hgb 8.2 L, Hct 23.2 L, MCV 82.3, MCH 29.1, MCHC 35.3, RDW Std Deviation 41.4, RDW Coeff of Crhist[place] 14.0, Plt Count 634 H, MPV 9.2, Immature Gran % (Auto) 1.300 H, Neut % (Auto) 82.3 H, Lymph % (Auto) 6.9 L, [place] % (Auto) 8.6, Eos % (Auto) 0.7, Baso % (Auto) 0.2, Absolute Neuts (auto) 16.7 H, Absolute Lymphs (auto) 1.40, Nucleated RBC % 0, Sodium 131 L, Potassium 3.3, Chloride 91 L, Carbon Dioxide 29.8, Anion Gap 11, BUN 16, C reatinine 0.58 L, Estim Creat Clear Calc 103.75, Est GFR (MDRD) Non-Af 102, B UN/Creatinine Ratio 28.4 H, Glucose 115 H, Calcium 8.8 Micro: Microbiology 03/27/25 12:35 Mucosa - Nasopharyngeal Respiratory Panel (PCR) - Final 03/27/25 12:35 Mucosa - Nose SARS-CoV-2, Influenza & RSV (PCR) - Final Rhythm Strip Rhythm Strip: Sinus Rhythm Rate: 89 Ectopy: None Cardiology Labs/Tests 03/28/25 06:26: WBC 20.3 H, RBC 2.82 L, Hgb 8.2 L, Hct 23.2 L, MCV 82.3, MCH 29.1, MCHC 35.3, Plt Count 634 H, MPV 9.2, Immature Gran % (Auto) 1.300 H, Neut % (Auto) 82.3 H, Lymph % (Auto) 6.9 L, [place] % (Auto) 8.6, Eos % (Auto) 0.7, Baso % (Auto) 0.2, Absolute Neuts (auto) 16.7 H, Nucleated RBC % 0, Sodium 131 L, Potassium 3.3, Chloride 91 L, Carbon Dioxide 29.8, Anion Gap 11, BUN 16, C reatinine 0.58 L, Est GFR (MDRD) Non-Af 102, BUN/Creatinine Ratio 28.4 H, G lucose 115 H, Calcium 8.8 Rhythm: EKG: ECHO: Stress Test: Cardiac Cath: PCI: CT Surgery: Holter monitor: EPS: PPM: CXR: Chest CT Scan: Physical Exam Narrative feels better Const Constitutional Narrative: General?alert oriented HEENT- normal extraocular movements Neck supple no JVD Cardiovascular- normal S1-S2, no murmurs Pulmonary- clear to auscultation bilaterally Abdomen- soft to palpation, normal sounds Extremities- improved edema Musculoskeletal- no tenderness no swelling Neurological -alert oriented Psych -normal affect Assessment & Plan Assessment/Plan (1) Acute CHF: QUALIFIERS: Heart failure type: unspecified Qualified Code(s): I 50.9 - Heart failure, unspecified PLAN: HFpEF with acute exacerbation: The patient's chest x-ray was consistent with vascular congestion and pulmonary edema as well as bilateral pleural effusions.. Her LVEF is about 50%. At this time we will continue with diuresis. Transition to lasix 40 po daily upon discharge. Further med optimization may be limited by her blood pressure which is somewhat borderline. She will need a stress test as an OP (2) Elevated liver enzymes: PLAN: LFTs are probably related to congestion but this may be a viral infection as well. Further evaluation investigation per the primary service. (3) Anemia: QUALIFIERS: Anemia type: unspecified type Qualified Code(s): D 64.9 - Anemia, unspecified PLAN: Anemia continues to worsen. Defer to primary team. (4) Aortic aneurysm: PLAN: f/u with yearly echo as OP
--- NOTE | 2025-03-28 13:39 | DCINST_ITS ---
Discharge Instructions Diet Discharge Diet: No restrictions DC O2, CPAP, BIPAP needs Home O2 Discharge instructions: No Dressing / Incision Discharge Activity: Return to Normal Activity Dressing / Incision Call your doctor if you observe: Fever of 101 or Higher, Shortness of breath, Dizziness, Fainting spells, Swelling in the ankles, Chest pain and Increased palpitations (irregular heartbeat) Follow Up Care Test Results: Test results from this visit will be discussed in further detail at your follow- up appointment, if applicable. Discharge Plan Admission Admit Date/Time: 03/25/25 12:43 Attending Provider: Aneesh Fine Primary Care Provider: Casie Hair Consulting Providers: Michael Vera; Angel Moss Instructions Additional Instructions / Restrictions: Follow-up with your primary care doctor to monitor your white blood cell count as well as your blood pressure and anemia. As we discussed we will trial you on a short course of Levaquin which does come with some risk factors with your aortic aneurysm and recent history of a flutter, however I think it is the best option to cover both your possible sinus infection and your possible pneumonia. Your urinalysis was negative for infection and your iron studies show a mixed picture likely due to inflammation so I do recommend a recheck of your iron studies as an outpatient once your inflammation resolves. Discharge Orders/Prescriptions Prescriptions: New carvedilol 3.125 mg Tablet 3.125 mg PO BIDCM 30 Days Qty: 60 0RF furosemide [Lasix] 40 mg tablet 40 mg PO DAILY Qty: 30 0RF levofloxacin 500 mg tablet 500 mg PO DAILY Qty: 5 0RF Continued estradiol 0.01 % (0.1 mg/gram) cream 1 appful vaginal .twice weekly Referrals / Follow Up: Casie Hair DO [Primary Care Provider] - 03/29/25 Michael Vera MD [Med Staff - Active Staff] - Within 3 Months Disposition Disposition (needs filled in before D/C Order can be placed): Home, Self Care
[2025-03-28 13:42] LABS: Bacteria 0 SEEN /hpf (None Seen); Mucous, Urine 0 SEEN /hpf (<or=2+); Red Blood Cells-Urine 0 SEEN /hpf (0-5)
[2025-03-28 13:43] LABS: Color, Urine Yellow (Yellow); Glucose, Dipstick Normal (Normal); Ketone-Dipstick Negative (Negative); Leukocyte Esterase-Dipstick 25 /ul (Negative); Nitrite-Dipstick Negative (Negative); Occult Blood-Urine 25 /ul (Negative); Protein-Dipstick 30 mg/dl (Negative); Urine Bilirubin Dipstick Negative (Negative); Urine Clarity Clear (Clear); Urine Urobilinogen 4 mg/dl (Normal)
[2025-03-28 13:50] LABS: Squamous Epithelial Cells - UA 0-5 SEEN /hpf (5-10); White Blood Cells 0-5 SEEN /hpf (0-5)
[2025-03-28 13:57] LABS: Ferritin 1671 ng/mL (22-378); Iron 16 ug/dL (50-170); Iron Binding Capacity,Unsat 140 ug/dL (228-428)
[2025-03-28] MEDS: levoFLOXacin 500 MG Tablet PO (14:02)
[2025-03-28 14:05] LABS: Iron Binding Capacity,Total 156 ug/dL (250-450); PERCENT IRON SATURATION 10.3 % (13-59)
--- NOTE | 2025-03-28 14:23 | DS.PCM_ITS ---
Providers Date of Admission: 03/25/25 Primary Care Physician: Dr. Casie Hair DO Consultations 03/25/25 16:22 Consult: Cardiology Routine Consulting Provider: Michael Vera Reason for Consult: CHF EMERGENT Consult: No MD Notified: Yes Date Notified: 03/25/25 Time Notified: 16:23 Method of Notification: Verbal Reason For Visit: CHF Diagnosis Discharge Diagnosis (1) Acute CHF: Status: Acute Code(s): I50.9 - Heart failure, unspecified Qualifiers: Heart failure type: unspecified Qualified Code(s): I50.9 - Heart failure, unspecified (2) Elevated liver enzymes: Status: Acute Code(s): R74.8 - Abnormal levels of other serum enzymes (3) Anemia: Status: Acute Code(s): D64.9 - Anemia, unspecified Qualifiers: Anemia type: unspecified type Qualified Code(s): D64.9 - Anemia, unspecified (4) Aortic aneurysm: Status: Acute Code(s): I71.9 - Aortic aneurysm of unspecified site, without rupture Medications at Discharge Home Medications estradiol 0.01% (0.1 mg/gram) vaginal cream 1 appful vaginal .twice weekly hormones 03/25/25 carvedilol 3.125 mg tablet 3.125 mg PO BIDCM 30 days #60 tabs 03/28/25 furosemide 40 mg tablet (Lasix) 40 mg PO DAILY #30 tabs 03/28/25 levofloxacin 500 mg tablet 500 mg PO DAILY #5 tabs 03/28/25 Hospital Course Operations None Procedures 2-D Echocardiogram Summary of Care Provided Minutes Spent on Discharge: 38 Hospital Course: Per HPI: RAFAT DELANEY, is a 64 F with pmhx MVP who presents to the ER with chest tightness. She has had this about 10 days. The day it started she travelled to [place]. She started to feel all over body aches and was taken to the ER at a local hospital. She states she was admitted for abnormal liver enzymes and jaundice. She was admitted through saturday. During the time she was given IV fluids and had her stool checked which showed noravirus - tho she had no n/v/d. She came home and today felt more SOB with increased LE edema. She also has ongoing chest tightness, SOB, dry cough, PND, and orthopnea. She was brought to the ER and found to have elevated BNP, CXR showing CHF, abnormal troponin, abnormal liver enzymes, and hyponatremia. She is admitted to the hospital with acute CHF, and has no prior hx of CHF. Hospital Course: 1. Acute hypoxic respiratory insufficiency secondary to acute diastolic CHF exacerbation?64-year-old female had gotten sick approximately 2 to 3 weeks prior to admission to the hospital with what felt like a flu virus. She did test positive for norovirus but did not have any gastroenteritis type symptoms. She slowly developed some shortness of breath and presented to the hospital. She was found to have a severely elevated proBNP and signs of vascular congestion and heart failure on CTA of the chest. There is no PE but it did show possible right upper lobe pneumonitis versus pneumonia. She did have intermittent fevers and a consistently elevated leukocytosis. She did have some elevated LFTs, however hepatitis panel was normal and her CMV was negative, EBV is still pending as there was concern for possible viral myocarditis. Echocardiogram demonstrated an EF of 50% with a mildly dilated ascending aorta at 3.9 cm. No further infectious workup was done initially however I obtained viral studies as well as a urine analysis both of which were negative for culprit. She has been stating that she is stuffiness in her ears and nasal congestion and facial pain. She did have an ambulatory pulse ox today which did not show need for oxygen and I did evaluate her tympanic membranes, the left was more easily visible and looked okay, from what I could see of the right there did not appear to be a major in her ear infection. Because of her heart failure type symptoms as well as her lower extremity edema, cardiology was consulted recommended diuresis. She tolerated diuresis very well and is down about 3.5 L and her swelling is much improved. I discussed with her the plan to discharge on Lasix 40 mg p.o. daily as well as Coreg 3.125 mg p.o. twice daily. She did have a transient episode of a flutter but I do not think that this warrants full anticoagulation at this time would recommend outpatient follow-up with cardiology for further imaging and as well as further cardiac testing. I discussed with her and her family the plan for discharge and she expressed understanding of the risks and benefits of going home and wants to go home today. She does not really want to stay for any further testing. Her case was discussed with her PCP prior to discharge. 2. Leukocytosis with elevated LFTs?unclear etiology, there is clearly something going on inflammatory [place] as she also has a thrombocytosis and an anemia workup demonstrated an inflammatory like pattern with her iron studies. Given her symptoms I elected to start treatment with Levaquin 500 mg p.o. daily, she received her first dose today and will discharge on 5 more days. I did caution her as she does have a little bit of an aortic dilation of 3.9 cm as well as when she went into a flutter she had a little bit of a QTc prolongation though this resolved with return to normal sinus rhythm therefore I think for short course she should be able to tolerate Levaquin well. Her liver function is improving and her hepatitis panel as stated above is normal 3. Anemia?we do not have a baseline hemoglobin level for her, her last hemoglobin was in 2018 and was 12.9. She would prefer to go home therefore will defer any stool testing on the outpatient basis as it was not done during this admission. She is denying any dark stools and no hematemesis Physical Exam Narrative General: Alert, Oriented x3, Cooperative, No apparent distress HEENT: Atraumatic, PERRLA, EOMI, Normocephalic Oral: Moist Mucosa Neck: Supple, No JVD Lungs: Diminished, Normal air movement, No rhonchi, No wheeze, No rales Cardiovascular: Regular rate, Regular Rhythm, Normal S1, Normal S2, No murmurs Abdomen: Soft, Non Tender, Non-Distended, No Hepato-splenomegaly Extremities: Edema, Capillary Refill Less than 3 Seconds Skin: No rashes, No breakdown Musculoskeletal: No Tenderness to Palpation of Joints or Extremities Neurological: No focal neurological deficits, moves all extremities, sensation intact Psych/Mental Status: Normal Affect, Appropriate Weight / BMI Weight Weight: 164 lb 0.383 oz Body Mass Index (BMI) 24.2 ABG / Lab / Microbiology Data 03/28/25 06:26 03/28/25 06:26 Laboratory: Laboratory Results - last 24 hr 03/28/25 06:26: WBC 20.3 H, RBC 2.82 L, Hgb 8.2 L, Hct 23.2 L, MCV 82.3, MCH 29.1, MCHC 35.3, RDW Std Deviation 41.4, RDW Coeff of Christian 14.0, Plt Count 634 H, MPV 9.2, Immature Gran % (Auto) 1.300 H, Neut % (Auto) 82.3 H, Lymph % (Auto) 6.9 L, [place] % (Auto) 8.6, Eos % (Auto) 0.7, Baso % (Auto) 0.2, Absolute Neuts (auto) 16.7 H, Absolute Lymphs (auto) 1.40, Nucleated RBC % 0, Sodium 131 L, Potassium 3.3, Chloride 91 L, Carbon Dioxide 29.8, Anion Gap 11, BUN 16, C reatinine 0.58 L, Estim Creat Clear Calc 103.75, Est GFR (MDRD) Non-Af 102, B UN/Creatinine Ratio 28.4 H, Glucose 115 H, Calcium 8.8 03/28/25 06:27: Iron 16 L, TIBC 156 L, Iron Saturation 10.3 L, Unsaturated IBC 140 L, Ferritin 1671 H 03/28/25 13:36: Urine Color Yellow, Urine Clarity Clear, Urine pH 7.0, Ur Specific [place] 1.010, Urine Protein 30 H, Urine Glucose (UA) Normal, Urine Ketones Negative, Urine Occult Blood 25 H, Urine Nitrite Negative, Urine Bilirubin Negative, Urine Urobilinogen 4 H, Ur Leukocyte Esterase 25 H, Urine RBC 0 SEEN, Urine WBC 0-5 SEEN, Ur Squamous Epith Cells 0-5 SEEN, Urine Bacteria 0 SEEN, Urine Mucus 0 SEEN Microbiology: Microbiology 03/27/25 12:35 Mucosa - Nasopharyngeal Respiratory Panel (PCR) - Final 03/27/25 12:35 Mucosa - Nose SARS-CoV-2, Influenza & RSV (PCR) - Final D/C Instructions Discharge Diet: No restrictions Call your doctor if you observe: Fever of 101 or Higher, Shortness of breath, Dizziness, Fainting spells, Swelling in the ankles, Chest pain and Increased palpitations (irregular heartbeat) DC O2, CPAP, BIPAP Needs Home O2 Discharge instructions: No Meaningful Use Info Meaningful Use Meaningful Use Diagnoses (Choose all that apply): None applicable Ischemic Stroke Statin Dosing Therapy Reference: STATIN DOSE THERAPY REFERENCE: * Patients > 75 years receive moderate or high dose statin therapy. * Patients 75 years or YOUNGER should receive HIGH intensity statin dose unless contraindicated. You will be required to document reason for non-treatment if statin daily dose does not meet guidelines. HIGH DOSE STATIN THERAPY DAILY Atorvastatin > than or = to 40 mg Rosuvastatin > than or = to 20 mg Amlodipine + Atorvastatin > than or = to 2.5/40 mg Ezetimibe + Simvastatin 10/80 mg Simvastatin 80mg Discharge Plan Admission Admit Date/Time: 03/25/25 12:43 Attending Provider: Aneesh Fine Primary Care Provider: Casie Hair Consulting Providers: Michael Vera; Angel Moss Instructions Additional Instructions / Restrictions: Follow-up with your primary care doctor to monitor your white blood cell count as well as your blood pressure and anemia. As we discussed we will trial you on a short course of Levaquin which does come with some risk factors with your aortic aneurysm and recent history of a flutter, however I think it is the best option to cover both your possible sinus infection and your possible pneumonia. Your urinalysis was negative for infection and your iron studies show a mixed picture likely due to inflammation so I do recommend a recheck of your iron studies as an outpatient once your inflammation resolves. Discharge Orders/Prescriptions Prescriptions: New carvedilol 3.125 mg Tablet 3.125 mg PO BIDCM 30 Days Qty: 60 0RF furosemide [Lasix] 40 mg tablet 40 mg PO DAILY Qty: 30 0RF levofloxacin 500 mg tablet 500 mg PO DAILY Qty: 5 0RF Continued estradiol 0.01 % (0.1 mg/gram) cream 1 appful vaginal .twice weekly Referrals / Follow Up: Casie Hair DO [Primary Care Provider] - 03/29/25 Michael Vera MD [Med Staff - Active Staff] - Within 3 Months Disposition Disposition (needs filled in before D/C Order can be placed): Home, Self Care Charges/Coding Visit Charges Inpatient E&M: 76986 Disch Hosp >30min
[2025-03-29 14:08] LABS: EBV Acute VCA IgM < 36.0 U/mL (0.0-35.9)
== END 2025-03-28 15:16 | disposition home or self-care (01) | DRG 291 ==
LOC: ED 12:49 → PCU 14:59
PROVIDERS: Physician Assistant; Emergency Provider Emergency Medicine; PCP Internal Medicine; Visit Provider Family Medicine
DX: I50.9 Heart failure, unspecified (principal); J96.01 Acute respiratory failure with hypoxia; E87.1 Hypo-osmolality and hyponatremia; K76.1 Chronic passive congestion of liver; D64.9 Anemia, unspecified; I34.1 Nonrheumatic mitral (valve) prolapse; I71.9 Aortic aneurysm of unspecified site, without rupture; I48.91 Unspecified atrial fibrillation; D72.829 Elevated white blood cell count, unspecified; R74.01 Elevation of levels of liver transaminase levels; B34.8 Other viral infections of unspecified site; Z82.49 Family history of ischemic heart disease and other diseases of the circulatory system
CPT/HCPCS: 36415; 71046; 71275; 80048; 80053; 80074; 80076; 81001; 82728; 83540; 83550; 83880; 84484; 85025; 85379; 85610; 86645; 86665; 87631; 87633; 93005; 93306; 97162; 97166; 97802; 99285; Q9967; A4216; J1938

== ENCOUNTER → 2025-03-29 | Outpatient (CLI) | payer SELFPAY ==
--- NOTE | 2025-03-29 10:29 | RAD_ITS ---
PROCEDURE: SPECIAL CXR (OBL/DECUB/A/L) 03/29/2025 REASON FOR EXAM: COUGH, PLEURAL EFFUSION TECHNIQUE: SPECIAL CXR (OBL/DECUB/A/L) COMPARISON: 03/29/2025. FINDINGS: Blunting of the left costophrenic angle, unchanged. Left basilar atelectatic pulmonary changes. No significant/sizable free flowing right pleural effusion is identified on the right decubitus view. Normal heart and pericardium. Normal mediastinum and luz. Normal visualized pulmonary arteries. Normal visualized aortic arch and descending thoracic aorta. Normal visualized thoracic spine. Normal visualized ribs, clavicles, and shoulders. There is no demonstrated abnormality of the visualized soft tissue structures of the upper abdomen. RAD/Special CXR (Obl/Decub/A/L) IMPRESSION: Blunting of the left costophrenic angle, unchanged. Left basilar atelectatic pulmonary changes. No significant/sizable free flowing right pleural effusion is identified on the right decubitus view. Reading [facility]
--- NOTE | 2025-03-29 10:29 | RAD_ITS ---
PROCEDURE: CHEST PA AND LATERAL 03/29/2025 REASON FOR EXAM: COUGH TECHNIQUE: CHEST PA AND LATERAL COMPARISON: Decubitus chest, 03/29/2025. FINDINGS: There is a left pleural effusion. There is compressive atelectasis of the adjacent lung. The right lung is clear. There is cardiomegaly. There is calcific vascular disease of the thoracic aorta. The upper abdominal bowel gas pattern is normal. There is mild levoscoliosis of the thoracic spine. RAD/Chest PA and Lateral IMPRESSION: Left pleural effusion with left basilar atelectasis. Other findings as noted. Reading Location: [id number]
--- NOTE | 2025-03-29 10:32 | RAD_ITS ---
PROCEDURE: SPECIAL CXR (OBL/DECUB/A/L) 03/29/2025 REASON FOR EXAM: PLEURAL EFFUSION TECHNIQUE: SPECIAL CXR (OBL/DECUB/A/L) COMPARISON: CT scan on 03/26/2025. Chest radiograph on 03/29/2025. FINDINGS: Unchanged blunting of the left costophrenic angle. No sizable free flowing effusion is identified on the left decubitus view. Unchanged left basilar atelectatic pulmonary changes. Normal heart and pericardium. Normal mediastinum and luz. Normal visualized pulmonary arteries. Normal visualized aortic arch and descending thoracic aorta. Normal visualized thoracic spine. Normal visualized ribs, clavicles, and shoulders. There is no demonstrated abnormality of the visualized soft tissue structures of the upper abdomen. RAD/Special CXR (Obl/Decub/A/L) IMPRESSION: Unchanged blunting of the left costophrenic angle. No sizable free flowing effusion is identified on the left decubitus view. Unchanged left basilar atelectatic pulmonary changes. Reading Location: [facility]
[2025-03-29 16:04] LABS: Absolute Lymphocyte Count 1.62 X10^3/uL (0.83-4.51); Absolute Neutrophil Count 15.1 X10^3/uL (2.0-7.7); Basophil# 0.04 X10^3/uL; Basophil% 0.2 % (0-1); Eosinophil# 0.08 X10^3/uL; Eosinophils% 0.4 % (0-5); Hematocrit 25.4 % (37-47); Hemoglobin 8.7 g/dL (12.0-15.0); Lymphocyte # 1.62 X10^3/ul (0.83-4.51); Lymphocyte % 8.7 % (19-41); Mean Corp Hgb Conc 34.3 g/dL (32-36); Mean Corpuscular Hgb 29.3 pg (27.0-32.0); Mean Corpuscular Volume 85.5 fL (81-99); Mean Platelet Vol. 9.6 fl (6.2-12.0); Monocyte# 1.54 X10^3/uL; Monocyte% 8.2 % (0-10); NRBC Flagged by Analyzer 0 % (0-5); Neutrophil # 15.12 X10^3/uL (2.7-7.7); Neutrophil % 80.8 % (47-70); POSITIVE COUNT YES; POSITIVE DIFFERENTIAL YES; RBC Distribution Width CV 14.6 % (11.6-14.6); RBC Distribution Width SD 44.8 fl (35.1-43.9); Red Blood Count 2.97 M/mm3 (4.2-5.4); White Blood Count 18.7 K/mm3 (4.4-11.0)
[2025-03-29 17:45] LABS: RET-HE 27.1 pg (30-35); Reticulocyte Count 1.56 % (0.5-1.5)
[2025-03-29 18:09] LABS: Differential Indicated SCAN CRITERIA MET; Platelet Count 863 K/mm3 (150-450)
[2025-03-29 18:35] LABS: Platelet Count 863 K/mm3 (150-450)
[2025-03-29 19:44] LABS: Differential Comment SCANNED; Platelet Estimate MKD INC (ADEQ)
[2025-03-29 19:45] LABS: Erythrocyte Sedimentation Rate 55 mm/hr (0-30)
--- OUTSIDE RECORDS SUMMARY | 2025-03-29 22:41 | XMS RPT_ITS | CCD ---
Author Organization [facility] Care Team Providers Care Environmental Protection Officer Name Role Phone Des Briceño Primary Care Provider Sherry Merchant MD Primary Care Provider Unavailable Primary Care Provider UnavailSherry Euceda MD Primary Care Provider Catalino HAT FINISHERDick FERRER Unavailable Isabelle Fitzgerald APRN.CNP Unavailable SHERRY MERCHANT Primary Care Unavailable ISABELLE FITZGERALD Referring Unavailable SHERRY MERCHANT Primary Care Unavailable ISABELLE FITZGERALD Attending Unavailable SELF Referring Unavailable SHERRY MERCHANT Primary Care Unavailable BREN HEBERT Attending Unavailable SELF Referring Unavailable EMILEE BREN Referring Unavailable SHERRY MERCHANT Primary Care Unavailable ISABELLE FITZGERALD Attending Unavailable SELF Referring Unavailable Dr. Casie Hair DO Primary Care Provider Dr. Sawyer Daigle MD Emergency Provider [phone] Dr. Angel Moss DO Admit Provider Dr. Angel Moss DO Attending Provider Martin Walton Attending Provider [phone] Shane Chang Attending Unavailable Casie Hair Primary Care Unavailable Angel Moss Admitting Unavailable Aneesh Fine Attending Unavailable Michael Vera Consulting Unavailable Casie Hair Primary Care Unavailable Angel Moss Consulting Unavailable Aneesh Fine Consulting Unavailable Martin Walton Attending Unavailable Michael Vera Attending Unavailable Casie Hair Primary Care Unavailable Martin Walton Attending Unavailable Shane Chang Attending Unavailable Dr. Angel Moss DO Other Provider Jody DIOP, Dr. Rodriguez Other Provider Babatunde DIOP, Dr. Aneesh Cast Attending Provider Jody DIOP, Dr. Rodriguez Attending Provider Bernardo DIOP, Dr. Lynn Attending Provider Unavaila ble Babatunde DIOP, Dr. Aneesh Cast Other Provider Allergies Allergy Classification Reported Allergen(s) Allergy Type Date of Onset Reaction(s) Facility (2 sources) Other; Translations: [OTHER] Propensity to adverse reactions 7 [place], [place] (1 source) Peanut-Containing Drug Products Propensity to adverse reactions to drug 6 Swelling [place], [place] (13 sources) peanut; Translations: [PEANUTS] Food Intolerance 6 Swelling, Anaphylaxis [facility] Work Phone: (6 sources) Environmental allergies [Other] Propensity to adverse reactions 7 [facility] (6 sources) Exercise Induced Anaphylaxis [Other] Propensity to adverse reactions 0 Swelling, Anaphylaxis, Shortness of Breath [facility] Medications Current Medications Medication Drug Class(es) Dates [...] (12 sources) Vitamin C Start: 02-27-2010 ascorbic acid(VITAMIN C 1,000 MG TAB) Take one(1) tablet four times daily. 0 02/27/2010 Active Comment on above: Take one(1) tablet f our times daily. calcium chloride 0.0014 meq/ml / potassium chloride 0.004 meq/ml / sodium chloride 0.103 meq/ml / sodium lactate 0.028 meq/ml injectable solution (1 source) Start: 11-17-2019 lactated ringers infusion carvedilol 3.125 mg oral tablet (1 source) alpha-Adrenergic Zeina, beta-Adrenergic Zeina Start: 03-28-2025 take 1 tablet by mouth twice daily at mealtime Carvedilol 3.125 mg Tablet Active 3.125 mg PO TWICE DAILY WITH MEALS 60 30 March 28, 2025 12:00am 1 ml diphenhydrAMINE hydrochloride 50 mg/ml cartridge [...] tabl ets every 6 hours as needed. [id number] 0.3 ml EPINEPHrine 1 mg/ml auto-injector (12 [...] after use. estradiol 0.1 mg/ml vaginal cream (12 sources) Estrogen Start: 03-25-2025 Estradiol 0.01 % [...] bedtime x 14 nights then twice weekly furosemide 40 mg oral tablet (1 source) Loop Diuretic Start: 5 take 1 tablet by mouth once daily Furosemide (Lasix) 40 mg tablet Active 40 mg PO DAILY March 28, 2025 12:00am 1 ml hydrALAZINE hydrochloride 20 mg/ml injection (2 sources) Arteriolar Vasodilator Start: 0 hydrALAZINE (APRESOLINE) injection 5 mg Start: 11-17-2019 [...] 11-17-2019 labetalol (NORMODYNE;TRANDATE ) injection 5 mg levoFLOXacin 500 mg oral tablet (1 source) Quinolone Antimicrobial Start: 03-28-2025 take 1 tablet by mouth once daily Levofloxacin 500 mg tablet Active 500 mg PO DAILY March 28, 2025 12:00am 10 ml lidocaine hydrochloride 10 mg/ml injection [...] / HYDROcodone bitartrate 5 mg oral tablet (2 sources) Opioid Agonist Start: 11-04-2019 End: 11-06-2019 Hydrocodone-Acetam inophen 1 TABLET tablet Discontinued 1 {tbl} PO EVERY 4 HOURS NEEDED as needed for Pain 10 2 November 04, 2019 November 05, 2019 1:00am November 06, 2019 1:08am celecoxib 400 mg oral capsule (1 source) Nonsteroidal Anti-inflammatory Drug Start: 11-17-2019 End: 11-17-2019 celecoxib (CELEBREX) capsule 400 mg cetirizine hydrochloride 10 mg oral tablet (4 sources) Histamine-1 Receptor Antagonist Start: 09-29-2018 End: [...] Classification Problem Date Documented Da te Episodic/Chronic Aortic; peripheral; and visceral artery aneurysms (2 sources) Aortic aneurysm; Translations: [Aortic aneurysm of unspecified site, without rupture] 03-28-2025 Chronic Blindness and vision defects (2 sources) Blurring of visual image; Translations: [Other visual disturbances] Onset: 01-14-2025 01-14-2025 Episodic Congestive heart failure; nonhypertensive (9 sources) Congestive heart failure; Translations: [Heart failure, unspecified] Onset: 03-27-2025 03-25-2025 Chronic Deficiency and other anemia (4 sources) Anemia; Translations: [Anemia, unspecified] 03-25-2025 Episodic Deficiency and other anemia (1 source) Anemia, unspecified; Translations: [Anemia, unspecified] Onset: 03-27-2025 Episodic Diseases of white blood cells (2 sources) Leukocytosis; Translations: [Elevated white blood cell count, unspecified] 03-25-2025 Chronic Disorders of lipid metabolism (3 sources) Mixed hyperlipidemia; Translations: [Mixed hyperlipidemia] Onset: 01-14-2025 10-21-2024 Chronic Fluid and electrolyte disorders (5 sources) Acute hyponatremia; Translations: [Hypo-osmolality and hyponatremia] Onset: 03-27-2025 03-25-2025 Episodic Fracture of upper limb (4 sources) Closed fracture of distal end of [...] cyst] Onset: 01-14-2025 Chronic Other liver diseases (4 sources) Elevated liver enzymes level; Translations: [Abnormal levels of other serum enzymes] 03-25-2025 Episodic Other liver diseases (1 source) Abnormal levels of other serum enzymes; Translations: [Abnormal levels of other serum enzymes] Onset: 03-27-2025 Episodic Other lower respiratory disease (4 sources) Dyspnea; Translations: [Dyspnea, unspecified] 03-25-2025 Episodic [...] Range Facility Absolute lymphocyte countOrd ered By: Aneesh Fine on 03-28-2025 Lymphocytes Auto (Unsp spec) [#/Vol] 1.40 10*3/uL 0.83-4.51 [facility] Absolute neutrophil countOrd ered By: Aneesh Fine on 03-28-2025 Neutrophils (Bld) [#/Vol] 16.7 10*3/uL High 2.0-7.7 [facility] Anion gap in Serum or Plasma Ordered By: Aneesh Fine on 03-28-2025 Anion gap [Moles/Vol] 11 mmol/L 5-15 [facility] Automated lymphocyte count a s percentage of total leukocytesOrdered By: Aneesh Fine on 03-28-2025 Lymphocytes/100 WBC Auto (Unsp spec) 6.9 % Low 19-41 [facility] BUN/creatinine ratioOrdered By: Aneesh Fine on 03-28-2025 Urea nitrogen/Creatinine [Mass ratio] 28.4 mg/mg High 10-20 [facility] Basophil percentageOrdered B y: Aneesh Fine on 03-28-2025 Basophils/100 WBC (Bld) 0.2 % 0-1 [facility] Bilirubin Test strip Ql (U)O rdered By: Aneesh Fine on 03-28-2025 Bilirubin Ql (U) Negative Negative [facility] Carbon dioxide, total [Moles /volume] in Central venous bloodOrdered By: Aneesh Fine on 03-28-2025 CO2 [Moles/Vol] 29.8 mmol/L 21.0-32.0 [facility] Chloride assayOrdered By: Rachelle Fine on 03-28-2025 Chloride [Moles/Vol] 91 mmol/L Low 98-108 [facility] Eosinophil percentageOrdered By: Aneesh Fine on 03-28-2025 Eosinophils/100 WBC (Bld) 0.7 % 0-5 [facility] Erythrocyte distribution wid th ratioOrdered By: Aneesh Fine on 03-28-2025 Erythrocyte distribution width (RBC) [Ratio] 14.0 % 11.6-14.6 [facility] Erythrocyte distribution wid th standard deviationOrdered By: Aneesh Fine on 03-28-2025 Erythrocyte distribution width (RBC) [Ratio] 41.4 fl 35.1-43.9 [facility] Glomerular filtration rate ( GFR) estimation/1.73 sq m using serum, plasma, or whole bOrdered By: Aneesh Fine on 03-28-2025 GFR/1.73 sq M.predicted among non-blacks MDRD (S/P/Bld) [Vol rate/Area] 102 mL/min/{1.73_m2} >60 [facility] Comment on above: mL/min/1.73m2 CKD-EP I Creatinine Equation (2020) Hematocrit Auto (Bld) [Volum e fraction]Ordered By: Aneesh Fine on 03-28-2025 Hematocrit (Bld) [Volume fraction] 23.2 % Low 37-47 [facility] Hemoglobin measurementOrdere d By: Aneesh Fine on 03-28-2025 Hemoglobin (Bld) [Mass/Vol] 8.2 g/dL Low 12.0-15.0 [facility] Immature granulocytes/100 WB C Auto (Bld)Ordered By: Aneesh Fine on 03-28-2025 Immature granulocytes/100 WBC (Bld) 1.300 % High 0.0-0.9 [facility] Comment on above: IG% - Immature Granu locytes (promyelocytes, myelocytes and metamyelocytes) > 1% indicates that a LEFT SHIFT is Present. Iron measurement (mass/mass) Ordered By: Aneesh Fine on 03-28-2025 Iron (Unsp spec) [Mass/Mass] 16 ug/dL Low 50-170 [facility] Ketones Test strip Ql (U)Ord ered By: Aneesh Fine on 03-28-2025 Ketones Ql (U) Negative Negative [facility] MCV (mean corpuscular volume ) determinationOrdered By: Aneesh Fine on 03-28-2025 MCV (RBC) [Entitic vol] 82.3 fL 81-99 [facility] Mean corpuscular hemoglobin (MCH) determinationOrdered By: Aneesh Fine on 03-28-2025 MCH (RBC) [Entitic mass] 29.1 pg 27.0-32.0 [facility] Mean corpuscular hemoglobin concentration (MCHC) determinationOrdered By: Aneesh Fine on 03-28-2025 MCHC (RBC) [Mass/Vol] 35.3 g/dL 32-36 [facility] Mean platelet volume determi nationOrdered By: Aneesh Fine on 03-28-2025 Platelet mean volume (Bld) [Entitic vol] 9.2 fL 6.2-12.0 [facility] Microscopic analysis of urin e for red blood cells (RBC)Ordered By: Aneesh Fine on 03-28-2025 Microscopic analysis of urine for red blood cells (RBC) 0 SEEN /hpf 0-5 [facility] Monocyte percentageOrdered B y: Aneesh Fine on 03-28-2025 Monocytes/100 WBC (Bld) 8.6 % 0-10 [facility] Mucus LM Ql (Urine sed)Order ed By: Aneesh Fine on 03-28-2025 Mucus Ql (Urine sed) 0 SEEN /hpf [facility] Neutrophil percentageOrdered By: Aneesh Fine on 03-28-2025 Neutrophils/100 WBC (Bld) 82.3 % High 47-70 [facility] Nitrite Test strip Ql (U)Ord ered By: Aneesh Fine on 03-28-2025 Nitrite Ql (U) Negative Negative [facility] No Panel InformationOrdered By: Aneesh Fine on 03-28-2025 Unsaturated Iron Binding Capacity 140 ug/dL Low 228-428 [facility] Nucleated red blood cell per centageOrdered By: Aneesh Fine on 03-28-2025 Nucleated RBC/100 WBC (Bld) [Ratio] 0 % 0-5 [facility] Platelet countOrdered By: Rachelle Fine on 03-28-2025 Platelets (Bld) [#/Vol] 634 10*3/uL High 150-450 [facility] Potassium measurement (mass/ volume)Ordered By: Aneesh Fine on 03-28-2025 Potassium (Unsp spec) [Mass/Vol] 3.3 mmol/L 3.3-5.1 [facility] Protein Test strip Ql (U)Ord ered By: Aneesh Fine on 03-28-2025 Protein Ql (U) 30 mg/dl High Negative [facility] RBC Auto (Bld) [#/Vol]Ordere d By: Aneesh Fine on 03-28-2025 RBC (Bld) [#/Vol] 2.82 10*6/uL Low 4.2-5.4 [facility] Serum creatinine measurement (mass/volume)Ordered By: Aneesh Fine on 03-28-2025 Creatinine [Mass/Vol] 0.58 mg/dL Low 0.70-1.20 [facility] Serum glucose measurement (m ass/volume)Ordered By: Aneesh Fine on 03-28-2025 Glucose [Mass/Vol] 115 mg/dL High 70-99 [facility] Serum or plasma calcium cindy urement (mass/volume)Ordered By: Aneesh Fine on 03-28-2025 Calcium [Mass/Vol] 8.8 mg/dL 7.6-11.0 [facility] Serum or plasma ferritin debby surement (mass/volume)Ordered By: Aneesh Fine on 03-28-2025 Ferritin [Mass/Vol] 1671 ng/mL High 22-378 [facility] Serum or plasma iron saturat ion measurement (mass fraction)Ordered By: Aneesh Fine on 03-28-2025 Iron saturation [Mass fraction] 10.3 % Low 13-59 [facility] Comment on above: Previous reported re sult: 10.0 %Edited by: TONNY on 03/28/25:1405 AMENDED REPORT 03/28/25 1405 IRON SATURATION previously reported as: 10.0 L % Serum or plasma urea nitroge n measurement (mass/volume)Ordered By: Aneesh Fine on 03-28-2025 Urea nitrogen [Mass/Vol] 16 mg/dL 4-19 [facility] Sodium levelOrdered By: Pierce Fine on 03-28-2025 Sodium [Moles/Vol] 131 mmol/L Low 133-145 [facility] Squamous epithelial cells de tection in urine sediment by light microscopyOrdered By: Aneesh Fine on 03-28-2025 Epithelial cells.squamous LM Ql (Urine sed) 0-5 SEEN /hpf 5-10 [facility] Urine clarityOrdered By: David Fine on 03-28-2025 Clarity (U) Clear Clear [facility] Urine color determinationOrd ered By: Aneesh Fine on 03-28-2025 Color (U) Yellow Yellow [facility] Urine glucose detectionOrder ed By: Aneesh Fine on 03-28-2025 Glucose Ql (U) Normal mg/dl Normal [facility] Urine leukocyte esterase det ection by dipstickOrdered By: Aneesh Fine on 03-28-2025 Leukocyte esterase Test strip Ql (U) 25 /ul High Negative [facility] Urine pHOrdered By: Aneesh Fine on 03-28-2025 pH (U) 7.0 [pH] 5.0 - 8.0 [facility] Urine sediment bacteria coun t by microscopy (number/high power field)Ordered By: Aneesh Fine on 03-28-2025 Bacteria LM.HPF (Urine sed) [#/Area] 0 /[HPF] None Seen [facility] Urine specific gravity measu rementOrdered By: Aneesh Fine on 03-28-2025 Specific gravity (U) [Rel density] 1.010 1.002-1.030 [facility] Urine urobilinogen measureme ntOrdered By: Aneesh Fine on 03-28-2025 Urobilinogen Ql (U) 4 mg/dl High Normal [facility] White blood cell (WBC) count Ordered By: Aneesh Fine on 03-28-2025 WBC (Bld) [#/Vol] 20.3 10*3/uL High 4.4-11.0 [facility] White blood cell countOrdere d By: Aneesh Fine on 03-28-2025 White blood cell count 0-5 SEEN /hpf 0-5 [facility] Bilirubin, totalOrdered By: Martin Blue on 03-27-2025 Bilirubin [Mass/Vol] 0.93 mg/dL 0.00-1.30 [facility] Blood manual differential co mment interpretation (narrative result)Ordered By: Martin Mcarthur on 03-27-2025 Manual differential comment Jason (Bld) [Interp] SCANNED [facility] CBC W/Diff, Automatedon 03-14 SMEAR COMMENT SCANNED Normal [facility] Comment on above: Performed By: #### L 500.4050, L100.0100 #### [facility] [address] [place], [address] CMV Acute Antibody IgMon CMV Ab, IgM < 30.0 Normal 0.0-29.9 [facility] Comment on above: Result Comment: Nega tive <30.0 Equivocal 30.0 - 34.9 Positive >34.9 A positive result is generally indicative of acute infection, reactivation or persistent IgM production. Performed at: - [address] [id number] [employer] Manager: Gumaro Blakely PhD, Phone: [phone] Performed By: #### L 300.3900 #### [facility] [address] [place], [address] Comprehensive Metabolic Prof ilon 03-27-2025 Albumin [Mass/Vol] 2.6 g/dL Low 3.4-4.8 [facility] Comment on above: Performed By: #### L 300.3900 #### [facility] [address] [place], [address] Albumin/Globulin [Mass ratio] 0.8 {ratio} Low 0.9-2.4 [facility] Comment on above: Performed By: #### L 300.3900 #### [facility] [address] [place], [address] ALK PHOS 271 U/L High 35-104 [facility] Comment on above: Performed By: #### L 300.3900 #### [facility] [address] [place], [address] ALT [Catalytic activity/Vol] 71 U/L High <=34 [facility] Comment on above: Performed By: #### L 300.3900 #### [facility] [address] [place], [address] AST [Catalytic activity/Vol] 64 U/L High <=31 [facility] Comment on above: Performed By: #### L 300.3900 #### [facility] [address] [place], [address] Bilirubin [Mass/Vol] 0.93 mg/dL Normal 0.00-1.30 [facility] Comment on above: Performed By: #### L 300.3900 #### [facility] [address] [place], [address] BUN/CRE 22.2 RATIO High 10-20 [facility] Comment on above: Performed By: #### L 300.3900 #### [facility] [address] [place], [address] Calcium [Mass/Vol] 8.9 mg/dL Normal 7.6-11.0 [facility] Comment on above: Performed By: #### L 300.3900 #### [facility] [address] [place], [address] Chloride [Moles/Vol] 90 mmol/L Low 98-108 [facility] Comment on above: Performed By: #### L 300.3900 #### [facility] [address] [place], [address] CO2 [Moles/Vol] 29.8 mmol/L Normal 21.0-32.0 [facility] Comment on above: Performed By: #### L 300.3900 #### [facility] [address] [place], [address] Creatinine [Mass/Vol] 0.66 mg/dL Low 0.70-1.20 [facility] Comment on above: Performed By: #### L 300.3900 #### [facility] [address] [place], [address] ECRCL 91.18 ml/min Normal 50-250 [facility] Comment on above: Performed By: #### L 300.3900 #### [facility] [address] [place], [address] GAP 11 Normal 5-15 [facility] Comment on above: Performed By: #### L 300.3900 #### [facility] [address] [place], [address] GFR/1.73 sq M.predicted among non-blacks MDRD (S/P/Bld) [Vol rate/Area] 98 mL/min/{1.73_m2} Normal >60 [facility] Comment on above: Result Comment: mL/m in/1.73m2 CKD-EPI Creatinine Equation (2020) Performed By: #### L 300.3900 #### [facility] [address] [place], [address] Globulin (S) [Mass/Vol] 3.2 g/dL Normal 2.2-4.2 [facility] Comment on above: Performed By: #### L 300.3900 #### [facility] [address] [place], [address] Glucose [Mass/Vol] 122 mg/dL High 70-99 [facility] Comment on above: Performed By: #### L 300.3900 #### [facility] [address] [place], [address] Potassium [Moles/Vol] 3.4 mmol/L Normal 3.3-5.1 [facility] Comment on above: Performed By: #### L 300.3900 #### [facility] [address] [place], [address] Sodium [Moles/Vol] 130 mmol/L Low 133-145 [facility] Comment on above: Performed By: #### L 300.3900 #### [facility] [address] [place], [address] T PROT 5.9 g/dL Normal 5.9-8.4 [facility] Comment on above: Performed By: #### L 300.3900 #### [facility] [address] [place], [address] Urea nitrogen [Mass/Vol] 15 mg/dL Normal 4-19 [facility] Comment on above: Performed By: #### L 300.3900 #### [facility] [address] [place], [address] Hepatitis Panel Acuteon 06-1 COMMENT Comment Normal . [facility] Comment on above: Result Comment: Not infected with HCV unless early or acute infection is suspected (which may be delayed in an immunocompromised individual), or other evidence exists to indicate HCV infection. Performed at: - [facility] [id number] [employer] Manager: Gumaro Blakely PhD, Phone: [phone] Performed By: #### L 300.3900 #### [facility] [address] [place], [address] HEP B CORE,IgM Negative Normal Negative [facility] Comment on above: Performed By: #### L 300.3900 #### [facility] [address] [place], [address] HEP B SURF AG Negative Normal Negative [facility] Comment on above: Performed By: #### L 300.3900 #### [facility] [address] [place], [place], [id number] HEP C VIRUS AB Non-Reactive Normal Non Reactive [facility] Comment on above: Performed By: #### L 300.3900 #### [facility] [address] [place], [place], [id number] HEPATITIS A-IgM Negative Normal Negative [facility] Comment on above: Result Comment: A ne gative anti-HAV IgM result suggests no recent or current HAV infection. Performed By: #### L 300.3900 #### [facility] [address] [place], [address] Influenza virus A and B and SARS-CoV-2 (COVID-19) and Respiratory syncytial virus RNAOrdered By: Aneesh Fine on 03-27-2025 SARS-CoV-2 (COVID-19) RNA RASHARD+probe Ql (Unsp spec) [facility] - Chemistry and C hemistry - challengeOrdered By: Martin Mcarthur on 03-27-2025 AST [Catalytic activity/Vol] 64 U/L High <32 [facility] M100.678on 03-27-2025 M100.678 Pending SARS-CoV-2 (COVID 19) Negative INFLUENZA A Negative INFLUENZA B Negative RSV PCR Negative Normal [facility] Comment on above: Performed By: #### L 503.7505, L501.4021, L100.0100, L500.2500, L500.3400 #### [facility] [address] [place], [place], [id number] RESPIRATORY PANEL MOLECULARo n 03-27-2025 RP PANEL ADENOVIRUS Not Detected INFLUENZA A Not Detected INFLUENZA A (SUBTYPE H1) Not Detected INFLUENZA A (SUBTYPE H3) Not Detected INFLUENZA B Not Detected HUMAN METAPHNEUMO Not Detected PARAINFLUENZA 1 Not Detected PARAINFLUENZA 2 Not Detected PARAINFLUENZA 3 Not Detected PARAINFLUENZA 4 Not Detected RHINOVIRUS Not Detected RSV A Not Detected RSV B Not Detected Normal [facility] Comment on above: Performed By: #### L 503.7505, L501.4021, L100.0100, L500.2500, L500.3400 #### [facility] [address] [place], [address] Respiratory pathogens detect ion panel by molecular detection methodOrdered By: Aneesh Fine on 03-27-2025 Respiratory pathogens DNA and RNA panel RASHARD+probe (Resp) [facility] Serum globulin measurementOr dered By: Martin Mcarthur on 03-27-2025 Globulin (S) [Mass/Vol] 3.2 g/dL 2.2-4.2 [facility] Serum or plasma alanine blair otransferase (ALT) measurementOrdered By: Martin Mcarthur on 03-27-2025 ALT [Catalytic activity/Vol] 71 U/L High <35 [facility] Serum or plasma albumin cindy urement (mass/volume)Ordered By: Martin Mcarthur on 03-27-2025 Albumin [Mass/Vol] 2.6 g/dL Low 3.4-4.8 [facility] Serum or plasma albumin/glob ulin mass ratioOrdered By: Martin Mcarthur on 03-27-2025 Albumin/Globulin [Mass ratio] 0.8 {ratio} Low 0.9-2.4 [facility] Serum or plasma alkaline mickey sphatase measurementOrdered By: Martin Mcarthur on 03-27-2025 ALP [Catalytic activity/Vol] 271 U/L High 35-104 [facility] Total proteinOrdered By: Maxx Mcarthur on 03-27-2025 Protein [Mass/Vol] 5.9 g/dL 5.9-8.4 [facility] Basic Metabolic Profile (BMP )on 03-26-2025 BUN/CRE 24.3 RATIO High 10-20 [facility] Comment on above: Performed By: #### L 500.2500, L100.0100 #### [facility] [address] [place], [address] Calcium [Mass/Vol] 9.0 mg/dL Normal 7.6-11.0 [facility] Comment on above: Performed By: #### L 500.2500, L100.0100 #### [facility] [address] [place], [address] Chloride [Moles/Vol] 92 mmol/L Low 98-108 [facility] Comment on above: Performed By: #### L 500.2500, L100.0100 #### [facility] [address] [place], [address] CO2 [Moles/Vol] 26.1 mmol/L Normal 21.0-32.0 [facility] Comment on above: Performed By: #### L 500.2500, L100.0100 #### [facility] [address] [place], [address] Creatinine [Mass/Vol] 0.65 mg/dL Low 0.70-1.20 [facility] Comment on above: Performed By: #### L 500.2500, L100.0100 #### [facility] [address] [place], [address] ECRCL 92.58 ml/min Normal 50-250 [facility] Comment on above: Performed By: #### L 500.2500, L100.0100 #### [facility] [address] [place], [address] GAP 12 Normal 5-15 [facility] Comment on above: Performed By: #### L 500.2500, L100.0100 #### [facility] [address] [place], [address] GFR/1.73 sq M.predicted among non-blacks MDRD (S/P/Bld) [Vol rate/Area] 99 mL/min/{1.73_m2} Normal >60 [facility] Comment on above: Result Comment: mL/m in/1.73m2 CKD-EPI Creatinine Equation (2020) Performed By: #### L 500.2500, L100.0100 #### [facility] [address] [place], [address] Glucose [Mass/Vol] 123 mg/dL High 70-99 [facility] Comment on above: Performed By: #### L 500.2500, L100.0100 #### [facility] [address] [place], [address] Potassium [Moles/Vol] 3.3 mmol/L Normal 3.3-5.1 [facility] Comment on above: Performed By: #### L 500.2500, L100.0100 #### [facility] [address] [place], [address] Sodium [Moles/Vol] 130 mmol/L Low 133-145 [facility] Comment on above: Performed By: #### L 500.2500, L100.0100 #### [facility] [address] [place], [address] Urea nitrogen [Mass/Vol] 16 mg/dL Normal 4-19 [facility] Comment on above: Performed By: #### L 500.2500, L100.0100 #### [facility] [address] [place], [address] Blood band neutrophil count as percentage of total leukocytesOrdered By: Angel Moss on 03-26-2025 Band form neutrophils/100 WBC (Bld) 2 % 0-5 [facility] Blood eosinophils/100 leukoc ytesOrdered By: Angel Moss on 03-26-2025 Eosinophils/100 WBC (Bld) 1 % 0-5 [facility] Blood lymphocytes/100 leukoc ytesOrdered By: Angel Moss on 03-26-2025 Lymphocytes/100 WBC (Bld) 8 % Low 19-41 [facility] Blood metamyelocytes/100 jaleesa kocytesOrdered By: Angel Moss on 03-26-2025 Metamyelocytes/100 WBC (Bld) 1 % 0-1 [facility] Blood monocytes/100 leukocyt esOrdered By: Angel Moss on 03-26-2025 Monocytes/100 WBC (Bld) 8 % 0-10 [facility] Blood polychromasia detectio n by light microscopyOrdered By: Angel Moss on 03-26-2025 Polychromasia LM Ql (Bld) 1+ [facility] Blood segmented neutrophils/ 100 leukocytesOrdered By: Angel Moss on 03-26-2025 Segmented neutrophils/100 WBC (Bld) 79 % High 47-70 [facility] CBC W/Diff, Automatedon 03-14 Absolute Lymph 1.54 X10 3/uL Normal 0.83-4.51 [facility] Comment on above: Performed By: #### L 500.2500, L100.0100 #### [facility] [address] [place], [address] Absolute Neut 15.6 X10 3/uL High 2.0-7.7 [facility] Comment on above: Performed By: #### L 500.2500, L100.0100 #### [facility] [address] [place], [address] CTA Chest W/WO Contraston CTA Chest W/WO Contrast [facility] Imaging Services [address] [place] [address] CTA Chest W/WO Contrast MR#: [id number] Acct: [id number] Name: RAFAT DELANEY Rep #: [id number] : 1960 F 64 From: Angelica Hernandez nd, MD PCP: Dr. Casie Hair, DO Status: ADM IN Study: CTA Chest W/WO Contrast Date of Exam: 03/26/25 Exam# [id number] Ordering Dr: Angel Moss DO PROCEDURE: CTA CHEST W/WO CONTRAST 03/26/2025 REASON FOR EXAM: ELEVATED D-DIMER TECHNIQUE: CTA axial imaging of the chest with intravenous contrast. Coronal and Sagittal reconstruction series were provided. 3D, 3D post processing, 3D reconstructions, Maximum intensity projection (MIPs) Volume rendering and Shaded surface rendering was provided. PATIENT PREPARATION: Per protocol CONTRAST: Isovue 370 VOLUME: 100mL One or more dose reduction techniques were used (e.g., Automated exposure control, adjustment of the mA and/or kV according to patient size, use of iterative reconstruction technique). RADIATION DOSE SUMMARY: CTDlvol: 14 mGy DLP: 200 mGycm COMPARISON: Chest radiograph 1 day prior. FINDINGS: Hardware: None. Lymph nodes: No axillary, mediastinal or hilar lymphadenopathy. Heart: Mild cardiomegaly without pericardial effusion. The great vessels are normal in caliber. Minimal calcific plaque of the thoracic aorta. Pulmonary Vessels: No central filling defect within the segmental or subsegmental pulmonary arteries. Lungs and Airways: The central airways are patent. Small right and moderate left pleural effusions with adjacent atelectasis. Ground-glass opacities within the right upper lobe (for example series 2, image 187). No pneumothorax. Upper Abdomen: Hepatic hypodensity, incompletely characterized. Bones: Questionable acute, minimally displaced fractures of the bilateral anterolateral ribs, however visualization is limited by motion artifact. Cervical and thoracic spondylosis. CT/CTA Chest W/WO Contrast IMPRESSION: 1. No acute pulmonary embolism. 2. Ground-glass opacities within the right upper lobe, which may reflect pneumonitis/pneumoni a. 3. Questionable acute, minimally displaced fractures of the bilateral lower anterolateral ribs. Visualization is limited by motion artifact. Correlation with point tenderness recommended. Reading Location: [id number] CC: Dr. Angel Moss, DO; Dr. Casie Hair, DO Medical [facility] Health Services Manager: Signed Normal [facility] D-Dimer Quantitative (DVT/PE )on 03-26-2025 D-DIMER QUANT 3.84 FEU/ug/m Invalid Interpretation Code 0.27-0.49 [facility] Comment on above: Result Comment: D-Di joss ELEVATED (>0.49): Additional studies and clinical assessments are indicated to conclude diagnosis of: Deep Vein Thrombosis (DVT) or Pulmonary Embolism (PE) CRITICAL VALUE CALLED TO ESTHER PHILLIPS 03/26/25 Darius Padron. RESULTS READ BACK BY SAME. Performed By: #### L [id number] #### [facility] [address] [place], [address] Echocardiogram study reportO rdered By: Shane Chang on 03-26-2025 Study report [facility] [address] [place] [address] Echo Complete 03/26/25 0940 MR#: [id number] Acct: [id number] Name: RAFAT DELANEY Rep #:[id number] : 1960 64 From: Shane Chang MD Attending Dr: Dr. Angel Moss DO Status: ADM IN Ordering Dr: Angel Moss DO Date: Location: [facility] Sex: F C Admitted: 03/25/25 Reason For Study Reason For Study: Heart Failure Procedure This was a 2D Doppler, Color Flow transthoracic echocardiogram. Exam performed portable in patient room. Left Ventricle Normal left ventricle. The LV ejection fraction is 50 %. LV systolic function islow normal. Right Ventricle Normal right ventricle. Normal systolic function. Atria Normal left atrium. Normal right atrium. Mitral Valve The mitral valve is structurally normal. No prolapse or stenosis seen. Trivial mitral valve insufficiency. Tricuspid Valve Trivial tricuspid valve regurgitation. Aortic Valve There is no aortic stenosis. No aortic valve insufficiency. Pulmonic Valve Trivial pulmonic valve insufficiency. Great Vessels Ascending aorta is mildly dilated at 3.9 cm. Pericardium/Pleural No pericardial effusion. Pleural effusion noted. MMode/2D Measurements & Calculations LVIDd: 4.9 cm IVSd: 1.1 cm Ao root diam: 3.9 cm LVIDs: 3.5 cm LVPWd: 1.1 cm RVDd: 3.6 cm FS: 28.8 % LAV(MOD-bp): 40.8 ml LVAd ap4: 31.6 cm2 SV(MOD-sp4): 50.4 ml LAV(MOD-bp) Indexed: 21.2 ml/m2 LVLd ap4: 8.3 cm SI(MOD-sp4): 26.1 ml/m2 LAV(MOD-sp2): 45.0 ml EDV(MOD-sp4): 100.1 ml LAV(MOD-sp4): 35.6 ml EDV(sp4-el): 102.7 ml LVAs ap4: 20.2 cm2 LVLs ap4: 6.9 cm ESV(MOD-sp4): 49.7 ml ESV(sp4-el): 50.3 ml EF(MOD-sp4): 50.3 % EF(sp4-el): 51.1 % SV(sp4-el): 52.4 ml LA A4 area: 16.6 cm2 LA dimension(2D): 3.2 cm RA A4 area: 16.2 cm2 TAPSE: 2.2 cm Time Measurements MV dec time: 0.20 sec Doppler Measurements & Calculations MV E max shraddha: 84.7 cm/sec Lat Peak E' Shraddha: 11.7 cm/sec Med Peak E' Shraddha: 7.8 cm/sec MV A max shraddha: 85.2 cm/sec E/E' lat: 7.2 E/E' med: 10.8 MV E/A: 0.99 Ao V2 max: 162.0 cm/sec LV V1 max: 128.4 cm/sec MV dec slope: 421.0 cm/sec2 Ao max P.5 mmHg LV V1 max P.6 mmHg Ao V2 mean: 118.4 cm/sec Ao mean P.3 mmHg Ao V2 VTI: 28.8 cm PA V2 max: 112.0 cm/sec TR max shraddha: 271.3 cm/sec TR max P.4 mmHg ECHO/Echo Complete Interpretation Summary LV systolic function is low normal The LV ejection fraction is 50 %. Trivial mitral valve insufficiency. Trivial tricuspid valve regurgitation Ascending aorta is mildly dilated at 3.9 cm Pleural effusion noted. Ordering Physician: Angel Moss Referring Physician: Casie Hair Performed By: Selena Landaverde, CURTISCS, RVT 03/26/25 1259 Date _ Shane Chang MD CC: Dr. Angel Moss DO; Dr. Casie Hair DO ~ Date Dictated: 03/26/25 0940 Date Transcribed: 03/26/25 1259 Medical [facility] Health Services Manager: Signed [facility] Myelocyte %Ordered By: Angel Moss on 03-26-2025 Myelocytes/100 WBC (Bld) 1 % High 0-0 [facility] No Panel InformationOrdered By: Angel Moss on 03-26-2025 Hepatitis C Antibody Comment Comment . [facility] Comment on above: Not infected with HC V unless early or acute infection issuspected (which may be delayed in an immunocompromisedindividual), or other evidence exists to indicate HCVinfection.Performed at: [address] [id number] Director: Gumaro Blakely PhD, Phone: [phone] Platelet estimateOrdered By: Angel Moss on 03-26-2025 Platelets LM Ql (Bld) A ADEQ [facility] Serum or plasma cytomegalovi yesy (CMV) IgM antibody assay (units/volume)Ordered By: Martin Mcarthur on 03-26-2025 CMV IgM Qn < 30.0 AU/mL 0.0-29.9 [facility] Comment on above: Negative <30.0 Equiv ocal 30.0 - 34.9 Positive >34.9A positive result is generally indicative of acuteinfection, reactivation or persistent IgM production.Performed at: [facility] [employer] [id number] Director: Gumaro Blakely PhD, Phone: [phone] Serum or plasma hepatitis B virus surface antigen detection by immunoassayOrdered By: Angel Moss on 03-26-2025 HBV surface Ag IA Ql Negative Negative [facility] Total cell countOrdered By: Angel Moss on 03-26-2025 Cells counted [employer] (Bld/Tiss) [#] 100 MANUAL DIFF [facility] Toxic leukocyte granulation detectionOrdered By: Angel Moss on 03-26-2025 Toxic granules LM Ql (Bld) 1+ [facility] Absolute lymphocyte countOrd ered By: Sawyer Daigle on 03-25-2025 Lymphocytes Auto (Unsp spec) [#/Vol] 1.30 10*3/uL 0.83-4.51 [facility] Absolute neutrophil countOrd ered By: Sawyer Daigle on 03-25-2025 Neutrophils (Bld) [#/Vol] 16.3 10*3/uL High 2.0-7.7 [facility] Anion gap in Serum or Plasma Ordered By: Sawyer Daigle on 03-25-2025 Anion gap [Moles/Vol] 12 mmol/L -15 [facility] BUN/creatinine ratioOrdered By: Sawyer Daigle on 03-25-2025 Urea nitrogen/Creatinine [Mass ratio] 20.4 mg/mg High 10-20 [facility] Basic Metabolic Profile (BMP )on 03-25-2025 BUN/CRE 20.4 RATIO High 08-02 [facility] Comment on above: Performed By: #### L 503.7505, L501.4021, L100.0100, L500.2500, L500.3400 #### [facility] [address] [place], [address] Calcium [Mass/Vol] 9.3 mg/dL Normal 7.6-11.0 [facility] Comment on above: Performed By: #### L 503.7505, L501.4021, L100.0100, L500.2500, L500.3400 #### [facility] [address] [place], [address] Chloride [Moles/Vol] 93 mmol/L Low 98-108 [facility] Comment on above: Performed By: #### L 503.7505, L501.4021, L100.0100, L500.2500, L500.3400 #### [facility] [address] [place], [address] CO2 [Moles/Vol] 23.1 mmol/L Normal 21.0-32.0 [facility] Comment on above: Performed By: #### L 503.7505, L501.4021, L100.0100, L500.2500, L500.3400 #### [facility] [address] [place], [address] Creatinine [Mass/Vol] 0.61 mg/dL Low 0.70-1.20 [facility] Comment on above: Performed By: #### L 503.7505, L501.4021, L100.0100, L500.2500, L500.3400 #### [facility] [address] [place], [address] ECRCL 98.65 ml/min Normal 50-250 [facility] Comment on above: Performed By: #### L 503.7505, L501.4021, L100.0100, L500.2500, L500.3400 #### [facility] [address] [place], [address] GAP 12 Normal 5-15 [facility] Comment on above: Performed By: #### L 503.7505, L501.4021, L100.0100, L500.2500, L500.3400 #### [facility] [address] [place], [address] GFR/1.73 sq M.predicted among non-blacks MDRD (S/P/Bld) [Vol rate/Area] 100 mL/min/{1.73_m2} Normal >60 [facility] Comment on above: Result Comment: mL/m in/1.73m2 CKD-EPI Creatinine Equation (2020) Performed By: #### L 503.7505, L501.4021, L100.0100, L500.2500, L500.3400 #### [facility] [address] [place], [address] Glucose [Mass/Vol] 129 mg/dL High 70-99 [facility] Comment on above: Performed By: #### L 503.7505, L501.4021, L100.0100, L500.2500, L500.3400 #### [facility] [address] [place], [address] Potassium [Moles/Vol] 3.7 mmol/L Normal 3.3-5.1 [facility] Comment on above: Performed By: #### L 503.7505, L501.4021, L100.0100, L500.2500, L500.3400 #### [facility] [address] [place], [address] Sodium [Moles/Vol] 128 mmol/L Low 133-145 [facility] Comment on above: Performed By: #### L 503.7505, L501.4021, L100.0100, L500.2500, L500.3400 #### [facility] [address] [place], [address] Urea nitrogen [Mass/Vol] 12 mg/dL Normal 4-19 [facility] Comment on above: Performed By: #### L 503.7505, L501.4021, L100.0100, L500.2500, L500.3400 #### [facility] [address] [place], [address] Bilirubin directOrdered By: Sawyer Daigle on 03-25-2025 Bilirubin.direct [Mass/Vol] 0.92 mg/dL High 0.00-0.30 [facility] Bilirubin, totalOrdered By: Sawyer Daigle on 03-25-2025 Bilirubin [Mass/Vol] 1.29 mg/dL 0.00-1.30 [facility] Blood band neutrophil count as percentage of total leukocytesOrdered By: Sawyer Daigle on 03-25-2025 Band form neutrophils/100 WBC (Bld) 2 % 0-5 [facility] Blood lymphocytes/100 leukoc ytesOrdered By: Sawyer Daigle on 03-25-2025 Lymphocytes/100 WBC (Bld) 7 % Low 19-41 [facility] Blood manual differential co mment interpretation (narrative result)Ordered By: Sawyer Daigle on 03-25-2025 Manual differential comment Jason (Bld) [Interp] COMMENT [facility] Comment on above: MONOCYTOSIS. Blood metamyelocytes/100 jaleesa kocytesOrdered By: Sawyer Daigle on 03-25-2025 Metamyelocytes/100 WBC (Bld) 3 % High 0-1 [facility] Blood monocytes/100 leukocyt esOrdered By: Sawyer Daigle on 03-25-2025 Monocytes/100 WBC (Bld) 3 % 0-10 [facility] Blood segmented neutrophils/ 100 leukocytesOrdered By: Sawyer Daigle on 03-25-2025 Segmented neutrophils/100 WBC (Bld) 84 % High 47-70 [facility] CBC W/Diff, Automatedon 03-14 Absolute Lymph 1.30 X10 3/uL Normal 0.83-4.51 [facility] Comment on above: Performed By: #### L 503.7505, L501.4021, L100.0100, L500.2500, L500.3400 #### [facility] [address] [place], [address] PATH REV May foll Normal [facility] Comment on above: Performed By: #### L 503.7505, L501.4021, L100.0100, L500.2500, L500.3400 #### [facility] [address] [place], [address] Absolute Neut 16.3 X10 3/uL High 2.0-7.7 [facility] Comment on above: Performed By: #### L 503.7505, L501.4021, L100.0100, L500.2500, L500.3400 #### [facility] [address] [place], [address] Carbon dioxide, total [Moles /volume] in Central venous bloodOrdered By: Sawyer Daigle on 03-25-2025 CO2 [Moles/Vol] 23.1 mmol/L 21.0-32.0 [facility] Chest PA and Lateralon 03-25 Chest PA [address] L[address] [facility] Imaging Services [address] [place] [address] Chest PA and Lateral MR#: [id number] Acct: [id number] Name: RAFAT DELANEY Rep #: [id number] : 1960 F 64 From: Dylon mckinley MD PCP: Dr. Casie Hair, Status: REG ER Study: Chest PA and Lateral Date of Exam: 03/25/25 Exam# [id number] Ordering Dr: Sawyer Daigle MD PROCEDURE: CHEST PA AND LATERAL [...] on the right lung base. Reading Location: [place] [address] CC: Dr. Sawyer Daigle MD; Dr. Casie Hair DO Medical And Health Services Manager: Signed Normal [facility] Chloride assayOrdered By: Jayesh Daigle on 03-25-2025 Chloride [Moles/Vol] 93 mmol/L Low 98-108 [facility] Consultation - Cardiologyon 03-25-2025 Consultation - Cardiology [facility] Medical Records Department [address] [place] [address] Consultation - Cardiology 03/25/25 1621 MR#: [id number] Acct: [id number] Name: RAFAT DELANEY Rep #: [id number] : 1960 64 From: Michael Vera MD PCP: Dr. Casie Hair DO Status:ADM IN Location: [facility] [id number] Assessment Plan Assessment/Plan (1) Acute CHF: QUALIFIERS: Heart failure type: unspecified Qualified Code(s): I50.9 - Heart failure, unspecified PLAN: A quick look echo showed that the LV function appears to be fairly well maintained. There is some thickness of the heart muscle but good wall motion and no segmental wall motion changes. The RV was difficult to visualize but appears to be normal in size. A full formal echo will be done tomorrow morning. The patient's chest x-ray was consistent with vascular congestion and pulmonary edema as well as bilateral pleural effusions. Given these findings I would recommend continue with diuresis and continue to monitor the patient for alternative explanations of her volume retention as this may be some type of viral syndrome that is affecting her myocardium and transiently weakened it and/or affected her liver. Will slowly add medical therapy to assist with further diuresis. Will add Coreg at low-dose continue the Lasix and monitor her I's and O's and await the final report from the formal echo. (2) Acute hyponatremia: PLAN: Patient's hyponatremia is apparently new sodium is 128 on today's labs. (3) Elevated liver enzymes: PLAN: LFTs are probably related to congestion but this may be a viral infection as well. Further evaluation investigation per the primary service. (4) Anemia: QUALIFIERS: Anemia type: unspecified type Qualified Code(s): D64.9 - Anemia, unspecified PLAN: Hemoglobin is 9.0 no obvious blood loss further evaluation per the primary service. PLAN: Plan 1. Will add low-dose Coreg to the medical regimen. 2. Recommend continue with gentle diuresis. 3. Please call the [facility] if further assistance is needed. HPI Consult Data Date of Consult: 03/25/25 HPI Narrative Reason for Consultation: Progressive shortness of breath and lower extremity edema. HPI Narrative: RAFAT DELANEY, is a 64 F who presents with a complex history. The patient was vacationing in [facility] and a week ago Saturday developed some fatigue tiredness progressed to have joint discomfort and myalgias associated with shortness of breath with chills. She was admitted to the hospital in [facility] on Saturday and multiple tests were run and they finally felt that she probably had a viral infection. She became hypotensive requiring seed significant volume replacement but had not had diarrhea or nausea or vomiting. They did a stool sample and diagnosed her with norovirus. However the patient had no GI symptoms. The patient did notice that when they started given the fluid she was third spacing it into her lower extremities primarily. She also developed abdominal fullness felt like she had eaten a full meal when she had not eaten anything. She also developed a cough that was nonproductive and occurred primarily when she was in the recumbent position and resolved when she sat up. The patient also has had progressive shortness of breath and she came to the emergency department today for further evaluation. The patient's liver enzymes have been elevated. She has 1-2+ lower extremity edema. White count is elevated at 19,000 she is anemic with a hemoglobin of 9.0. Troponins were minimally elevated 41, 47, and 46. BNP was markedly elevated 11,948. The patient has diuresed since she was admitted and is feeling some better. She was not hypoxic. Patient's only medication at home was estradiol vaginal cream. Patient has received IV Lasix since admission. The patient does complain of PND and orthopnea. She denies any syncope or near syncope. She did have an episode of profound hypotension that required rapid volume resuscitation at the outside hospital in [place]. She has been edematous ever since that fluid resuscitation and has not been able to mobilize the fluid. The patient denies any history of coronary disease she has no previous cardiac history at all. She does have a mother who had bypass graft surgery. She is not diabetic her cholesterols have a very high HDL. She has never smoked and she is not hypertensive. [facility] Medical History Mitral valve prolapse Lyme disease Home Medications ???Medication ???Instructions ???Recorded ???Last Taken ???Type estradiol 0.01% (0.1 mg/gram) 1 appful vaginal .twice weekly 10/07 Unknown History vaginal cream Allergy/AdvReac Type Severity Reaction Status Date / Time No Known Allergies Allergy Verified 03/25/25 09:48 Family History (more content not included)... Normal [facility] Echo Completeon 03-25-2025 Echo Complete [facility] Cardi[facility] Services [address] [place] [place] [address] Echo Complete 03/26/25 0940 MR#: [id number] Acct: [id number] Name: RAFAT DELANEY Rep #: [id number] : 1960 64 From: Shane Chang MD Attending Dr: Dr. Angel Moss, DO Status: ADM IN Ordering Dr: Angel Moss DO Date: 03/25/25 Location: [facility] Sex: F C Admitted: 03/25/25 Reason For Study Reason For Study: Heart Failure Procedure This was a 2D Doppler, Color Flow transthoracic echocardiogram. Exam performed portable in patient room. Left Ventricle Normal left ventricle. The LV ejection fraction is 50 %. LV systolic function is low normal. Right Ventricle Normal right ventricle. Normal systolic function. Atria Normal left atrium. Normal right atrium. Mitral Valve The mitral valve is structurally normal. No prolapse or stenosis seen. Trivial mitral valve insufficiency. Tricuspid Valve Trivial tricuspid valve regurgitation. Aortic Valve There is no aortic stenosis. No aortic valve insufficiency. Pulmonic Valve Trivial pulmonic valve insufficiency. Great Vessels Ascending aorta is mildly dilated at 3.9 cm. Pericardium/Pleural No pericardial effusion. Pleural effusion noted. MMode/2D Measurements Calculations LVIDd: 4.9 cm IVSd: 1.1 cm Ao root diam: 3.9 cm LVIDs: 3.5 cm LVPWd: 1.1 cm RVDd: 3.6 cm FS: 28.8 % LAV(MOD-bp): 40.8 ml LVAd ap4: 31.6 cm2 SV(MOD-sp4): 50.4 ml LAV(MOD-bp) Indexed: 21.2 ml/m2 LVLd ap4: 8.3 cm SI(MOD-sp4): 26.1 ml/m2 LAV(MOD-sp2): 45.0 ml EDV(MOD-sp4): 100.1 ml LAV(MOD-sp4): 35.6 ml EDV(sp4-el): 102.7 ml LVAs ap4: 20.2 cm2 LVLs ap4: 6.9 cm ESV(MOD-sp4): 49.7 ml ESV(sp4-el): 50.3 ml EF(MOD-sp4): 50.3 % EF(sp4-el): 51.1 % SV(sp4-el): 52.4 ml LA A4 area: 16.6 cm2 LA dimension(2D): 3.2 cm RA A4 area: 16.2 cm2 TAPSE: 2.2 cm Time Measurements MV dec time: 0.20 sec Doppler Measurements Calculations MV E max shraddha: 84.7 cm/sec Lat Peak E' Shraddha: 11.7 cm/sec Med Peak E' Shraddha: 7.8 cm/sec MV A max shraddha: 85.2 cm/sec E/E' lat: 7.2 E/E' med: 10.8 MV E/A: 0.99 Ao V2 max: 162.0 cm/sec LV V1 max: 128.4 cm/sec MV dec slope: 421.0 cm/sec2 Ao max P.5 mmHg LV V1 max P.6 mmHg Ao V2 mean: 118.4 cm/sec Ao mean P.3 mmHg Ao V2 VTI: 28.8 cm PA V2 max: 112.0 cm/sec TR max shraddha: 271.3 cm/sec TR max P.4 mmHg ECHO/Echo Complete Interpretation Summary LV systolic function is low normal The LV ejection fraction is 50 %. Trivial mitral valve insufficiency. Trivial tricuspid valve regurgitation Ascending aorta is mildly dilated at 3.9 cm Pleural effusion noted. Ordering Physician: Angel Moss Referring Physician: Casie Hair Performed By: Selena Landaverde, DANO, RVT 03/26/25 1259 Date Shane Chang MD CC: Dr. Angel Moss DO; Dr. Casie Hair DO Date Dictated: 03/26/25 0940 Date Transcribed: 03/26/251258 [facility] Manager: Signed Normal [facility] Emergency Department Summary on 03-25-2025 Emergency Department Summary [facility] Medical Records Department [address] [place] [address] Emergency Department Summary 03/25/25 MR#: [id number] Acct: [id number] Name: RAFAT DELANEY Rep #: [id number] : 1960 64 From: Sawyer Daigle MD PCP: Dr. Casie Hair, DO Status:ADM IN Location: [address] HPI History of Present Illness Chief Complaint: General Illness Informant: patient Onset/Context/Timing Onset: Days Context: Gradual Onset Timing: Continuous Current Severity: Moderate Maximum Severity: Moderate Narrative Narrative: 64-year-old female no significant past medical history of mitral valve prolapse. A week ago her and her were vacationing in [facility]. She got admitted to the hospital there. She donated numerous tests really did not have any specific diagnosis. Since she was in the hospital there she developed bilateral lower extremity edema, fatigue, exertional dyspnea and shortness of breath. She has no cardiac history she is aware of the mitral valve prolapse. Prior similar symptoms: Yes Recent Illness/Hospitalizat ion: Yes [facility] Medical History (Updated 03/25/25 @ 13:[address] Sawyer Daigle MD) Lyme disease Home Medications ???Medication ???Instructions ???Recorded ???Last Taken ???Type Cetirizine Hcl [Zyrtec] 10 mg PO DAILY ALLERGIES 09/29/18 09/29/18 History 10 Allergy/AdvReac Type Severity Reaction Status Date / Time No Known Allergies Allergy Verified 03/25/25 09:48 Social History Smoking Status: Never smoker ROS ROS ED ROS Narrative Shortness of breath. Fatigue. Bilateral leg swelling. Constitutional Constitutional ED: Denies chills or fever(s) Eyes Eyes: Denies blurry vision ENT ENT ED: Denies ear pain Cardiovascular Cardiovascular: Reports chest pain Respiratory/Chest Respiratory/Chest: Reports cough, dyspnea and dyspnea on exertion Gastrointestinal Gastrointestinal: Denies abdominal pain Genitourinary Genitourinary ED: Denies dysuria or hematuria Musculoskeletal Musculoskeletal: Denies arthralgias Integumentary Denies abscess Neurologic Neurologic: Denies headache(s) Psychiatric Psychiatric: Denies anxiety or depression Endocrine Endocrinology: Denies cold intolerance Hematologic/Lymphati c Hematologic/Lymphati c: Reports none Allergic/Immunologic Allergic/Immunologic ED: Denies mouth swelling or tongue swelling EXAM Physical Exam Narrative Exam Narrative: 64-year-old female sitting upright in bed. at bedside. Vital signs stable she is hypotensive at 99/66. Temperature 992. Pulse ox 96% on room air no hypoxia. She is not in any distress. H EENT exam pupils round reactive light. Moist mucous membranes. Neck nontender no JVD. No lymphadenopathy. Lungs clear to auscultation bilaterally. Heart rate about 100. Appears to be sinus rhythm.. Chest wall and ribs nontender. Abdomen soft nontender. Nondistended normal bowel sounds without peritoneal signs. Moving all 4 extremities. 2+ pitting edema both lower extremities. Equal symmetrical. Dorsi plantarflexion intact. Calves are nontender no cords. Normal staff development nurse strength. Back nontender. Neurologically she is awake and alert. Answering questions following commands. Const Vital Signs: 03/25/25 09:48 03/25/25 10:19 03/25/25 [...] Oxygen Delivery Method Room Air Room Air Positive well nourished and well developed; Negative for obese, cachectic, contractures or unkempt General Appearance ED: well developed and NAD; Negative for unkempt, cachectic, contractures, cyanotic, diaphoretic or pallor Nutritional Appearance: Negative for cachectic or obese HEENT Reports moist mucous membranes Negative for trauma or tenderness Eyes PERRL and EOMs intact bilaterally Neck no lymphadenopathy, supple and no JVD Chest Wall inspection of chest normal and palpation of chest normal Resp normal respiratory effort and clear to auscultation bilaterally Effort and Inspection: Negative for retractions Auscultation: Negative for rales, rhonchi, wheezes or diminished lung sounds Cardio regular rhythm, S1 normal heart sound, S2 normal heart sound and no murmurs; Ne (more content not included)... Normal [facility] Erythrocyte distribution wid th ratioOrdered By: Saweyr Daigle on 03-25-2025 Erythrocyte distribution width (RBC) [Ratio] 14.4 % 11.6-14.6 [facility] Erythrocyte distribution wid th standard deviationOrdered By: Sawyer Daigle on 03-25-2025 Erythrocyte distribution width (RBC) [Ratio] 42.9 fl 35.1-43.9 [facility] Erythrocyte morphology asses smentOrdered By: Sawyer Daigle on 03-25-2025 RBC morphology finding Nom (Bld) NORM C+C NORMAL NORM C&C [facility] Glomerular filtration rate ( GFR) estimation/1.73 sq m using serum, plasma, or whole bOrdered By: Sawyer Daigle on 03-25-2025 GFR/1.73 sq M.predicted among non-blacks MDRD (S/P/Bld) [Vol rate/Area] 100 mL/min/{1.73_m2} >60 [facility] Comment on above: mL/min/1.73m2 CKD-EP I Creatinine Equation (2020) H AND P Exam - [facility] 03-25-2025 H&P Exam - Hospitalist [facility] Medical Records Department [address] [place] [address] H P Exam - Hospitalist 03/25/25 1425 MR#: [id number] Acct: [id number] Name: RAFAT DELANEY Rep #: [id number] : 1960 64 From: Martin VACA PCP: Dr. Casie Hiar, DO Status:ADM IN Location: [address] HPI - General General Date of Service: 03/25/25 Chief Complaint: chest tightness HPI Narrative RAFAT DELANEY, is a 64 F with pmhx MVP who presents to the ER with chest tightness. She has had this about 10 days. The day it started she travelled to [place]. She started to feel all over body [...] and has no prior hx of CHF. [facility] Medical History Mitral valve prolapse Lyme disease Home Medications ???Medication ???Instructions ???Recorded ???Last Taken ???Type estradiol 0.01% (0.1 mg/gram) 1 appful vaginal .twice weekly 10/07 Unknown History vaginal cream Allergy/AdvReac Type Severity [...] Endocrine Endocrinology: Denies change in body appearance Hematologic/Lymphati c Hematologic/Lymphati c: Reports anemia Allergic/Immunologic Allergic/Immunologic : Denies rhinitis Vital Signs Vital Signs Vital [...] lymphadenopathy Resp normal respiratory effort Resp Narrative: (more content not included)... Normal [facility] Hematocrit Auto (Bld) [Volum e fraction]Ordered By: Sawyer Daigle on 03-25-2025 Hematocrit (Bld) [Volume fraction] 25.4 % Low 37-47 [facility] Hemoglobin measurementOrdere d By: Saweyr Daigle on 03-25-2025 Hemoglobin (Bld) [Mass/Vol] 9.0 g/dL Low 12.0-15.0 [facility] International normalized rat io (INR) calculationOrdered By: Sawyer Daigle on 03-25-2025 INR Coag (Bld) [Relative time] 1.1 {INR} [facility] L499.0042on 03-25-2025 Trop T High Sen 47 ng/L High <=14 [facility] Comment on above: Performed By: #### L 300.3900 #### [facility] [address] [place], [address] L499.0043on 03-25-2025 Trop T High Sen 46 ng/L High <=14 [facility] Comment on above: Performed By: #### L 300.3900 #### [facility] [address] [place], [address] L501.4021on 03-25-2025 Trop T High Sen 41 ng/L High <=14 [facility] Comment on above: Performed By: #### L 503.7505, L501.4021, L100.0100, L500.2500, L500.3400 #### [facility] [address] [place], [address] L503.7505on 03-25-2025 Natriuretic peptide B (Bld) [Mass/Vol] 98084 pg/mL High <=900 [facility] Comment on above: Result Comment: Hear t Failure Unlikely: < 300 pg/mL Heart Failure Likely < 50 Years: > 450 pg/mL 50-75 Years: > 900 pg/mL >75 Years: > 1800 pg/mL Performed By: #### L 503.7505, L501.4021, L100.0100, L500.2500, L500.3400 #### [facility] [address] [place], [address] Laboratory - Chemistry and C hemistry - challengeOrdered By: Sawyer Daigle on 03-25-2025 AST [Catalytic activity/Vol] 170 U/L High <32 [facility] Liver Profileon 03-25-2025 Albumin [Mass/Vol] 2.6 g/dL Low 3.4-4.8 [facility] Comment on above: Performed By: #### L 503.7505, L501.4021, L100.0100, L500.2500, L500.3400 #### [facility] [address] [place], [address] ALK PHOS 258 U/L High 35-104 [facility] Comment on above: Performed By: #### L 503.7505, L501.4021, L100.0100, L500.2500, L500.3400 #### [facility] [address] [place], [address] ALT [Catalytic activity/Vol] 81 U/L High <=34 [facility] Comment on above: Performed By: #### L 503.7505, L501.4021, L100.0100, L500.2500, L500.3400 #### [facility] [address] [place], [address] AST [Catalytic activity/Vol] 170 U/L High <=31 [facility] Comment on above: Performed By: #### L 503.7505, L501.4021, L100.0100, L500.2500, L500.3400 #### [facility] [address] [place], [address] Bilirubin [Mass/Vol] 1.29 mg/dL Normal 0.00-1.30 [facility] Comment on above: Performed By: #### L 503.7505, L501.4021, L100.0100, L500.2500, L500.3400 #### [facility] [address] [place], [address] Bilirubin.direct [Mass/Vol] 0.92 mg/dL High 0.00-0.30 [facility] Comment on above: Performed By: #### L 503.7505, L501.4021, L100.0100, L500.2500, L500.3400 #### [facility] [address] [place], [address] Globulin (S) [Mass/Vol] 3.3 g/dL Normal 2.2-4.2 [facility] Comment on above: Performed By: #### L 503.7505, L501.4021, L100.0100, L500.2500, L500.3400 #### [facility] [address] [place], [address] T PROT 5.9 g/dL Normal 5.9-8.4 [facility] Comment on above: Performed By: #### L 503.7505, L501.4021, L100.0100, L500.2500, L500.3400 #### [facility] [address] [place], [address] MCV (mean corpuscular volume ) determinationOrdered By: Sawyer Daigle on 03-25-2025 MCV (RBC) [Entitic vol] 82.2 fL 81-99 [facility] Mean corpuscular hemoglobin (MCH) determinationOrdered By: Sawyer Daigle on 03-25-2025 MCH (RBC) [Entitic mass] 29.1 pg 27.0-32.0 [facility] Mean corpuscular hemoglobin concentration (MCHC) determinationOrdered By: Sawyer Daigle on 03-25-2025 MCHC (RBC) [Mass/Vol] 35.4 g/dL 32-36 [facility] Mean platelet volume determi nationOrdered By: Sawyer Daigle on 03-25-2025 Platelet mean volume (Bld) [Entitic vol] 9.5 fL 6.2-12.0 [facility] Myelocyte %Ordered By: Sawyer Daigle on 03-25-2025 Myelocytes/100 WBC (Bld) 1 % High 0-0 [facility] Natriuretic peptide.B prohor tessie N-Terminal [Mass/volume] in Serum or PlasmaOrdered By: Sawyer Daigle on 03-25-2025 Natriuretic peptide.B prohormone N-Terminal [Mass/Vol] 49006 pg/mL High <900 [facility] Comment on above: Heart Failure Unlike ly: < 300 pg/mLHeart Failure Likely< 50 Years: > 450 pg/mL50-75 Years: > 900 pg/mL>75 Years: > 1800 pg/mL Platelet countOrdered By: Jayesh Daigle on 03-25-2025 Platelets (Bld) [#/Vol] 392 10*3/uL 150-450 [facility] Platelet estimateOrdered By: Sawyer Daigle on 03-25-2025 Platelets LM Ql (Bld) ADEQUATE ADEQ [facility] Potassium measurement (mass/ volume)Ordered By: Sawyer Daigle on 03-25-2025 Potassium (Unsp spec) [Mass/Vol] 3.7 mmol/L 3.3-5.1 [facility] Prothrombin Time w/INRon INR Coag (PPP) [Relative time] 1.1 {INR} Normal [facility] Comment on above: Performed By: #### L 300.3900 #### [facility] [address] [facility] [place], [place], [address] (515) PT Coag (PPP) [Time] 14.5 s Normal 11.7-14.9 [facility] Comment on above: Performed By: #### L 300.3900 #### [facility] [address] [place], [address] Prothrombin timeOrdered By: Sawyer Daigle on 03-25-2025 PT Coag (PPP) [Time] 14.5 s 11.7-14.9 [facility] RBC Auto (Bld) [#/Vol]Ordere d By: Sawyer Daigle on 03-25-2025 RBC (Bld) [#/Vol] 3.09 10*6/uL Low 4.2-5.4 [facility] Review by pathologistOrdered By: Sawyer Daigle on 03-25-2025 Pathologist review Jason (Unsp spec) [Interp] May foll [facility] Serum creatinine measurement (mass/volume)Ordered By: Sawyer Daigle on 03-25-2025 Creatinine [Mass/Vol] 0.61 mg/dL Low 0.70-1.20 [facility] Serum globulin measurementOr dered By: Sawyer Daigle on 03-25-2025 Globulin (S) [Mass/Vol] 3.3 g/dL 2.2-4.2 [facility] Serum glucose measurement (m ass/volume)Ordered By: Sawyer Daigle on 03-25-2025 Glucose [Mass/Vol] 129 mg/dL High 70-99 [facility] Serum or plasma alanine blair otransferase (ALT) measurementOrdered By: Sawyer Daigle on 03-25-2025 ALT [Catalytic activity/Vol] 81 U/L High <35 [facility] Serum or plasma albumin cindy urement (mass/volume)Ordered By: Sawyer Daigle on 03-25-2025 Albumin [Mass/Vol] 2.6 g/dL Low 3.4-4.8 [facility] Serum or plasma alkaline mickey sphatase measurementOrdered By: Sawyer Daigle on 03-25-2025 ALP [Catalytic activity/Vol] 258 U/L High 35-104 [facility] Serum or plasma calcium cindy urement (mass/volume)Ordered By: Sawyer Daigle on 03-25-2025 Calcium [Mass/Vol] 9.3 mg/dL 7.6-11.0 [facility] Serum or plasma urea nitroge n measurement (mass/volume)Ordered By: Sawyer Daigle on 03-25-2025 Urea nitrogen [Mass/Vol] 12 mg/dL 4-19 [facility] Sodium levelOrdered By: Sawyer Daigle on 03-25-2025 Sodium [Moles/Vol] 128 mmol/L Low 133-145 [facility] Total cell countOrdered By: Sawyer Daigle on 03-25-2025 Cells counted Molgen (Bld/Tiss) [#] 100 MANUAL DIFF [facility] Total proteinOrdered By: Per Daigle on 03-25-2025 Protein [Mass/Vol] 5.9 g/dL 5.9-8.4 [facility] Troponin T.cardiac [Mass/vol ume] in Serum or Plasma by High sensitivity methodOrdered By: Sawyer Daigle on 03-25-2025 Troponin T.cardiac High sensitivity method [Mass/Vol] 46 ng/L High <14 [facility] Troponin T.cardiac High sensitivity method [Mass/Vol] 47 ng/L High <14 [facility] Troponin T.cardiac High sensitivity method [Mass/Vol] 41 ng/L High <14 [facility] White blood cell (WBC) count Ordered By: Sawyer Daigle on 03-25-2025 WBC (Bld) [#/Vol] 19.0 10*3/uL High 4.4-11.0 [facility] CBC W Auto Differential pane l (Bld)on 01-14-2025 Basophils (Bld) [#/Vol] TANIA C [facility] Basophils/100 WBC (Bld) 0.4 % C [facility] Differential cell count method Nom (Bld) Auto [facility] Eosinophils (Bld) [#/Vol] 0.33 10*3/uL [facility] Eosinophils/100 WBC (Bld) 7.1 % [facility] Erythrocyte distribution width (RBC) [Ratio] 14.7 % 11.5 - 15.0 % [facility] Hematocrit (Bld) [Volume fraction] 39.1 % 36.0 - 46.0 % [facility] Hemoglobin (Bld) [Mass/Vol] 12.6 g/dL 11.5 - 15.5 g/dL [facility] Immature granulocytes (Bld) [#/Vol] [facility] Immature granulocytes/100 WBC (Bld) 0 % [facility] Lymphocytes (Bld) [#/Vol] 2.34 10*3/uL [facility] Lymphocytes/100 WBC (Bld) 50.3 % [facility] MCH (RBC) [Entitic mass] 29.4 pg 26. 0 - 34.0 pg [facility] MCHC (RBC) [Mass/Vol] 32.2 g/dL 30.5 - 36.0 g/dL [facility] MCV (RBC) [Entitic vol] 91.4 fL 80.0 - 100.0 fL [facility] Monocytes (Bld) [#/Vol] 0.51 10*3/uL [facility] Monocytes/100 WBC (Bld) 11 % C [facility] Neutrophils (Bld) [#/Vol] 1.45 10*3/uL [facility] Neutrophils/100 WBC (Bld) 31.2 % [facility] Nucleated RBC (Bld) [#/Vol] [facility] Nucleated RBC/100 WBC (Bld) [Ratio] 0 % /100 WBC [facility] Platelet mean volume (Bld) [Entitic vol] 10.6 fL 9.0 - 12.7 fL [facility] Platelets (Bld) [#/Vol] 194 10*3/uL [facility] RBC (Bld) [#/Vol] 4.28 10*6/uL 3.90 - 5.2 0 m/uL [facility] WBC (Bld) [#/Vol] 4.65 10*3/uL [facility] Basophils (Bld) [#/Vol] 10*3/uL Normal <0.11 [facility] Comment on above: Order Comment: Speci men Type: BLOOD SPECIMEN Ordering Facility: [facility] Address: [address] [place] [address] Performed By: #### 5 7021-8 #### [facility] CLIA [id number] [address] [place] [address] [place] Basophils/100 WBC (Bld) 0.4 % Normal [facility] Comment on above: Order Comment: Speci men Type: BLOOD SPECIMEN Ordering Facility: [facility] Address: [address] [place] [address] Performed By: #### 5 7021-8 #### [facility] CLIA [id number] [address] [place] [address] [place] Differential cell count method Nom (Bld) Auto Normal [facility] Comment on above: Order Comment: Speci men Type: BLOOD SPECIMEN Ordering Facility: [facility] Address: [address] [place] [address] Performed By: #### 5 7021-8 #### [facility] CLIA [id number] [address] [place] [address] [place] Eosinophils (Bld) [#/Vol] 0.33 10*3/uL Normal <0.46 [facility] Comment on above: Order Comment: Speci men Type: BLOOD SPECIMEN Ordering Facility: [facility] Address: [address] [place] [address] Performed By: #### 5 7021-8 #### [facility] CLIA [id number] [address] [place] [address] [place] Eosinophils/100 WBC (Bld) 7.1 % Normal [facility] Comment on above: Order Comment: Speci men Type: BLOOD SPECIMEN Ordering Facility: [facility] Address: [address] [place] [address] Performed By: #### 5 7021-8 #### [facility] CLIA [id number] [address] [place] [address] [place] Erythrocyte distribution width (RBC) [Ratio] 14.7 % Normal 11.5-15.0 [facility] Comment on above: Order Comment: Speci men Type: BLOOD SPECIMEN Ordering Facility: [facility] Address: [address] [place] [address] Performed By: #### 5 7021-8 #### [facility] CLIA [id number] [address] [place] [address] [place] Hematocrit (Bld) [Volume fraction] 39.1 % Normal 36.0-46.0 [facility] Comment on above: Order Comment: Speci men Type: BLOOD SPECIMEN Ordering Facility: [facility] Address: [address] [place] [address] Performed By: #### 5 7021-8 #### [facility] CLIA [id number] [address] [place] [address] [place] Hemoglobin (Bld) [Mass/Vol] 12.6 g/dL Normal 11.5-15.5 [facility] Comment on above: Order Comment: Speci men Type: BLOOD SPECIMEN Ordering Facility: [facility] Address: [address] [place] [address] Performed By: #### 5 7021-8 #### [facility] CLIA [id number] [address] [place] [address] [place] Immature granulocytes (Bld) [#/Vol] 10*3/uL Normal <0.10 [facility] Comment on above: Order Comment: Speci men Type: BLOOD SPECIMEN Ordering Facility: [facility] Address: [address] [place] [address] Performed By: #### 5 7021-8 #### [facility] CLIA [id number] [address] [place] [address] [place] Immature granulocytes/100 WBC (Bld) 0.0 % Normal [facility] Comment on above: Order Comment: Speci men Type: BLOOD SPECIMEN Ordering Facility: [facility] Address: [address] [place] [address] Performed By: #### 5 7021-8 #### [facility] CLIA [id number] [address] [place] [address] [place] Lymphocytes (Bld) [#/Vol] 2.34 10*3/uL Normal 1.00-4.00 [facility] Comment on above: Order Comment: Speci men Type: BLOOD SPECIMEN Ordering Facility: [facility] Address: [address] [place] [address] Performed By: #### 5 7021-8 #### [facility] CLIA [id number] [address] [place] [address] [place] Lymphocytes/100 WBC (Bld) 50.3 % Normal [facility] Comment on above: Order Comment: Speci men Type: BLOOD SPECIMEN Ordering Facility: [facility] Address: [address] [place] [address] Performed By: #### 5 7021-8 #### [facility] CLIA [id number] [address] [place] [address] [place] MCH (RBC) [Entitic mass] 29.4 pg Normal 26.0-34.0 [facility] Comment on above: Order Comment: Speci men Type: BLOOD SPECIMEN Ordering Facility: [facility] Address: [address] [place] [address] Performed By: #### 5 7021-8 #### [facility] CLIA [id number] [address] [place] [address] [place] MCHC (RBC) [Mass/Vol] 32.2 g/dL Normal 30.5-36.0 [facility] Comment on above: Order Comment: Speci men Type: BLOOD SPECIMEN Ordering Facility: [facility] Address: [address] [place] [address] Performed By: #### 5 7021-8 #### [facility] CLIA [id number] [address] [place] [address] [place] MCV (RBC) [Entitic vol] 91.4 fL Normal 80.0-100.0 C [facility] Comment on above: Order Comment: Speci men Type: BLOOD SPECIMEN Ordering Facility: [facility] Address: [address] [place] [address] Performed By: #### 5 7021-8 #### [facility] CLIA [id number] [address] [place] [address] [place] Monocytes (Bld) [#/Vol] 0.51 10*3/uL Normal <0.87 [facility] Comment on above: Order Comment: Speci men Type: BLOOD SPECIMEN Ordering Facility: [facility] Address: [address] [place] [address] Performed By: #### 5 7021-8 #### [facility] CLIA [id number] [address] [place] [address] [place] Monocytes/100 WBC (Bld) 11.0 % Normal [facility] Comment on above: Order Comment: Speci men Type: BLOOD SPECIMEN Ordering Facility: [facility] Address: [address] [place] [address] Performed By: #### 5 7021-8 #### [facility] CLIA [id number] [address] [place] [address] [place] Neutrophils (Bld) [#/Vol] 1.45 10*3/uL Normal 1.45-7.50 [facility] Comment on above: Order Comment: Speci men Type: BLOOD SPECIMEN Ordering Facility: [facility] Address: [address] [place] [address] Performed By: #### 5 7021-8 #### [facility] CLIA [id number] [address] [place] [address] [place] Neutrophils/100 WBC (Bld) 31.2 % Normal [facility] Comment on above: Order Comment: Speci men Type: BLOOD SPECIMEN Ordering Facility: [facility] Address: [address] [place] [address] Performed By: #### 5 7021-8 #### [facility] CLIA [id number] [address] [place] [address] [place] Nucleated RBC (Bld) [#/Vol] 10*3/uL Normal <0.01 [facility] Comment on above: Order Comment: Speci men Type: BLOOD SPECIMEN Ordering Facility: [facility] Address: [address] [place] [address] Performed By: #### 5 7021-8 #### [facility] CLIA [id number] [address] [place] [address] [place] Nucleated RBC/100 WBC (Bld) [Ratio] 0.0 /100 WBC Normal [facility] Comment on above: Order Comment: Speci men Type: BLOOD SPECIMEN Ordering Facility: [facility] Address: [address] [place] [address] Performed By: #### 5 7021-8 #### [facility] CLIA [id number] [address] [place] [address] [place] Platelet mean volume (Bld) [Entitic vol] 10.6 fL Normal 9.0-12.7 [facility] Comment on above: Order Comment: Speci men Type: BLOOD SPECIMEN Ordering Facility: [facility] Address: [address] [place] [address] Performed By: #### 5 7021-8 #### [facility] CLIA [id number] [address] [place], [place] [id number] [place] Platelets (Bld) [#/Vol] 194 10*3/uL Normal 150-400 [facility] [facility] Comment on above: Order Comment: Speci men Type: BLOOD SPECIMEN Ordering Facility: [facility] Address: [address] [place] [address] Performed By: #### 5 7021-8 #### [facility] CLIA [id number] [address] [place] [address] [place] RBC (Bld) [#/Vol] 4.28 10*6/uL Normal 3.90-5.20 [facility] Comment on above: Order Comment: Speci men Type: BLOOD SPECIMEN Ordering Facility: [facility] Address: [address] [place] [address] Performed By: #### 5 7021-8 #### [facility] CLIA [id number] [address] [place] [address] [place] WBC (Bld) [#/Vol] 4.65 10*3/uL Normal 3.70-11.00 [facility] Comment on above: Order Comment: Speci men Type: BLOOD SPECIMEN Ordering Facility: [facility] Address: [address] [place] [address] Performed By: #### 5 7021-8 #### [facility] CLIA [id number] [address] [place] [address] [place] CNOVon 01-14-2025 CNOV Office Visit (NGOCPWS) RAFAT DELANEY ([id number]) 1960 F Date Time Provider Department 01/14/25 7:00 AM ISABELLE FITZGERALDWS During your visit today, we recorded the following information about you: Pulse Respiration Blood pressure Weight 61/minute 16/minute 140/90 70.9 kg Isabelle Fitzgerald APRN.CNP 01/14/2025 3:56 PM Signed This is a [...] every 6 hours as needed. No current facility-administere d medications for this visit. FAMILY HISTORY Problem [...] or palpitations GI: No nausea, vomiting, or diarrhea/constipatio n. No hematochezia/melena. No heartburn or reflux symptoms. [...] ICD10: H53.8 (more content not included)... Normal [facility] metabolic 2000 panelon 01-14-2025 Albumin [Mass/Vol] 4.3 g/dL 3.9 - 4.9 g/dL [facility] ALP [Catalytic activity/Vol] 57 U/L 34 - 123 U/L [facility] ALT [Catalytic activity/Vol] 16 U/L 7 - 38 U/L [facility] Anion gap [Moles/Vol] 9 mmol/L 8 - 15 mmol/L [facility] AST [Catalytic activity/Vol] 25 U/L 13 - 35 U/L [facility] Bilirubin [Mass/Vol] 0.4 mg/dL 0.2 - 1 .3 mg/dL [facility] Calcium [Mass/Vol] 10.1 mg/dL 8.5 - 10. 2 mg/dL [facility] Chloride [Moles/Vol] 105 mmol/L 98 - 10 7 mmol/L [facility] CO2 [Moles/Vol] 26 mmol/L 22 - 30 mmol/L [facility] Creatinine [Mass/Vol] 0.85 mg/dL 0.58 - 0.96 mg/dL [facility] GFR/1.73 sq M.predicted among non-blacks MDRD (S/P/Bld) [Vol rate/Area] 77 mL/min/{1.73_m2} - PINF [facility] Comment on above: Estimated Glomerular Filtration Rate [...] [Mass/Vol] 89 mg/dL 74 - 99 mg/dL [facility] Comment on above: The [place] Diabete s Association (ADA) provides guidance for [...] Standards of Medical Care in Diabetes 2016, [place] Diabetes Association. Diabetes Care. 2016.39(Suppl 1). Interpretation and review of laboratory results Normal [facility] Potassium [Moles/Vol] 4.2 mmol/L 3.7 - 5.1 mmol/L [facility] Protein [Mass/Vol] 6.9 g/dL 6.3 - 8.0 g/dL [facility] Sodium [Moles/Vol] 140 mmol/L 136 - 144 mmol/L [facility] Urea nitrogen [Mass/Vol] 15 mg/dL 7 - 21 mg/d L [facility] Albumin [Mass/Vol] 4.3 g/dL Normal 3.9-4.9 [facility] Comment on above: Order Comment: Speci men Type: BLOOD SPECIMEN Ordering Facility: [facility] Address: [address] [place] [address] Performed By: #### 2 4331-1, 60795-3 #### [facility] CLIA [id number] [address] [place] [address] [place] ALP [Catalytic activity/Vol] 57 U/L Normal 34-123 [facility] Comment on above: Order Comment: Speci men Type: BLOOD SPECIMEN Ordering Facility: [facility] Address: [address] [place] [address] Performed By: #### 2 4331-, 32731-8 #### [facility] CLIA [id number] [address] [place] [address] [place] ALT [Catalytic activity/Vol] 16 U/L Normal 7-38 [facility] Comment on above: Order Comment: Speci men Type: BLOOD SPECIMEN Ordering Facility: [facility] Address: [address] [place] [address] Performed By: #### 2 4331-1, 99463-5 #### [facility] CLIA [id number] [address] [place] [address] [place] Anion gap [Moles/Vol] 9 mmol/L Normal 8-15 [facility] Comment on above: Order Comment: Speci men Type: BLOOD SPECIMEN Ordering Facility: [facility] Address: [address] [place] [address] Performed By: #### 2 4331-1, 00127-2 #### [facility] CLIA [id number] [address] [place] [address] [place] AST [Catalytic activity/Vol] 25 U/L Normal 13-35 [facility] Comment on above: Order Comment: Speci men Type: BLOOD SPECIMEN Ordering Facility: [facility] Address: [address] [place] [address] Performed By: #### 2 4331-, 34375-2 #### [facility] CLIA [id number] [address] [place] [address] [place] Bilirubin [Mass/Vol] 0.4 mg/dL Normal 0.2-1.3 [facility] Comment on above: Order Comment: Speci men Type: BLOOD SPECIMEN Ordering Facility: [facility] Address: [address] [place] [address] Performed By: #### 2 4331-1, 74501-6 #### [facility] CLIA [id number] [address] [place] [address] [place] Calcium [Mass/Vol] 10.1 mg/dL Normal 8.5-10.2 [facility] Comment on above: Order Comment: Speci men Type: BLOOD SPECIMEN Ordering Facility: [facility] Address: [address] [place], [place] [address] Performed By: #### 2 4331-1, 06558-4 #### [facility] CLIA [id number] [address] [place], [place] [address] [place] Chloride [Moles/Vol] 105 mmol/L Normal 98-107 [facility] Comment on above: Order Comment: Speci men Type: BLOOD SPECIMEN Ordering Facility: [facility] Address: [address] [place] [address] Performed By: #### 2 4331-1, 34278-0 #### [facility] CLIA [id number] [address] [place] [address] [place] CO2 [Moles/Vol] 26 mmol/L Normal 22-30 [facility] Comment on above: Order Comment: Speci men Type: BLOOD SPECIMEN Ordering Facility: [facility] Address: [address] [place] [address] Performed By: #### 2 4331-1, 61037-2 #### [facility] CLIA [id number] [address] [place] [address] [place] Creatinine [Mass/Vol] 0.85 mg/dL Normal 0.58-0.96 [facility] Comment on above: Order Comment: Speci men Type: BLOOD SPECIMEN Ordering Facility: [facility] Address: [address] [place] [address] Performed By: #### 2 4331-1, 69521-7 #### [facility] CLIA [id number] [address] [place] [address] [place] Creatinine and Glomerular filtration rate.predicted panel (S/P/Bld) 77 mL/min/1.73m??? Normal >=60 [facility] Comment on above: Order Comment: Speci men Type: BLOOD SPECIMEN Ordering Facility: [facility] Address: [address] [place] [address] Result Comment: Wendi mated Glomerular Filtration Rate [...] reflect actual GFR. Performed By: #### 2 4331-, #### [facility] CLIA [id number] [address] [place] [address] [place] Glucose [Mass/Vol] 89 mg/dL Normal 74-99 [facility] Comment on above: Order Comment: Mariaelena mercado Type: BLOOD SPECIMEN Ordering Facility: [facility] Address: [address] [place] [address] Result Comment: The [place] Diabetes Association (ADA) provides guidance for cutoff [...] Standards of Medical Care in Diabetes 2016, [place] Diabetes Association. Diabetes Care. 2016.39(Suppl 1). Performed By: #### 2 4331-, #### [facility] CLIA [id number] [address] [place] [address] [place] Potassium [Moles/Vol] 4.2 mmol/L Normal 3.7-5.1 [facility] Comment on above: Order Comment: Mariaelena mercado Type: BLOOD SPECIMEN Ordering Facility: [facility] Address: [address] [place] [address] Performed By: #### 2 433-, #### [facility] CLIA [id number] [address] [place] [address] [place] Protein [Mass/Vol] 6.9 g/dL Normal 6.3-8.0 [facility] Comment on above: Order Comment: Speci men Type: BLOOD SPECIMEN Ordering Facility: [facility] Address: [address] [place] [address] Performed By: #### 2 4331-1, 47883-4 #### [facility] CLIA [id number] [address] [place] [address] [place] Sodium [Moles/Vol] 140 mmol/L Normal 136-144 [facility] Comment on above: Order Comment: Speci men Type: BLOOD SPECIMEN Ordering Facility: [facility] Address: [address] [place] [address] Performed By: #### 2 4331-1, 49729-0 #### [facility] CLIA [id number] [address] [place] [address] [place] Urea nitrogen [Mass/Vol] 15 mg/dL Normal 7-21 [facility] Comment on above: Order Comment: Speci men Type: BLOOD SPECIMEN Ordering Facility: [facility] Address: [address] [place] [address] Performed By: #### 2 4331-1, 44959-9 #### [facility] CLIA [id number] [address] [place] [address] [place] Lipid 1996 panelon 5 Cholesterol [Mass/Vol] 228 mg/dL High NINF - 200 mg/dL [facility] Comment on above: <200 mg/dL, Desirabl e 200-239 mg/dL, Borderline high >239 mg/dL, High Cholesterol in HDL [Mass/Vol] 83 mg/dL 39 - PINF mg/dL [facility] Comment on above: 40-59 mg/dL, Accepta ble >59 mg/dL, High: Negative risk factor for coronary heart disease <40 mg/dL, Low: Positive risk factor for coronary heart disease Cholesterol in LDL [Mass/Vol] 132 mg/dL High NINF - 100 mg/dL [facility] Comment on above: <100 mg/dL, Optimal 100-129 mg/dL, Near optimal/above optimal 130-159 mg/dL, Borderline high 160-189 mg/dL, High >189 mg/dL, Very high Secondary prevention optimal LDL Cholesterol levels are recommended to be < 70 mg/dL Cholesterol in LDL/Cholesterol in HDL [Mass ratio] 1.59 {ratio} NINF - 2.54 [facility] Comment on above: Reference: 1. National Cholesterol Education Program ATP III Guideline At-A-Glance Quick Desk Reference: National Heart, Lung, and Blood [place]. National Institutes of Health. 2001: NIH Publication No. 01-3305. 2. An International Atherosclerosis Society position paper: global recommendations for the management of dyslipidemia: executive summary, Atherosclerosis. 2014: 232(2):410-413. Cholesterol in VLDL [Mass/Vol] 13 mg/dL NINF - 30 mg/dL [facility] Cholesterol non HDL [Mass/Vol] 145 mg/dL High NINF - 130 mg/dL [facility] Comment on above: <130 mg/dL, Optimal 130-159 mg/dL, Near optimal/above optimal 160-189 mg/dL, Borderline high 190-219 mg/dL, High >219 mg/dL, Very high Secondary prevention optimal non HDL Cholesterol levels are recommended to be <100 mg/dL Cholesterol.total/Choles terol in HDL [Mass ratio] 2.75 {ratio} NINF - 5.10 [facility] Fasting Time 13 hrs [facility] Interpretation and review of laboratory results Abnormal [facility] Triglyceride [Mass/Vol] 63 mg/dL NINF - 150 mg/dL [facility] Comment on above: <150 mg/dL, Normal 150-199 mg/dL, Borderline high 200-499 mg/dL, High >499 mg/dL, Very high Cholesterol [Mass/Vol] 228 mg/dL High <200 [facility] Comment on above: Order Comment: Speci men Type: BLOOD SPECIMEN Ordering Facility: [facility] Address: [address] [place] [address] Result Comment: <200 mg/dL, Desirable 200-239 mg/dL, Borderline high >239 mg/dL, High Performed By: #### 2 4331-1, 14578-3 #### [facility] CLIA [id number] [address] [place] [address] [place] [address] [place] Cholesterol in HDL [Mass/Vol] 83 mg/dL Normal >39 [facility] Comment on above: Order Comment: Mariaelena mercado Type: BLOOD SPECIMEN Ordering Facility: [facility] Address: [address] [place] [address] Result Comment: 40-5 9 mg/dL, Acceptable >59 mg/dL, High: Negative risk factor for coronary heart disease <40 mg/dL, Low: Positive risk factor for coronary heart disease Performed By: #### 2 4331-1, 53790-7 #### [facility] CLIA [id number] [address] [place] [address] OF [facility] Cholesterol in LDL [Mass/Vol] 132 mg/dL High <100 [facility] Comment on above: Order Comment: Mariaelena mercado Type: BLOOD SPECIMEN Ordering Facility: [facility] Address: [address] [place] [address] Result Comment: <100 mg/dL, Optimal 100-129 mg/dL, Near optimal/above optimal 130-159 mg/dL, Borderline high 160-189 mg/dL, High >189 mg/dL, Very high Secondary prevention optimal LDL Cholesterol levels are recommended to be < 70 mg/dL Performed By: #### 2 4331-1, 26701-9 #### [facility] CLIA [id number] [address] [place] [address] OF [facility] Cholesterol in LDL/Cholesterol in HDL [Mass ratio] 1.59 {ratio} Normal <2.54 [facility] Comment on above: Order Comment: Mariaelena jess Type: BLOOD SPECIMEN Ordering Facility: [facility] Address: [address] [place] [address] Result Comment: Refe rence: 1. National Cholesterol Education Program ATP III Guideline At-A-Glance Quick Desk Reference: National Heart, Lung, and Blood [place]. National Institutes of Health. 2001: NIH Publication No. 01-3305. 2. An International Atherosclerosis Society position paper: global recommendations for the management of dyslipidemia: executive summary, Atherosclerosis. 2014: 232(2):410-413. Performed By: #### 2 4331-1, 57939-9 #### [facility] CLIA [id number] [address] [place], [place] [address] [place] Cholesterol in VLDL [Mass/Vol] 13 mg/dL Normal <30 [facility] Comment on above: Order Comment: Speci men Type: BLOOD SPECIMEN Ordering Facility: [facility] Address: [address] [place] [address] Performed By: #### 2 4331-1, 21214-0 #### [facility] CLIA [id number] [address] [place], [place] [address] [place] Cholesterol non HDL [Mass/Vol] 145 mg/dL High <130 [facility] Comment on above: Order Comment: Speci men Type: BLOOD SPECIMEN Ordering Facility: [facility] Address: [address] [place] [address] Result Comment: <130 mg/dL, Optimal 130-159 mg/dL, Near optimal/above optimal 160-189 mg/dL, Borderline high 190-219 mg/dL, High >219 mg/dL, Very high Secondary prevention optimal non HDL Cholesterol levels are recommended to be <100 mg/dL Performed By: #### 2 4331-1, #### [facility] CLIA [id number] [address] [place] [address] [place] Cholesterol.total/Choles terol in HDL [Mass ratio] 2.75 {ratio} Normal <5.10 [facility] Comment on above: Order Comment: Speci men Type: BLOOD SPECIMEN Ordering Facility: [facility] Address: [address] [place] [address] Performed By: #### 2 4331-1, #### [facility] CLIA [id number] [address] [place], [place] [address] [place] FASTING TIME 13 hrs Normal [facility] Comment on above: Order Comment: Speci men Type: BLOOD SPECIMEN Ordering Facility: [facility] Address: [address] [place] [address] Performed By: #### 2 4331-1, 24745-3 #### [facility] CLIA [id number] [address] [place] [address] [place] Triglyceride [Mass/Vol] 63 mg/dL Normal <150 [facility] Comment on above: Order Comment: Speci men Type: BLOOD SPECIMEN Ordering Facility: [facility] Address: [address] [place] [address] Result Comment: <150 mg/dL, Normal 150-199 mg/dL, Borderline high 200-499 mg/dL, High >499 mg/dL, Very high Performed By: #### 2 4331-1, 07633-3 #### [facility] CLIA [id number] [address] [place] [address] [place] No Panel Informationon 01-14 [facility] CNOVon 10-21-2024 CNOV Office Visit (FAMWS) RHETTRAFAT L ([id number]) 1960 F Date Time Provider Department 10/21/24 8:40 AM [facility] During your visit today, we recorded the following information about you: Pulse Respiration Blood pressure Weight 75/minute 16/minute 130/80 72.8 kg Height 1.757 m Isabelle Fitzgerald APRN.FINANCING ANALYST 10/21/2024 9:47 AM Signed This is a 64 year old female who presents today with: Patient presents with: Wellness: To Establish care HISTORY OF PRESENT ILLNESS: Rafat Delaney is a 64 year old female. Patient presents with: Wellness: To Establish care Here into the office to establish care, okay per Dr. Merchant Wellness: Diet: Eating a well balanced diet. [...] every 6 hours as needed. No current facility-administere d medications for this visit. FAMILY HISTORY Problem [...] or palpitations GI: No nausea, vomiting, or diarrhea/constipatio n. No hematochezia/melena. No heartburn or reflux symptoms. [...] Wt 72.8 kg (160 lb 7.9 oz) [facility] 09/21/2013 SpO2 99% BMI 23.58 kg/m? PHYSICAL [...] V70.0, ICD (more content not included)... Normal [facility] RAFAT DELANEY ([id number]) 1960 F Date Time Provider Department 10/13/24 ISABELLE FITZGERALD During your visit today, we recorded the following information about you: Isabelle Martinez 10/13/2024 3:03 PM Signed Patient is requesting to schedule wellness exam to continue care under Dr. Merchant's services. Last DOS was 12/01/21. PCP was [...] acute visit. PCP was changed to Dr. Merchant by scheduling when appt was scheduled (inappropriate PCP change). Pt never established care. This was removed in 05/2022 due to an established care appt never completed. Per guidelines pt was past the 3 year sherry when originally scheduled in [address] Briceño. MARIUSZ Rea Mark D, MD 10/15/2024 11:37 AM Signed She is a assisted patient here, so OK to see me. [...] Anaphylaxis Date Reviewed: 07/29/2024 Reviewed by: Bren Hebert APRN.KRYSTAL - Fully Assessed Reason for Visit: Appointment [...] Status:Closed by ISABELLE MARTINEZ on 12/31/24 Normal [facility] JULIETA SCREENING W Ray 08-18 JULIETA SCREENING W LYNETTE * * *Final Report* * * DATE OF EXAM: Aug 18 2024 9:09AM ROLAN 0582 - JULIETA SCREENING W LYNETTE / PROCEDURE REASON: multiple diagnoses * * * * Physician Interpretation * * * * RESULT: [place] [address] [place] [address] HISTORY: Patient is 63 years old and [...] has dense breast tissue. Interpreting Radiologist: Lul Brown M.D. Electronically signed on: 08/19/2024 Medical And Health Services Manager: CHRISTIANO Transcribe Date/Time: Aug 18 2024 8:20A Dictated by: LUL BROWN MD This examination was interpreted and the report reviewed and electronically signed by: LUL BROWN MD on Aug 19 2024 7:21PM EST [id number] Normal [facility] CNOVon 07-29-2024 CNOV Office Visit (OBGYWM) RAFAT DELANEY ([id number]) 1960 F Date Time Provider Department 07/29/24 1:30 PM BREN HEBERT [facility] During your visit today, we recorded the following information about you: Blood pressure Weight Height 128/76 70.9 kg 1.757 m Bren Hebert APRN.CNP 07/29/2024 4:54 PM Signed 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 As applicable, any other physician, advance practice provider, medical student, or other health professional student that will be observing or involved in the sensitive examination for educational or training purposes was discussed with the Patient or Authorized Brokerage Clerk. The Patient or Authorized Brokerage Clerk has agreed to proceed with the sensitive [...] external genitalia normal, normal Bartholin's glands, urethra, [place]'s glands, no vulvar lesions, no cervical lesions, [...] - Discusse (more content not included)... Normal [facility] Op Noteon 11-17-2019 Op Note [facility] [address] [facility] [address] Dept: [phone] Loc: [phone] Operative Report Patient Name: Rafat Delaney Date of : 1960 Date of Surgery: 11/17/19 Location: [facility] Preoperative Diagnosis: 1. Left distal radius [...] patient's ASA was verified by the nurse technology lead and the anesthesia staff. Fire risk was [...] POST OPERATIVE PLAN To be fitted with [place] splint at first PO appointment. To then work with OT on elbow and wrist unrestricted motion (flexion/extension only). No forearm rotation. No radial/ulnar deviation. At 6 weeks may cut splint to volar resting and begin unrestricted forearm rotation as well as radial/ulnar deviation. May begin gentle staff development nurse strengthening. May discontinue volar splint when comfortable. At 12 weeks may begin forearm strengthening with pronation/supination Outpatient Follow-up XRays: Yes, Left Wrist 3V Ritchie Malik MD 11/17/2019 , 4:42 PM Normal [facility] Vital Signs Date Time Vital Sign Value Performing Clinician Facility 03-28-2025 14:01-0400 Body temperature 100.6 [degF] Dr. Casie Hair DO Work Phone: [facility] 03-28-2025 14:01-0400 Diastolic blood pressure 56 mm[Hg] Dr. Casie Hair DO Work Phone: [facility] 03-28-2025 14:01-0400 Heart rate 81 /min Dr. Casie Hair DO Work Phone: [facility] 03-28-2025 14:01-0400 Respiratory rate 18 /min Dr. Casie Hair DO Work Phone: [facility] 03-28-2025 14:01-0400 SaO2% (BldA) [Mass fraction] 92 % Dr. Casie Hair DO Work Phone: [facility] 03-28-2025 14:01-0400 Systolic blood pressure 97 mm[Hg] Dr. Casie Hair DO Work Phone: [facility] 03-28-2025 09:56-0400 Inhaled oxygen flow rate 2 L/min Dr. Casie Hair DO Work Phone: [facility] 03-28-2025 05:19-0400 Body mass index (BMI) [Ratio] 24.2 kg/m2 Dr. Casie Hair DO Work Phone: [facility] 03-28-2025 05:19-0400 Body weight 74.[address] Casie Hair DO Work Phone: [facility] 03-26-2025 10:22-0400 Body height 175.[address] Casie Hair DO Work Phone: [facility] 03-25-2025 14:00-0400 Body temperature 100 [degF] Dr. Casie Hair DO Work Phone: [facility] 03-25-2025 14:00-0400 Diastolic blood pressure 71 mm[Hg] Dr. Casie Hair DO Work Phone: [facility] 03-25-2025 14:00-0400 Heart rate 91 /min Dr. Casie Hair DO Work Phone: [facility] 03-25-2025 14:00-0400 Respiratory rate 20 /min Dr. Casie Hair DO Work Phone: [facility] 03-25-2025 14:00-0400 SaO2% (BldA) [Mass fraction] 96 % Dr. Casie Hair DO Work Phone: [facility] 03-25-2025 14:00-0400 Systolic blood pressure 124 mm[Hg] Dr. Casie Hair DO Work Phone: [facility] 03-25-2025 10:30-0400 Body mass index (BMI) [Ratio] 25.5 kg/m2 Dr. Casie Hair DO Work Phone: [facility] 03-25-2025 10:30-0400 Body weight 78.[address] Casie Hair DO Work Phone: [facility] 03-25-2025 09:48-0400 Body height 175.[address] Casie Hair DO Work Phone: [facility] 01-14-2025 06:57-0400 Body mass index (BMI) [Ratio] 22.97 kg/m2 Isabelle Fitzgerald HAT FINISHER.FINANCING ANALYST Work Phone: [facility] 01-14-2025 06:57-0400 Body weight 70.9 kg Isabelle Fitzgerald HAT FINISHER.FINANCING ANALYST Work Phone: [facility] 01-14-2025 06:57-0400 Diastolic blood pressure 90 mm[Hg] Isabelle Fitzgerald HAT FINISHER.FINANCING ANALYST Work Phone: [facility] 01-14-2025 06:57-0400 Heart rate 61 /min Isabelle Fitzgerald HAT FINISHER.FINANCING ANALYST Work Phone: [facility] 01-14-2025 06:57-0400 Respiratory rate 16 /min Isabelle Fitzgerald HAT FINISHER.FINANCING ANALYST Work Phone: [facility] 01-14-2025 06:57-0400 SaO2% (BldA) [Mass fraction] 100 % Isabelle Fitzgerald HAT FINISHER.FINANCING ANALYST Work Phone: [facility] 01-14-2025 06:57-0400 Systolic blood pressure 140 mm[Hg] Isabelle Fitzgerald HAT FINISHER.FINANCING ANALYST Work Phone: [facility] 10-21-2024 08:26-0500 Body height 175.7 cm Isabelle Fitzgerald HAT FINISHER.FINANCING ANALYST Work Phone: [facility] 10-21-2024 08:26-0500 Body mass index (BMI) [Ratio] 23.58 kg/m2 Isabelle Fitzgerald HAT FINISHER.FINANCING ANALYST Work Phone: [facility] 01-08-2025 08:26-0500 Body weight 72.8 kg Isabelle Fitzgerald HAT FINISHER.FINANCING ANALYST Work Phone: [facility] 10-21-2024 08:26-0500 Diastolic blood pressure 80 mm[Hg] Isabelle Fitzgerald HAT FINISHER.FINANCING ANALYST Work Phone: [facility] 10-21-2024 08:26-0500 Heart rate 75 /min Isabelle Mendietaf HAT FINISHER.FINANCING ANALYST Work Phone: [facility] 10-21-2024 08:26-0500 Respiratory rate 16 /min Isabelle Fitzgerald HAT FINISHER.FINANCING ANALYST Work Phone: [facility] 10-21-2024 08:26-0500 SaO2% (BldA) [Mass fraction] 99 % Isabelle Fitzgerald HAT FINISHER.FINANCING ANALYST Work Phone: [facility] 10-21-2024 08:26-0500 Systolic blood pressure 130 mm[Hg] Isabelle Fitzgerald HAT FINISHER.FINANCING ANALYST Work Phone: [facility] 07-29-2024 13:36-0400 Body height 175.7 cm Bren Hebert APRN.FINANCING ANALYST Work Phone: [facility] 07-29-2024 13:36-0400 Body mass index (BMI) [Ratio] 22.98 kg/m2 Bren Hebert APRN.FINANCING ANALYST Work Phone: [facility] 07-29-2024 13:36-0400 Body weight 70.94 kg Bren Hebert APRN.FINANCING ANALYST Work Phone: [facility] 07-29-2024 13:36-0400 Diastolic blood pressure 76 mm[Hg] Bren Hebert APRN.FINANCING ANALYST Work Phone: [facility] 07-29-2024 13:36-0400 Systolic blood pressure 128 mm[Hg] Bren Hebert APRN.FINANCING ANALYST Work Phone: [facility] 02-28-2022 11:14-0400 Body weight 67.13 kg Bren Hebert APRN.FINANCING ANALYST Work Phone: [facility] 02-28-2022 11:14-0400 Diastolic blood pressure 80 mm[Hg] Bren Hebert APRN.FINANCING ANALYST Work Phone: [facility] 02-28-2022 11:14-0400 Systolic blood pressure 110 mm[Hg] Bren Hebert APRN.FINANCING ANALYST Work Phone: [facility] 02-22-2022 10:26-0400 Body weight 67.13 kg Bren Hebert APRN.FINANCING ANALYST Work Phone: [facility] 02-22-2022 10:26-0400 Diastolic blood pressure 74 mm[Hg] Bren Hebert APRN.FINANCING ANALYST Work Phone: [facility] 02-22-2022 10:26-0400 Systolic blood pressure 116 mm[Hg] Bren Hebert APRN.FINANCING ANALYST Work Phone: [facility] 11-17-2019 17:07-0500 Body Temperature 97.59 [degF] Ritchie DIEHLA Work Phone: 11-17-2019 17:07-0500 BP Diastolic 80 mm[Hg] Ritchie DIEHLA Work Phone: 11-17-2019 17:07-0500 BP Systolic 118 mm[Hg] Ritchie DIEHLA Work Phone: 11-17-2019 17:07-0500 Pulse (Heart Rate) 87 /min Ritchie DIEHLA Work Phone: 11-17-2019 17:07-0500 Pulse Oximetry 96 % Ritchie DIEHLA Work Phone: 11-17-2019 17:07-0500 Respiratory Rate 18 /min Ritchie DIEHLA Work Phone: 11-17-2019 13:53-0500 Height 175.3 cm Ritchie DIEHLA Work Phone: 11-17-2019 13:45-0500 BMI (Body Mass Index) 23.63 kg/m2 Ritchie DIEHLA Work Phone: 11-17-2019 13:45-0500 Body weight 72.58 kg Ritchie BURNETT Work Phone: Encounters Encounter Date Encounter Type Care Provider Facility Start: 03-28-2025 Non-patient / Non-visit Dr. Rachelle Fine MD [facility] Work Phone: Start: 03-28-2025 Non-patient / Non-visit Dr. Shane Chang MD [facility] Start: 03-27-2025 Non-patient / Non-visit Dr. Rachelle Fine MD [facility] Work Phone: Start: 03-27-2025 Non-patient / Non-visit Dr. Shane Chang MD [facility] Start: 03-26-2025 Non-patient / Non-visit [facility] Work Phone: Start: 03-26-2025 ambulatory Shane Chang Facility:[facility] Start: 03-26-2025 Non-patient / Non-visit Dr. Shane Chang MD [facility] Start: 03-25-2025 Non-patient / Non-visit Dr. Michael Vera MD [facility] Start: 03-25-2025 ambulatory Casie Hair Facilit y:[facility] Start: 03-25-2025 Non-patient / Non-visit [facility] Work Phone: Start: 03-25-2025 ambulatory Angel Moss Facility:[facility] Start: 03-25-2025 End: 03-28-2025 Evaluation and management of inpatient Dr. Angel Moss DO -Progressive Care Unit Work Phone: Start: 01-14-2025 Encounter for other preprocedural examination SHERRY MERCHANT [facility] Start: 01-14-2025 End: 01-14-2025 Patient encounter procedure Isabelle Fitzgerald APRN.FINANCING ANALYST Work Phone: [facility] Comment on above: Preoperative clearan ce (Primary Dx); Blurry vision, left eye; Hyperlipidemia, mixed; Liver cyst; Urethral caruncle Start: 01-14-2025 End: 01-14-2025 Preoperative state Isabelle Fitzgerald APRN.CNP Work Phone: [facility] Work Phone: Start: 01-14-2025 End: 01-14-2025 ambulatory ISABELLE FITZGERALD Facility:[facility] Start: 12-30-2024 End: 12-30-2024 ambulatory [facility] Facility:[facility] Start: 12-16-2024 End: 12-17-2024 Admission to same day surgery center Isabelle Fitzgerald APRN.CNP Work Phone: [facility] Comment on above: Upcoming eye surgery Start: 12-16-2024 End: 12-17-2024 ambulatory Isabelle Fitzgerald APRN.CNP Work Phone: [facility] Start: 10-21-2024 End: 10-21-2024 Patient encounter procedure Isabelle Fitzgerald APRN.CNP Work Phone: [facility] Comment on above: Wellness examination (Primary Dx); Liver cyst; Hyperlipidemia, mixed; Urethral caruncle; Bilateral impacted cerumen; Screening for depression; Encounter for screening examination for other mental health and behavioral disorders Start: 10-21-2024 End: 10-21-2024 Patient encounter status Isabelle Fitzgerald APRN.CNP Work Phone: [facility] Work Phone: Start: 10-21-2024 End: 10-21-2024 ambulatory [facility] Facility:[facility] Start: 10-21-2024 Encounter for genera l adult medical examination without abnormal findings ISABELLE FITZGERALD [facility] Start: 10-13-2024 End: 12-31-2024 Telephone encounter Isabelle Fitzgerald APRN.CNP Work Phone: [facility] Comment on above: Appointment Start: 08-18-2024 End: 08-18-2024 ambulatory BREN HEBERT Facility:[facility] Start: 08-18-2024 Encounter for gynecological examination (general) (routine) with [facility] Start: 08-18-2024 End: 08-18-2024 Patient encounter status Screen [facility] Start: 08-18-2024 End: 08-18-2024 Subsequent hospital visit by physician Screen Mammo [facility] Comment on above: Encounter for gyneco logical examination with abnormal finding [Z01.411] Start: 07-29-2024 End: 07-29-2024 ambulatory BREN HEBERT Facility:[facility] Start: 07-29-2024 End: 07-29-2024 Patient encounter procedure Bren Hebert APRN.CNP Work Phone: OB/Gynecology Comment on above: Encounter for gyneco logical examination with abnormal finding (Primary Dx); Urethral caruncle; Urge incontinence; Cystocele, midline; Encounter for screening mammogram for breast cancer Start: 07-29-2024 End: 07-29-2024 Patient encounter status Bren Hebert APRN.CNP Work Phone: [facility] Work Phone: Start: 02-08-2024 Refill Bren EWING RN.FINANCING ANALYST Work Phone: [facility] Comment on above: Refill Request Start: 04-11-2022 ambulatory Sherry ken MD Work Phone: Internal Medicine [facility] Start: 03-06-2022 Telephone encounter Bren kidd APRN.CNP Work Phone: OB/Gynecology Comment on above: Results; New Medicat ion Start: 02-28-2022 End: 02-28-2022 Patient encounter procedure Bren Hebert APRN.CNP Work Phone: OB/Gynecology Comment on above: Thickened endometriu m (Primary Dx) Start: 02-23-2022 Telephone encounter Bren kidd APRN.CNP Work Phone: OB/Gynecology Comment on above: Results; Orders; New Medication Start: 02-22-2022 End: 02-22-2022 Patient encounter procedure Bren Hebert APRN.CNP Work Phone: OB/Gynecology Comment on above: PMB (postmenopausal bleeding) (Primary Dx); Encounter for Papanicolaou smear for cervical cancer screening; Special screening examination for human papillomavirus (HPV); Urethral caruncle; Cystocele, midline Start: 12-02-2019 End: 12-02-2019 Subsequent hospital visit by physician Rashida Colindres Work Phone: [facility] Start: 11-17-2019 End: 11-17-2019 Subsequent hospital visit by physician Ritchie Malik Work Phone: [facility] General Surgery Comment on above: Arrived Procedures Date Procedure Procedure Detail Performing Clinician Start: 03-28-2025 Urnls dip stick/tabl et reagent auto microscopy Dr. Casie Hair DO Work Phone: Start: 03-28-2025 Total iron binding c apacity measurement Dr. Casie Hair DO Work Phone: Start: 03-28-[address] Casie Hair DO Work Phone: Start: 03-27-[address] Casie Hair DO Work Phone: Start: 03-27-2025 SARS-CoV-2, Influenz a & RSV (PCR) Dr. Casie Hair DO Work Phone: Start: 03-26-2025 CT angiography of ch est with contrast Dr. Casie Hair DO Work Phone: Start: 03-26-2025 D-dimer assay, quantitative Dr. Casie Hair DO Work Phone: Comment on above: D-Dimer ELEVATED (>0 .49): Additional studies and clinicalassessments are indicated to conclude diagnosis of:Deep Vein Thrombosis (DVT) or Pulmonary Embolism (PE)CRITICAL VALUE CALLED TO ESTHER PHILLIPS03/26/25 Darius Padron.RESULTS READ BACK BY SAME. Start: 03-26-2025 Hepatitis A virus an tibody, IgM type Dr. Casie Hair DO Work Phone: Comment on above: A negative anti-HAV IgM result suggests no recent orcurrent HAV infection. Start: 03-26-2025 Hepatitis B core ant ibody measurement, IgM type Dr. Casie Hair DO Work Phone: Start: 03-26-2025 Hepatitis C antibody measurement Dr. Casie Hair DO Work Phone: Start: 03-25-2025 X-ray of chest, PA a nd lateral views Dr. Casie Hari DO Work Phone: Start: 03-25-[address] Casie Hair DO Work Phone: Start: 03-25-2025 Flow cytometry cell surf marker techl only 1st Dr. Casie Hair DO Work Phone: Start: 01-14-2025 Lipid 1996 panel - S sheron or Plasma Isabelle Fitzgerald APRN.FINANCING ANALYST Work Phone: Start: 10-21-2024 Adult depression scr eening assessment Isabelle Fitzgerald APRN.FINANCING ANALYST Work Phone: Start: 12-18-2021 Colonoscopy Bren kidd APRN.FINANCING ANALYST Work Phone: Start: 11-30-2021 Adult depression scr eening assessment Bren Hebert APRN.FINANCING ANALYST Work Phone: Start: 03-03-2018 Lipid 1996 panel - S sheron or Plasma Bren Hebert APRN.FINANCING ANALYST Work Phone: Start: 10-03-2015 Mammography Bren kidd APRN.FINANCING ANALYST Work Phone: Plan of Treatment Date Care Activity Detail Author Start: 2036 RSV Vaccine (1 - 1-d ose 75+ series) RSV Vaccine (1 - 1-dose 75+ series) [facility] Start: 12-19-2031 Colonoscopy COLONOSCOPY [facility] Start: 12-19-2031 COLORECTAL CANCER SCREENING COLORECTAL CANCER SCREENING [facility] Start: 12-19-2031 Screening for malign ant neoplasm of colon [facility] Start: 01-14-2030 Lipid panel Lipid Screening [facility] Start: 01-15-2028 Diabetes Screening Diabetes Screenin g [facility] Start: 05-12-2027 HPV TESTING HPV TESTING [facility] Start: 02-22-2027 PAP TESTING PAP TESTING [facility] Start: 02-22-2027 Screening for malign ant neoplasm of cervix Cervical Cancer Screening [facility] Start: 10-21-2025 Anxiety Screening Anxiety Screening [facility] Start: 10-21-2025 Covid-19 Vaccine ( season) Covid-19 Vaccine () [facility] Comment on above: Postponed from 06/14 (Declined at this time) Start: 10-21-2025 Depression Screening Depression Scre ening [facility] Start: 10-21-2025 HIV screening HIV Screening [facility] Comment on above: Postponed from 09/12 (Declined at this time) Start: 10-21-2025 Pneumococcal Vaccine : 50+ (1 of 1 - PCV) Pneumococcal Vaccine: 50+ (1 of 1 - PCV) [facility] Comment on above: Postponed from 09/12 (Declined at this time) Start: 10-21-2025 Shingrix Vaccine (1 of 2) Roque grix Vaccine (1 of 2) [facility] Comment on above: Postponed from 09/12 (Declined at this time) Start: 08-18-2025 Screening for malign ant neoplasm of breast Mammogram Screening [facility] Start: 04-12-2025 Influenza vaccination Influenza Vacc ine (#1) [facility] Comment on above: Postponed from 06/14 (Declined at this time) Start: 03-28-2025 Patient discharge [facility] Start: 03-26-2025 Referral to occupati onal therapist [facility] Start: 03-26-2025 Referral to service [facility] Start: 03-25-2025 Referral to principal research economist [facility] Start: 03-25-2025 Following clinical pathway protocol [facility] Start: 03-25-2025 Ambulation without limitation [facility] Start: 03-25-2025 Assessment of risk o f venous thromboembolism [facility] Start: 03-25-2025 Elevation of affecte d extremity [facility] Start: 03-25-2025 Inhalation therapy procedure [facility] Start: 03-25-2025 Insertion of cathete r into peripheral vein [facility] Start: 03-25-2025 Measuring intake and output [facility] Start: 03-25-2025 Notification of physician [facility] Start: 03-25-2025 Oxygen therapy [facility] Start: 03-25-2025 Patient education [facility] Start: 03-25-2025 Providing care accor ding to standard [facility] Start: 03-25-2025 [facility] Start: 03-25-2025 Hospital admission, emergency, from emergency room, medical nature [facility] Start: 03-25-2025 Admission procedure [facility] Start: 03-25-2025 [facility] Start: 03-25-2025 [facility] Start: 03-25-2025 Patient referral to dietitian [facility] Start: 02-22-2025 Screening for malign ant neoplasm of cervix Cervical Cancer Screening [facility] Start: 01-14-2025 End: 01-14-2025 Patient encounter procedure 01/14/2025 7:00 AM EDT Office Visit Family [facility] [address] [place] [address] Isabelle Fitzgerald, HAT FINISHER.FINANCING ANALYST [address] [place] [address] preop clearance Family [facility] Comment on above: preop clearance Start: 10-26-2024 End: 10-26-2024 Patient encounter procedure 10/26/2024 1:00 PM EST Office Visit Family [facility] [address] [place] [address] Esther Marin, HAT FINISHER.FINANCING ANALYST [address] [place] [address] Establish Care [facility] [place] Comment on above: Establish Care Start: 10-21-2024 End: 01-20-2025 Comprehensive metabolic 2000 panel - Serum or Plasma COMPREHENSIVE METABOLIC PANEL Lab Routine Hyperlipidemia, mixed Expected: 10/21/2024, Expires: 01/20/2025 [facility] Work Phone: Comment on above: Expected: 10/21/2024 , Expires: 01/20/2025 Start: 10-21-2024 End: 01-20-2025 Lipid 1996 panel - Serum or Plasma LIPID PANEL BASIC Lab Routine Hyperlipidemia, mixed Expected: 10/21/2024, Expires: 01/20/2025 [facility] Comment on above: Expected: 10/21/2024 , Expires: 01/20/2025 Start: 08-18-2024 End: 08-18-2024 Patient encounter procedure 08/18/2024 8:50 AM EST Appointment Mammogram [address] [place], [place] [address] Encounter for gynecological examination (general) (routine) without abnormal fin... Mammogram Comment on above: Encounter for gyneco logical examination (general) (routine) without abnormal fin... Start: 06-14-2024 Covid-19 Vaccine ( season) Covid-19 Vaccine ( season) [facility] Start: 06-14-2024 Influenza vaccination Influenza Vacc ine (#1) [facility] Start: 10-14-2023 Behavioral Health Screening Behavioral Health Screening [facility] Start: 06-14-2023 Covid-19 Vaccine ( season) Covid-19 Vaccine ( season) [facility] Start: 03-03-2023 Lipid panel Lipid Screening [facility] Start: 03-03-2023 LIPID SCREEN LIPID SCREEN [facility] Start: 11-30-2022 Adult depression screening assessment DEPRESSION SCREENING [facility] Start: 06-14-2022 Influenza vaccination INFLUENZ A (Season Ended) [facility] Start: 09-24-2021 DIABETES SCREEN DIABETES SCREEN [facility] Start: 09-24-2021 Diabetes Screening Diabetes Screenin g [facility] Start: 2021 RSV Vaccine (1 - 1-d ose 60+ series) RSV Vaccine (1 - 1-dose 60+ series) [facility] Start: 12-28-2019 End: 12-28-2019 Nurse Only [facility] [place] Start: 12-02-2019 End: 12-02-2019 Nurse Only [facility] [place] Start: 06-14-2019 Influenza vaccination Flu vaccine (# 1) [facility] Work Phone: Start: 03-03-2019 FECAL OCCULT BLOOD FECAL OCCULT BLOO D [facility] Start: 03-03-2019 Screening for malign ant neoplasm of colon Fecal Occult Blood [facility] Start: 04-14-2017 PAP TESTING PAP TESTING [facility] Start: 10-03-2016 Mammography MAMMOGRAM [facility] Start: 10-03-2016 Screening for malign ant neoplasm of breast Mammogram Screening [facility] Start: 02-16-2014 HPV TESTING HPV TESTING [facility] Start: 2011 Breast cancer screen Breast cancer s creen [facility] Work Phone: Start: 2011 Colon cancer screen colonoscopy Colon cancer screen colonoscopy [facility] Work Phone: Start: 2011 Shingles Vaccine (1 of 2) Roque gles Vaccine (1 of 2) [facility] Work Phone: Start: 2011 SHINGRIX VACCINE (1 of 2) ROQUE GRIX VACCINE (1 of 2) [facility] Start: 2006 COLOGUARD (FIT-DNA) COLOGUARD (FIT-D NA) [facility] Start: [address] COLONOGRAPHY [facility] Start: 2006 Screening for malign ant neoplasm of colon [facility] Start: 2006 SIGMOIDOSCOPY SIGMOIDOSCOPY [facility] Start: 2001 Lipid screen Lipid screen [facility] Work Phone: Start: 1982 Cervical cancer screen Cervical canc er screen [facility] Work Phone: Start: 1980 Urine microalbumin profile [facility] Start: 1979 Anxiety Screening Anxiety Screening [facility] Start: 1979 Depression Screening Depression Scre ening [facility] Start: 1979 HIV SCREENING HIV SCREENING [facility] Start: 1979 HIV screening HIV Screening [facility] Start: 1976 HIV screen HIV screen [facility] Work Phone: Start: 1972 DTaP/Tdap/Td vaccine (1 - Tdap) DTaP/Tdap/Td vaccine (1 - Tdap) [facility] Work Phone: Start: 1966 COVID-19 VACCINE (#1) COVID-19 VACCI NE (#1) [facility] Start: 1961 Hepatitis C screen Hepatitis C rolando pat[facility] Work Phone: End: 11-17-2019 Blood glucose - POCT Blood glucose - POCT Point of Care Testing STAT One Time for 1 Occurrences starting 11/17/2019 until 11/17/2019 [facility] Work Phone: Comment on above: One Time for 1 Occur rences starting 11/17/2019 until 11/17/2019 End: 11-17-2019 Creatinine [Mass/Vol] Creatinine, serum Lab STAT One Time for 1 Occurrences starting 11/17/2019 until 11/17/2019 [facility] Work Phone: Comment on above: One Time for 1 Occur rences starting 11/17/2019 until 11/17/2019 End: 08-28-2025 DBT Breast - bilateral screening JULIETA SCREENING W LYNETTE Radiology Routine Encounter for gynecological examination with abnormal finding Encounter for screening mammogram for breast cancer 1 Occurrences starting 07/29/2024 until 08/28/2025 [facility] Work Phone: Comment on above: 1 Occurrences starti ng 07/29/2024 until 08/28/2025 DBT Breast - bilater al screening JULIETA SCREENING W LYNETTE Radiology Routine Encounter for gynecological examination with abnormal finding Encounter for screening mammogram for breast cancer 08/18/2024 9:10 AM EST [facility] Work Phone: Endometrial bx w/wo endocervix bx w/o dilat spx ENDOMETRIAL BIOPSY Procedures Routine PMB (postmenopausal bleeding) Thickened endometrium Ordered: 02/26/2022 [facility] Work Phone: Comment on above: Ordered: 02/26/2022 Endometrial bx w/wo endocervix bx w/o dilat spx ENDOMETRIAL BIOPSY Procedures Routine Thickened endometrium Ordered: 02/28/2022 [facility] Work Phone: Comment on above: Ordered: 02/28/2022 Sandra Petty virus c apsid IgM Ab [Units/volume] in Serum [facility] End: 11-17-2019 FL LESS THAN 1 HOUR FL LESS THAN 1 HOUR Imaging Routine Once for 1 Occurrences starting 11/17/2019 until 11/17/2019 [facility] Work Phone: Comment on above: Once for 1 Occurrenc es starting 11/17/2019 until 11/17/2019 FL LESS THAN 1 HOUR FL LESS THAN 1 HOUR Imaging Routine 11/17/2019 5:[address] [facility] Work Phone: Incentive spirometry Incentive s pirometry Respiratory Care Routine Q1H PRN until discontinued starting 11/17/2019 [employer] Work Phone: Comment on above: Q1H PRN until discon tinued starting 11/17/2019 Initiate Oxygen Ther apy Protocol Initiate Oxygen Therapy Protocol Respiratory Care Routine Daily until discontinued starting 11/17/2019 [facility] Work Phone: Comment on above: Daily until disconti nued starting 11/17/2019 End: 11-20-2025 MR Liver WO and W contrast IV MRI LIVER WO/W IVCON Radiology Routine Liver cyst 1 Occurrences starting 10/21/2024 until 11/20/2025 [facility] Comment on above: 1 Occurrences starti ng 10/21/2024 until 11/20/2025 PAP FLUID CERVICAL DIAGNOSTIC PAP FLUID CERVICAL DIAGNOSTIC Lab Routine PMB (postmenopausal bleeding) Encounter for Papanicolaou smear for cervical cancer screening Special screening examination for human papillomavirus (HPV) 02/22/2022 11:16 AM EDT [facility] Work Phone: Patient referral [facility] Work Phone: PELVIC US WHI PELVIC US WHI An c Imaging Routine PMB (postmenopausal bleeding) Ordered: 02/22/2022 [facility] Work Phone: Comment on above: Ordered: 02/22/2022 Phase I & II - meter ed glucose Phase I & II - metered glucose Point of Care Testing Routine As Needed until discontinued starting 11/17/2019 [facility] Work Phone: Comment on above: As Needed [...] for 1 Occurrences starting 11/17/2019 until 11/17/2019 [facility] Work Phone: Comment on above: One Time for 1 Occur rences starting 11/17/2019 until 11/17/2019 End: 05-11-2023 Screening mammography bi 2-view breast inc cad JULIETA SCREENING Radiology Routine Encounter for screening mammogram for breast cancer 1 Occurrences starting 04/11/2022 until 05/11/2023 [facility] Work Phone: Comment on above: 1 Occurrences starti ng 04/11/2022 until 05/11/2023 SURGICAL PATHOLOGY SURGICAL PATH OLOGY Lab Routine Thickened endometrium 02/28/2022 1:02 PM EDT [facility] Work Phone: Troponin T.cardiac [Mass/volume] in Serum or Plasma by High sensitivity method [facility] Payers Date Payer Category Payer Self-pay 2025 Self-pay [id number] 2006 Unknown [employer] [id number] Unknown [id number] [id number] [id number] Unknown [id number] [id number] [id number] Unknown [id number] [id number] [id number] Unknown [id number] [id number] Unknown [id number] [id number] [id number] Unknown [id number] [id number] [id number] Unknown [id number] [id number] Social History Date Type Detail Facility Start: 11-17-2019 End: 03-25-2025 Tobacco smoking status NMIS Never smoker [facility] Work Phone: Start: 11-17-2019 End: 12-02-2019 Alcohol intake Lifetime non-drinker (finding) [employer] Phone: Start: 11-17-2019 End: 11-30-2021 History SDOH Alcohol Frequency 1 [employer] Phone: Sex Assigned At Not on file [employer] Phone: Start: 02-22-2022 End: 01-14-2025 Alcohol intake Current non-drinker of alcohol (finding) [facility] Start: 11-30-2021 History SDOH Social Connections Phone 5 [facility] Start: 11-30-2021 History SDOH Social Connections [employer] 3 [facility] Start: 11-30-2021 History SDOH Physical Activity DPW 6 [facility] Start: 11-30-2021 History SDOH Physical Activity MPS 4 [facility] Start: 11-30-2021 History SDOH Transport Med 2 [facility] Start: 1960 Sex Assigned At Female [facility] Start: 02-12-2022 End: 02-28-2022 Exposure to SARS-CoV-2 (event) Not sure [facility] Start: 04-14-2012 Tobacco use and exposure Smokeless tobacco non-user [facility] Start: 09-21-2020 End: 11-30-2021 History of Social function [facility] Start: 09-21-2020 End: 11-30-2021 Social connection and isolation panel [facility] Do you belong to any clubs or organizations such as latter-day groups, unions, fraternal or athletic groups, or school groups? Yes [facility] Are you now , , , , never or living with a partner? [facility] How often to you hav e a drink containing alcohol? Never [facility] Average Number of Drinks Not on file [facility] Do you feel stress - tense, restless, nervous, or anxious, or unable to sleep at night because your mind is troubled all the time - these days [OSQ] Not at all [facility] (I/We) worried fannie er (my/our) food would run out before (I/we) got money to buy more. Never true [facility] In the past 12 month s, was there a time when you were not able to pay the mortgage or rent on time? No [facility] Start: 11-30-2021 Gender identity Identifies as female gender (finding) [facility] Start: 11-30-2021 Sexual orientation Heterosexual (finding) [facility] Start: 11-04-2019 Lives Lives [facility] Goals Date Patient Goal Desired Activity /State Functional Status Date Assessment Result Facility 03-28-2025 Functional status [facility] Work Phone: 10-18-2024 Total score [AUDIT-C] 0 10/18/19 25 3:41 PM EST User, Li [facility] 10-18-2024 Within the last year , have you been humiliated or emotionally abused in other ways by your partner or ex-partner? No 10/18/2024 3:41 PM EST User, Li No [facility] 10-18-2024 Within the last year , have you been afraid of your partner or ex-partner? No 10/18/2024 3:41 PM EST User, Li No [facility] 10-18-2024 Within the last year , have you been raped or forced to have any kind of sexual activity by your partner or ex-partner? No 10/18/2024 3:41 PM EST User, Mychart No [facility] 10-18-2024 Within the last year , have you been kicked, hit, slapped, or otherwise physically hurt by your partner or ex-partner? No 10/18/2024 3:41 PM EST User, Li No [facility] 10-18-2024 How often to you hav e a drink containing alcohol? Never 10/18/2024 3:41 PM EST User, Waltert Never [facility] 10-18-2024 Functional status Patient does n ot drink 10/18/2024 3:41 PM EST User, Li Patient does not drink [facility] 10-18-2024 How often do you hav e 6 or more drinks on 1 occasion? Never 10/18/2024 3:41 PM EST User, Li Never [facility] 10-22-2014 Are you deaf, or do you have serious difficulty hearing No 10/22/2014 1:25 PM Danni Amaya Ma No [facility] 10-22-2014 Are you blind, or do you have serious difficulty seeing, even when wearing glasses No 10/22/2014 1:25 PM Danni Amaya Ma No [facility] 10-22-2014 Do you have serious difficulty walking or climbing stairs No 10/22/2014 1:25 PM Danni Amaya Ma No [facility] 10-22-2014 Do you have difficul ty dressing or bathing No 10/22/2014 1:25 PM Danni Amaya Ma No [facility] 10-22-2014 Because of a physica l, mental, or emotional condition, do you have difficulty doing errands alone such as visiting a physician's office or shopping No 10/22/2014 1:25 PM Danni Amaya Ma No [facility] Mental Status Date Assessment Result Facility 03-28-2025 Cognitive function Voice/Name [facility] Work Phone: 03-25-2025 Cognitive function Level Of Cons ciousness Awake;Alert;Appropriate;Fol lows Commands [facility] Work Phone: 10-22-2014 Because of a physica l, mental, or emotional condition, do you have serious difficulty concentrating, remembering, or making decisions No 10/22/2014 1:25 PM LENKA Armenta Ma, Danni No [facility] Clinical Notes 02-22-2022 to 03-28-2025 Note Date & Type Note Facility 03-28-2025 Discharge summary [facility] 03-28-2025 Discharge summary [facility] 03-28-2025 Progress note [facility] 03-28-2025 Progress note Note Date/Time March 28, 2025 2:15pm [facility] Medical Records Department [address] [place] [address] Progress Note - Cardiology 03/28/25 1058 MR#: [id number] Acct: [id number] Name: RAFAT DELANEY Rep #:[id number] : 1960 64 From: Shane Chang MD PCP: Dr. Casie Hair, DO Status:AD IN Location: [place] [address] Objective Data Vital Signs: Vital Signs Temp Pulse Resp BP Pulse Ox O2 Del Method O2 Flow Rate 97.6 F L 82 14 95/59 L 93 Nasal Cannula 2 03/28/25 08:10 03/28/25 08:10 03/28/25 08:10 03/28/25 08:10 03/28/25 09:54 03/28/25 08:10 03/28/25 09:56 Oxygen Flow Rate (L/min) 2 Oxygen Delivery Method Nasal Cannula Weight: 164 lb 0.383 oz Body Mass Index (BMI) 24.2 Intake & Output: Intake and Output for Last 24 Hours 03/26/25 03/27/25 03/28/25 23:59 23:59 23:59 Intake Total 460 / 560 950 / 950 Output Total 1000 / 2800 3300 / 3300 Balance -540 / -2240 -2350 / -2350 Lab / Micro Data 03/28/25 06:26 03/28/25 06:26 Labs: Laboratory Results - last 24 hr 03/28/25 06:26: WBC 20.3 H, RBC 2.82 L, Hgb 8.2 L, Hct 23.2 L, MCV 82.3, MCH 29.1, MCHC 35.3, RDW Std Deviation 41.4, RDW Coeff of Christian 14.0, Plt Count 634 H,MPV 9.2, Immature Gran % (Auto) 1.300 H, Neut % (Auto) 82.3 H, Lymph % (Auto) 6.9 L, Mcdonough % (Auto) 8.6, Eos % (Auto) 0.7, Baso % (Auto) 0.2, Absolute Neuts (auto) 16.7 H, Absolute Lymphs (auto) 1.40, Nucleated RBC % 0, Sodium 131 L, Potassium 3.3, Chloride 91 L, Carbon Dioxide 29.8, Anion Gap 11, BUN 16, Creatinine 0.58 L, Estim Creat Clear Calc 103.75, Est GFR (MDRD) Non-Af 102, BUN/Creatinine Ratio 28.4 H, Glucose 115 H, Calcium 8.8 Micro: Microbiology 03/27/25 12:35 Mucosa - Nasopharyngeal Respiratory Panel (PCR) - Final 03/27/25 12:35 Mucosa - Nose SARS-CoV-2, Influenza & RSV (PCR) - Final Rhythm Strip Rhythm Strip: Sinus Rhythm Rate: 89 Ectopy: None Cardiology Labs/Tests 03/28/25 06:26: WBC 20.3 H, RBC 2.82 L, Hgb 8.2 L, Hct 23.2 L, MCV 82.3, MCH 29.1, MCHC 35.3, Plt Count 634 H, MPV 9.2, Immature Gran % (Auto) 1.300 H, Neut % (Auto) 82.3 H, Lymph % (Auto) 6.9 L, Mcdonough % (Auto) 8.6, Eos % (Auto) 0.7, Baso% (Auto) 0.2, Absolute Neuts (auto) 16.7 H, Nucleated RBC % 0, Sodium 131 L, Potassium 3.3, Chloride 91 L, Carbon Dioxide 29.8, Anion Gap 11, BUN 16, Creatinine 0.58 L, Est GFR (MDRD) Non-Af 102, BUN/Creatinine Ratio 28.4 H, Glucose 115 H, Calcium 8.8 Rhythm: EKG: ECHO: Stress Test: Cardiac Cath: PCI: CT Surgery: Holter monitor: EPS: PPM: CXR: Chest CT Scan: Physical Exam Narrative feels better Const Constitutional Narrative: General?alert oriented HEENT- normal extraocular movements Neck supple no JVD Cardiovascular- normal S1-S2, no murmurs Pulmonary- clear to auscultation bilaterally Abdomen- soft to palpation, normal sounds Extremities- improved edema Musculoskeletal- no tenderness no swelling Neurological -alert oriented Psych -normal affect Assessment & Plan Assessment/Plan (1) Acute CHF: QUALIFIERS: Heart failure type: unspecified Qualified Code(s): I50.9 - Heart failure, unspecified PLAN: HFpEF with acute exacerbation: The patient's chest x-ray was consistent with vascular congestion and pulmonary edema as well as bilateral pleural effusions.. Her LVEF is about 50%. At this time we will continue with diuresis. Transition to lasix 40 po daily upon discharge. Further med optimization may be limited by her blood pressure which is somewhat borderline. She will need a stress test as an OP (2) Elevated liver enzymes: PLAN: LFTs are probably related to congestion but this may be a viral infection as well. Further evaluation investigation per the primary service. (3) Anemia: QUALIFIERS: Anemia type: unspecified type Qualified Code(s): D64.9 - Anemia, unspecified PLAN: Anemia continues to worsen. Defer to primary team. (4) Aortic aneurysm: PLAN: f/u with yearly echo as OP 03/28/25 1308 <Electronically signed by Shane Chang MD> Cosigner Signature (if applicable): CC: ~ Signed ADDENDUM by Dr. Shane Chang MD on 03/28/25 at 1415 Visit Charges Inpatient E&M: 14892 Subs Hosp L3 03/28/251414<Electronically signed by Shane Chang MD> Cosigner Signature (if applicable): cc: ~* Signed [facility] Work Phone: 1(202) 217-985906-14-2025 Progress note Author Shane Chang [facility] Note Date/Time March 27, 2025 3:50 pm [facility] Medical Records Department [address] [place] [address] Progress Note - Cardiology 03/27/25 1059 MR#: [id number] Acct: [id number] Name: RAFAT DELANEY Rep #:[id number] : 1960 64 From: Shane Chang MD PCP: Dr. Casie Hair, DO Status:AD M IN Location: [place] [address] Subjective Subjective Feels better today Objective Data Vital Signs: Vital Signs Temp Pulse Resp BP Pulse Ox O2 Del Method O2 Flow Rate 99.8 F H 78 18 115/62 96 Room Air 1 03/27/25 09:15 03/27/25 09:15 03/27/25 09:15 03/27/25 09:15 03/27/25 09:15 03/27/25 09:42 03/27/25 08:48 Oxygen Flow Rate (L/min) 1 Oxygen Delivery Method Room Air Weight: 168 lb 15.996 oz Body Mass Index (BMI) 24.9 Intake & Output: Intake and Output for Last 24 Hours 03/25/25 03/26/25 03/27/25 23:59 23:59 23:59 Intake Total 460 / 560 150 / 150 Output Total 800 / 800 1000 / 2800 1800 / 1800 Balance -800 / -800 -540 / -2240 -1650 / -1650 Lab / Micro Data 03/27/25 04:12 03/27/25 04:12 Labs: Laboratory Results - last 24 hr 03/26/25 04:17: CMV IgM Ab < 30.0, Hepatitis A IgM Ab Negative, Hep Bs Antigen Negative, Hep B Core IgM Ab Negative, Hepatitis C Ab (EIA) Non Reactive, Hep C Ab Comment Comment 03/26/25 14:35: D-Dimer Quant (PE/DVT) 3.84 H* 03/27/25 04:12: WBC 21.2 H, RBC 2.88 L, Hgb 8.5 L, Hct 23.4 L, MCV 81.3, MCH 29.5, MCHC 36.3 H, RDW Std Deviation 41.0, RDW Coeff of Christian 14.0, Plt Count 559 H, MPV 9.6, Immature Gran % (Auto) 2.100 H, Neut % (Auto) 83.9 H, Lymph % (Auto)5.7 L, Mcdonough % (Auto) 7.2, Eos % (Auto) 0.9, Baso % (Auto) 0.2, Absolute Neuts (auto) 17.8 H, Absolute Lymphs (auto) 1.22, Nucleated RBC % 0, Differential Comment SCANNED, Sodium 130 L, Potassium 3.4, Chloride 90 L, Carbon Dioxide 29.8, Anion Gap 11, BUN 15, Creatinine 0.66 L, Estim Creat Clear Calc 91.18, EstGFR (MDRD) Non-Af 98, BUN/Creatinine Ratio 22.2 H, Glucose 122 H, Calcium 8.9, Total Bilirubin 0.93, AST 64 H, ALT 71 H, Alkaline Phosphatase 271 H, Total Protein 5.9, Albumin 2.6 L, Globulin 3.2, Albumin/Globulin Ratio 0.8 L Rhythm Strip Rhythm Strip: Sinus Rhythm Rate: 89 Ectopy: None Cardiology Labs/Tests 03/26/25 14:35: D-Dimer Quant (PE/DVT) 3.84 H* 03/27/25 04:12: WBC 21.2 H, RBC 2.88 L, Hgb 8.5 L, Hct 23.4 L, MCV 81.3, MCH 29.5, MCHC 36.3 H, Plt Count 559 H, MPV 9.6, Immature Gran % (Auto) 2.100 H, Neut % (Auto) 83.9 H, Lymph % (Auto) 5.7 L, Mcdonough % (Auto) 7.2, Eos % (Auto) 0.9, Baso % (Auto) 0.2, Absolute Neuts (auto) 17.8 H, Nucleated RBC % 0, Sodium 130 L, Potassium 3.4, Chloride 90 L, Carbon Dioxide 29.8, Anion Gap 11, BUN 15, Creatinine 0.66 L, Est GFR (MDRD) Non-Af 98, BUN/Creatinine Ratio 22.2 H, [id number] H, Calcium 8.9, Total Bilirubin 0.93 Rhythm: EKG: ECHO: Stress Test: Cardiac Cath: PCI: CT Surgery: Holter monitor: EPS: PPM: CXR: Chest CT Scan: Radiography Diagnostic Testing: Radiology Impression Echocardiogram 03/25/25 15:12 Interpretation Summary LV systolic function is low normal The LV ejection fraction is 50 %. Trivial mitral valve insufficiency. Trivial tricuspid valve regurgitation Ascending aorta is mildly dilated at 3.9 cm Pleural effusion noted. Ordering Physician: Angel Moss Referring Physician: Casie Hair Performed By: Selena Landaverde, RDCS, RVT Chest CTA 03/26/25 15:57 IMPRESSION: 1. No acute pulmonary embolism. 2. Ground-glass opacities within the right upper lobe, which may reflect pneumonitis/pneumonia. 3. Questionable acute, minimally displaced fractures of the bilateral lower anterolateral ribs. Visualization is limited by motion artifact. Correlation with point tenderness recommended. Reading Location: [facility] Physical Exam Narrative General?alert oriented HEENT- normal extraocular movements Neck supple no JVD Cardiovascular- normal S1-S2, no murmurs Pulmonary- clear to auscultation bilaterally Abdomen- soft to palpation, normal sounds Extremities-trace edema Musculoskeletal- no tenderness no swelling Neurological -alert oriented Psych -normal affect Assessment & Plan Assessment/Plan (1) Acute CHF: QUALIFIERS: Heart failure type: unspecified Qualified Code(s): I50.9 - Heart failure, unspecified PLAN: The patient's chest x-ray was consistent with vascular congestion and pulmonary edema as well as bilateral pleural effusions.. Her LVEF is about 50%. At this time we will continue with diuresis. Further med optimization may be limited by her blood pressure which is somewhat borderline. (2) Acute hyponatremia: (3) Elevated liver enzymes: PLAN: LFTs are probably related to congestion but this may be a viral infection as well. Further evaluation investigation per the primary service. (4) Anemia: QUALIFIERS: Anemia type: unspecified type Qualified Code(s): D64.9 - Anemia, unspecified PLAN: Anemia continues to worsen. Defer to primary team. PLAN: Plan 1. Continue with gentle diuresis. 2 Follow renal function closely 3. Continue further workup to explore leukocytosis thrombocytosis and anemia. 03/27/25 1331 <Electronically signed by Shane Chang MD> Cosigner Signature (if applicable): CC: ~ Signed ADDENDUM by Dr. Shane Chang MD on 03/27/25 at 1549 Visit Charges Inpatient E&M: 39053 Subs Hosp L3 03/27/25 1549<Electronically signed by Shane Chang MD> Cosigner Signature (if applicable): cc: ~* Signed [facility] Work Phone: 1(302) 434-939806-14-2025 Progress note [facility] Medical Records Department [address] [place] [address] Progress Note - Cardiology 03/27/25 1059 MR#: [id number] Acct: [id number] Name: RAFAT DELANEY Rep #:[id number] : 1960 64 From: Shane Chang MD PCP: Dr. Casie Hair, DO Status:AD M IN Location: [place] [address]- 1 Subjective Subjective Feels better today Objective Data Vital Signs: Vital Signs Temp Pulse Resp BP Pulse Ox O2 Del Method O2 Flow Rate 99.8 F H 78 18 115/62 96 Room Air 1 03/27/25 09:15 03/27/25 09:15 03/27/25 09:15 03/27/25 09:15 03/27/25 09:15 03/27/25 09:42 03/27/25 08:48 Oxygen Flow Rate (L/min) 1 Oxygen Delivery Method Room Air Weight: 168 lb 15.996 oz Body Mass Index (BMI) 24.9 Intake & Output: Intake and Output for Last 24 Hours 03/25/25 03/26/25 03/27/25 23:59 23:59 23:59 Intake Total 460 / 560 150 / 150 Output Total 800 / 800 1000 / 2800 1800 / 1800 Balance -800 / -800 -540 / -2240 -1650 / -1650 Lab / Micro Data 03/27/25 04:12 03/27/25 04:12 Labs: Laboratory Results - last 24 hr 03/26/25 04:17: CMV IgM Ab < 30.0, Hepatitis A IgM Ab Negative, Hep Bs Antigen Negative, Hep B Core IgM Ab Negative, Hepatitis C Ab (EIA) Non Reactive, Hep C Ab Comment Comment 03/26/25 14:35: D-Dimer Quant (PE/DVT) 3.84 H* 03/27/25 04:12: WBC 21.2 H, RBC 2.88 L, Hgb 8.5 L, Hct 23.4 L, MCV 81.3, MCH 29.5, MCHC 36.3 H, RDWStd Deviation 41.0, RDW Coeff of Christian 14.0, Plt Count 559 H, MPV 9.6, Immature Gran % (Auto) 2.100 H, Neut % (Auto) 83.9 H, Lymph % (Auto)5.7 L, Mcdonough % (Auto) 7.2, Eos % (Auto) 0.9, Baso % (Auto) 0.2,Absolute Neuts (auto) 17.8 H, Absolute Lymphs (auto) 1.22, Nucleated RBC % 0, Differential Comment SCANNED, Sodium 130 L, Potassium 3.4, Chloride 90 L, Carbon Dioxide 29.8, Anion Gap 11, BUN 15, Creatinine 0.66 L, Estim Creat Clear Calc 91.18, EstGFR (MDRD) Non-Af 98, BUN/Creatinine Ratio 22.2 H, Glucose 122 H, Calcium 8.9, Total Bilirubin 0.93, AST 64 H, ALT 71 H, Alkaline Phosphatase 271 H, Total Protein 5.9, Albumin 2.6 L, Globulin 3.2, Albumin/Globulin Ratio 0.8 L Rhythm Strip Rhythm Strip: Sinus Rhythm Rate: 89 Ectopy: None Cardiology Labs/Tests 03/26/25 14:35: D-Dimer Quant (PE/DVT) 3.84 H* 03/27/25 04:12: WBC 21.2 H, RBC 2.88 L, Hgb 8.5 L, Hct 23.4 L, MCV 81.3, MCH 29.5, MCHC 36.3 H, PltCount 559 H, MPV 9.6, Immature Gran % (Auto) 2.100 H, Neut % (Auto) 83.9 H, Lymph % (Auto) 5.7 L, Mcdonough % (Auto) 7.2, Eos % (Auto) 0.9, Baso % (Auto) 0.2, Absolute Neuts (auto) 17.8 H, Nucleated RBC %0, Sodium 130 L, Potassium 3.4, Chloride 90 L, Carbon Dioxide 29.8, Anion Gap 11, BUN 15, Creatinine 0.66 L, Est GFR (MDRD) Non-Af 98, BUN/Creatinine Ratio 22.2 H, [id number] H, Calcium 8.9, Total Bilirubin 0.93 Rhythm: EKG: ECHO: Stress Test: Cardiac Cath: PCI: CT Surgery: Holter monitor: EPS: PPM: CXR: Chest CT Scan: Radiography Diagnostic Testing: Radiology Impression Echocardiogram 03/25/25 15:12 Interpretation Summary LV systolic function is low normal The LV ejection fraction is 50 %. Trivial mitral valve insufficiency. Trivial tricuspid valve regurgitation Ascending aorta is mildly dilated at 3.9 cm Pleural effusion noted. Ordering Physician: Angel Moss Referring Physician: Casie Hair Performed By: Selena Landaverde, DANO, RVT Chest CTA 03/26/25 15:57 IMPRESSION: 1. No acute pulmonary embolism. 2. Ground-glass opacities within the right upper lobe, which may reflect pneumonitis/pneumonia. 3. Questionable acute, minimally displaced fractures of the bilateral lower anterolateral ribs. Visualization is limited by motion artifact. Correlation with point tenderness recommended. Reading Location: [facility] Physical Exam Narrative General?alert oriented HEENT- normal extraocular movements Neck supple no JVD Cardiovascular- normal S1-S2, no murmurs Pulmonary- clear to auscultation bilaterally Abdomen- soft to palpation, normal sounds Extremities-trace edema Musculoskeletal- no tenderness no swelling Neurological -alert oriented Psych -normal affect Assessment & Plan Assessment/Plan (1) Acute CHF: QUALIFIERS: Heart failure type: unspecified Qualified Code(s): I50.9 - Heart failure, unspecified PLAN: The patient's chest x-ray was consistent with vascular congestion and pulmonary edema as wellas bilateral pleural effusions.. Her LVEF is about 50%. At this time we will continue with diuresis. Further med optimization may be limited by her blood pressure which is somewhat borderline. (2) Acute hyponatremia: (3) Elevated liver enzymes: PLAN: LFTs are probably related to congestion but this may be a viral infection as well. Further evaluation investigation per the primary service. (4) Anemia: QUALIFIERS: Anemia type: unspecified type Qualified Code(s): D64.9 - Anemia, unspecified PLAN: Anemia continues to worsen. Defer to primary team. PLAN: Plan 1. Continue with gentle diuresis. 2 Follow renal function closely 3. Continue further workup to explore leukocytosis thrombocytosis and anemia. 03/27/25 1331 Cosigner Signature (if applicable): CC: ~ Signed ADDENDUM by Dr. Shane Chang MD on 03/27/25 at 1549 Visit Charges Inpatient E&M: 11089 Subs Hosp L3 03/27/25 1549 Cosigner Signature (if applicable): cc: ~* Signed [facility]06-14-2025 Progress note Author Aneesh Fine [facility] Note Date/Time March 27, 2025 12:3 5pm [facility] Medical Records Department [address] [place] [address] Progress Note - Hospitalist 03/27/25 1221 MR#: [id number] Acct: [id number] Name: RAFAT DELANEY Rep #:[id number] : 1960 64 From: Aneesh butcher MD PCP: Dr. Casie Hair, DO Status:AD M IN Location: [place] [address] Subjective Subjective Feels much better today, breathing easier and says the swelling is down Objective Data Objective Data Vital Signs: Vital Signs Temp Pulse Resp BP Pulse Ox O2 Del Method O2 Flow Rate 99.8 F H 78 18 115/62 96 Room Air 1 03/27/25 09:15 03/27/25 09:15 03/27/25 09:15 03/27/25 09:15 03/27/25 09:15 03/27/25 09:42 03/27/25 08:48 Oxygen Flow Rate (L/min) 1 Oxygen Delivery Method Room Air Weight: 168 lb 15.996 oz Body Mass Index (BMI) 24.9 Intake & Output: Intake and Output for Last 24 Hours 03/26/25 03/27/25 03/28/25 03:59 03:59 03:59 Intake Total 560 / 560 50 / 50 Output Total 800 / 800 2800 / 2800 Balance -800 / -800 -2240 / -2240 50 / 50 Lab / Micro Data 03/27/25 04:12 03/27/25 04:12 Labs: Laboratory Results - last 24 hr 03/26/25 04:17: CMV IgM Ab < 30.0, Hepatitis A IgM Ab Negative, Hep Bs Antigen Negative, Hep B Core IgM Ab Negative, Hepatitis C Ab (EIA) Non Reactive, Hep C Ab Comment Comment 03/26/25 14:35: D-Dimer Quant (PE/DVT) 3.84 H* 03/27/25 04:12: WBC 21.2 H, RBC 2.88 L, Hgb 8.5 L, Hct 23.4 L, MCV 81.3, MCH 29.5, MCHC 36.3 H, RDW Std Deviation 41.0, RDW Coeff of Christian 14.0, Plt Count 559 H, MPV 9.6, Immature Gran % (Auto) 2.100 H, Neut % (Auto) 83.9 H, Lymph % (Auto)5.7 L, Mcdonough % (Auto) 7.2, Eos % (Auto) 0.9, Baso % (Auto) 0.2, Absolute Neuts (auto) 17.8 H, Absolute Lymphs (auto) 1.22, Nucleated RBC % 0, Differential Comment SCANNED, Sodium 130 L, Potassium 3.4, Chloride 90 L, Carbon Dioxide 29.8, Anion Gap 11, BUN 15, Creatinine 0.66 L, Estim Creat Clear Calc 91.18, EstGFR (MDRD) Non-Af 98, BUN/Creatinine Ratio 22.2 H, Glucose 122 H, Calcium 8.9, Total Bilirubin 0.93, AST 64 H, ALT 71 H, Alkaline Phosphatase 271 H, Total Protein 5.9, Albumin 2.6 L, Globulin 3.2, Albumin/Globulin Ratio 0.8 L Radiography Diagnostic Testing: Radiology Impression Echocardiogram 03/25/25 15:12 Interpretation Summary LV systolic function is low normal The LV ejection fraction is 50 %. Trivial mitral valve insufficiency. Trivial tricuspid valve regurgitation Ascending aorta is mildly dilated at 3.9 cm Pleural effusion noted. Ordering Physician: Angel Moss Referring Physician: Casie Hair Performed By: Selena Landaverde, DANO, RVT Chest CTA 03/26/25 15:57 IMPRESSION: 1. No acute pulmonary embolism. 2. Ground-glass opacities within the right upper lobe, which may reflect pneumonitis/pneumonia. 3. Questionable acute, minimally displaced fractures of the bilateral lower anterolateral ribs. Visualization is limited by motion artifact. Correlation with point tenderness recommended. Reading Location: [facility] Rhythm Strip Rhythm Strip: Sinus Rhythm Rate: 89 Ectopy: None Physical Exam Narrative General: Alert, Oriented x3, Cooperative, No apparent distress HEENT: Atraumatic, PERRLA, EOMI, Normocephalic Oral: Moist Mucosa Neck: Supple, No JVD Lungs: Diminished, Normal air movement, No rhonchi, No wheeze, No rales Cardiovascular: Regular rate, Regular Rhythm, Normal S1, Normal S2, No murmurs Abdomen: Soft, Non Tender, Non-Distended, No Hepato-splenomegaly Extremities: Edema, Capillary Refill Less than 3 Seconds Skin: No rashes, No breakdown Musculoskeletal: No Tenderness to Palpation of Joints or Extremities Neurological: No focal neurological deficits, moves all extremities, sensation intact Psych/Mental Status: Normal Affect, Appropriate Assessment & Plan Assessment/Plan (1) Acute CHF: QUALIFIERS: Heart failure type: unspecified Qualified Code(s): I50.9 - Heart failure, unspecified PLAN: 1. Acute hypoxic respiratory insufficiency secondary to acute diastolic CHF exacerbation/a flutter ? She is down to about 2 L nasal cannula, will continue to wean ? Will obtain an ambulatory pulse ox ? Continue with Lasix ? Echocardiogram with an EF of 50% with a slightly dilated ascending aorta to 3.9 cm ? Will obtain viral panels given her ongoing fluctuations in body temperature and shortness of breath ? Appreciate cardiology's assistance ? Troponins are slightly elevated, these are insignificant ? CTA of the chest demonstrates some groundglass opacities in the right upper lobe but no acute pulmonary embolism ? She continues to have a leukocytosis though it is unclear as to the cause at the moment aside from a viral infection. She is not on steroids currently ? CMV and EBV labs are pending, hepatitis panels were negative DVT: Lovenox Charges/Coding Visit Charges Inpatient E&M: 67779 Subs Hosp L2 03/27/25 1235 <Electronically signed by Aneesh Fine MD> Cosigner Signature (if applicable): CC: ~ Signed [facility] Work Phone: 1(345) 193-259106-14-2025 Progress note [facility] Medical Records Department [address] [place] [address] Progress Note - Hospitalist 03/27/25 1221 MR#: [id number] Acct: [id number] Name: RAFAT DELANEY Rep #:[id number] : 1960 64 From: Aneesh butcher MD PCP: Dr. Casie Hair, DO Status:AD M IN Location: [place] [address] Subjective Subjective Feels much better today, breathing easier and says the swelling is down Objective Data Objective Data Vital Signs: Vital Signs Temp Pulse Resp BP Pulse Ox O2 Del Method O2 Flow Rate 99.8 F H 78 18 115/62 96 Room Air 1 03/27/25 09:15 03/27/25 09:15 03/27/25 09:15 03/27/25 09:15 03/27/25 09:15 03/27/25 09:42 03/27/25 08:48 Oxygen Flow Rate (L/min) 1 Oxygen Delivery Method Room Air Weight: 168 lb 15.996 oz Body Mass Index (BMI) 24.9 Intake & Output: Intake and Output for Last 24 Hours 03/26/25 03/27/25 03/28/25 03:59 03:59 03:59 Intake Total 560 / 560 50 / 50 Output Total 800 / 800 2800 / 2800 Balance -800 / -800 -2240 / -2240 50 / 50 Lab / Micro Data 03/27/25 04:12 03/27/25 04:12 Labs: Laboratory Results - last 24 hr 03/26/25 04:17: CMV IgM Ab < 30.0, Hepatitis A IgM Ab Negative, Hep Bs Antigen Negative, Hep B Core IgM Ab Negative, Hepatitis C Ab (EIA) Non Reactive, Hep C Ab Comment Comment 03/26/25 14:35: D-Dimer Quant (PE/DVT) 3.84 H* 03/27/25 04:12: WBC 21.2 H, RBC 2.88 L, Hgb 8.5 L, Hct 23.4 L, MCV 81.3, MCH 29.5, MCHC 36.3 H, RDWStd Deviation 41.0, RDW Coeff of Christian 14.0, Plt Count 559 H, MPV 9.6, Immature Gran % (Auto) 2.100 H, Neut % (Auto) 83.9 H, Lymph % (Auto)5.7 L, Mcdonough % (Auto) 7.2, Eos % (Auto) 0.9, Baso % (Auto) 0.2,Absolute Neuts (auto) 17.8 H, Absolute Lymphs (auto) 1.22, Nucleated RBC % 0, Differential Comment SCANNED, Sodium 130 L, Potassium 3.4, Chloride 90 L, Carbon Dioxide 29.8, Anion Gap 11, BUN 15, Creatinine 0.66 L, Estim Creat Clear Calc 91.18, EstGFR (MDRD) Non-Af 98, BUN/Creatinine Ratio 22.2 H, Glucose 122 H, Calcium 8.9, Total Bilirubin 0.93, AST 64 H, ALT 71 H, Alkaline Phosphatase 271 H, Total Protein 5.9, Albumin 2.6 L, Globulin 3.2, Albumin/Globulin Ratio 0.8 L Radiography Diagnostic Testing: Radiology Impression Echocardiogram 03/25/25 15:12 Interpretation Summary LV systolic function is low normal The LV ejection fraction is 50 %. Trivial mitral valve insufficiency. Trivial tricuspid valve regurgitation Ascending aorta is mildly dilated at 3.9 cm Pleural effusion noted. Ordering Physician: Angel Moss Referring Physician: Casie Hair Performed By: Selena Landaverde, DANO, RVT Chest CTA 03/26/25 15:57 IMPRESSION: 1. No acute pulmonary embolism. 2. Ground-glass opacities within the right upper lobe, which may reflect pneumonitis/pneumonia. 3. Questionable acute, minimally displaced fractures of the bilateral lower anterolateral ribs. Visualization is limited by motion artifact. Correlation with point tenderness recommended. Reading Location: [facility] Rhythm Strip Rhythm Strip: Sinus Rhythm Rate: 89 Ectopy: None Physical Exam Narrative General: Alert, Oriented x3, Cooperative, No apparent distress HEENT: Atraumatic, PERRLA, EOMI, Normocephalic Oral: Moist Mucosa Neck: Supple, No JVD Lungs: Diminished, Normal air movement, No rhonchi, No wheeze, No rales Cardiovascular: Regular rate, Regular Rhythm, Normal S1, Normal S2, No murmurs Abdomen: Soft, Non Tender, Non-Distended, No Hepato-splenomegaly Extremities: Edema, Capillary Refill Less than 3 Seconds Skin: No rashes, No breakdown Musculoskeletal: No Tenderness to Palpation of Joints or Extremities Neurological: No focal neurological deficits, moves all extremities, sensation intact Psych/Mental Status: Normal Affect, Appropriate Assessment & Plan Assessment/Plan (1) Acute CHF: QUALIFIERS: Heart failure type: unspecified Qualified Code(s): I50.9 - Heart failure, unspecified PLAN: 1. Acute hypoxic respiratory insufficiency secondary to acute diastolic CHF exacerbation/a flutter ? She is down to about 2 L nasal cannula, will continue to wean ? Will obtain an ambulatory pulse ox ? Continue with Lasix ? Echocardiogram with an EF of 50% with a slightly dilated ascending aorta to 3.9 cm ? Will obtain viral panels given her ongoing fluctuations in body temperature and shortness of breath ? Appreciate cardiology's assistance ? Troponins are slightly elevated, these are insignificant ? CTA of the chest demonstrates some groundglass opacities in the right upper lobe but no acute pulmonary embolism ? She continues to have a leukocytosis though it is unclear as to the cause at the moment aside from a viral infection. She is not on steroids currently ? CMV and EBV labs are pending, hepatitis panels were negative DVT: Lovenox Charges/Coding Visit Charges Inpatient E&M: 56610 Subs Hosp L2 03/27/25 1235 Cosigner Signature (if applicable): CC: ~ Signed [facility]06-13-2025 Progress note Author Martin Mcarthur [facility] Note Date/Time March 26, 2025 4:27 pm [facility] Medical Records Department [address] [place] [address] Progress Note - Hospitalist 03/26/25 1551 MR#: [id number] Acct: [id number] Name: RAFAT DELANEY Rep #:[id number] : 1960 64 From: Martin VACA PCP: Dr. Casie Hair, DO Status:AD M IN Location: [place] [address] Reason for Visit Reason for Visit: Diagnoses Anemia, unspecified (03/25/25) Hypo-osmolality and hyponatremia (03/25/25) Heart failure, unspecified (03/25/25) Abnormal levels of other serum enzymes (03/25/25) Subjective Subjective Overall pt does not feel improved. Ongoing SOB and chest tightness. Some palpitations. Ongoing LE edema. She does not feel she has had much urinary output. Ongoing fever. Some chills. No body ache. No N/V/D. Objective Data Objective Data Vital Signs: Vital Signs Temp Pulse Resp BP Pulse Ox O2 Del Method O2 Flow Rate 98.6 F 74 18 94/63 100 Nasal Cannula 4 03/26/25 15:24 03/26/25 15:24 03/26/25 15:24 03/26/25 15:24 03/26/25 15:24 03/26/25 15:24 03/26/25 15:24 Oxygen Flow Rate (L/min) 4 Oxygen Delivery Method Nasal Cannula Weight: 76.657 kg Body Mass Index (BMI) 24.9 Intake & Output: Intake and Output for Last 24 Hours 03/24/25 03/25/25 03/26/25 23:59 23:59 23:59 Intake Total 220 / 220 Output Total 800 / 800 700 / 700 Balance -800 / -800 -480 / -480 Lab / Micro Data 03/26/25 04:17 03/26/25 04:17 Labs: Laboratory Results - last 24 hr 03/26/25 04:17: WBC 19.3 H, RBC 2.98 L, Hgb 8.7 L, Hct 24.0 L, MCV 80.5 L, MCH 29.2, MCHC 36.3 H, RDW Std Deviation 40.6, RDW Coeff of Christian 13.9, Plt Count 431,MPV 9.6, Neut % (Auto) Not Reportable, Absolute Neuts (auto) 15.6 H, Absolute Lymphs (auto) 1.54, Total Counted 100, Neutrophils % (Manual) 79 H, Band Neutrophils % 2, Lymphocytes % (Manual) 8 L, Monocytes % (Manual) 8, Eosinophils% (Manual) 1, Metamyelocytes % 1, Myelocytes % 1 H, Toxic Granulation 1+, Platelet Estimate A, Polychromasia 1+, Sodium 130 L, Potassium 3.3, Chloride 92 L, Carbon Dioxide 26.1, Anion Gap 12, BUN 16, Creatinine 0.65 L, Estim Creat Clear Calc 92.58, Est GFR (MDRD) Non-Af 99, BUN/Creatinine Ratio 24.3 H, [id number] H, Calcium 9.0 03/26/25 14:35: D-Dimer Quant (PE/DVT) 3.84 H* Radiography Diagnostic Testing: Radiology Impression Echocardiogram 03/25/25 15:12 Interpretation Summary LV systolic function is low normal The LV ejection fraction is 50 %. Trivial mitral valve insufficiency. Trivial tricuspid valve regurgitation Ascending aorta is mildly dilated at 3.9 cm Pleural effusion noted. Ordering Physician: Angel Moss Referring Physician: Casie Hair Performed By: Selena Landaverde, DANO, RVT Rhythm Strip Rhythm Strip: Sinus Rhythm Rate: 89 Ectopy: None Physical Exam Const alert, oriented x3 and no apparent distress HEENT head/scalp atraumatic Head and Scalp: normocephalic Resp Resp Narrative: diminished Auscultation: crackles bilateral (bases) GI normal to inspection, nondistended, normoactive bowel sounds, soft to palpation,non-tender and non-distended Extremity Extremity Narrative: 2+ pitting edema BL LE Neuro oriented x3 Psych affect normal Assessment & Plan Assessment/Plan (1) Acute CHF: QUALIFIERS: Heart failure type: unspecified Qualified Code(s): I50.9 - Heart failure, unspecified PLAN: 1. Acute CHF with preserved EF with acute hypoxia -02 demand increased to 4lpm. Continue to wean O2 as tolerated. cardiology following. Continue IV lasix.Output net -1200. Echo with EF 50%, pleural effusion noted. trivial MVI. ongoingSOB, rales on exam, SOB, LE edema. 2. A flutter - some palpitations today. episodic A flutter on monitor and EKG. she has been started on carvedilol and therapeutic lovenox. prn lopressor. d dimer 3.84 - check CTA chest. 3. Abnormal troponin - 41-47-46. Cardiology following. Echo as abo. Still significantly volume ovlerloaded. 4. Hyponatremia suspect 2/2 #1 - improving. repeat BMP in AM 5. Abnormal LFTs - possibly due to hepatic congestion or viral etiology. CMV, EBV, and hepatitis panels pending. 6. Leukocytosis - unclear etiology - suspect viral infection. repeat CBC in AM. 7. Normocytic anemia - trend CBC. 8. Hx MVP - echo shows trivial MVI DVT ppx: on therapeutic lovenox This patient was seen by Martin Mcarthur PA-C under the supervision of Doctor Moss. 03/26/25 1602 <Electronically signed by Martin VACA> Cosigner Signature (if applicable): CC: ~ Signed ADDENDUM by Dr. Angel Moss DO on 03/26/25 at 1627 Addendum Patient seen and examined independently. Data and vitals reviewed. I agree with the above note by the physician assistant manager of operations. Patient was feeling better but then later developed atrial flutter with RVR and that was feeling worse. No acute stress and afebrile. HRRR (earlier) lungs with some bibasilar crackles. Still with lower extremity edema but overall improved. EKG personally reviewed and showed a flutter with RVR. Echo shows an EF of 50%. Pleural effusion noted. D-dimer elevated at 3.84. Acute hepatitis profile pending CTA of the chest ordered Assessment and plan Acute HFpEF: Continue with IV furosemide. Check 2D echocardiogram. Discussed with Dr. Vera of cardiology and recommending low-dose carvedilol. I am concerned about the viral myocarditis. In particular with her protracted case and transaminitis will check an EBV and CMV. Atrial flutter with RVR: Better controlled. Started on carvedilol as well as asneeded metoprolol. Discussed with the patient and her about anticoagulation in the indication for to help her event stroke. Will start on therapeutic enoxaparin for the time being. Transaminitis: Could be passive congestion or viral pattern. Check EBV and CMV. As well as acute hepatitis profile. Continue to monitor. VTE prophylaxis with low molecular heparin. Case discussed with patient's at bedside. Visit Charges Inpatient E&M: 38311 Subs Hosp L3 03/26/25 1622<Electronically signed by Angel Moss DO> Cosigner Signature (if applicable): cc: ~* Signed [facility] Work Phone: 1(443) 626-991706-13-2025 Radiology Diagnostic study note [facility] Imaging Services [address] [place] [id number] CTA Chest W/WO Contrast MR#: [id number] Acct: [id number] Name: RAFAT DELANEY Rep #: [id number] : 1960 F 64 From: Rani Bullock MD PCP: Dr. Casie Hair DO Status: AD M IN Study:CTA Chest W/WO Contrast Date of Exam: 03/26/25 Exam# [id number] Ordering Dr: Angel Moss DO PROCEDURE: CTA CHEST W/WO CONTRAST 03/26/2025 REASON FOR EXAM: ELEVATED D-DIMER TECHNIQUE: CTA axial imaging of the chest with intravenous contrast. Coronal and Sagittal reconstruction series were provided. 3D, 3D post processing, 3D reconstructions, Maximum intensity projection (MIPs) Volume rendering and Shaded surface rendering was provided. PATIENT PREPARATION: Per protocol CONTRAST: Isovue 370 VOLUME: 100mL One or more dose reduction techniques were used (e.g., Automated exposure control, adjustment of the mA and/or kV according to patient size, use of iterative reconstruction technique). RADIATION DOSE SUMMARY: CTDlvol: 14 mGy DLP: 200 mGycm COMPARISON: Chest radiograph 1 day prior. FINDINGS: Hardware: None. Lymph nodes: No axillary, mediastinal or hilar lymphadenopathy. Heart: Mild cardiomegaly without pericardial effusion. The great vessels are normal in caliber. Minimal calcific plaque of the thoracic aorta. Pulmonary Vessels: No central filling defect within the segmental or subsegmental pulmonary arteries. Lungs and Airways: The central airways are patent. Small right and moderate left pleural effusions with adjacent atelectasis. Ground-glass opacities within the right upper lobe (for example series 2, image 187). No pneumothorax. Upper Abdomen: Hepatic hypodensity, incompletely characterized. Bones: Questionable acute, minimally displaced fractures of the bilateral anterolateral ribs, however visualization is limited by motion artifact. Cervical and thoracic spondylosis. CT/CTA Chest W/WO Contrast IMPRESSION: 1. No acute pulmonary embolism. 2. Ground-glass opacities within the right upper lobe, which may reflect pneumonitis/pneumonia. 3. Questionable acute, minimally displaced fractures of the bilateral lower anterolateral ribs. Visualization is limited by motion artifact. Correlation with point tenderness recommended. Reading Location: [facility] CC: Dr. Angel Moss DO; Dr. Casie Hair DO ~ Medical And Health Services Manager: Signed [facility]06-13-2025 Progress note [facility] Medical Records Department [address] [place] [address] Progress Note - Hospitalist 03/26/25 1551 MR#: [id number] Acct: [id number] Name: RAFAT DELANEY Rep #:[id number] : 1960 64 From: Martin VACA PCP: Dr. Casie Hair DO Status:AD M IN Location: [place] [address] Reason for Visit Reason for Visit: Diagnoses Anemia, unspecified (03/25/25) Hypo-osmolality and hyponatremia (03/25/25) Heart failure, unspecified (03/25/25) Abnormal levels of other serum enzymes (03/25/25) Subjective Subjective Overall pt does not feel improved. Ongoing SOB and chest tightness. Some palpitations. Ongoing LE edema. She does not feel she has had much urinary output. Ongoing fever. Some chills. No body ache. No N/V/D. Objective Data Objective Data Vital Signs: Vital Signs Temp Pulse Resp BP Pulse Ox O2 Del Method O2 Flow Rate 98.6 F 74 18 94/63 100 Nasal Cannula 4 03/26/25 15:24 03/26/25 15:24 03/26/25 15:24 03/26/25 15:24 03/26/25 15:24 03/26/25 15:24 03/26/25 15:24 Oxygen Flow Rate (L/min) 4 Oxygen Delivery Method Nasal Cannula Weight: 76.657 kg Body Mass Index (BMI) 24.9 Intake & Output: Intake and Output for Last 24 Hours 03/24/25 03/25/25 03/26/25 23:59 23:59 23:59 Intake Total 220 / 220 Output Total 800 / 800 700 / 700 Balance -800 / -800 -480 / -480 Lab / Micro Data 03/26/25 04:17 03/26/25 04:17 Labs: Laboratory Results - last 24 hr 03/26/25 04:17: WBC 19.3 H, RBC 2.98 L, Hgb 8.7 L, Hct 24.0 L, MCV 80.5 L, MCH 29.2, MCHC 36.3 H, RDW Std Deviation 40.6, RDW Coeff of Christian 13.9, Plt Count 431,MPV 9.6, Neut % (Auto) Not Reportable, Absolute Neuts (auto) 15.6 H, Absolute Lymphs (auto) 1.54, Total Counted 100, Neutrophils % (Manual) 79 H, Band Neutrophils % 2, Lymphocytes % (Manual) 8 L, Monocytes % (Manual) 8, Eosinophils% (Manual) 1, Metamyelocytes % 1, Myelocytes % 1 H, Toxic Granulation 1+, Platelet Estimate A, Polychromasia 1+, Sodium 130 L, Potassium 3.3, Chloride 92 L, Carbon Dioxide 26.1, Anion Gap 12, BUN 16, Creatinine 0.65 L, Estim Creat Clear Calc 92.58, Est GFR (MDRD) Non-Af 99, BUN/Creatinine Ratio 24.3 H, [id number] H, Calcium 9.0 03/26/25 14:35: D-Dimer Quant (PE/DVT) 3.84 H* Radiography Diagnostic Testing: Radiology Impression Echocardiogram 03/25/25 15:12 Interpretation Summary LV systolic function is low normal The LV ejection fraction is 50 %. Trivial mitral valve insufficiency. Trivial tricuspid valve regurgitation Ascending aorta is mildly dilated at 3.9 cm Pleural effusion noted. Ordering Physician: Angel Moss Referring Physician: Casie Hair Performed By: Selena Landaverde, DANO, RVT Rhythm Strip Rhythm Strip: Sinus Rhythm Rate: 89 Ectopy: None Physical Exam Const alert, oriented x3 and no apparent distress HEENT head/scalp atraumatic Head and Scalp: normocephalic Resp Resp Narrative: diminished Auscultation: crackles bilateral (bases) GI normal to inspection, nondistended, normoactive bowel sounds, soft to palpation,non-tender and non-distended Extremity Extremity Narrative: 2+ pitting edema BL LE Neuro oriented x3 Psych affect normal Assessment & Plan Assessment/Plan (1) Acute CHF: QUALIFIERS: Heart failure type: unspecified Qualified Code(s): I50.9 - Heart failure, unspecified PLAN: 1. Acute CHF with preserved EF with acute hypoxia -02 demand increased to 4lpm. Continue to wean O2 as tolerated. cardiology following. Continue IV lasix.Output net -1200. Echo with EF 50%, pleural effusion noted. trivial MVI. ongoingSOB, rales on exam, SOB, LE edema. 2. A flutter - some palpitations today. episodic A flutter on monitor and EKG. she has been startedon carvedilol and therapeutic lovenox. prn lopressor. d dimer 3.84 - check CTA chest. 3. Abnormal troponin - 41-47-46. Cardiology following. Echo as abo. Still significantly volume ovlerloaded. 4. Hyponatremia suspect 2/2 #1 - improving. repeat BMP in AM 5. Abnormal LFTs - possibly due to hepatic congestion or viral etiology. CMV, EBV, and hepatitis panels pending. 6. Leukocytosis - unclear etiology - suspect viral infection. repeat CBC in AM. 7. Normocytic anemia - trend CBC. 8. Hx MVP - echo shows trivial MVI DVT ppx: on therapeutic lovenox This patient was seen by Martin Mcarthur PA-C under the supervision of Doctor Ajay. 03/26/251601 Cosigner Signature (if applicable): CC: ~ Signed ADDENDUM by Dr. Angel Moss, on 03/26/25 at 1627 Addendum Patient seen and examined independently. Data and vitals reviewed. I agree with the above note by the physician assistant manager of operations. Patient was feeling better but then later developed atrial flutter with RVR and that was feeling worse. No acute stress and afebrile. HRRR (earlier) lungs with some bibasilar crackles. Still with lower extremity edema but overall improved. EKG personally reviewed and showed a flutter with RVR. Echo shows an EF of 50%. Pleural effusion noted. D-dimer elevated at 3.84. Acute hepatitis profile pending CTA of the chest ordered Assessment and plan Acute HFpEF: Continue with IV furosemide. Check 2D echocardiogram. Discussed with Dr. Vera of cardiology and recommending low-dose carvedilol. I am concerned about the viral myocarditis. In particular with her protracted case and transaminitis will check an EBV and CMV. Atrial flutter with RVR: Better controlled. Started on carvedilol as well as asneeded metoprolol. Discussed with the patient and her about anticoagulation in the indication for to help her event stroke. Will start on therapeutic enoxaparin for the time being. Transaminitis: Could be passive congestion or viral pattern. Check EBV and CMV. As well as acute hepatitis profile. Continue to monitor. VTE prophylaxis with low molecular heparin. Case discussed with patient's at bedside. Visit Charges Inpatient E&M: 43284 [facility] Hosp L3 03/26/251626 Cosigner Signature (if applicable): cc: ~* Signed [facility]06-13-2025 Progress note Author Shane Chang [facility] Note Date/Time March 26, 2025 2:27 pm [facility] Medical Records Department [address] [place] [address] Progress Note - Cardiology 03/26/25 1237 MR#: [id number] Acct: [id number] Name: RAFAT DELANEY Rep #:[id number] : 1960 64 From: Shane Chang MD PCP: Dr. Casie Hair, DO Status:AD M IN Location: [place] [address] Subjective Subjective Still feels weak though improved. Objective Data Vital Signs: Vital Signs Temp Pulse Resp BP Pulse Ox O2 Del Method O2 Flow Rate 100.8 F H 90 18 111/66 94 Nasal Cannula 3 03/26/25 09:58 03/26/25 09:58 03/26/25 09:58 03/26/25 09:58 03/26/25 10:02 03/26/25 10:02 03/26/25 10:02 Oxygen Flow Rate (L/min) 3 Oxygen Delivery Method Nasal Cannula Weight: 168 lb 15.996 oz Body Mass Index (BMI) 24.9 Intake & Output: Intake and Output for Last 24 Hours 03/24/25 03/25/25 03/26/25 23:59 23:59 23:59 Output Total 800 / 800 Balance -800 / -800 Lab / Micro Data 03/26/25 04:17 03/26/25 04:17 Labs: Laboratory Results - last 24 hr 03/25/25 13:32: Troponin T Hi Sens 2 Hr 47 H 03/25/25 14:20: Troponin T Hi Sens 4Hr 46 H 03/26/25 04:17: WBC 19.3 H, RBC 2.98 L, Hgb 8.7 L, Hct 24.0 L, MCV 80.5 L, MCH 29.2, MCHC 36.3 H, RDW Std Deviation 40.6, RDW Coeff of Christian 13.9, Plt Count 431,MPV 9.6, Neut % (Auto) Not Reportable, Absolute Neuts (auto) 15.6 H, Absolute Lymphs (auto) 1.54, Total Counted 100, Neutrophils % (Manual) 79 H, Band Neutrophils % 2, Lymphocytes % (Manual) 8 L, Monocytes % (Manual) 8, Eosinophils% (Manual) 1, Metamyelocytes % 1, Myelocytes % 1 H, Toxic Granulation 1+, Platelet Estimate A, Polychromasia 1+, Sodium 130 L, Potassium 3.3, Chloride 92 L, Carbon Dioxide 26.1, Anion Gap 12, BUN 16, Creatinine 0.65 L, Estim Creat Clear Calc 92.58, Est GFR (MDRD) Non-Af 99, BUN/Creatinine Ratio 24.3 H, [id number] H, Calcium 9.0 Rhythm Strip Rhythm Strip: Sinus Rhythm Rate: 89 Ectopy: None Cardiology Labs/Tests 03/26/25 04:17: WBC 19.3 H, RBC 2.98 L, Hgb 8.7 L, Hct 24.0 L, MCV 80.5 L, MCH 29.2, MCHC 36.3 H, Plt Count 431, MPV 9.6, Neut % (Auto) Not Reportable, Absolute Neuts (auto) 15.6 H, Total Counted 100, Neutrophils % (Manual) 79 H, Band Neutrophils % 2, Lymphocytes % (Manual) 8 L, Monocytes % (Manual) 8, Eosinophils % (Manual) 1, Metamyelocytes % 1, Myelocytes % 1 H, Sodium 130 L, Potassium 3.3, Chloride 92 L, Carbon Dioxide 26.1, Anion Gap 12, BUN 16, Creatinine 0.65 L, Est GFR (MDRD) Non-Af 99, BUN/Creatinine Ratio 24.3 H, [id number] H, Calcium 9.0 Rhythm: EKG: ECHO: Stress Test: Cardiac Cath: PCI: CT Surgery: Holter monitor: EPS: PPM: CXR: Chest CT Scan: Physical Exam Narrative General?alert oriented HEENT- normal extraocular movements Neck supple no JVD Cardiovascular- normal S1-S2, no murmurs Pulmonary- clear to auscultation bilaterally Abdomen- soft to palpation, normal sounds Extremities-1+ edema Musculoskeletal- no tenderness no swelling Neurological -alert oriented Psych -normal affect Assessment & Plan Assessment/Plan (1) Acute CHF: QUALIFIERS: Heart failure type: unspecified Qualified Code(s): I50.9 - Heart failure, unspecified PLAN: The patient's chest x-ray was consistent with vascular congestion and pulmonary edema as well as bilateral pleural effusions.. (2) Acute hyponatremia: (3) Elevated liver enzymes: PLAN: LFTs are probably related to congestion but this may be a viral infection as well. Further evaluation investigation per the primary service. (4) Anemia: QUALIFIERS: Anemia type: unspecified type Qualified Code(s): D64.9 - Anemia, unspecified PLAN: Anemia continues to worsen. Defer to primary team. PLAN: Plan 1. Continue with gentle diuresis. 2 Follow renal function closely 3. Continue further workup to explore leukocytosis and anemia. 03/26/25 1307 <Electronically signed by Shane Chang MD> Cosigner Signature (if applicable): CC: ~ Signed ADDENDUM by Dr. Shane Chang MD on 03/26/25 at 1427 Visit Charges Inpatient E&M: 21995 Subs Hosp L3 03/26/25 1427<Electronically signed by Shane Chang MD> Cosigner Signature (if applicable): cc: ~* Signed [facility] Work Phone: 1(107) 286-650006-13-2025 Progress note [facility] Medical Records Department [address] [place] [address] Progress Note - Cardiology 03/26/25 1237 MR#: [id number] Acct: [id number] Name: RAFAT DELANEY Rep #:[id number] : 1960 64 From: Shane Chang MD PCP: Dr. Casie Hair, DO Status:AD M IN Location: [place] [address] Subjective Subjective Still feels weak though improved. Objective Data Vital Signs: Vital Signs Temp Pulse Resp BP Pulse Ox O2 Del Method O2 Flow Rate 100.8 F H 90 18 111/66 94 Nasal Cannula 3 03/26/25 09:58 03/26/25 09:58 03/26/25 09:58 03/26/25 09:58 03/26/25 10:02 03/26/25 10:02 03/26/25 10:02 Oxygen Flow Rate (L/min) 3 Oxygen Delivery Method Nasal Cannula Weight: 168 lb 15.996 oz Body Mass Index (BMI) 24.9 Intake & Output: Intake and Output for Last 24 Hours 03/24/25 03/25/25 03/26/25 23:59 23:59 23:59 Output Total 800 / 800 Balance -800 / -800 Lab / Micro Data 03/26/25 04:17 03/26/25 04:17 Labs: Laboratory Results - last 24 hr 03/25/25 13:32: Troponin T Hi Sens 2 Hr 47 H 03/25/25 14:20: Troponin T Hi Sens 4Hr 46 H 03/26/25 04:17: WBC 19.3 H, RBC 2.98 L, Hgb 8.7 L, Hct 24.0 L, MCV 80.5 L, MCH 29.2, MCHC 36.3 H, RDW Std Deviation 40.6, RDW Coeff of Christian 13.9, Plt Count 431,MPV 9.6, Neut % (Auto) Not Reportable, Absolute Neuts (auto) 15.6 H, Absolute Lymphs (auto) 1.54, Total Counted 100, Neutrophils % (Manual) 79 H, Band Neutrophils % 2, Lymphocytes % (Manual) 8 L, Monocytes % (Manual) 8, Eosinophils% (Manual) 1, Metamyelocytes % 1, Myelocytes % 1 H, Toxic Granulation 1+, Platelet Estimate A, Polychromasia 1+, Sodium 130 L, Potassium 3.3, Chloride 92 L, Carbon Dioxide 26.1, Anion Gap 12, BUN 16, Creatinine 0.65 L, Estim Creat Clear Calc 92.58, Est GFR (MDRD) Non-Af 99, BUN/Creatinine Ratio 24.3 H, Eoxsmoa896 H, Calcium 9.0 Rhythm Strip Rhythm Strip: Sinus Rhythm Rate: 89 Ectopy: None Cardiology Labs/Tests 03/26/25 04:17: WBC 19.3 H, RBC 2.98 L, Hgb 8.7 L, Hct 24.0 L, MCV 80.5 L, MCH 29.2, MCHC 36.3 H, Plt Count 431, MPV 9.6, Neut % (Auto) Not Reportable, Absolute Neuts (auto) 15.6 H, Total Counted 100, Neutrophils % (Manual) 79 H, Band Neutrophils % 2, Lymphocytes % (Manual) 8 L, Monocytes % (Manual) 8, Eosinophils % (Manual) 1, Metamyelocytes % 1, Myelocytes % 1 H, Sodium 130 L, Potassium 3.3, Chloride 92 L, Carbon Dioxide 26.1, Anion Gap 12, BUN 16, Creatinine 0.65 L, Est GFR (MDRD) Non-Af 99,BUN/Creatinine Ratio 24.3 H, Exbhhcf604 H, Calcium 9.0 Rhythm: EKG: ECHO: Stress Test: Cardiac Cath: PCI: CT Surgery: Holter monitor: EPS: PPM: CXR: Chest CT Scan: Physical Exam Narrative General?alert oriented HEENT- normal extraocular movements Neck supple no JVD Cardiovascular- normal S1-S2, no murmurs Pulmonary- clear to auscultation bilaterally Abdomen- soft to palpation, normal sounds Extremities-1+ edema Musculoskeletal- no tenderness no swelling Neurological -alert oriented Psych -normal affect Assessment & Plan Assessment/Plan (1) Acute CHF: QUALIFIERS: Heart failure type: unspecified Qualified Code(s): I50.9 - Heart failure, unspecified PLAN: The patient's chest x-ray was consistent with vascular congestion and pulmonary edema as wellas bilateral pleural effusions.. (2) Acute hyponatremia: (3) Elevated liver enzymes: PLAN: LFTs are probably related to congestion but this may be a viral infection as well. Further evaluation investigation per the primary service. (4) Anemia: QUALIFIERS: Anemia type: unspecified type Qualified Code(s): D64.9 - Anemia, unspecified PLAN: Anemia continues to worsen. Defer to primary team. PLAN: Plan 1. Continue with gentle diuresis. 2 Follow renal function closely 3. Continue further workup to explore leukocytosis and anemia. 03/26/25 1307 Cosigner Signature (if applicable): CC: ~ Signed ADDENDUM by Dr. Shane Chang MD on 03/26/25 at 1427 Visit Charges Inpatient E&M: 76945 [facility] Hosp 03/26/25 1427 Cosigner Signature (if applicable): cc: ~* Signed [facility]06-12-2025 History and physical note Author Martin Mcarthur [facility] Note Date/Time March 25, 2025 4:54 pm [facility] Medical Records Department [address] [place] [address] H&P Exam - Hospitalist 03/25/25 1425 MR#: [id number] Acct: [id number] Name: RAFAT DELANEY Rep #:[id number] : 1960 64 From: Martin VACA PCP: Dr. Casie Hair, DO Status:AD M IN Location: [facility] [id number] HPI - General General Date of Service: 03/25/25 Chief Complaint: chest tightness HPI Narrative RAFAT DELANEY, is a 64 F with pmhx MVP who presents to the ER with chest tightness. She has had this about 10 days. The day it started she travelled to [place]. She started to feel all over body [...] and has no prior hx of CHF. [facility] Medical History Mitral valve prolapse Lyme disease [...] Sens 41 H, [place] [address] H, Total Protein 5.9, Albumin 2.6 L, Globulin 3.3 03/25/25 13:32: Troponin T Hi Sens 2 Hr 47 H Rhythm Strip Rhythm Strip: Sinus Rhythm Rate: 89 Ectopy: None Imaging Radiology Impression Chest X-Ray 03/25/25 10:48 IMPRESSION: Vascular congestion and mild CHF with small bilateral pleural effusions left greater than right with bibasilar atelectasis worse on the right lung base. Reading [facility] Assessment & Plan Assessment/Plan (1) Acute CHF: PLAN: 1. Acute CHF, unclear type, no prior hx - 10 days of chest tightness, sob,dry cough, PND, orthopnea, BL LE edema. recent admission to hospital in [place] last through saturday for abnormal liver enzymes, [...] Mcarthur PA-C under the supervision of Doctor Moss. 03/25/25 1444 <Electronically signed by Martin VACA> Cosigner Signature (if applicable): CC: LIO Franco; Dr. Angel Moss DO; Dr. Casie Hair DO~ Signed ADDENDUM by Dr. Angel Moss DO on 03/25/25 at 1654 Addendum Patient seen and examined independently. Data and vitals reviewed. I agree with the above note by the physician assistant manager of operations. Patient been feeling ill for some time and was in [place] where she was hospitalized and noted to have transaminitis. Also positive for norovirus but she did not have any preceding nausea, vomiting and or diarrhea. Mentioned she was discharged. But just has been just feeling very fatigued. 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 Patient still just continues to feel rundown. Denies any abdominal pain or any chest pain. Physical exam: Patient is lying in bed. Nontoxic. Afebrile. HEENT head is atraumatic normocephalic. Mucous members are moist. No posterior pharyngeal erythema no evidence of any thrush. Neck is positive for anterior cervical lymphadenopathy. Unable appreciate a posterior cervical lymphadenopathy. Heartis regular rate and rhythm plus S1-S2 with a murmurs, rubs. Lungs have bibasilar crackles. Abdomen is soft nontender nondistended with normal bowel sounds. No hepatosplenomegaly. Extremities with bilateral lower extremity edema. Skin is intact without any jaundice or lesions. Assessment and plan Acute CHF exacerbation: Unclear type. Continue with IV furosemide. Check 2D echocardiogram. Discussed with Dr. Vera of cardiology and recommending low- dose carvedilol. I am concerned about the viral myocarditis. In particular with her protracted case and transaminitis will check an EBV and CMV. Transaminitis: Could be passive congestion or viral pattern. Check EBV and CMV. As well as acute hepatitis profile. Continue to monitor. VTE prophylaxis with low molecular heparin. Case discussed with patient's at bedside. Visit Charges Inpatient E&M: 68009 Init Hosp L3 03/25/25 1654<Electronically signed by Angel Moss DO> Cosigner Signature (if applicable): cc: LIO Franco; Dr. Angel Moss DO; Dr. Casie Hair DO ~* Signed [facility] Work Phone: 1(335) 536-470906-12-2025 Consult note Author Michael Vera [facility] Note Date/Time March 25, 2025 4:40 pm [facility] Medical Records Department [address] [place] [address] Consultation - Cardiology 03/25/25 1621 MR#: [id number] Acct: [id number] Name: RAFAT DELANEY Rep #:[id number] : 1960 64 From: Michael Vera MD PCP: Dr. Casie Hair DO Status:AD M IN Location: [place] [address] Assessment & Plan Assessment/Plan (1) Acute CHF: QUALIFIERS: Heart failure type: unspecified Qualified Code(s): I50.9 - Heart failure, unspecified PLAN: A quick look echo showed that the LV function appears to be fairly well maintained. There is some thickness of the heart muscle but good wall motion and no segmental wall motion changes. The RV was difficult to visualize but appears to be normal in size. A full formal echo will be done tomorrow morning. The patient's chest x-ray was consistent with vascular congestion and pulmonaryedema as well as bilateral pleural effusions. Given these findings I would recommend continue with diuresis and continue to monitor the patient for alternative explanations of her volume retention as thismay be some type of viral syndrome that is affecting her myocardium and transiently weakened it and/or affected her liver. Will slowly add medical therapy to assist with further diuresis. Will add Coregat low-dose continue the Lasix and monitor her I's and O's and await the final report from the formal echo. (2) Acute hyponatremia: PLAN: Patient's hyponatremia is apparently new sodium is 128 on today's labs. (3) Elevated liver enzymes: PLAN: LFTs are probably related to congestion but this may be a viral infection as well. Further evaluation investigation per the primary service. (4) Anemia: QUALIFIERS: Anemia type: unspecified type Qualified Code(s): D64.9 - Anemia, unspecified PLAN: Hemoglobin is 9.0 no obvious blood loss further evaluation per the primaryservice. PLAN: Plan 1. Will add low-dose Coreg to the medical regimen. 2. Recommend continue with gentle diuresis. 3. Please call the [facility] if further assistance is needed. HPI Consult Data Date of Consult: 03/25/25 HPI Narrative Reason for Consultation: Progressive shortness of breath and lower extremity edema. HPI Narrative: RAFAT DELANEY, is a 64 F who presents with a complex history. The patient was vacationing in [facility] and a week ago Saturday developed some fatigue tiredness progressed to have joint discomfort and myalgias associated with shortness of breath with chills. She was admitted to the hospital in [facility] on Saturday and multiple tests were run and they finally felt that she probably had a viral infection. She became hypotensive requiring seed significant volume replacement but had not had diarrhea or nausea or vomiting. They did a stool sample and diagnosed her with norovirus. However the patient had no GI symptoms. The patient did notice that when they started given the fluid she was third spacing it into her lower extremities primarily. She also developed abdominal fullness felt like she had eaten a full meal when she had not eaten anything. She also developed a cough that was nonproductive and occurred primarily when she was in the recumbent position and resolved when she sat up. The patient also has had progressive shortness of breath and she came to the emergency department today for further evaluation. The patient's liver enzymes have been elevated. She has 1-2+ lower extremity edema. White count is elevated at 19,000 she is anemic with a hemoglobin of 9.0. Troponins were minimally elevated 41, 47, and 46. BNP was markedly elevated 11,948. The patient has diuresed since she was admitted and is feelingsome better. She was not hypoxic. Patient's only medication at home was estradiol vaginal cream. Patient has received IV Lasix since admission. The patient does complain of PND and orthopnea. She denies any syncope or near syncope. She did have an episode of profound hypotension that required rapid volume resuscitation at the outside hospital in [place]. She has been edematous ever since that fluid resuscitation and has not been able to mobilize the fluid. The patient denies any history of coronary disease she has no previous cardiac history at all. She does have a mother who had bypass graft surgery. She is not diabetic her cholesterols have a very high HDL. She has never smoked and she is not hypertensive. [facility] Medical History Mitral valve prolapse Lyme disease Home Medications ?Medication ?Instructions ?Recorded ?Last Taken ?Type estradiol 0.01% (0.1 mg/gram) 1 appful vaginal .twice weekly 03/25/25 Unknown History vaginal cream Allergy/AdvReac Type Severity Reaction Status Date / Time No Known Allergies Allergy Verified 03/25/25 09:48 Family History Mother CAD (coronary artery disease) Surgical History History of dilatation and curettage Social History Smoking Status: Never smoker ROS ROS Narrative Patient is ill appearing resting in her composition in bed. Constitutional Constitutional: Reports as per HPI Eyes Eyes: Reports systems reviewed and no addt'l complaints, except as documented ENT HEENT: Reports systems reviewed and no addt'l complaints, except as documented Cardiovascular Cardiovascular: Reports as per HPI Respiratory/Chest Respiratory/Chest: Reports as per HPI Gastrointestinal Gastrointestinal: Reports as per HPI Genitourinary Genitourinary: Reports as per HPI Musculoskeletal Musculoskeletal: Reports as per HPI Integumentary Integumentary: Reports systems reviewed and no addt'l complaints, except as documented Neurologic Neurologic: Reports systems reviewed and no addt'l complaints, except as documented Psychiatric Psychiatric: Reports systems reviewed and no addt'l complaints, except as documented Endocrine Endocrinology: Reports systems reviewed and no addt'l complaints, except as documented Hematologic/Lymphatic Hematologic/Lymphatic: Reports as per HPI Allergic/Immunologic Allergic/Immunologic: Reports systems reviewed and no addt'l complaints, except as documented Physical Exam Const alert and oriented x3 HEENT normocephalic Eyes EOMs intact bilaterally Neck Neck Narrative: Noted JVD at 45 degrees up to the angle of the jaw. Chest inspection of chest normal Resp normal respiratory effort Auscultation: rales bilateral 1/2 way up and diminished lung sounds bilateral lower Cardio Cardio Narrative: Heart tones are soft there is no significant murmur there is questionable S3 gallop. Rate: regular rate Rhythm: regular rhythm Heart Sounds: S1 normal and S2 normal; Negative for click, gallop or murmur GI soft to palpation and non-tender Extremity General Extremity: edema bilateral lower extremity Details: moderate Neuro Neuro Narrative: Alert and oriented x 3 Psych mental status grossly normal Risk Stratification Risk Stratification Applicable: Yes Age >/= 65: No >/= 3 CAD Risk Factors (HTN, HLD, DM, family hx of CAD, or current smoker): No Aspirin Use in the Past 7 Days: No Severe Angina (>/= episodes in 24 hours): No EKG ST Changes >/= 0.5mm: No Positive Cardiac Marker: Yes JOHNNIE Risk Stratification Score: 1 JOHNNIE % Risk: 5% Risk Charges/Coding Visit Charges Inpatient E&M: 25752 Init Hosp L2 Objective Data Vital Signs: Vital Signs Temp Pulse Resp BP Pulse Ox O2 Del Method 98.3 F 86 14 115/69 94 Room Air 03/25/25 15:18 03/25/25 15:18 03/25/25 15:18 03/25/25 15:18 03/25/25 15:18 03/25/25 15:18 Oxygen Delivery Method Room Air Weight: 169 lb Body Mass Index (BMI) 24.9 Lab / Micro Data Attestation: I reviewed the patient's lab results. 03/25/25 10:15 03/25/25 10:15 Labs: Laboratory Results [...] Sens 41 H, [place] [address] H, Total Protein 5.9, Albumin 2.6 L, Globulin 3.3 03/25/25 13:32: Troponin T Hi Sens 2 Hr 47 H 03/25/25 14:20: Troponin T Hi Sens 4Hr 46 H Rhythm Strip Rhythm Strip: Sinus Rhythm Rate: 89 Ectopy: None Cardiology Labs/Tests 03/25/25 10:15: WBC 19.0 H, RBC 3.09 L, Hgb 9.0 L, Hct 25.4 L, MCV 82.2, MCH 29.1, MCHC 35.4, Plt Count 392, MPV 9.5, Neut % (Auto) Not Reportable, Absolute Neuts (auto) 16.3 H, Total Counted 100, Neutrophils % (Manual) 84 H, Band Neutrophils % 2, Lymphocytes % (Manual) 7 L, Monocytes % (Manual) 3, Metamyelocytes % 3 H, Myelocytes % 1 H, PT 14.5, INR 1.1, Sodium 128 L, Potassium3.7, Chloride 93 L, Carbon Dioxide 23.1, Anion Gap 12, BUN 12, Creatinine 0.61 L, Est GFR (MDRD) Non-Af 100, BUN/Creatinine Ratio 20.4 H, Glucose 129 H, Calcium9.3, Total Bilirubin 1.29, Direct Bilirubin 0.92 H Rhythm: EKG: ECHO: Stress Test: Cardiac Cath: PCI: CT Surgery: Holter monitor: EPS: PPM: CXR: Chest CT Scan: Radiography Diagnostic Testing: Radiology Impression Chest X-Ray 03/25/25 10:48 IMPRESSION: Vascular congestion and mild CHF with small bilateral pleural effusions left greater than right with bibasilar atelectasis worse on the right lung base. Reading Location: [place] [address] 03/25/25 1640 <Electronically signed by Michael Vera MD> Cosigner Signature (if applicable): CC: Dr. Casie Hair, ~ Signed [facility] Work Phone: 1(382) 686-254706-12-2025 Discharge summary Author Sawyer Daigle [facility] Note Date/Time March 25, 2025 3:39 pm [facility] Medical Records Department [address] [place] [address] Emergency Department Summary 03/25/25 MR#: [id number] Acct: [id number] Name: RAFAT DELANEY Rep #:[id number] : 1960 64 From: Sawyer Daigle MD PCP: Dr. Casie Hair DO Status:AD M IN Location: [facility] [id number]- 1 HPI History of Present Illness Chief Complaint: General Illness Informant: patient Onset/Context/Timing Onset: Days Context: Gradual Onset Timing: Continuous Current Severity: Moderate Maximum Severity: Moderate Narrative Narrative: 64-year-old female no significant past medical history of mitral valve prolapse. A week ago her and her were vacationing in [facility]. She got admitted to the hospital there. She donated numerous tests really did not have any specific diagnosis. Since she was in the hospital there she developed bilateral lower extremity edema, fatigue, exertional dyspnea and shortness of breath. She has no cardiac history she is aware of the mitral valve prolapse. Prior similar symptoms: Yes Recent Illness/Hospitalization: Yes [facility] Medical History (Updated 03/25/25 @ 13:[address] Sawyer Daigle MD) Lyme disease Home Medications ?Medication ?Instructions ?Recorded ?Last Taken ?Type Cetirizine Hcl [Zyrtec] 10 mg PO DAILY ALLERGIES 09/29/18 History 10 Allergy/AdvReac Type Severity Reaction Status Date / Time No Known Allergies Allergy Verified 03/25/25 09:48 Social History Smoking Status: Never smoker ROS ROS ED ROS Narrative Shortness of breath. Fatigue. Bilateral leg swelling. Constitutional Constitutional ED: Denies chills or fever(s) Eyes Eyes: Denies blurry vision ENT ENT ED: Denies ear pain Cardiovascular Cardiovascular: Reports chest pain Respiratory/Chest Respiratory/Chest: Reports cough, dyspnea and dyspnea on exertion Gastrointestinal Gastrointestinal: Denies abdominal pain Genitourinary Genitourinary ED: Denies dysuria or hematuria Musculoskeletal Musculoskeletal: Denies arthralgias Integumentary Denies abscess Neurologic Neurologic: Denies headache(s) Psychiatric Psychiatric: Denies anxiety or depression Endocrine Endocrinology: Denies cold intolerance Hematologic/Lymphatic Hematologic/Lymphatic: Reports none Allergic/Immunologic Allergic/Immunologic ED: Denies mouth swelling or tongue swelling EXAM Physical Exam Narrative Exam Narrative: 64-year-old female sitting upright in bed. at bedside. Vital signs stable she is hypotensive at 99/66. Temperature 992. Pulse ox 96% on room air no hypoxia. She is not in any distress. H EENT exam pupils round reactive light. Moist mucous membranes. Neck nontender no JVD. No lymphadenopathy. Lungs clear to auscultation bilaterally. Heart rate about 100. Appears to be sinus rhythm.. Chest wall and ribs nontender. Abdomen soft nontender. Nondistended normal bowel sounds without peritoneal signs. Moving all 4 extremities. 2+ pitting edema both lower extremities. Equal symmetrical. Dorsi plantarflexion intact. Calves are nontender no cords. Normal staff development nurse strength. Back nontender. Neurologically she is awake and alert. Answering questions following commands. Const Vital Signs: 03/25/25 09:48 03/25/25 10:19 03/25/25 [...] Oxygen Delivery Method Room Air Room Air Positive well nourished and well developed; Negative for obese, cachectic, contractures or unkempt General Appearance ED: well developed and NAD; Negative for unkempt, cachectic, contractures, cyanotic, diaphoretic or pallor Nutritional Appearance: Negative for cachectic or obese HEENT Reports moist mucous membranes Negative for trauma or tenderness Eyes PERRL and EOMs intact bilaterally Neck no lymphadenopathy, supple and no JVD Chest Wall inspection of chest normal and palpation of chest normal Resp normal respiratory effort and clear to auscultation bilaterally Effort and Inspection: Negative for retractions Auscultation: Negative for rales, rhonchi, wheezes or diminished lung sounds Cardio regular rhythm, S1 normal heart sound, S2 normal heart sound and no murmurs; Negative for regular rate Rate: other Other Details: Rate about 100. GI normal to inspection, nondistended, normoactive bowel sounds, non-tender, non-distended and no masses Auscultation: normoactive bowel sounds Palpation: soft; Negative for tender or guarding Back/Spine no CVA tenderness General Back: Negative for CVA tenderness Cervical Spine: Negative for cervical spine tenderness Thoracic Spine / Upper Back: Negative for thoracic spinal tenderness Lumbar Spine / Lower Back: Negative for lumbar spinal tenderness Extremity Negative for normal to inspection Extremity Narrative: Bilateral lower extremity edema 2+. Nontender no cords. Equal symmetrical. General Extremety ED: Yes edema; Negative for tenderness General Extremity: edema Neuro oriented x3 and CN's II-XII intact bilaterally Sensorium / Orientation: alert; Negative for orientation impaired, lethargic or stuporous Motor Exam: strength 5/5 throughout Psych mental status grossly normal Appearance: Negative for unkempt Skin no rashes or lesions noted, no wounds and skin turgor normal General Skin Exam: Negative for jaundice or pallor Lesions: No lesion noted Rashes: No rashes noted Wounds: Negative for wounds noted MDM MDM MDM Narrative Medical decision making narrative: 64-year-old female week plus history of exertional fatigue, dyspnea and lower extremity swelling. Clinically I suspect she may have A-fib or dysrhythmia. With congestive heart failure and peripheral edema. Other etiologies could be secondary to kidney dysfunction or liver disease which I think is less likely. Repeat exam patient is doing well at 12:40 PM. I spoke to both the hospitalist and principal research economist on-call. Patient be admitted to PCU. I will give her 20 of Lasix IV here. I think this is new onset CHF left interment Y. She needs an echo and further studies. Her and her and they are comfortable with the plan. History & Record Review Discussion w/independent historian: Patient and Family Additional record(s) reviewed:: No prior records Lab Data Attestation: I reviewed the patient's lab results. Lab results narrative: CBC shows a white count 19. H&H 9 and 25. Platelets 392. PT/INR 14 and 1.1. Chemistry shows sodium is low 128. Gap of 12. BUN of 12 creatinine 0.6. Glucose 129. Liver enzymes are elevated. BNP is elevated at 11, 948. Troponin is mildly elevated at 41. Chest x-ray is consistent with CHF and bilateral pleural effusions. Labs: Laboratory Results - last 24 hr 03/25/25 10:15 WBC 19.0 H RBC 3.09 L Hgb 9.0 L Hct 25.4 L MCV 82.2 MCH 29.1 MCHC 35.4 RDW Std Deviation 42.9 RDW Coeff of Christian 14.4 Plt Count 392 MPV 9.5 Neut % (Auto) Not Reportable Absolute Neuts (auto) 16.3 H Absolute Lymphs (auto) 1.30 Total Counted 100 Neutrophils % (Manual) 84 H Band Neutrophils % 2 Lymphocytes % (Manual) 7 L Monocytes % (Manual) 3 Metamyelocytes % 3 H Myelocytes % 1 H Differential Comment COMMENT Diff Path Review May foll Platelet Estimate ADEQUATE RBC Morphology NORM C+C PT 14.5 INR 1.1 Sodium 128 L Potassium 3.7 Chloride 93 L Carbon Dioxide 23.1 Anion Gap 12 BUN 12 Creatinine 0.61 L Estim Creat Clear Calc 98.65 Est GFR (MDRD) Non-Af 100 BUN/Creatinine Ratio 20.4 H Glucose 129 H Calcium 9.3 Total Bilirubin 1.29 Direct Bilirubin 0.92 H AST 170 H ALT 81 H Alkaline Phosphatase 258 H Troponin T High Sens 41 [place] [address] H Total Protein 5.9 Albumin 2.6 L Globulin 3.3 Radiography Chest X-Ray - ED: 2 View, Read by ED Physician and Read by Radiologist Diagnostic Testing: Clinical Impression(s) from Imaging Studies Chest X-Ray 03/25/25 10:48 IMPRESSION: Vascular congestion and mild CHF with small bilateral pleural effusions left greater than right with bibasilar atelectasis worse on the right lung base. Reading Location: [place] [address] Chest x-ray, 2 views, AP and lateral, interpreted both by myself and the radiologist. Shows mild bilateral pleural effusions and vascular congestion consistent with CHF. No pneumonia. No mass. Normal cardiac silhouette. Rhythm Strip Rhythm Strip: Sinus Rhythm Rate: 89 Ectopy: None EKG Initial EKG: Attestation: I personally reviewed and interpreted this EKG as follows: Interpretation: Sinus Rhythm and No Acute Injury Pattern Comments: Normal sinus rhythm rate 89 no acute signs of ND or ischemia. Discharge Plan Dx/Rx/DC Orders Clinical Impression: Acute dyspnea, Congestive heart failure, Anemia, Acute hyponatremia, Elevated liver enzymes, Leukocytosis Disposition Disposition: Acute Care [facility] What to do if you have Problems For any increased pain, shortness of breath, bleeding, nausea or vomiting, chest pain, or any unexpected problems, contact your Primary Care Provider. Call [facility] ([phone]) or report to the closest Emergency Room. Call 911 if necessary. 03/25/25 5703 <Electronically signed by Sawyer Daigle MD> Cosigner Signature (if applicable): CC: Dr. Casie Hair, DO ~ Signed [facility] Work Phone: 1(846) 298-449506-12-2025 History and physical note [facility] Medical Records Department [address] [place] [address] H&P Exam - Hospitalist 03/25/25 1425 MR#: [id number] Acct: [id number] Name: RAFAT DELANEY Rep #:[id number] : 1960 64 From: Martin VACA PCP: Dr. Casie Hair, DO Status:AD M IN [facility] HPI - General General Date of Service: 03/25/25 Chief Complaint: chest tightness HPI Narrative RAFAT DELANEY, is a 64 F with pmhx MVP who presents to the ER with chest tightness. She has had this about 10 days. The day it started she travelled to [place]. She started to feel all over bodyaches and was taken to the ER at [...] have elevated BNP, CXR showing CHF, abnormal tr oponin, abnormal liver enzymes, and hyponatremia. She is admitted to the hospital with acute CHF, and has no prior hx of CHF. [facility] Medical History Mitral valve prolapse Lyme disease [...] Sens 41 H, [place] [address] H, Total Protein 5.9, Albumin 2.6 L, Globulin 3.3 03/25/25 13:32: Troponin T Hi Sens 2 Hr 47 H Rhythm Strip Rhythm Strip: Sinus Rhythm Rate: 89 Ectopy: None Imaging Radiology Impression Chest X-Ray 03/25/25 10:48 IMPRESSION: Vascular congestion and mild CHF with small bilateral pleural effusions left greater than right with bibasilar atelectasis worse on the right lung base. Reading Location: [facility] Assessment & Plan Assessment/Plan (1) Acute CHF: PLAN: 1. Acute CHF, unclear type, no prior hx - 10 days of chest tightness, sob,dry cough, PND, orthopnea, BL LE edema. recent admission to hospital in [place] last through saturday for abnormal liver enzymes, [...] did have recent diagnosis of norovirus tho shenever had nausea, vomiting, or diarrhea. 6. Normocytic [...] under the supervision of Doctor Ajay. 03/25/25 1444 Cosigner Signature (if applicable): CC: LIO Franco; Dr. Angel Moss DO; Dr. Casie Hair DO~ Signed ADDENDUM by Dr. Angel Moss DO on 03/25/25 at 1654 Addendum Patient seen and examined independently. Data and vitals reviewed. I agree with the above note by the physician assistant manager of operations. Patient been feeling ill for some time and was in [place] where she was hospitalized and noted to have transaminitis. Also positive for norovirus but she did not have any preceding nausea, vomiting and or diarrhea. Mentioned she was discharged. But just has been just feeling very fatigued. 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 Patient still just continues to feel rundown. Denies any abdominal pain or any chest pain. Physical exam: Patient is lying in bed. Nontoxic. Afebrile. HEENT head is atraumatic normocephalic.Mucous members are moist. No posterior pharyngeal erythema no evidence of any thrush. Neck is positive for anterior cervical lymphadenopathy. Unable appreciate a posterior cervical lymphadenopathy. Heartis regular rate and rhythm plus S1-S2 with a murmurs, rubs. Lungs have bibasilar crackles. Abdomen is soft nontender nondistended with normal bowel sounds. No hepatosplenomegaly. Extremities with bilateral lower extremity edema. Skin is intact without any jaundice or lesions. Assessment and plan Acute CHF exacerbation: Unclear type. Continue with IV furosemide. Check 2D echocardiogram. Discussed with Dr. Vera of cardiology and recommending low- dose carvedilol. I am concerned about the viral myocarditis. In particular with her protracted case and transaminitis will check an EBV and CMV. Transaminitis: Could be passive congestion or viral pattern. Check EBV and CMV. As well as acute hepatitis profile. Continue to monitor. VTE prophylaxis with low molecular heparin. Case discussed with patient's at bedside. Visit Charges Inpatient E&M: 66733 Init Hosp L3 03/25/25 1654 Cosigner Signature (if applicable): cc: LIO Franco; Dr. Angel Moss DO; Dr. Casie Hair DO ~* Signed [facility]06-12-2025 Consult note [facility] Medical Records Department [address] [place] [address] Consultation - Cardiology 03/25/25 1621 MR#: [id number] Acct: [id number] Name: RAFAT DELANEY Rep #:[id number] : 1960 64 From: Michael Vera MD PCP: Dr. Casie Hair, DO Status:AD M IN Location: [place] [address] Assessment & Plan Assessment/Plan (1) Acute CHF: QUALIFIERS: Heart failure type: unspecified Qualified Code(s): I50.9 - Heart failure, unspecified PLAN: A quick look echo showed that the LV function appears to be fairly well maintained. There is some thickness of the heart muscle but good wall motion and no segmental wall motion changes. The RVwas difficult to visualize but appears to be normal in size. A full formal echo will be done tomorrow morning. The patient's chest x-ray was consistent with vascular congestion and pulmonaryedema as well as bilateral pleural effusions. Given these findings I would recommend continue with diuresis and continue to monitor the patient for alternative explanations of her volume retention as thismay be some type of viral syndrome that is affecting her myocardium and transiently weakened it and/or affected her liver. Will slowly add medical therapy to assist with further diuresis. Will add Coregat low-dose continuethe Lasix and monitor her I's and O's and await the final report from the formal echo. (2) Acute hyponatremia: PLAN: Patient's hyponatremia is apparently new sodium is 128 on today's labs. (3) Elevated liver enzymes: PLAN: LFTs are probably related to congestion but this may be a viral infection as well. Further evaluation investigation per the primary service. (4) Anemia: QUALIFIERS: Anemia type: unspecified type Qualified Code(s): D64.9 - Anemia, unspecified PLAN: Hemoglobin is 9.0 no obvious blood loss further evaluation per the primaryservice. PLAN: Plan 1. Will add low-dose Coreg to the medical regimen. 2. Recommend continue with gentle diuresis. 3. Please call the [facility] if further assistance is needed. HPI Consult Data Date of Consult: 03/25/25 HPI Narrative Reason for Consultation: Progressive shortness of breath and lower extremity edema. HPI Narrative: RAFAT DELANEY, is a 64 F who presents with a complex history. The patient was vacationing in [facility] and a week ago Saturday developed some fatigue tiredness progressed to have joint discomfort and myalgias associated with shortness of breath with chills. She was admitted to the hospital in [facility] on Saturday and multiple tests were run and they finally felt that she probably had a viral infection. She became hypotensive requiring seed significant volume replacement but had not had diarrhea or nausea or vomiting. They did a stoolsample and diagnosed her with norovirus. However the patient had no GI symptoms. The patient did notice that when they started given the fluid she was third spacing it into her lower extremities primarily. She also developed abdominal fullness felt like she had eaten a full meal when she had not eaten anything. She also developed a cough that was nonproductive and occurred primarily when she was in the recumbent position and resolved when she sat up. The patient also has had progressive shortness of breath and she came to the emergency department today for further evaluation. The patient's liver enzymes have been elevated. She has 1-2+ lower extremity edema. White count is elevated at 19,000 she is anemic with a hemoglobin of 9.0. Troponins were minimally elevated 41, 47,and 46. BNP was markedly elevated 11,948. The patient has diuresed since she was admitted and is feelingsome better. She was not hypoxic. Patient's only medication at home was estradiol vaginal cream. Patient has received IV Lasix since admission. The patient does complain of PND and orthopnea. She denies any syncope or near syncope. She did have an episode of profound hypotension that required rapid volume resuscitation at the outside hospital in [place]. She has been edematous ever since that fluid resuscitation and has not been able to mobilize the fluid. The patient denies any history of coronary disease she has no previous cardiac history at all. She does have a mother who had bypass graft surgery. She is not diabetic her cholesterols have a very high HDL. She has never smoked and she is not hypertensive. [facility] Medical History Mitral valve prolapse Lyme disease Home Medications ?Medication ?Instructions ?Recorded ?Last Taken ?Type estradiol 0.01% (0.1 mg/gram) 1 appful vaginal .twice weekly 03/25/25 Unknown History vaginal cream Allergy/AdvReac Type Severity Reaction Status Date / Time No Known Allergies Allergy Verified 03/25/25 09:48 Family History Mother CAD (coronary artery disease) Surgical History History of dilatation and curettage Social History Smoking Status: Never smoker ROS ROS Narrative Patient is ill appearing resting in her composition in bed. Constitutional Constitutional: Reports as per HPI Eyes Eyes: Reports systems reviewed and no addt'l complaints, except as documented ENT HEENT: Reports systems reviewed and no addt'l complaints, except as documented Cardiovascular Cardiovascular: Reports as per HPI Respiratory/Chest Respiratory/Chest: Reports as per HPI Gastrointestinal Gastrointestinal: Reports as per HPI Genitourinary Genitourinary: Reports as per HPI Musculoskeletal Musculoskeletal: Reports as per HPI Integumentary Integumentary: Reports systems reviewed and no addt'l complaints, except as documented Neurologic Neurologic: Reports systems reviewed and no addt'l complaints, except as documented Psychiatric Psychiatric: Reports systems reviewed and no addt'l complaints, except as documented Endocrine Endocrinology: Reports systems reviewed and no addt'l complaints, except as documented Hematologic/Lymphatic Hematologic/Lymphatic: Reports as per HPI Allergic/Immunologic Allergic/Immunologic: Reports systems reviewed and no addt'l complaints, except as documented Physical Exam Const alert and oriented x3 HEENT normocephalic Eyes EOMs intact bilaterally Neck Neck Narrative: Noted JVD at 45 degrees up to the angle of the jaw. Chest inspection of chest normal Resp normal respiratory effort Auscultation: rales bilateral 1/2 way up and diminished lung sounds bilateral lower Cardio Cardio Narrative: Heart tones are soft there is no significant murmur there is questionable S3 gallop. Rate: regular rate Rhythm: regular rhythm Heart Sounds: S1 normal and S2 normal; Negative for click, gallop or murmur GI soft to palpation and non-tender Extremity General Extremity: edema bilateral lower extremity Details: moderate Neuro Neuro Narrative: Alert and oriented x 3 Psych mental status grossly normal Risk Stratification Risk Stratification Applicable: Yes Age >/= 65: No >/= 3 CAD Risk Factors (HTN, HLD, DM, family hx of CAD, or current smoker): No Aspirin Use in the Past 7 Days: No Severe Angina (>/= episodes in 24 hours): No EKG ST Changes >/= 0.5mm: No Positive Cardiac Marker: Yes JOHNNIE Risk Stratification Score: 1 JOHNNIE % Risk: 5% Risk Charges/Coding Visit Charges Inpatient E&M: 22041 Init Hosp L2 Objective Data Vital Signs: Vital Signs Temp Pulse Resp BP Pulse Ox O2 Del Method 98.3 F 86 14 115/69 94 Room Air 03/25/25 15:18 03/25/25 15:18 03/25/25 15:18 03/25/25 15:18 03/25/25 15:18 03/25/25 15:18 Oxygen Delivery Method Room Air Weight: 169 lb Body Mass Index (BMI) 24.9 Lab / Micro Data Attestation: I reviewed the patient's lab results. 03/25/25 10:15 03/25/25 10:15 Labs: Laboratory Results [...] Sens 41 H, [place] [address] H, Total Protein 5.9, Albumin 2.6 L, Globulin 3.3 03/25/25 13:32: Troponin T Hi Sens 2 Hr 47 H 03/25/25 14:20: Troponin T Hi Sens 4Hr 46 H Rhythm Strip Rhythm Strip: Sinus Rhythm Rate: 89 Ectopy: None Cardiology Labs/Tests 03/25/25 10:15: WBC 19.0 H, RBC 3.09 L, Hgb 9.0 L, Hct 25.4 L, MCV 82.2, MCH 29.1, MCHC 35.4, Plt Count 392, MPV 9.5, Neut % (Auto) Not Reportable, Absolute Neuts (auto) 16.3 H, Total Counted 100, Neutrophils % (Manual) 84 H, Band Neutrophils % 2, Lymphocytes % (Manual) 7 L, Monocytes % (Manual) 3, Metamyelocytes % 3 H, Myelocytes % 1 H, PT 14.5, INR 1.1, Sodium 128 L, Potassium3.7, Chloride 93 L, Carbon Dioxide 23.1, Anion Gap 12, BUN 12, Creatinine 0.61 L, Est GFR (MDRD) Non-Af 100, BUN/Creatinine Ratio 20.4 H, Glucose 129 H, Calcium9.3, Total Bilirubin 1.29, Direct Bilirubin 0.92 H Rhythm: EKG: ECHO: Stress Test: Cardiac Cath: PCI: CT Surgery: Holter monitor: EPS: PPM: CXR: Chest CT Scan: Radiography Diagnostic Testing: Radiology Impression Chest X-Ray 03/25/25 10:48 IMPRESSION: Vascular congestion and mild CHF with small bilateral pleural effusions left greater than right with bibasilar atelectasis worse on the right lung base. Reading Location: [place] [address] 03/25/25 [facility] Cosigner Signature (if applicable): CC: Dr. Casie Hair, DO~ Signed [facility]06-12-2025 Discharge summary [facility] Medical Records Department [address] [place] [address] Emergency Department Summary 03/25/25 MR#: [id number] Acct: [id number] Name: RAFAT DELANEY Rep #:[id number] : 1960 64 From: Sawyer Daigle MD PCP: Dr. Casie Hair, DO Status:AD M IN Location: [place] [address] HPI History of Present Illness Chief Complaint: General Illness Informant: patient Onset/Context/Timing Onset: Days Context: Gradual Onset Timing: Continuous Current Severity: Moderate Maximum Severity: Moderate Narrative Narrative: 64-year-old female no significant past medical history of mitral valve prolapse. A week ago her andher were vacationing in [facility]. She got admitted to the hospital there. She donated numerous tests really did not have any specific diagnosis. Since she was in the hospital there she developed bilateral lower extremity edema, fatigue, exertional dyspnea and shortness of breath. She has no cardiac history she is aware of the mitral valve prolapse. Prior similar symptoms: Yes Recent Illness/[facility]ospital[facility] Medical History (Updated 03/25/25 @ 13:[address] Sawyer Daigle MD) Lyme disease Home Medications ?Medication ?Instructions ?Recorded ?Last Taken ?Type Cetirizine Hcl [Zyrtec] 10 mg PO DAILY ALLERGIES 09/29/18 History 10 Allergy/AdvReac Type Severity Reaction Status Date / Time No Known Allergies Allergy Verified 03/25/25 09:48 Social History Smoking Status: Never smoker ROS ROS ED ROS Narrative Shortness of breath. Fatigue. Bilateral leg swelling. Constitutional Constitutional ED: Denies chills or fever(s) Eyes Eyes: Denies blurry vision ENT ENT ED: Denies ear pain Cardiovascular Cardiovascular: Reports chest pain Respiratory/Chest Respiratory/Chest: Reports cough, dyspnea and dyspnea on exertion Gastrointestinal Gastrointestinal: Denies abdominal pain Genitourinary Genitourinary ED: Denies dysuria or hematuria Musculoskeletal Musculoskeletal: Denies arthralgias Integumentary Denies abscess Neurologic Neurologic: Denies headache(s) Psychiatric Psychiatric: Denies anxiety or depression Endocrine Endocrinology: Denies cold intolerance Hematologic/Lymphatic Hematologic/Lymphatic: Reports none Allergic/Immunologic Allergic/Immunologic ED: Denies mouth swelling or tongue swelling EXAM Physical Exam Narrative Exam Narrative: 64-year-old female sitting upright in bed. at bedside. Vital signs stable she is hypotensive at 99/66. Temperature 992. Pulse ox 96% on room air no hypoxia. She is not in any distress. H EENTexam pupils round reactive light. Moist mucous membranes. Neck nontender no JVD. No lymphadenopathy. Lungs clear to auscultation bilaterally. Heart rate about 100. Appears to be sinus rhythm.. Chest wall and ribs nontender. Abdomen soft nontender. Nondistended normal bowel sounds without peritonealsigns. Moving all 4 extremities. 2+ pitting edema both lower extremities. Equal symmetrical. Dorsi plantarflexion intact. Calves are nontender no cords. Normal staff development nurse strength. Back nontender. Neurologically she is awake and alert. Answering questions following commands. Const Vital Signs: 03/25/25 09:48 03/25/25 10:19 03/25/25 [...] Oxygen Delivery Method Room Air Room Air Positive well nourished and well developed; Negative for obese, cachectic, contractures or unkempt General Appearance ED: well developed and NAD; Negative for unkempt, cachectic, contractures, cyanotic, diaphoretic or pallor Nutritional Appearance: Negative for cachectic or obese HEENT Reports moist mucous membranes Negative for trauma or tenderness Eyes PERRL and EOMs intact bilaterally Neck no lymphadenopathy, supple and no JVD Chest Wall inspection of chest normal and palpation of chest normal Resp normal respiratory effort and clear to auscultation bilaterally Effort and Inspection: Negative for retractions Auscultation: Negative for rales, rhonchi, wheezes or diminished lung sounds Cardio regular rhythm, S1 normal heart sound, S2 normal heart sound and no murmurs; Negative for regular rate Rate: other Other Details: Rate about 100. GI normal to inspection, nondistended, normoactive bowel sounds, non-tender, non- distended and no masses Auscultation: normoactive bowel sounds Palpation: soft; Negative for tender or guarding Back/Spine no CVA tenderness General Back: Negative for CVA tenderness Cervical Spine: Negative for cervical spine tenderness Thoracic Spine / Upper Back: Negative for thoracic spinal tenderness Lumbar Spine / Lower Back: Negative for lumbar spinal tenderness Extremity Negative for normal to inspection Extremity Narrative: Bilateral lower extremity edema 2+. Nontender no cords. Equal symmetrical. General Extremety ED: Yes edema; Negative for tenderness General Extremity: edema Neuro oriented x3 and CN's II-XII intact bilaterally Sensorium / Orientation: alert; Negative for orientation impaired, lethargic or stuporous Motor Exam: strength 5/5 throughout Psych mental status grossly normal Appearance: Negative for unkempt Skin no rashes or lesions noted, no wounds and skin turgor normal General Skin Exam: Negative for jaundice or pallor Lesions: No lesion noted Rashes: No rashes noted Wounds: Negative for wounds noted MDM MDM MDM Narrative Medical decision making narrative: 64-year-old female week plus history of exertional fatigue, dyspnea and lower extremity swelling. Clinically I suspect she may have A-fib or dysrhythmia. With congestive heart failure and peripheral edema. Other etiologies could be secondary to kidney dysfunction or liver disease which I think is less likely. Repeat exam patient is doing well at 12:40 PM. I spoke to both the hospitalist and principal research economist on-call. Patient be admitted to PCU. I will give her 20 of Lasix IV here. I think this is new onset CHFleft interment Y. She needs an echo and further studies. Her and her and they are comfortable with the plan. History & Record Review Discussion w/independent historian: Patient and Family Additional record(s) reviewed:: No prior records Lab Data Attestation: I reviewed the patient's lab results. Lab results narrative: CBC shows a white count 19. H&H 9 and 25. Platelets 392. PT/INR 14 and 1.1. Chemistry shows sodium is low 128. Gap of 12. BUN of 12 creatinine 0.6. Glucose 129. Liver enzymes are elevated. BNP is elevated at 11, 948. Troponin is mildly elevated at 41. Chest x-ray is consistent with CHF and bilateral pleural effusions. Labs: Laboratory Results - last 24 hr 03/25/25 10:15 WBC 19.0 H RBC 3.09 L Hgb 9.0 L Hct 25.4 L MCV 82.2 MCH 29.1 MCHC 35.4 RDW Std Deviation 42.9 RDW Coeff of Christian 14.4 Plt Count 392 MPV 9.5 Neut % (Auto) Not Reportable Absolute Neuts (auto) 16.3 H Absolute Lymphs (auto) 1.30 Total Counted 100 Neutrophils % (Manual) 84 H Band Neutrophils % 2 Lymphocytes % (Manual) 7 L Monocytes % (Manual) 3 Metamyelocytes % 3 H Myelocytes % 1 H Differential Comment COMMENT Diff Path Review May foll Platelet Estimate ADEQUATE RBC Morphology NORM C+C PT 14.5 INR 1.1 Sodium 128 L Potassium 3.7 Chloride 93 L Carbon Dioxide 23.1 Anion Gap 12 BUN 12 Creatinine 0.61 L Estim Creat Clear Calc 98.65 Est GFR (MDRD) Non-Af 100 BUN/Creatinine Ratio 20.4 H Glucose 129 H Calcium 9.3 Total Bilirubin 1.29 Direct Bilirubin 0.92 H AST 170 H ALT 81 H Alkaline Phosphatase 258 H Troponin T High Sens 41 [place] [address] H Total Protein 5.9 Albumin 2.6 L Globulin 3.3 Radiography Chest X-Ray - ED: 2 View, Read by ED Physician and Read by Radiologist Diagnostic Testing: Clinical Impression(s) from Imaging Studies Chest X-Ray 03/25/25 10:48 IMPRESSION: Vascular congestion and mild CHF with small bilateral pleural effusions left greater than right with bibasilar atelectasis worse on the right lung base. Reading Location: [place] [address] Chest x-ray, 2 views, AP and lateral, interpreted both by myself and the radiologist. Shows mild bilateral pleural effusions and vascular congestion consistent with CHF. No pneumonia. No mass. Normalcardiac silhouette. Rhythm Strip Rhythm Strip: Sinus Rhythm Rate: 89 Ectopy: None EKG Initial EKG: Attestation: I personally reviewed and interpreted this EKG as follows: Interpretation: Sinus Rhythm and No Acute Injury Pattern Comments: Normal sinus rhythm rate 89 no acute signs of ND or ischemia. Discharge Plan Dx/Rx/DC Orders Clinical Impression: Acute dyspnea, Congestive heart failure, Anemia, Acute hyponatremia, Elevated liver enzymes, Leukocytosis Disposition Disposition: Acute Care [facility] What to do if you have Problems For any increased pain, shortness of breath, bleeding, nausea or vomiting, chest pain, or any unexpected problems, contact your Primary Care Provider. Call [facility] ([phone]) or report to the closest Emergency Room. Call 911 if necessary. 03/25/25 4950 Cosigner Signature (if applicable): CC: Dr. Casie Hair, DO ~ Signed [facility]06-12-2025 History and physical note [facility] Medical Records Department [address] [place] [address] H&P Exam - Hospitalist 03/25/25 1425 MR#: [id number] Acct: [id number] Name: RFAAT DELANEY Rep #:[id number] : 1960 64 From: Martin VACA PCP: Dr. Casie Hair, DO Status:RE G ER Location: ED HPI - General General Date of Service: 03/25/25 Chief Complaint: chest tightness HPI Narrative RAFAT DELANEY, is a 64 F with pmhx MVP who presents to the ER with chest tightness. She has had this about 10 days. The day it started she travelled to [place]. She started to feel all over bodyaches and was taken to the ER at [...] have elevated BNP, CXR showing CHF, abnormal tr oponin, abnormal liver enzymes, and hyponatremia. She is admitted to the hospital with acute CHF, and has no prior hx of CHF. [facility] Medical History Mitral valve prolapse Lyme disease [...] Sens 41 H, [place] [address] H, Total Protein 5.9, Albumin 2.6 L, Globulin 3.3 03/25/25 13:32: Troponin T Hi Sens 2 Hr 47 H Rhythm Strip Rhythm Strip: Sinus Rhythm Rate: 89 Ectopy: None Imaging Radiology Impression Chest X-Ray 03/25/25 10:48 IMPRESSION: Vascular congestion and mild CHF with small bilateral pleural effusions left greater than right with bibasilar atelectasis worse on the right lung base. Reading [facility] Assessment & Plan Assessment/Plan (1) Acute CHF: PLAN: 1. Acute CHF, unclear type, no prior hx - 10 days of chest tightness, sob,dry cough, PND, orthopnea, BL LE edema. recent admission to hospital in [place] last through saturday for abnormal liver enzymes, [...] did have recent diagnosis of norovirus tho shenever had nausea, vomiting, or diarrhea. 6. Normocytic anemia - Hgb 9.0 baseline unknown. repeat AM CBC 7. Hx mitral valve prolapse since age 21, pt has not had a recent echo, and rebelve one in the AM. DVT ppx: lovenox Code status: discussed with pt, she is Full Code. This patient was seen by Martin Mcarthur PA-C under the supervision of Doctor Ajay. 03/25/25 1444 Cosigner Signature (if applicable): CC: LIO Franco; Dr. Casie Hair DO~ Signed [facility]06-12-2025 Evaluation note* Diagnosis Onset Date Resolution Status Admit Date Acute CHF acute March 25 12:43pm Acute dyspnea acute March 25, 2025 12:43pm Acute hyponatremia acute March 142024 12:43pm Anemia acute March 25 12:43pm Congestive heart failure acute March 25, 2025 12:43pm Elevated liver enzymes acute 2024 12:43pm [facility] Work Phone: 1(802) 152-727806-12-2025 Evaluation note* Diagnosis Onset Date Resolution Status Admit Date Acute CHF acute March 25 12:43pm Acute dyspnea acute March 25, 2025 12:43pm Acute hyponatremia acute March 142024 12:43pm Anemia acute March 25 12:43pm Aortic aneurysm acute March 12:43pm Congestive heart failure acute March 25, 2025 12:43pm Elevated liver enzymes acute 2024 12:43pm [facility] Work Phone: 1(110) 665-809506-12-2025 Radiology Diagnostic study note [facility] Imaging Services [address] [place] [address] Chest PA and Lateral MR#: [id number] Acct: [id number] Name: RAFAT DELANEY Rep #: [id number] : 1960 F 64 From: Spencer Cooper MD PCP: Dr. Casie Hair DO Status: RE G ER Study:Chest PA and Lateral Date of Exam: 03/25/25 Exam# [id number] Ordering Dr: Muriel Daigle MD PROCEDURE: CHEST [...] on the right lung base. Reading Location: [facility] CC: Dr. Sawyer Daigle MD; Dr. Casie Hair, DO ~ Medical And Health Services Manager: Signed [facility]04-03-2025 Instructions* Patient Instructions* Isabelle Fitzgerald APRN.CNP - 01/14/2025 7:10 AM EDT Office will check with surgeon to see if labs are needed. Lab orders are in place if needed. Keep scheduled surgery date Due for Dtap may get any time. Follow up as needed. documented in [facility] encounter[facility]04-03-2025 History of Present illness Narrative* Isabelle Fitzgerald [...] oz) LMP 09/21/2013 SpO2 100% BMI 22.97 kg/m PHYSICAL [...] APRN.KRYSTAL This note was partially generated using [employer] voice recognition system. Note was reviewed for accuracy. There may be minor misspellings or grammar miscues with [place] voice recognition. documented in this encounterUc Health04-03-2025 NoteHNO ID: [id number] Author: ISABELLE FITZGERALD APRN.CNP Service: ? Author [...] ICD10: K76.89 - Complete (more content not included)...[facility]01-08-2025 Instructions* Patient Instructions* Isabelle Fitzgerald APRN.FINANCING ANALYST - 10/21/2024 8:54 AM EST Get fasting [...] Promotion: - Eat healthy -- go to Choose[employer]Pl[employer].gov to get started - Have a yearly [...] drive - Wear sunscreen documented in this encounterUc Health01-08-2025 History of Present illness Narrative* Isabelle Fitzgerald APRN.CNP - 10/21/2024 8:40 AM EST This is a 64 year old female who presents today with: Patient presents with: Wellness: To Establish care HISTORY OF PRESENT ILLNESS: Rafat Delaney is a 64 year old female. Patient presents with: Wellness: To Establish care Here into the office to establish care, okay per Dr. Merchant Wellness: Diet: Eating a well balanced diet. [...] APRN.CNP This note was partially generated using [employer] voice recognition system. Note was reviewed for accuracy. There may be minor misspellings or grammar miscues with [employer] voice recognition. documented in this encounterUc Health01-08-2025 NoteHNO ID: [id number] Author: ISABELLE FITZGERALD APRN.CNP Service: ? Author Type: Nurse Practitioner Type: Progress Notes Filed: 10/21/2024 09:47 Note Text: This is a 64 year old female who presents today with: Patient presents with: Wellness: To Establish care HISTORY OF PRESENT ILLNESS: Rafat Delaney is a 64 year old female. Patient presents with: Wellness: To Establish care Here into the office to establish care, [place] per Dr. Merchant Wellness: Diet: Eating a well balanced diet. [...] MRI LIVER WO/W I (more content not included)...[facility] 10-15-2024 Telephone encounter Note* Telephone Encounter - Yesenia Ponce MA - 10/15/2024 11:52 AM EST See message below from Provider. Okay to setup appt to see Isabelle for a Wellness visit and to officially establish care since her previous visit was not. Yesenia Ponce MA [facility]01-02-2025 Miscellaneous Notes* Telephone Encounter - Yesenia Ponce MA - 10/15/2024 11:52 AM EST See message below from Provider. Okay to setup appt to see Isabelle for a Wellness visit and to officially establish care since her previous visit was not. Yesenia Ponce MA * Telephone Encounter - Sherry Merchant MD - 10/15/2024 11:37 AM EST She is a assisted patient here, so OK to see me. Sherry Merchant MD * Telephone Encounter - Yesenia Ponce MA - 10/15/2024 10:21 AM EST Please review, pt last seen in office by former PCP, Dr. Briceño in 2017. Came into the office in 2021 to see Isabelle Fitzgerald CNP in 2021 for an acute visit. PCP was changed to Dr. Merchant by scheduling when appt was scheduled (inappropriate [...] wellness exam to continue care under Dr. Merchant's services. Last DOS was 12/01/21. PCP was removed from patient's chart in 05/2022. No documented reason for removal is available in patient's chart. Please notify patient if she is still eligible to schedule, she is requesting to see Isabelle Fitzgerald. documented in this encounterUc Health01-02-2025 Telephone encounter Note * Telephone Encounter - Sherry Merchant MD - 10/15/2024 11:37 AM EST She is a assisted patient here, so OK to see me. Sherry Merchant MD [facility] Work Phone: 1(225) 629-124201-02-2025 Telephone encounter Note* Telephone Encounter - Yesenia Ponce MA - 10/15/2024 10:21 AM EST Please review, pt last seen in office by former PCP, Dr. Briceño in 2017. Came into the office in 2021 to see Isabelle Fitzgerald CNP in 2021 for an acute visit. PCP was changed to Dr. Merchant by scheduling when appt was scheduled (inappropriate PCP change). Pt never established care. This was removedin 05/2022 due to an established care appt never completed. Per guidelines pt was past the 3 year sherry when originally scheduled in [address] Briceño. Yesenia Ponce MA [facility]12-31-2024 Telephone encounter Note* Telephone Encounter - Isabelle Martinez - 10/13/2024 3:01 PM EST Patient is requesting to schedule wellness exam to continue care under Dr. Merchant's services. Last DOS was 12/01/21. PCP was removed from patient's chart in 05/2022. No documented reason for removal is available in patient's chart. Please notify patient if she is still eligible to schedule, she is requesting to see Isabelle Fitzgerald. [facility]11-05-[facility] History of Present illness Narrative* Aubrie Arias Mammo Tech - 08/18/2024 8:50 AM EST [...] PATIENT PRESENTS WITH AN IMPLANTABLE OR ATTACHED EXPANDER: No RADIOLOGY DEPARTMENT: Mammography PERIPHERAL IV DATA: Not applicable SIGNED BY: Divine Millan August 18, 2024 9:10 AM documented in this encounterUc Health11-05-2024 NoteHNO ID: [id number] Author: AUBRIE ARIAS Mammo Tech Service: ? [...] PATIENT PRESENTS WITH AN IMPLANTABLE OR ATTACHED EXPANDER: No RADIOLOGY DEPARTMENT: Mammography PERIPHERAL IV DATA: Not applicable SIGNED BY: Aubrie Arias [employer] [facility] August 18, 2024 9:10 [facility]10-16-2024 Instructions* Patient Instructions* Bren Hebert APRN.FINANCING ANALYST - 07/29/2024 2:07 PM EDT How To [...] agents from your environment. documented in this encounterUc Health10-16-2024 NoteHNO ID: [id number] Author: BREN HEBERT APRN.CNP Service: ? Author Type: Nurse Practitioner Type: Progress Notes Filed: 07/29/2024 16:54 Note Text: 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 As applicable, any other physician, advance practice provider, medical student, or other health professional student that will be observing or involved in the sensitive examination for educational or training purposes was discussed with the Patient or Authorized Brokerage Clerk. The Patient or Authorized Brokerage Clerk has agreed to proceed with the sensitive [...] external genitalia normal, normal Bartholin's glands, urethra, [place]'s glands, no vulvar lesions, no cervical lesions, [...] 4. Cystocele, midline - (more content not included)...[facility] 07-29-2024 History of Present illness Narrative* Bren Hebert, YASMINE.KRYSTAL - 07/29/2024 1:24 PM EDT 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 As applicable, any other physician, advance practice provider, medical student, or other health professional student that will be observing or involved in the sensitive examination for educational or training purposes was discussed with the Patient or Authorized Brokerage Clerk. The Patient or Authorized Brokerage Clerk has agreed to proceed with the sensitive [...] external genitalia normal, normal Bartholin's glands, urethra, [place]'s glands, no vulvar lesions, no cervical lesions, [...] one year or sooner as needed Bren Hebert APRN.CNP documented in this encounterUc Health05-24-2022 Miscellaneous Notes* Telephone Encounter - Bren Hebert APRN.CNP - 03/06/2022 10:46 AM EDT Patient called per myself -discussed benign EMB pathology, normal Pap with negative HPV. Will treaturethral caruncle with topical vaginal estrogen cream and use explained to patient. Prescription sent to [facility] per patient request for use with [facility]. All questions answered. Bren Hebert APRN.CNP documented in this encounterUc Health05-18-2022 Instructions* Patient Instructions* Felicia Crespo LPN - [...] to contact the office. documented in this encounterUc Health05-18-2022 History of Present illness Narrative* Bren Hebert APRN.CNP - 02/28/2022 11:09 AM EDT Rafat is [...] of Care Visit completed when applicable. Bren Hebert APRN.CNP PROCEDURE: EXTERNAL GENITALIA: Normal in appearance [...] written material given to the patient. Bren Hebert APRN.CNP documented in this encounterUc Health05-16-2022 Miscellaneous Notes* Telephone Encounter - Wanda Martinez [...] Hogan RN * Telephone Encounter - Bren Hebert APRN.CNP - 02/23/2022 3:10 PM EDT LMTCB to discuss ultrasound finding. ET slightly thickened at 5.5 mm. Recommend EMB. I will speak with her if available. Bren Hebert APRN.CNP documented in this encounterUc Health05-12-2022 Instructions* Patient Instructions* Bren Hebert APRN.CNP - 02/22/2022 11:04 AM EDT How [...] agents from your environment. 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 Follow- up as needed. Bren Hebert APRN.CNP Medical Decision Making: Problems: Moderate: New problem with uncertain prognosis Data: Unique test(s) ordered: 2 Medical Decision Making Level: 3 - Low documented in this encounterUc HealthDischar summary Author Aneesh Fine [facility] Note Date/Time March 28, 2025 2:23 pm [facility] Medical Records Department [address] [place] [address] Instructions for Home/Discharge Instructions 03/28/25 1339 MR#: [id number] Acct: [id number] Name: RAFAT DELANEY Rep #:[id number] : 1960 64 From: Aneesh butcher MD PCP: Dr. Casie Hair DO Status:AD M IN Discharge Instructions Diet Discharge Diet: No restrictions DC O2, CPAP, BIPAP needs Home O2 Discharge instructions: No Dressing / Incision Discharge Activity: Return to Normal Activity Dressing / Incision Call your doctor if you observe: Fever of 101 or Higher, Shortness of breath, Dizziness, Fainting spells, Swelling in the ankles, Chest pain and Increased palpitations (irregular heartbeat) Follow Up Care Test Results: Test results from this visit will be discussed in further detail at your follow- up appointment, if applicable. Discharge Plan Admission Admit Date/Time: 03/25/25 12:43 Attending Provider: Aneesh Fine Primary Care Provider: Casie Hair Consulting Providers: Michael Vera; Angel Moss Instructions Additional Instructions / Restrictions: Follow-up with your primary care doctor to monitor your white blood cell count as well as your blood pressure and anemia. As we discussed we will trial you azar short course of Levaquin which does come with some risk factors with your aortic aneurysm and recent history of a flutter, however I think it is the best option to cover both your possible sinus infection and your possible pneumonia. Your urinalysis was negative for infection and your iron studies show a mixed picture likely due to inflammation so I do recommend a recheck of your iron studies as an outpatient once your inflammation resolves. Discharge Orders/Prescriptions Prescriptions: New carvedilol 3.125 mg Tablet 3.125 mg PO BIDCM 30 Days Qty: 60 0RF furosemide [Lasix] 40 mg tablet 40 mg PO DAILY Qty: 30 0RF levofloxacin 500 mg tablet 500 mg PO DAILY Qty: 5 0RF Continued estradiol 0.01 % (0.1 mg/gram) cream 1 appful vaginal .twice weekly Referrals / Follow Up: Casie Hair DO [Primary Care Provider] - 03/29/25 Michael Vera MD [Med Staff - Active Staff] - Within 3 Months Disposition Disposition (needs filled in before D/C Order can be placed): Home, Self Care 03/28/25 142<Electronically signed by Aneesh Fine MD>Aneesh Fine MD CC: Dr. Angel Moss DO; Dr. Casie Hair DO; Dr. Michael Vera MD ~ Signed [facility] Work Phone: Discharge summary Author Aneesh Fine [facility] Note Date/Time March 28, 2025 2:45 pm [facility] Medical Records Department [address] [place] [address] Discharge Summary 03/28/25 142 MR#: [id number] Acct: [id number] Name: RAFAT DELANEY Rep #:[id number] : 1960 64 From: Aneesh butcher MD PCP: Dr. Casie Hair DO Status:AD M IN [facility] Prov[facility] Date of Admission: 03/25/25 Primary Care Physician: Dr. Casie Hair DO Consultations 03/25/25 16:22 Consult: Cardiology Routine Consulting Provider: Michael Vera Reason for Consult: CHF EMERGENT Consult: No MD Notified: Yes Date Notified: 03/25/25 Time Notified: 16:23 Method of Notification: Verbal Reason For Visit: CHF Diagnosis Discharge Diagnosis (1) Acute CHF: Status: Acute Code(s): I50.9 - Heart failure, unspecified Qualifiers: Heart failure type: unspecified Qualified Code(s): I50.9 - Heart failure, unspecified (2) Elevated liver enzymes: Status: Acute Code(s): R74.8 - Abnormal levels of other serum enzymes (3) Anemia: Status: Acute Code(s): D64.9 - Anemia, unspecified Qualifiers: Anemia type: unspecified type Qualified Code(s): D64.9 - Anemia, unspecified (4) Aortic aneurysm: Status: Acute Code(s): I71.9 - Aortic aneurysm of unspecified site, without rupture Medications at Discharge Home Medications estradiol 0.01% (0.1 mg/gram) vaginal cream 1 appful vaginal .twice weekly hormones 03/25/25 carvedilol 3.125 mg tablet 3.125 mg PO BIDCM 30 days #60 tabs 03/28/25 furosemide 40 mg tablet (Lasix) 40 mg PO DAILY #30 tabs 03/28/25 levofloxacin 500 mg tablet 500 mg PO DAILY #5 tabs 03/28/25 Hospital Course Operations None Procedures 2-D Echocardiogram Summary of Care Provided Minutes Spent on Discharge: 38 Hospital Course: Per HPI: RAFAT DELANEY, is a 64 F with pmhx MVP who presents to the ER with chest tightness. She has had this about 10 days. The day it started she travelled to [place]. She started to feel all over body [...] and has no prior hx of CHF. Hospital Course: 1. Acute hypoxic respiratory insufficiency secondary to acute diastolic CHF exacerbation?64-year-old female had gotten sick approximately 2 to 3 weeks priorto admission to the hospital with what felt like a flu virus. She did test positive for norovirus but did not have any gastroenteritis type symptoms. She slowly developed some shortness of breath and presented to the hospital. She was found to have a severely elevated proBNP and signs of vascular congestion and heart failure on CTA of the chest. There is no PE but it did show possible right upper lobe pneumonitis versus pneumonia. She did have intermittent feversand a consistently elevated leukocytosis. She did have some elevated LFTs, however hepatitis panel was normal and her CMV was negative, EBV is still pending as there was concern for possible viral myocarditis. Echocardiogram demonstrated an EF of 50% with a mildly dilated ascending aorta at 3.9 cm. No further infectious workup was done initially however I obtained viral studies aswell as a urine analysis both of which were negative for culprit. She has been stating that she is stuffiness in her ears and nasal congestion and facial pain. She did have an ambulatory pulse ox today which did not show need for oxygen and I did evaluate her tympanic membranes, the left was more easily visible and looked okay, from what I could see of the right there did not appear to be a major in her ear infection. Because of her heart failure type symptoms as well as her lower extremity edema, cardiology was consulted recommended diuresis. She tolerated diuresis very well and is down about 3.5 L and her swelling is much improved. I discussed with her the plan to discharge on Lasix 40 mg p.o. daily as well as Coreg 3.125 mg p.o. twice daily. She did have a transient episode of a flutter but I do not think that this warrants full anticoagulation at this time would recommend outpatient follow-up with cardiology for further imaging and as well as further cardiac testing. I discussed with her and her family the plan for discharge and she expressed understanding of the risks and benefits of going home and wants to go home today. She does not really want to stay for any further testing. Her case was discussed with her PCP prior to discharge. 2. Leukocytosis with elevated LFTs?unclear etiology, there is clearly somethinggoing on inflammatory burnham as she also has a thrombocytosis and an anemia workupdemonstrated an inflammatory like pattern with her iron studies. Given her symptoms I elected to start treatment with Levaquin 500 mg p.o. daily, she received her first dose today and will discharge on 5 more days. I did caution her as she does have a little bit of an aortic dilation of 3.9 cm as well as when she went into a flutter she had a little bit of a QTc prolongation though this resolved with return to normal sinus rhythm therefore I think for short course she should be able to tolerate Levaquin well. Her liver function is improving and her hepatitis panel as stated above is normal 3. Anemia?we do not have a baseline hemoglobin level for her, her last hemoglobin was in 2018 and was 12.9. She would prefer to go home therefore willdefer any stool testing on the outpatient basis as it was not done during this admission. She is denying any dark stools and no hematemesis Physical Exam Narrative General: Alert, Oriented x3, Cooperative, No apparent distress HEENT: Atraumatic, PERRLA, EOMI, Normocephalic Oral: Moist Mucosa Neck: Supple, No JVD Lungs: Diminished, Normal air movement, No rhonchi, No wheeze, No rales Cardiovascular: Regular rate, Regular Rhythm, Normal S1, Normal S2, No murmurs Abdomen: Soft, Non Tender, Non-Distended, No Hepato-splenomegaly Extremities: Edema, Capillary Refill Less than 3 Seconds Skin: No rashes, No breakdown Musculoskeletal: No Tenderness to Palpation of Joints or Extremities Neurological: No focal neurological deficits, moves all extremities, sensation intact Psych/Mental Status: Normal Affect, Appropriate Weight / BMI Weight Weight: 164 lb 0.383 oz Body Mass Index (BMI) 24.2 ABG / Lab / Microbiology Data 03/28/25 06:26 03/28/25 06:26 Laboratory: Laboratory Results - last 24 hr 03/28/25 06:26: WBC 20.3 H, RBC 2.82 L, Hgb 8.2 L, Hct 23.2 L, MCV 82.3, MCH 29.1, MCHC 35.3, RDW Std Deviation 41.4, RDW Coeff of Christian 14.0, Plt Count 634 H,MPV 9.2, Immature Gran % (Auto) 1.300 H, Neut % (Auto) 82.3 H, Lymph % (Auto) 6.9 L, Mcdonough % (Auto) 8.6, Eos % (Auto) 0.7, Baso % (Auto) 0.2, Absolute Neuts (auto) 16.7 H, Absolute Lymphs (auto) 1.40, Nucleated RBC % 0, Sodium 131 L, Potassium 3.3, Chloride 91 L, Carbon Dioxide 29.8, Anion Gap 11, BUN 16, Creatinine 0.58 L, Estim Creat Clear Calc 103.75, Est GFR (MDRD) Non-Af 102, BUN/Creatinine Ratio 28.4 H, Glucose 115 H, Calcium 8.8 03/28/25 06:27: Iron 16 L, TIBC 156 L, Iron Saturation 10.3 L, Unsaturated IBC 140 L, Ferritin 1671 H 03/28/25 13:36: Urine Color Yellow, Urine Clarity Clear, Urine pH 7.0, Ur Specific [place] 1.010, Urine Protein 30 H, Urine Glucose (UA) Normal, Urine Ketones Negative, Urine Occult Blood 25 H, Urine Nitrite Negative, Urine Bilirubin Negative, Urine Urobilinogen 4 H, Ur Leukocyte Esterase 25 H, Urine RBC 0 SEEN, Urine WBC 0-5 SEEN, Ur Squamous Epith Cells 0-5 SEEN, Urine Bacteria0 SEEN, Urine Mucus 0 SEEN Microbiology: Microbiology 03/27/25 12:35 Mucosa - Nasopharyngeal Respiratory Panel (PCR) - Final 03/27/25 12:35 Mucosa - Nose SARS-CoV-2, Influenza & RSV (PCR) - Final D/C Instructions Discharge Diet: No restrictions Call your doctor if you observe: Fever of 101 or Higher, Shortness of breath, Dizziness, Fainting spells, Swelling in the ankles, Chest pain and Increased palpitations (irregular heartbeat) DC O2, CPAP, BIPAP Needs Home O2 Discharge instructions: No Meaningful Use Info Meaningful Use Meaningful Use Diagnoses (Choose all that apply): None applicable Ischemic Stroke Statin Dosing Therapy Reference: STATIN DOSE THERAPY REFERENCE: * Patients > 75 years receive moderate or high dose statin therapy. * Patients 75 years or YOUNGER should receive HIGH intensity statin dose unless contraindicated. You will be required to document reason for non-treatment if statin daily dose does not meet guidelines. HIGH DOSE STATIN THERAPY DAILY Atorvastatin > than or = to 40 mg Rosuvastatin > than or = to 20 mg Amlodipine + Atorvastatin > than or = to 2.5/40 mg Ezetimibe + Simvastatin 10/80 mg Simvastatin 80mg Discharge Plan Admission Admit Date/Time: 03/25/25 12:43 Attending Provider: Aneesh Fine Primary Care Provider: Casie Hair Consulting Providers: Michael Vera; Angel Moss Instructions Additional Instructions / Restrictions: Follow-up with your primary care doctor to monitor your white blood cell count as well as your blood pressure and anemia. As we discussed we will trial you azar short course of Levaquin which does come with some risk factors with your aortic aneurysm and recent history of a flutter, however I think it is the best option to cover both your possible sinus infection and your possible pneumonia. Your urinalysis was negative for infection and your iron studies show a mixed picture likely due to inflammation so I do recommend a recheck of your iron studies as an outpatient once your inflammation resolves. Discharge Orders/Prescriptions Prescriptions: New carvedilol 3.125 mg Tablet 3.125 mg PO BIDCM 30 Days Qty: 60 0RF furosemide [Lasix] 40 mg tablet 40 mg PO DAILY Qty: 30 0RF levofloxacin 500 mg tablet 500 mg PO DAILY Qty: 5 0RF Continued estradiol 0.01 % (0.1 mg/gram) cream 1 appful vaginal .twice weekly Referrals / Follow Up: Casie Hair DO [Primary Care Provider] - 03/29/25 Michael Vera MD [Med Staff - Active Staff] - Within 3 Months Disposition Disposition (needs filled in before D/C Order can be placed): Home, Self Care Charges/Coding Visit Charges Inpatient E&M: 92990 Disch Hosp >30min 03/28/25 6455 <Electronically signed by Aneesh Fine MD> Cosigner Signature (if applicable): CC: Dr. Casie Hair DO; Dr. Aneesh iFne MD~ Signed [facility] Work Phone: Evaluation note* Diagnosis PMB (postmenopausal bleeding)- Primary Postmenopausal bleeding Encounter for Papanicolaou smear for cervical cancer screening Special screening examination for human papillomavirus (HPV) Urethral caruncle Cystocele, midline [facility] Diagnosis PMB (postmenopausal bleeding)- Primary Postmenopausal bleeding Thickened endometrium Nonspecific (abnormal) findings on radiological and other examination of genitourinary organs [facility] Diagnosis Thickened endometrium- Primary Nonspecific (abnormal) findings on radiological and other examination of genitourinary organs [facility]* Diagnosis Urethral caruncle- Primary [facility] Diagnosis Encounter for screening mammogram for breast cancer [facility]* Diagnosis Encounter for gynecological examination with abnormal finding- Primary Routine gynecological examination Urethral caruncle Urge incontinence Cystocele, midline Encounter for screening mammogram for breast cancer [facility] Diagnosis Encounter for gynecological examination with abnormal finding Routine gynecological examination Encounter for screening mammogram for breast cancer [facility]* Diagnosis Wellness examination- Primary Liver cyst Other specified disorders of liver Hyperlipidemia, mixed Mixed hyperlipidemia Urethral caruncle Bilateral impacted cerumen Impacted cerumen Screening for depression Encounter for screening examination for other mental health and behavioral disorders [facility]* Diagnosis Preoperative clearance- Primary Preoperative examination, unspecified Blurry vision, left eye Other specified visual disturbances Hyperlipidemia, mixed Mixed hyperlipidemia Liver cyst Other specified disorders of liver Urethral caruncle [facility] Author Martin Mcarthur [facility] Note Date/Time March 25, 2025 2:44 pm [facility] Medical Records Department [address] [place] [address] H&P Exam - Hospitalist 03/25/25 1425 MR#: [id number] Acct: [id number] Name: RAFAT DELANEY Rep #:[id number] : 1960 64 From: Martin VACA PCP: Dr. Casie Hair, DO Status:RE G ER Location: ED HPI - General General Date of Service: 03/25/25 Chief Complaint: chest tightness HPI Narrative RAFAT DELANEY, is a 64 F with pmhx MVP who presents to the ER with chest tightness. She has had this about 10 days. The day it started she travelled to [place]. She started to feel all over body [...] and has no prior hx of CHF. [facility] Medical History Mitral valve prolapse Lyme disease [...] Sens 41 H, [place] [address] H, Total Protein 5.9, Albumin 2.6 L, Globulin 3.3 03/25/25 13:32: Troponin T Hi Sens 2 Hr 47 H Rhythm Strip Rhythm Strip: Sinus Rhythm Rate: 89 Ectopy: None Imaging Radiology Impression Chest X-Ray 03/25/25 10:48 IMPRESSION: Vascular congestion and mild CHF with small bilateral pleural effusions left greater than right with bibasilar atelectasis worse on the right lung base. [facility] Assessment & Plan Assessment/Plan (1) Acute CHF: PLAN: 1. Acute CHF, unclear type, no prior hx - 10 days of chest tightness, sob,dry cough, PND, orthopnea, BL LE edema. recent admission to hospital in [place] last through saturday for abnormal liver enzymes, [...] under the supervision of Doctor Ajay. 03/25/25 4154 <Electronically signed by Martin VACA> Cosigner Signature (if applicable): CC: LIO Franco; Dr. Casie Hair, DO~ Signed [facility] Work Phone: Reiimq for referral (narrative)* Diagnostic Procedure Only (Routine) - Pending Review Specialty Diagnoses / Procedures Referred By Contac t Referred To Contact [facility] Diagnoses PMB (postmenopausal bleeding) Procedures PELVIC US I US PELVIC NONOBSTETRIC REAL-TIME IMAGE COMPLETE Bren Hebert APRN.FINANCING ANALYST [address] [place] [address] [id number] [place] [address] Referral ID Status Reason Start Date Expiration Date Visits Requested Visits Authorized [id number] Pending Review Auto-Generat ed Referral 02/22/2022 02/22/2023 1 1 [facility] for referral (narrative)* Outpatient Procedure (Routine) - Pending Review Specialty Diagnoses / Procedures Referred By Contac t Referred To Contact [facility] Diagnoses PMB (postmenopausal bleeding) Thickened endometrium Procedures ENDOMETRIAL BIOPSY ENDOMETRIAL BX W/WO ENDOCERVIX BX W/O DILAT SPX Wanda Martinez APRN.FINANCING ANALYST [address] [place] [address] [facility] [address] [place] [address] Referral ID Status Reason Start Date Expiration Date Visits Requested Visits Authorized [id number] Pending Review Auto-Generat ed Referral 02/26/2022 02/23/2023 1 1 [facility] for referral (narrative)* Outpatient Procedure (Routine) - Pending Review Specialty Diagnoses / Procedures Referred By Contac t Referred To Contact [facility] Diagnoses Thickened endometrium Procedures ENDOMETRIAL BIOPSY ENDOMETRIAL BX W/WO ENDOCERVIX BX W/O DILAT SPX Bren Hebert APRN.FINANCING ANALYST [address] [place] [address] [facility] [address] [place] [address] Referral ID Status Reason Start Date Expiration Date Visits Requested Visits Authorized [id number] Pending Review Auto-Generat ed Referral 02/28/2022 02/28/2023 1 1 [facility] for referral (narrative)* Diagnostic Procedure Only (Routine) - Pending Review Specialty Diagnoses / Procedures Referred By Chema braun Referred To Contact [facility] Diagnoses Encounter for screening mammogram for breast cancer Procedures JULIETA SCREENING SCREENING MAMMOGRAPHY BI 2-VIEW BREAST INC Sherry Nicolas MD [address] [place] [address] [facility] [address] [place] [address] Referral ID Status Reason Start Date Expiration Date Visits Requested Visits Authorized [id number] Pending Review Auto-Generat ed Referral 04/11/2022 05/11/2023 1 1 T [facility] for referral (narrative)No reason for referral information [facility] Work Phone: Reason for visit Narrative* Diagnostic [...] Bren Concepcion APRN.CNP [address] [place] [address] [facility] [address] [place] [address] Referral ID Status Reason Start Date Expiration Date Visits Requested Visits Authorized [id number] Pending Review Auto-Generat ed Referral 4 08/28/2025 1 1 [facility] Discharge Instructions * Instructions* Ritchie Malik MD [...] encounter History of Present Illness * Casie Barclay, INGA - 11/17/2019 2:29 PM EST SCD's applied. 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 Brokerage Clerk Expl anation Advance Directives and Living Will Power of Pressroom Foreman Latest Code Status on File Code Status Date Activated Date Inactivated Comments Full Code 11/17/2019 1:36 PM Latest Code Status on File Code Status Date Activated Date Inactivated Comments Full Code 11/17/2019 1:36 PM 11/17/2019 8:20 PM Documents on File Type Date Recorded Patient Brokerage Clerk Expl anation Advance Directive(s) 12/18/2021 10:01 AM Documents on File Type Date Recorded Patient Brokerage Clerk Expl anation Advance Directive(s) 12/18/2021 10:01 AM Advance Directive Response Recorded Date/ Time Do you have a Healthcare Power of Pressroom Foreman? Yes March 25, 2025 10:22am Name of Medical Power of Pressroom Foreman Shahab Delaney March 25, 2025 10:22am Advance Directive Response Recorded Date/ Time Do you have a Healthcare Power of Pressroom Foreman? No March 25, 2025 3:25pm Name of Medical Power of Pressroom Foreman Shahab Delaney March 25, 2025 10:22am Summary Purpose Family History Relationship Condition Age at Onset Recorded Date/T juanita mother Coronary artery disease Unknown Reason for Referral Specialty Diagnoses / Procedures Referred By Chema t Referred To Contact [facility] Diagnoses Cystocele, midline Urge incontinence Procedures CONSULT TO PHYSICAL THERAPY PHYSICAL THERAPY EVALUATION HIGH COMPLEX 45 MINS Bren Hebert, HAT FINISHER.FINANCING ANALYST [address] [address] [facility] [place] [address] [place] [address] Referral ID Status Reason Start Date Expiration Date Visits Requested Visits Authorized [id number] Pending Review Auto-Generat ed Referral 4 07/29/2025 1 1 Specialty Diagnoses / Procedures Referred By Brittneyac t Referred To Contact [facility] Diagnoses Encounter for gynecological examination (general) (routine) without abnormal findings Encounter for screening mammogram for breast cancer Procedures JULIETA SCREENING W LYNETTE SCREENING DIGITAL BREAST TOMOSYNTHESIS BI SCREENING MAMMOGRAPHY BI 2-VIEW BREAST INC CAD Bren Hebert, HAT FINISHER.FINANCING ANALYST [address] [place] [address] [facility] [address] [place] [address] Referral ID Status Reason Start Date Expiration Date Visits Requested Visits Authorized [id number] Pending Review Auto-Generat ed Referral 4 08/28/2025 1 1 Specialty Diagnoses / Procedures Referred By Chema t Referred To Contact [facility] Diagnoses Liver cyst Procedures MRI LIVER WO/W IVCON MRI ABDOMEN W/O & W/CONTRAST MATERIAL Isabelle Fitzgerald, HAT FINISHER.FINANCING ANALYST [address] [place] [address] [place] [address] Referral ID Status Reason Start Date Expiration Date Visits Requested Visits Authorized [id number] New Request Auto-Generat ed Referral 10/21/2024 11/20/2025 [...] liver enzymes March 25, 2025 1 2:43pm Chief Complaint Admit Date CHF March 25, 2025 12:4 3pm swelling, sob, cp March 25, 2025 2:25 pm Congestive heart failure March 25, 2025 4:21pm Congestive heart failure March 26, 2025 3:51pm Congestive heart failure March 27, 2025 10:59am Congestive heart failure March 27, 2025 12:21pm Congestive heart failure March 28, 2025 10:58am Congestive heart failure March 28, 2025 2:23pm Reason for Visit Admit Date Acute CHF March 25, 2025 12:4 3pm Acute dyspnea March 25, 2025 12:4 3pm Acute hyponatremia March 25, 2025 12:4 3pm Anemia March 25, 2025 12:4 3pm Aortic aneurysm March 25, 2025 12:4 3pm Congestive heart failure March 25, 2025 12:43pm Elevated liver enzymes March 25, 2025 1 2:43pm Additional Source Comments INFORMATION SOURCE (unrecogn ized section and content) DATE CREATED AUTHOR 12/04/2019 [facility] DATE CREATED AUTHOR AUTHOR'S ORGANIZ ATION 01/18/2025 [facility] DATE CREATED AUTHOR AUTHOR'S ORGANIZ ATION 03/27/2025 [facility] Source Comments (unrecognize d section and content) In the event this informatio n is protected by the Federal Confidentiality of Alcohol and Drug Abuse Patient Records regulations: The Federal rules restrict any use of the information to criminally investigate or prosecute any alcohol or drug abuse patient.[facility] Health[facility] the event this information is protected by the Federal Confidentiality of Alcohol and Drug Abuse Patient Records regulations: The Federal rules restrict any use of the information to criminally investigate or prosecute any alcohol or drug abuse patient.[facility] Health[facility] the event this information is protected by the Federal Confidentiality of Alcohol and Drug Abuse Patient Records regulations: The Federal rules restrict any use of the information to criminally investigate or prosecute any alcohol or drug abuse patient.[facility] the event this information is protected by the Federal Confidentiality of Alcohol and Drug Abuse Patient Records regulations: The Federal rules restrict any use of the information to criminally investigate or prosecute any alcohol or drug abuse patient.[facility] Health[facility] the event this information is protected by the Federal Confidentiality of Alcohol and Drug Abuse Patient Records regulations: The Federal rules restrict any use of the information to criminally investigate or prosecute any alcohol or drug abuse patient.[facility] Health[facility] the event this information is protected by the Federal Confidentiality of Alcohol and Drug Abuse Patient Records regulations: The Federal rules restrict any use of the information to criminally investigate or prosecute any alcohol or drug abuse patient.[facility] Health[facility] the event this information is protected by the Federal Confidentiality of Alcohol and Drug Abuse Patient Records regulations: The Federal rules restrict any use of the information to criminally investigate or prosecute any alcohol or drug abuse patient.[facility] Health[facility] the event this information is protected by the Federal Confidentiality of Alcohol and Drug Abuse Patient Records regulations: The Federal rules restrict any use of the information to criminally investigate or prosecute any alcohol or drug abuse patient.[facility] HealthIn the event this information is protected by the Federal Confidentiality of Alcohol and Drug Abuse Patient Records regulations: The Federal rules restrict any use of the information to criminally investigate or prosecute any alcohol or drug abuse patient.[facility] Health[facility] the event this information is protected by the Federal Confidentiality of Alcohol and Drug Abuse Patient Records regulations: The Federal rules restrict any use of the information to criminally investigate or prosecute any alcohol or drug abuse patient.[facility] Health[facility] the event this information is protected by the Federal Confidentiality of Alcohol and Drug Abuse Patient Records regulations: The Federal rules restrict any use of the information to criminally investigate or prosecute any alcohol or drug abuse patient.[facility] HealthIn the event this information is protected by the Federal Confidentiality of Alcohol and Drug Abuse Patient Records regulations: The Federal rules restrict any use of the information to criminally investigate or prosecute any alcohol or drug abuse patient.[facility] Reason for Visit (unrecogniz ed section and content) Reason Comments Vaginal Bleeding Specialty Diagnoses / Procedures Referred By Contac t Referred To Contact [facility] Diagnoses post menopausal bleeding Procedures post menopausal bleeding Self [facility] [place] [address] [place] [address] Referral ID Status Reason Start Date Expiration Date Visits Requested Visits Authorized [id number] Authorized Patient Cleared - Qualified 100% FAS 02/22/2022 05/23/2022 99 99 Reason Comments Results Orders New Medication Reason Comments Endometrial Biopsy Specialty Diagnoses / Procedures Referred By Contac t Referred To Contact General Surgery / GENERAL SURGERY Diagnoses Hernia Diastasis recti Procedures CONSULT TO GENERAL SURGERY OFFICE/OUTPATIENT NEW HIGH MDM 60-74 MINUTES Isabelle Fitzgerald APRN.FINANCING ANALYST [address] [place] [address] [facility] [address] [place] [address] Referral ID Status Reason Start Date Expiration Date Visits Requested Visits Authorized [id number] Authorized PCP Requested Referral Patient Cleared - Qualified 100% FAS 12/01/2021 03/01/2022 99 99 Reason Comments Results New Medication Reason Onset Date Comments Refill Request 02/08/2024 Reason Comments Well Woman Specialty Diagnoses / Procedures Referred By Contac t Referred To Contact [employer] 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 MEMBER Diagnoses Due for annual, prescription refill Procedures OFFICE CONSULTATION NEW/ESTAB PATIENT 15 MIN Self Bren Hebert HAT FINISHER.FINANCING ANALYST [address] [place] [address] Referral ID Status Reason Start Date Expiration Date V isits Requested Visits Authorized [id number] Closed Financial Clearance Required - Self Pay Patient Cleared - Qualified HCAP/501/FA 06/02/2024 08/31/2024 1 1 Reason Comments Wellness To Establish care Specialty Diagnoses / Procedures Referred By Contac t Referred To Contact [facility] Diagnoses Follow Up Appt in [facility] Procedures OFFICE/OUTPATIENT ESTABLISHED MOD MDM 30 MIN Self Isabelle Fitzgerald, HAT FINISHER.FINANCING ANALYST [address] [place] [address] Referral ID Status Reason Start Date Expiration Date V isits Requested Visits Authorized [id number] Closed Financial Clearance Required - Self Pay Patient Cleared - Qualified for 501r Referred for PRISCILLA 10/13/2024 01/11/2025 1 1 Reason Comments Appointment Reason Comments Pre-Op Exam Specialty Diagnoses / Procedures Referred By Contac t Referred To Contact [facility] Diagnoses PREOP Procedures PRE OP CLEARANCE [address] [facility] [place] [address] [place] [address] Phone: tel: Referral ID Status Reason Start Date Expiration Date V isits Requested Visits Authorized [id number] Closed Financial Clearance Required - Self Pay Patient Cleared - Qualified for 501r 12/30/2024 03/30/2025 1 1 Care Teams (unrecognized sec tion and content) Team Status: Active Member Role Status Dates Dr. Casie Hair , DO Primary Care Provider Active Team Status: Inactive Member Role Status Dates Dr. Casie Hair , DO Primary Care Provider Active Start: March 25, 2025 End: March 28, 2025 Dr. Sawyer Daigle MD Emergency Provider Active S tart: March 25, 2025 End: March 28, 2025 Dr. Angel Moss DO Admit Provider Active Star t: March 25, 2025 End: March 28, 2025 Dr. Angel Moss DO Other Provider Active Star t: March 25, 2025 End: March 28, 2025 Dr. Michael Vera MD Other Provider Active St art: March 25, 2025 End: March 28, 2025 Dr. Aneesh Fine MD Attending Provider Active Start: March 25, 2025 End: March 28, 2025 Team Status: Active Member Role Status Dates Dr. Casie Hair DO Primary Care Provider Active Start: March 25, 2025 Dr. Sawyer Daigle MD Emergency Provider Active S tart: March 25, 2025 LIO Estrada Attending Provider Active Sta rt: March 25, 2025 Team Status: Active Member Role Status Dates Dr. Casie Hair DO Primary Care Provider Active Start: March 25, 2025 Dr. Sawyer Daigle MD Emergency Provider Active S tart: March 25, 2025 Dr. Angel Moss DO Admit Provider Active Star t: March 25, 2025 Dr. Angel Moss DO Other Provider Active Star t: March 25, 2025 Dr. Michael Vera MD Attending Provider Active Start: March 25, 2025 Dr. Michael Vera MD Other Provider Active St art: March 25, 2025 Team Status: Active Member Role Status Dates Dr. Casie Hair DO Primary Care Provider Active Start: March 26, 2025 Dr. Shane Chang MD Attending Provider Active Start: March 26, 2025 Team Status: Active Member Role Status Dates Dr. Casie Hair DO Primary Care Provider Active Start: March 26, 2025 Dr. Sawyer Daigle MD Emergency Provider Active S tart: March 26, 2025 Dr. Angel Moss DO Admit Provider Active Star t: March 26, 2025 Dr. Angel Moss DO Other Provider Active Star t: March 26, 2025 Dr. Michael Vera MD Other Provider Active St art: March 26, 2025 LOI Estrada Attending Provider Active Sta rt: March 26, 2025 Team Status: Active Member Role Status Dates Dr. Casie Hair DO Primary Care Provider Active Start: March 27, 2025 Dr. Sawyer Daigle MD Emergency Provider Active S tart: March 27, 2025 Dr. Angel Moss DO Admit Provider Active Star t: March 27, 2025 Dr. Angel Moss DO Other Provider Active Star t: March 27, 2025 Dr. Michael Vera MD Other Provider Active St art: March 27, 2025 Dr. Aneesh Fine MD Other Provider Active Start: March 27, 2025 Dr. Shane Chang MD Attending Provider Active Start: March 27, 2025 Team Status: Active Member Role Status Dates Dr. Casie Hair DO Primary Care Provider Active Start: March 27, 2025 Dr. Sawyer Daigle MD Emergency Provider Active S tart: March 27, 2025 Dr. Angel Moss DO Admit Provider Active Star t: March 27, 2025 Dr. Angel Moss DO Other Provider Active Star t: March 27, 2025 Dr. Michael Vera MD Other Provider Active St art: March 27, 2025 Dr. Aneesh Fine MD Attending Provider Active Start: March 27, 2025 Dr. Aneesh Fine MD Other Provider Active Start: March 27, 2025 Team Status: Active Member Role Status Dates Dr. Casie Hair DO Primary Care Provider Active Start: March 28, 2025 Dr. Sawyer Daigle MD Emergency Provider Active S tart: March 28, 2025 Dr. Angel Moss DO Admit Provider Active Star t: March 28, 2025 Dr. Angel Moss DO Other Provider Active Star t: March 28, 2025 Dr. Michael Vera MD Other Provider Active St art: March 28, 2025 Dr. Aneesh Fine MD Other Provider Active Start: March 28, 2025 Dr. Shnae Chang MD Attending Provider Active Start: March 28, 2025 Team Status: Active Member Role Status Dates Dr. Casie Hair DO Primary Care Provider Active Start: March 28, 2025 Dr. Sawyer Daigle MD Emergency Provider Active S tart: March 28, 2025 Dr. Angel Moss , Admit Provider Active Star t: March 28, 2025 Dr. Angel Moss , Other Provider Active Star t: March 28, 2025 Dr. Michael Vera MD Other Provider Active St art: March 28, 2025 Dr. Aneesh Fine MD Attending Provider Active Start: March 28, 2025 Dr. Aneesh Fine MD Other Provider Active Start: March 28, 2025 Environmental Protection Officer Relationship Specialty Start Date End Date Sherry Merchant MD [address] [place] [address] PCP - General Family Practice 11/27/21 Environmental Protection Officer Relationship Specialty Start Date End Date Sherry Merchant MD [address] [place] [address] PCP - General Family Practice 11/27/21 Environmental Protection Officer Relationship Specialty Start Date End Date Sherry Merchant MD [address] [place] [address] PCP - General Family Practice 11/27/21 Environmental Protection Officer Relationship Specialty Start Date End Date Sherry Merchant MD [address] [place] [address] PCP - General Family Practice 11/27/21 Environmental Protection Officer Relationship Specialty Start Date End Date Sherry Merchant MD [address] [place] [address] PCP - General Family Practice 11/27/21 Environmental Protection Officer Relationship Specialty Start Date End Date Sherry Merchant MD [address] [place] [address] PCP - General Family Medicine 10/21/24 Environmental Protection Officer Relationship Specialty Start Date End Date Sherry Merchant MD [address] [place] [address] PCP - General Family Medicine 10/21/24 Environmental Protection Officer Relationship Specialty Start Date End Date Sherry Merchant MD [address] [place] [address] PCP - General Family Medicine 10/21/24 Dick Bae APRN.FINANCING ANALYST [address] [place] [address] Wire Spooler Family Medicine 12/25/24 Isabelle Fitzgerald APRN.FINANCING ANALYST [address] [place] [address] Wire Spooler Family Medicine 12/25/24 Environmental Protection Officer Relationship Specialty Start Date End Date Sherry Merchant MD [address] [place] [address] PCP - General Family Medicine 10/21/24 Dick Bae, YASMINE.FINANCING ANALYST [address] [place] [address] Wire Spooler Family Medicine 12/25/24 Isabelle Fitzgerald APRN.FINANCING ANALYST [address] [place] [address] Wire Spooler Family Medicine 12/25/24 Team Status: Active Member Role Status [...] Provider Active S tart: March 25, 2025 LIO Estrada Attending Provider Active Sta rt: March 25, 2025 Team Status: Inactive Member Role Status Dates Dr. Casie Hair DO Primary Care Provider Active Start: March 25, 2025 End: March 28, 2025 Dr. Sawyer Daigle MD Emergency Provider Active S tart: March 25, 2025 End: March 28, 2025 Dr. Angel Moss DO Admit Provider Active Star t: March 25, 2025 End: March 28, 2025 Dr. Angel Moss DO Other Provider Active Star t: March 25, 2025 End: March 28, 2025 Dr. Michael Vera MD Other Provider Active St art: March 25, 2025 End: March 28, 2025 Dr. Aneesh Fine MD Attending Provider Active Start: March 25, 2025 End: March 28, 2025 Team Status: Active Member Role Status Dates Dr. Casie Hair DO Primary Care Provider Active Start: March 25, 2025 Dr. Sawyer Daigle MD Emergency Provider Active S tart: March 25, 2025 Dr. Angel Moss DO Admit Provider Active Star t: March 25, 2025 Dr. Angel Moss DO Other Provider Active Star t: March 25, 2025 Dr. Michael Vera MD Attending Provider Active Start: March 25, 2025 Dr. Michael Vera MD Other Provider Active St art: March 25, 2025 Team Status: Active Member Role Status Dates Dr. Casie Hair DO Primary Care Provider Active Start: March 26, 2025 Dr. Shane Chang MD Attending Provider Active Start: March 26, 2025 Team Status: Active Member Role Status Dates Dr. Casie Hair DO Primary Care Provider Active Start: March 26, 2025 Dr. Sawyer Daigle MD Emergency Provider Active S tart: March 26, 2025 Dr. Angel Moss DO Admit Provider Active Star t: March 26, 2025 Dr. Angel Moss DO Other Provider Active Star t: March 26, 2025 Dr. Michael Vera MD Other Provider Active St art: March 26, 2025 LIO Estrada Attending Provider Active Sta rt: March 26, 2025 Team Status: Active Member Role Status Dates Dr. Casie Hair DO Primary Care Provider Active Start: March 27, 2025 Dr. Sawyer Daigle MD Emergency Provider Active S tart: March 27, 2025 Dr. Angel Moss DO Admit Provider Active Star t: March 27, 2025 Dr. Angel Moss DO Other Provider Active Star t: March 27, 2025 Dr. Michael Vera MD Other Provider Active St art: March 27, 2025 Dr. Aneesh Fine MD Other Provider Active Start: March 27, 2025 Dr. Shane Chang MD Attending Provider Active Start: March 27, 2025 Team Status: Active Member Role Status Dates Dr. Casie Hair DO Primary Care Provider Active Start: March 27, 2025 Dr. Sawyer Daigle MD Emergency Provider Active S tart: March 27, 2025 Dr. Angel Moss DO Admit Provider Active Star t: March 27, 2025 Dr. Angel Moss DO Other Provider Active Star t: March 27, 2025 Dr. Michael Vera MD Other Provider Active St art: March 27, 2025 Dr. Aneesh Fine MD Attending Provider Active Start: March 27, 2025 Dr. Aneesh Fine MD Other Provider Active Start: March 27, 2025 Team Status: Active Member Role Status Dates Dr. Casie Hair DO Primary Care Provider Active Start: March 28, 2025 Dr. Sawyer Daigle MD Emergency Provider Active S tart: March 28, 2025 Dr. Angel Moss DO Admit Provider Active Star t: March 28, 2025 Dr. Angel Moss DO Other Provider Active Star t: March 28, 2025 Dr. Michael Vera MD Other Provider Active St art: March 28, 2025 Dr. Aneesh Fine MD Other Provider Active Start: March 28, 2025 Dr. Shane Chang MD Attending Provider Active Start: March 28, 2025 Team Status: Active Member Role Status Dates Dr. Casie Hair DO Primary Care Provider Active Start: March 28, 2025 Dr. Sawyer Daigle MD Emergency Provider Active S tart: March 28, 2025 Dr. Angel Moss DO Admit Provider Active Star t: March 28, 2025 Dr. Angel Moss DO Other Provider Active Star t: March 28, 2025 Dr. Michael Vera MD Other Provider Active St art: March 28, 2025 Dr. Aneesh Fine MD Attending Provider Active Start: March 28, 2025 Dr. Aneesh Fine MD Other Provider Active Start: March 28, 2025 Goals (unrecognized section and content) Goals [...] BE BASED ON THE PRIMARY CLINICAL RECORDS. [employer] provides no warranty or guarantee of the accuracy or completeness of information in this document.
[2025-03-30 15:06] LABS: AST(SGOT) 72 U/L (<=31); Alanine Aminotransfer ALT/SGPT 63 U/L (<=34); Albumin, Serum 3.1 g/dL (3.4-4.8); Alkaline Phosphatase 246 U/L (35-104); Anion Gap 14 (5-15); BUN 19 mg/dL (4-19); Bilirubin, Direct 0.56 mg/dL (0.00-0.30); Calcium,Total 9.4 mg/dL (7.6-11.0); Carbon Dioxide 26.8 mmol/L (21.0-32.0); Chloride 86 mmol/L (98-108); Creatinine, Serum 0.67 mg/dL (0.70-1.20); EST Glomerular Filtration Rate 98 (>60); Globulin 3.5 g/dL (2.2-4.2); Glucose 93 mg/dL (70-99); Iron 24 ug/dL (50-170); Iron Binding Capacity,Unsat 165 ug/dL (228-428); LDH 214 U/L (84-246); Potassium 3.3 mmol/L (3.3-5.1); Protein, Total 6.6 g/dL (5.9-8.4); Sodium Level 127 mmol/L (133-145); Total Bilirubin 0.88 mg/dL (0.00-1.30)
[2025-03-30 15:50] LABS: Ferritin 1759 ng/mL (22-378); Pro- Brain NATRIURETIC PEPTIDE 3133 pg/mL (<=900); Troponin T High Sensitivity 41 ng/L (<=14); Vitamin B12 885 pg/mL (180-914)
[2025-03-30 16:32] LABS: Iron Binding Capacity,Total 189 ug/dL (250-450); PERCENT IRON SATURATION 12.7 % (13-59)
[2025-03-31 14:08] LABS: ANTINUCLEAR ANTIBODIES DIRECT Negative (Negative); Anti-Mitochondrial AB <20.0 Units (0.0-20.0)
[2025-04-01 16:09] LABS: Anti-Smooth Muscle ABS 6 Units (0-19); GGTP 143 IU/L (0-60); Haptoglobin 703 mg/dL (37-355); PROEL- A/G Ratio 0.6 (0.7-1.7); PROEL- Albumin 2.2 g/dL (2.9-4.4); PROEL- Alpha-1 Globulin 0.6 g/dL (0.0-0.4); PROEL- Alpha-2 Globulin 1.4 g/dL (0.4-1.0); PROEL- Beta Globulin 0.9 g/dL (0.7-1.3); PROEL- Gamma Globulin 0.7 g/dL (0.4-1.8); PROEL- Globulin, Total 3.6 g/dL (2.2-3.9); PROEL- TOTAL PROTEIN 5.8 g/dL (6.0-8.5); PROEL-M-Spike Not Observed g/dL (Not Observed); PROELU- Albumin, Urine 16.5 % (.); PROELU- Alpha-1-Globulin,Ur 7.9 % (.); PROELU- Alpha-2-Globulin,Ur 17.8 % (.); PROELU- Beta Globulin, Ur 44.3 % (.); PROELU- Gamma Globulin, Ur 13.5 % (.); Total Protein, Ur 8.4 mg/dL (Not Estab.); Transferrin 162 mg/dL (192-364)
== END | disposition home or self-care (01) ==
LOC: MTLAB 10:27
PROVIDERS: PCP Internal Medicine; Referring Provider Internal Medicine; Visit Provider Internal Medicine
DX: J90 Pleural effusion, not elsewhere classified (principal); I50.9 Heart failure, unspecified; R05.9 Cough, unspecified; D64.9 Anemia, unspecified; E87.1 Hypo-osmolality and hyponatremia; R74.8 Abnormal levels of other serum enzymes; R79.89 Other specified abnormal findings of blood chemistry; R52 Pain, unspecified
CPT/HCPCS: 36415; 71046; 80048; 80076; 82390; 82607; 82728; 82977; 83010; 83516; 83540; 83550; 83615; 83880; 84165; 84166; 84466; 84484; 85025; 85045; 85652; 86038; 86140

== ENCOUNTER → 2025-04-06 | Outpatient (CLI) | payer SELFPAY ==
[2025-04-06 11:22] LABS: Erythrocyte Sedimentation Rate 104 mm/hr (0-30)
[2025-04-06 11:24] LABS: Absolute Neutrophil Count 7.2 X10^3/uL (2.0-7.7); Basophil# 0.04 X10^3/uL; Basophil% 0.4 % (0-1); Eosinophil# 0.16 X10^3/uL; Eosinophils% 1.4 % (0-5); Hematocrit 28.2 % (37-47); Hemoglobin 9.4 g/dL (12.0-15.0); Lymphocyte % 21.2 % (19-41); Mean Corp Hgb Conc 33.3 g/dL (32-36); Mean Corpuscular Hgb 28.7 pg (27.0-32.0); Mean Platelet Vol. 8.6 fl (6.2-12.0); Monocyte# 1.29 X10^3/uL; Monocyte% 11.4 % (0-10); NRBC Flagged by Analyzer 0 % (0-5); Neutrophil % 63.7 % (47-70); POSITIVE COUNT YES; Platelet Count 956 K/mm3 (150-450); RBC Distribution Width CV 14.6 % (11.6-14.6); RBC Distribution Width SD 45.7 fl (35.1-43.9); Red Blood Count 3.28 M/mm3 (4.2-5.4); White Blood Count 11.3 K/mm3 (4.4-11.0)
[2025-04-06 11:31] LABS: Differential Indicated SCAN CRITERIA MET
[2025-04-06 12:02] LABS: Platelet Estimate MKD INC (ADEQ)
[2025-04-06 12:04] LABS: Pathologist Review May foll
[2025-04-06 12:23] LABS: Rubella IgG REAC (Nonreactive)
[2025-04-07 13:08] LABS: ANTINUCLEAR ANTIBODIES DIRECT Negative (Negative); Anti-dsDNA Ab 2 IU/mL (0-9); SJOGREN'S Anti-SS-A test < 0.2 AI (0.0-0.9); SJOGREN'S Anti-SS-B test < 0.2 AI (0.0-0.9)
[2025-04-08 11:08] LABS: Angiotensin Convert Enzyme 54 U/L (14-82); Anti-Smooth Muscle ABS 5 Units (0-19); CCP IgG Antibodies 6 units (0-19); Cytoplasmic Ab (C-ANCA) <1:20 titer (Neg:<1:20); Perinuclear Ab (P-ANCA) <1:20 titer (Neg:<1:20)
== END | disposition home or self-care (01) ==
PROVIDERS: PCP Internal Medicine; Referring Provider Internal Medicine Pulmonary Disease; Visit Provider Internal Medicine Pulmonary Disease
DX: R06.00 Dyspnea, unspecified (principal)
CPT/HCPCS: 36415; 82164; 83516; 85025; 85652; 86037; 86038; 86140; 86200; 86225; 86235; 86762

== ENCOUNTER → 2025-04-08 | Outpatient (CLI) | payer SELFPAY ==
[2025-04-08 10:29] LABS: Bacteria 0 SEEN /hpf (None Seen); Mucous, Urine 0 SEEN /hpf (<or=2+); Red Blood Cells-Urine 0 SEEN /hpf (0-5)
[2025-04-08 11:26] LABS: Absolute Lymphocyte Count 2.68 X10^3/uL (0.83-4.51); Absolute Neutrophil Count 6.3 X10^3/uL (2.0-7.7); Basophil# 0.03 X10^3/uL; Basophil% 0.3 % (0-1); Eosinophil# 0.04 X10^3/uL; Eosinophils% 0.4 % (0-5); Hematocrit 29.7 % (37-47); Hemoglobin 9.7 g/dL (12.0-15.0); Lymphocyte # 2.68 X10^3/ul (0.83-4.51); Lymphocyte % 26.8 % (19-41); Mean Corp Hgb Conc 32.7 g/dL (32-36); Mean Corpuscular Hgb 28.6 pg (27.0-32.0); Mean Corpuscular Volume 87.6 fL (81-99); Mean Platelet Vol. 8.5 fl (6.2-12.0); Monocyte# 0.86 X10^3/uL; Monocyte% 8.6 % (0-10); NRBC Flagged by Analyzer 0 % (0-5); Neutrophil # 6.26 X10^3/uL (2.7-7.7); Neutrophil % 62.6 % (47-70); POSITIVE COUNT YES; RBC Distribution Width CV 15.1 % (11.6-14.6); RBC Distribution Width SD 48.3 fl (35.1-43.9); Red Blood Count 3.39 M/mm3 (4.2-5.4)
[2025-04-08 11:33] LABS: Color, Urine Yellow (Yellow); Glucose, Dipstick Normal (Normal); Ketone-Dipstick Negative (Negative); Leukocyte Esterase-Dipstick 100 /ul (Negative); Nitrite-Dipstick Negative (Negative); Occult Blood-Urine 10 /ul (Negative); Protein-Dipstick 15 mg/dl (Negative); Specific Gravity, Urine 1.015 (1.002-1.030); Urine Bilirubin Dipstick Negative (Negative); Urine Clarity Clear (Clear); Urine Urobilinogen Normal (Normal); Urine pH 6.5 (5.0 - 8.0)
[2025-04-08 11:38] LABS: Squamous Epithelial Cells - UA 0-5 SEEN /hpf (5-10)
[2025-04-08 11:39] LABS: White Blood Cells 0-5 SEEN /hpf (0-5)
[2025-04-08 11:40] LABS: Platelet Count 926 K/mm3 (150-450)
[2025-04-08 11:41] LABS: Differential Indicated SCAN CRITERIA MET
[2025-04-08 12:12] LABS: Urine Sodium 46 mmol/L (Not Establ.)
[2025-04-08 12:45] LABS: AST(SGOT) 21 U/L (<=31); Alanine Aminotransfer ALT/SGPT 45 U/L (<=34); Albumin, Serum 3.7 g/dL (3.4-4.8); Alkaline Phosphatase 160 U/L (35-104); Anion Gap 15 (5-15); BUN 20 mg/dL (4-19); BUN/Creat Ratio 27.9 RATIO (10-20); Bilirubin, Direct 0.36 mg/dL (0.00-0.30); Calcium,Total 10.1 mg/dL (7.6-11.0); Carbon Dioxide 23.2 mmol/L (21.0-32.0); Chloride 100 mmol/L (98-108); EST Glomerular Filtration Rate 97 (>60); Globulin 3.6 g/dL (2.2-4.2); Glucose 89 mg/dL (70-99); HIV Nonreactive (Nonreactive); Magnesium 2.5 mg/dL (1.5-2.2); Potassium 3.8 mmol/L (3.3-5.1); Protein, Total 7.3 g/dL (5.9-8.4); Sodium Level 137 mmol/L (133-145); Total Bilirubin 0.55 mg/dL (0.00-1.30)
[2025-04-08 13:05] LABS: Cholesterol 186 mg/dL (<=200); High Density Lipoprotein 45 mg/dL; Low Density Lipoprotein Calc. 120 mg/dL; Triglycerides 104 mg/dL; Very Low Density Lipoprotein 21 mg/dL (5-40); cholesterol:hdl ratio screen 4.12
[2025-04-08 13:09] LABS: Platelet Estimate MKD INC (ADEQ)
[2025-04-09 03:18] LABS: Osmolality, Urine 632 mOsm/KG
[2025-04-09 15:08] LABS: Cytoplasmic Ab (C-ANCA) <1:20 titer (Neg:<1:20); Perinuclear Ab (P-ANCA) <1:20 titer (Neg:<1:20)
== END | disposition home or self-care (01) ==
PROVIDERS: PCP Internal Medicine; Referring Provider Nurse Practitioner Acute Care; Visit Provider Nurse Practitioner Acute Care
DX: D75.839 Thrombocytosis, unspecified (principal); I50.9 Heart failure, unspecified; D72.829 Elevated white blood cell count, unspecified; E87.1 Hypo-osmolality and hyponatremia; D64.9 Anemia, unspecified; R06.00 Dyspnea, unspecified
CPT/HCPCS: 36415; 80048; 80061; 80076; 81001; 83735; 83935; 84300; 84443; 85025; 86037; 86703

== ENCOUNTER → 2025-04-12 | Outpatient (CLI) | payer SELFPAY ==
--- NOTE | 2025-04-12 09:40 | RAD_ITS ---
PROCEDURE: CHEST PA AND LATERAL; SPECIAL CXR (OBL/DECUB/A/L) 04/12/2025 REASON FOR EXAM: PA and lateral chest x-ray and both left and right lateral decubitus views of the chest performed (combined dictation). COMPARISON: Chest x-ray of 03/29/2020. RAD/Chest PA and Lateral IMPRESSION: A small free-flowing left pleural effusion is noted, with notably decreased in size since the prior exam 03/29/2025.. No right pleural effusion is seen. No pneumothorax is noted. No evidence of significant pulmonary edema. Chronic lung changes are seen, but no acute pneumonic process is otherwise evid ent. The cardiomediastinal silhouette is stable, without evidence of cardiomegaly. [id number] degenerative changes of the visualized spine are seen. No acute osseous change is evident. Reading Location: [place] [id number]
--- NOTE | 2025-04-12 09:50 | RAD_ITS ---
PROCEDURE: CHEST PA AND LATERAL; SPECIAL CXR (OBL/DECUB/A/L) 04/12/2025 REASON FOR EXAM: PA and lateral chest x-ray and both left and right lateral decubitus views of the chest performed (combined dictation). COMPARISON: Chest x-ray of 03/29/2020. RAD/Special CXR (Obl/Decub/A/L) IMPRESSION: A small free-flowing left pleural effusion is noted, with notably decreased in size since the prior exam 03/29/2025.. No right pleural effusion is seen. No pneumothorax is noted. No evidence of significant pulmonary edema. Chronic lung changes are seen, but no acute pneumonic process is otherwise evid ent. The cardiomediastinal silhouette is stable, without evidence of cardiomegaly. [id number] degenerative changes of the visualized spine are seen. No acute osseous change is evident. Reading Location: [place] [id number]
== END | disposition home or self-care (01) ==
PROVIDERS: PCP Internal Medicine; Referring Provider Internal Medicine Pulmonary Disease; Visit Provider Internal Medicine Pulmonary Disease
DX: R06.00 Dyspnea, unspecified (principal)
CPT/HCPCS: 71046

== ENCOUNTER → 2025-04-19 | Outpatient (CLI) | payer SELFPAY ==
[2025-04-19 15:04] LABS: CPK Total, Creatine Kinase 17 U/L (24-195); Pro- Brain NATRIURETIC PEPTIDE 380 pg/mL (<=900)
[2025-04-20 04:07] LABS: Myoglobin, Serum < 21 ng/mL (25-58)
== END | disposition home or self-care (01) ==
PROVIDERS: PCP Internal Medicine; Referring Provider Internal Medicine Pulmonary Disease; Visit Provider Internal Medicine Pulmonary Disease
DX: R06.00 Dyspnea, unspecified (principal)
CPT/HCPCS: 82550; 83874; 83880

== ENCOUNTER → 2025-05-18 | Outpatient (CLI) | payer SELFPAY ==
[2025-05-18 09:31] LABS: Hematocrit 37.9 % (37-47); Hemoglobin 11.8 g/dL (12.0-15.0); Mean Corp Hgb Conc 31.1 g/dL (32-36); Mean Corpuscular Volume 90.7 fL (81-99); Mean Platelet Vol. 8.8 fl (6.2-12.0); Platelet Count 290 K/mm3 (150-450); RBC Distribution Width CV 15.9 % (11.6-14.6); RBC Distribution Width SD 52.8 fl (35.1-43.9); Red Blood Count 4.18 M/mm3 (4.2-5.4); White Blood Count 7.4 K/mm3 (4.4-11.0)
[2025-05-18 11:44] LABS: CRP 15.70 mg/L (0.0-3.0)
[2025-05-18 11:57] LABS: AST(SGOT) 20 U/L (<=31); Alanine Aminotransfer ALT/SGPT 16 U/L (<=34); Albumin, Serum 4.1 g/dL (3.4-4.8); Alkaline Phosphatase 71 U/L (35-104); Bilirubin, Direct 0.25 mg/dL (0.00-0.30); Globulin 3.0 g/dL (2.2-4.2)
== END | disposition home or self-care (01) ==
PROVIDERS: PCP Internal Medicine; Referring Provider Internal Medicine Pulmonary Disease; Visit Provider Internal Medicine Pulmonary Disease
DX: R06.00 Dyspnea, unspecified (principal)
CPT/HCPCS: 36415; 80076; 85027; 85652; 86140

== ENCOUNTER → 2025-06-08 | Outpatient (CLI) | payer SELFPAY ==
--- NOTE | 2025-06-08 08:30 | MRI_ITS ---
PROCEDURE: BRAIN W/WO CONTRAST 06/08/2025 REASON FOR EXAM: SENSORINEURAL HEARING LOSS, RIGHT EAR TECHNIQUE: BRAIN W/WO CONTRAST Multiplanar and multisequence images were obtained. CONTRAST: Clariscan VOLUME: 13 mL COMPARISON: None. FINDINGS: There are no abnormal masses or abnormal contrast enhancement in either cerebellar pontine angle or internal auditory canal. There are multiple irregular foci of abnormal periventricular and subcortical white matter signal in both cerebral hemispheres. While these are consistent with chronic ischemic white matter disease, demyelinating disease can not be excluded. There is a normal sulcal pattern and gyral configuration. There is no evidence of acute intracranial hemorrhage or infarction. The jimenez-white differentiation is well preserved. There is no evidence of restricted diffusion. The ventricles and basilar cisterns are normal. There are normal flow voids demonstrated in the recognized intracranial vessels. The cerebellum and brainstem are unremarkable. The craniovertebral junction is normal. The sella and suprasellar regions are normal. There are bilateral intra-ocular lens implants. The orbits and retro-orbital regions are otherwise unremarkable. The nasal septum is deviated to the left. There is no significant paranasal sinus disease. The mastoid air cells are clear. There is normal bone marrow signal in the skull base and calvarium. MRI/Brain W/WO Contrast IMPRESSION: 1. There are multiple irregular foci of abnormal periventricular and subcortic al white matter signal in both cerebral hemispheres. While these are consistent with chronic ischemic white matter dis ease, demyelinating disease is not excluded. 2. There are no abnormal masses or abnormal areas of contrast enhancement in e ither cerebellar pontine angle or internal auditory canal. 3. Other findings as noted. Reading Location: [id number]
== END | disposition home or self-care (01) ==
PROVIDERS: PCP Internal Medicine
DX: H90.41 Sensorineural hearing loss, unilateral, right ear, with unrestricted hearing on the contralateral side (principal)
CPT/HCPCS: 70553; A9575

== ENCOUNTER → 2025-06-10 | Outpatient (CLI) | payer SELFPAY ==
[2025-06-10 13:44] LABS: Anion Gap 11 (5-15); BUN 21 mg/dL (4-19); BUN/Creat Ratio 24.2 RATIO (10-20); Calcium,Total 9.7 mg/dL (7.6-11.0); Carbon Dioxide 24.8 mmol/L (21.0-32.0); Chloride 103 mmol/L (98-108); Glucose 88 mg/dL (70-99); Potassium 4.0 mmol/L (3.3-5.1)
== END | disposition home or self-care (01) ==
PROVIDERS: PCP Internal Medicine; Referring Provider Internal Medicine Cardiovascular Disease; Visit Provider Internal Medicine Cardiovascular Disease
DX: I48.92 Unspecified atrial flutter (principal); I10 Essential (primary) hypertension
CPT/HCPCS: 36415; 80048

== ENCOUNTER → 2025-07-01 | Outpatient (CLI) | payer SELFPAY ==
[2025-07-01 10:50] LABS: Anion Gap 12 (5-15); BUN 23 mg/dL (4-19); BUN/Creat Ratio 25.8 RATIO (10-20); Calcium,Total 9.8 mg/dL (7.6-11.0); Carbon Dioxide 26.6 mmol/L (21.0-32.0); Chloride 101 mmol/L (98-108); Glucose 90 mg/dL (70-99); Potassium 3.9 mmol/L (3.3-5.1)
== END | disposition home or self-care (01) ==
PROVIDERS: PCP Internal Medicine; Visit Provider Internal Medicine Cardiovascular Disease
DX: I10 Essential (primary) hypertension (principal)
CPT/HCPCS: 36415; 80048